=== PATIENT | male | born 1955 | race Caucasian/White ===

== ENCOUNTER → 2016-08-09 | Outpatient (CLI) | payer BC ==
--- NOTE | 2016-08-09 11:51 | CTL ---
EXAMINATION TYPE: CT Low Dose Lung DATE OF EXAM ORDERED: 08/09/2016 9:35 AM HISTORY: Long-term tobacco use. Lung cancer screening CT DLP: 86.[address] CTDI: 2.4 mGy Automated exposure control for dose reduction was used. SCREENING VISIT: Initial COMPARISON: None TECHNIQUE: Low dose computed tomography scan was performed through the chest at 1 mm thick sections a nd reconstructed images in the coronal plane at [address] DIAGNOSTIC QUALITY: Satisfactory FINDINGS: LUNG NODULES: None. LUNGS: COPD: Severity: Mild to borderline moderate Fibrosis: Severity: Minimal bilateral apical scarring. Moderate left basilar linear scarring. Lymph nodes: Some scattered subcentimeter lymph nodes. Other findings: No additional significant findings seen. BILATERAL PLEURAL SPACE: Effusion: None Calcification: None Thickening: None Pneumothorax: None Slightly elevated left hemidiaphragm noted. HEART: Heart Size: Normal Coronary calcification: Moderate to severe calcification and/or coronary stent mid to distal segment RCA and proximal LAD, clinical correlation advised. Pericardial effusion: None Moderate calcifications at level of mitral valve are noted. OTHER FINDINGS: Upper abdomen: Liver is isodense to slightly hypodense relative to spleen consistent with diffuse fat ty infiltration. Bony thorax: Mild multilevel anterior spurring. Vacuum disc phenomenon in mid to lower thoracic level s is present. Supraclavicular region: No significant abnormality is seen. Other: There is left-sided aortic arch with aberrant right subclavian running posterior to the esopha ashley. Ascending aorta measures 3.4 cm in diameter on axial image 117. Descending aorta measures 3.2 cm in diameter on same image. Main pulmonary artery is not dilated. IMPRESSION: No suspicious nodules are identified. FOLLOW UP CT CHEST RECOMMENDATION: Annual low-dose lung screening CT CT LUNG RAD: 1-negative study Incidental findings as noted above.
== END | disposition home or self-care (01) ==
LOC: RADCTMAIN 09:09
PROVIDERS: ATTEND Family Medicine
DX: Z12.2 Encounter for screening for malignant neoplasm of respiratory organs (principal); Z87.891 Personal history of nicotine dependence

== ENCOUNTER → 2016-10-26 | Outpatient (CLI) | payer BC | END | disposition home or self-care (01) | LOC: CPPFTMAIN 13:13 | PROVIDERS: ATTEND Family Medicine | DX: J44.9 Chronic obstructive pulmonary disease, unspecified (principal) | CPT/HCPCS: 94060; 94726; 94729 ==

== ENCOUNTER → 2022-03-08 | Outpatient (CLI) | payer MEDICARE, BC ==
--- NOTE | 2022-03-09 01:34 | MR ---
EXAMINATION TYPE: MR lumbar spine wo con DATE OF EXAM: 03/08/2022 COMPARISON: None HISTORY: Lower back pain, radiates into buttocks x 2 years. Hx prostate cancer. Multiplanar multiecho imaging of the lumbar spine without contrast. The vertebra have normal alignment. There is degenerative disc space narrowing at L2-3 and L3-4. Ther e is increased signal on both sides of the L2-3 disc on the STIR images consistent with edema. No annette dence of any significant increased fluid signal in the L2-3 disc. Sacroiliac joints are normal. No lumbar paraspinal mass. The posterior elements are intact. There is multilevel posterior small disc herniations from T12 through the L4 vertebra. There is developmentall y adequate spinal canal and no spinal stenosis. No compression deformity. The lumbar neural foramina are fairly well-maintained. There is a small lateral disc herniation at L2-3 on the right side. There is edema extending into the pedicle of L5 on the right side. IMPRESSION: There is edema in the L2 and L3 vertebral bodies adjacent to the disc. There is disc space narrowing. No increased fluid in the distal suggest discitis. This could be sequela of chronic discitis. There is edema extending into the right-sided pedicle of L3. Metastatic disease is not excluded. There is r ight-sided L2-3 neural foraminal narrowing with small lateral disc herniation.
== END | disposition home or self-care (01) ==
LOC: RADMRIMAIN 21:40
PROVIDERS: ATTEND Family Medicine
DX: M54.50 Low back pain, unspecified (principal)
CPT/HCPCS: 72148

== ENCOUNTER → 2023-05-26 | Outpatient (CLI) | payer MEDICARE, BC ==
--- NOTE | 2023-05-30 17:07 | PE ---
EXAMINATION TYPE: PET CT fusion skull to thigh DATE OF EXAM: 05/26/2023 COMPARISON: No recent CT. Prior PET/CT: None HISTORY: Prostate cancer TECHNIQUE: Following the intravenous administration of 5.97 mCi gallium PSMA whole body images are p erformed from the skull base to the midthigh. Images are reviewed on the computer in the coronal, ax ial, and sagittal planes. Reconstructed rotating images are created on independent workstation and r eviewed on the computer. A localization and attenuation correction CT is performed in conjunction w ith the PET scan. DLP: 1034.98 mGycm SCAN: Subsequent Blood glucose: Not applicable mg/dL FINDINGS: NECK: Normal uptake within the salivary glands. THORAX: No abnormal uptake. There is some minimal signal in the left supra hilar region. This is nonspecific. ABDOMEN: Normal excretion through the kidneys. Left ureter appears to be visualized PELVIS: No abnormal uptake OSSEOUS STRUCTURES: No abnormal uptake LOCALIZATION CT: Endplate changes and sclerosis are present at L2-L3. COMPARISON: None IMPRESSION: 1. No suspicious uptake to suggest recurrent or metastatic prostate cancer.
== END | disposition home or self-care (01) ==
LOC: RADPETMAIN 08:33
PROVIDERS: ATTEND Internal Medicine
DX: C61 Malignant neoplasm of prostate (principal)
CPT/HCPCS: 78815; A9596

== ENCOUNTER → 2023-10-11 | Outpatient (CLI) | payer MEDICARE, BC ==
[2023-10-11 14:50] LABS: African American GFR (CKD) >90 (>60 ml/min/1.73 sqM); Blood Urea Nitrogen 18 mg/dL (9-20); Non-African American GFR(CKD) 82 (>60 ml/min/1.73 sqM)
--- NOTE | 2023-10-11 15:48 | CT ---
EXAMINATION TYPE: CT angio chest CT DLP: 1037.2 mGycm, Automated exposure control for dose reduction was used. DATE OF EXAM: 10/11/2023 3:37 PM COMPARISON: Pet/CT 05/26/2023 CLINICAL INDICATION:Male, 68 years old with history of I35.0 NONRHEUMATIC AORTIC (VALVE) STENOSIS; NO NRHEUMATIC AORTIC (VALVE) STENOSIS TECHNIQUE/CONTRAST: CTA scan of the thorax is performed with IV Contrast, patient injected with 100ml mL of Isovue 370, M IP images are created and reviewed these are created on a separate workstation.. FINDINGS: Lungs/Pleura: No evidence of focal consolidation, pleural effusion or pneumothorax. Streaky atelectas is in the lung bases. Airway: Large airways are patent. Streaky atelectasis in the lung bases. Heart: Heart is within normal limits for size. Moderate to severe aortic valve calcifications. Cervic al secretions of the aorta. Vasculature: No evidence for intramural hematoma on noncontrast imaging. No evidence of intimal flap to suggest dissection. No aneurysm identified. Scattered atherosclerotic disease. There is a retroaor tic esophageal course of the right subclavian artery. There is a 5 vessel aortic arch which is an billy tomic variant. Mediastinum: No gross evidence of adenopathy. Musculoskeletal: No acute osseous abnormalities Soft Tissues: Unremarkable. Lower neck: No significant findings. Upper Abdomen: No significant findings. IMPRESSION: 1. Severe aortic valve consultations. 2. Severe coronary artery cusp patient's. 3. Anatomic variant 5 vessel aortic arch with retroesophageal course of the right subclavian artery.
== END | disposition home or self-care (01) ==
LOC: RADCTMAIN 14:06
PROVIDERS: ATTEND Internal Medicine Interventional Cardiology
DX: I35.0 Nonrheumatic aortic (valve) stenosis (principal); Q25.49 Other congenital malformations of aorta
CPT/HCPCS: 82565; 84520; 71275; 36415; Q9967

== ENCOUNTER → 2024-06-05 | Outpatient (CLI) | payer MEDICARE, BC ==
--- NOTE | 2024-06-05 12:25 | NM ---
EXAMINATION TYPE: NM bone scan whole body DATE OF EXAM: 06/05/2024 COMPARISON: Correlation PET/CT 05/26/2023 CLINICAL INDICATION: Male, 69 years old with history of C61 MALIGNANT NEOPLASM OF PROSTATE; TECHNIQUE: Delayed whole-body scanning was performed following the injection of 22.5 mCi Tc 99m MDP. Images acquired 3 hours post injection. FINDINGS: There is some degenerative tracer activity at the sternoclavicular joints, right greater than left, l ikely at the right TMJ, and within the mid lumbar spine. Some degenerative tracer activity also sugge sted at the SI joints and medial compartment of the right knee. No suspicious distribution of tracer is identified. IMPRESSION: Scattered degenerative tracer activity as outlined above. No scintigraphic evidence for o sseous metastatic disease. [facility], , 06/05/2024 12:23 PM
== END | disposition home or self-care (01) ==
LOC: RADNMMAIN 07:06
PROVIDERS: ATTEND Urology
DX: C61 Malignant neoplasm of prostate (principal)
CPT/HCPCS: 78306; A9503

== ENCOUNTER → 2024-06-19 | Outpatient (CLI) | payer MEDICARE, BC ==
--- NOTE | 2024-06-19 07:59 | MR ---
EXAMINATION TYPE: MR Prostate wo/w con DATE OF EXAM: 06/19/2024 7:41 AM COMPARISON: Bone scan 06/05/2024 CLINICAL INDICATION: Male, 69 years old with history of C61 elevated PSA; Prostate cancer reoccurrenc e, Elevated PSA TECHNIQUE: Multi-planar, multi-sequence imaging of the pelvis is performed prior to and following the uncomplicated administration of bolus intravenous gadolinium. IV Contrast: 11 mL Gadobutrol Interpretive Criteria: PI-RADS v2.1 SERUM PSA: 10/2023=9.31 03/2024 15.30 SURGICAL PATHOLOGY: No data available. FINDINGS: Prostatic dimensions: 4.3 x 3.4 x 2.3 cm cm. "Bullet" Volume:22.01 (PSA density=0.70 ng/mL/mL) CENTRAL GLAND (Central and Transition Zones/CZ+TZ): Multiple bilateral, heterogenous appearing hypertrophic stromal nodules, without suspicious lesion. M edian lobe hypertrophy with protrusion into the base of the bladder. (PI-RADS 2) PERIPHERAL ZONE (PZ): Bilateral linear, indistinct wedgelike areas of low ADC, and low T2 signal, No evidence of masslike a bnormality, or localized perfusional hypervascularity, to further suggest a focus of clinically signi ficant prostate cancer. (PI-RADS 2) SEMINAL VESICLES (SV): Symmetric and unremarkable. PERIPROSTATIC TISSUES: Unremarkable. LYMPH NODES: No enlarged pelvic lymph node. REMAINING PELVIS: Bladder wall is within normal limits given distention. No abnormal free or organized intrapelvic fluid collection. No pathologic bowel dilation or mural thickening. Colonic diverticula are present. No hernia visualized OSSEOUS STRUCTURES: No suspicious osseous abnormality. IMPRESSION: 1. No specific features for high-risk prostate cancer. Maximum PI-RADS score: 2. 2. Estimated gland volume 22.01 mL. 3. No suspicious osseous lesion. No lymphadenopathy. No evidence of prostate adenocarcinoma involving the periprostatic tissues. [facility], , 06/19/2024 7:57 AM
== END | disposition home or self-care (01) ==
LOC: RADMRIMAIN 06:37
PROVIDERS: ATTEND Urology
DX: C61 Malignant neoplasm of prostate (principal); K57.30 Diverticulosis of large intestine without perforation or abscess without bleeding
CPT/HCPCS: 72197; A9585

== ENCOUNTER 2024-11-20 22:25 | Inpatient (IN) | payer MEDICARE, BC ==
[2024-11-20 23:03] LABS: Basophils # (A) 0.05 10*3/uL (0.00-0.10); Basophils % (A) 0.7 %; Eosinophils # (A) 0.14 10*3/uL (0.04-0.35); HCT 40.1 % (39.6-50.0); Lymphocytes # (A) 2.33 10*3/uL (0.90-5.00); Lymphocytes % (A) 33.4 %; MCHC 34.9 g/dL (32.0-37.0); MCV 91.8 fL (80.0-97.0); Mean Platelet Volume 9.3 fL (9.5-12.2); Monocytes # (A) 0.99 10*3/uL (0.20-1.00); Monocytes % (A) 14.2 %; Neutrophils # (A) 3.46 10*3/uL (1.80-7.70); Neutrophils % (A) 49.6 %; Platelet Count 212 10*3/uL (140-440); RBC 4.37 10*6/uL (4.40-5.60); RDW 13.6 % (11.5-14.5); WBC 6.98 10*3/uL (4.50-10.00)
[2024-11-20 23:17] LABS: ALT 46 U/L (4-49); AST 43 U/L (17-59); African American GFR (CKD) 77 (>60 ml/min/1.73 sqM); Albumin 4.4 g/dL (3.5-5.0); Alkaline Phosphatase 64 U/L (38-126); Anion Gap 12 mmol/L; Blood Urea Nitrogen 21 mg/dL (9-20); Calcium 9.9 mg/dL (8.4-10.2); Carbon Dioxide 24 mmol/L (22-30); Chloride 100 mmol/L (98-107); Glucose 155 mg/dL (74-99); Magnesium 1.9 mg/dL (1.6-2.3); Non-African American GFR(CKD) 66 (>60 ml/min/1.73 sqM); Potassium 3.3 mmol/L (3.5-5.1); Sodium 136 mmol/L (137-145); Total Bilirubin 0.6 mg/dL (0.2-1.3); Total Protein 7.5 g/dL (6.3-8.2)
[2024-11-20] MEDS: SODIUM CHLORIDE 0.9% 1,000 ML IV STA (23:19)
[2024-11-20] MEDS: ASPIRIN 81 MG PO STA (23:19)
[2024-11-20 23:26] LABS: NT-Pro-B-Type Natriuretic Pept 150 pg/mL
--- NOTE | 2024-11-20 23:28 | ED ---
Chest Pain HPI - General Chief Complaint: Chest Pain Stated Complaint: chest pain Time Seen by Provider: 11/20/24 22:38 Source: patient, RN notes reviewed Mode of arrival: ambulatory Limitations: no limitations - History of Present Illness Initial Comments: 69-year-old male presents emergency department complaint of chest pain. Patient states he has been having some on and off symptoms but became more worrisome today. Patient states that currently the pain has resolved but states feels like behind his heart. Patient does admit that he had stents placed in [address] Paredes. Patient states that he had a stress test last year he has not had a recent catheterization. Patient states he does feel lightheaded, dizzy, shortness of breath with the symptoms. Patient states there are some exertional symptoms and features. The usual. - Related Data Allergies Allergy/AdvReac Type Severity Reaction Status Date / Time No Known Allergies Allergy Verified 11/20/24 22:33 Review of Systems ROS Statement: Those systems with pertinent positive or pertinent negative responses have been documented in the HPI. ROS Other: All systems not noted in ROS Statement are negative. EKG Findings - EKG Comments: EKG Findings:: EKG performed at 22: 44 sinus bradycardia with prescribed back rate of 47 [place] 215 QRS 116 QT/QTc 444/[address] elevation there is i nverted T wave in lead III - EKG Results: EKG: interpreted by NORA Past Medical History Past Medical History: Diabetes Mellitus Additional Past Medical History / Comment(s): Prostate cancer History of Any Multi-Drug Resistant Organisms: None Reported Past Anesthesia/Blood Transfusion Reactions: No Reported Reaction Past Psychological History: No Psychological Hx Reported Smoking Status: Former smoker Past Drug Use History: None Reported General Exam Limitations: no limitations General appearance: alert, in no apparent distress Head exam: Present: atraumatic, normocephalic, normal inspection Eye exam: Present: normal appearance, PERRL, EOMI. Absent: scleral icterus, conjunctival injection, periorbital swelling ENT exam: Present: normal exam, normal oropharynx, mucous membranes moist Neck exam: Present: normal inspection, full ROM. Absent: tenderness, meningismus, lymphadenopathy Respiratory exam: Present: normal lung sounds bilaterally. Absent: respiratory distress, wheezes, rales, rhonchi, stridor Cardiovascular Exam: Present: normal rhythm, bradycardia, normal heart sounds. Absent: systolic murmur, diastolic murmur, rubs, gallop, clicks GI/Abdominal exam: Present: soft, normal bowel sounds. Absent: distended, tenderness, guarding, rebound, rigid Extremities exam: Present: normal capillary refill, other (Pedal pulses equal bilaterally). Absent: pedal edema, calf tenderness Neurological exam: Present: alert, oriented X3 Course Vital Signs 11/20/24 11/21/24 22:28 00:20 Temperature 97.6 F Pulse Rate 44 L 53 L Respiratory 18 16 Rate Blood Pressure 89/53 101/66 O2 Sat by Pulse 98 Oximetry Chest Pain MDM - MDM Was pt. sent in by a medical professional or institution (, PA, MUSIC INTERN, urgent care, hospital, or custodial...) When possible be specific @ -No Did you speak to anyone other than the patient for history (EMS, parent, family, police, friend...)? What history was obtained from this source @ -No Did you review nursing and triage notes (agree or disagree)? Why? @ -I reviewed and agree with nursing and triage notes Were old charts reviewed (outside hosp., previous admission, EMS record, old EKG, old radiological studies, urgent care reports/EKG's, custodial records)? Report findings @ -No old charts were reviewed Differential Diagnosis (chest pain, altered mental status, abdominal pain women, abdominal pain men, vaginal bleeding, weakness, fever, dyspnea, syncope, headache, dizziness, GI bleed, back pain, seizure, CVA, palpatations, mental health, musculoskeletal)? @ -Differential Chest Pain: Stable Angina, Unstable Angina, STEMI, NSTEMI Aortic Dissection, Pneumothorax, Musculoskeletal, Esophageal Spasm GERD, Cholecystitis, Pancreatitis, Zoster, this is not meant to be an all-inclusive list. EKG interpreted by me (3pts min.). @ -As above X-rays interpreted by me (1pt min.). @ -Chest x-ray shows no acute cardiopulmonary process. CT interpreted by me (1pt min.). @ -None done U/S interpreted by me (1pt. min.). @ -None done What testing was considered but not performed or refused? (CT, X-rays, U/S, labs)? Why? @ -None What meds were considered but not given or refused? Why? @ -None Did you discuss the management of the patient with other professionals (professionals i.e. DrMary, PA, MUSIC INTERN, lab, RT, psych nurse, social work manager, orthopedic dentist, teacher, protocol officer, medical case worker)? Give summary @ -Dr. Narayanan for admission Was smoking cessation discussed for >3mins.? @ -No Was critical care preformed (if so, how long)? @ -35 minutes Were there social determinants of health that impacted care today? How? (Homelessness, low income, unemployed, alcoholism, drug addiction, transportation, low edu. Level, literacy, decrease access to med. care, prison, rehab)? @ -No Was there de-escalation of care discussed even if they declined (Discuss DNR or withdrawal of care, Hospice)? DNR status @ -No What co-morbidities impacted this encounter? (DM, HTN, Smoking, COPD, CAD, Cancer, CVA, ARF, Chemo, Hep., AIDS, mental health diagnosis, sleep apnea, morbid obesity)? @ -None Was patient admitted / discharged? Hospital course, mention meds given and route, prescriptions, significant lab abnormalities, going to OR and other pertinent info. @ -Admitted patient presented for chest pain has been intermittent worsening type symptoms. Patient did not initially feel improved since initial troponin 0.4. Patient was started on heparin, provided to aspirin as he took 2 baby aspirin at home. Patient has Nitropaste applied. Patient will be mated for repeat cardiac enzymes, cardiology evaluation and further testing. Undiagnosed new problem with uncertain prognosis? @ -No Drug Therapy requiring intensive monitoring for toxicity (Heparin, Nitro, Insulin, Cardizem)? @ -No Were any procedures done? @ -No Diagnosis/symptom? @ -NSTEMI Acute, or Chronic, or Acute on Chronic? @ -Acute Uncomplicated (without systemic symptoms) or Complicated (systemic symptoms)? @ -Complicated Side effects of treatment? @ -No Exacerbation, Progression, or Severe Exacerbation? @ -No Poses a threat to life or bodily function? How? (Chest pain, [place], [place], pneumonia, PE, COPD, DKA, ARF, appy, cholecystitis, CVA, Diverticulitis, Homicidal, Suicidal, threat to staff... and all critical care pts) @ -Yes risk to cardiac function Critical Care Time Critical Care Time: Yes Total Critical Care Time: 35 Disposition Clinical Impression: Acute non-ST elevation myocardial infarction (NSTEMI) Disposition: ADMITTED IP TO THIS HOSP Condition: Serious Referrals: Artemio Sevilla Jr, [Primary Care Provider] - 1-2 days Time of Disposition: 00:47
[2024-11-20 23:31] LABS: Prothrombin Time 10.7 sec (10.0-12.5)
[2024-11-21] MEDS: HEPARIN SODIUM 1,000 UN/ML (10ML VL) IV ONE ×2 (00:23→11:28)
[2024-11-21] MEDS: HEPARIN SOD,PORK IN 0.45% NACL 25,000 UNIT in 0.45% NACL 1 250ML.BAG IV SCH (00:23)
[2024-11-21] MEDS: POTASSIUM CHLORIDE ER 20 MEQ TAB.ER PO STA (00:24)
[2024-11-21 00:28] LABS: Partial Thromboplastin Time 21.2 sec (22.0-30.0)
[2024-11-21] MEDS: NITROGLYCERIN OINT 1 INCH/GM PACKET TOPICAL STA (00:34)
[2024-11-21] MEDS ORDERED: NITROGLYCERIN SL TABS 0.4 MG TAB SUBLINGUAL PRN ×2 (00:47→20:21)
--- NOTE | 2024-11-21 01:35 | XR ---
EXAM: XR Chest, 2 Views CLINICAL HISTORY: XR Reason: Chest Pain TECHNIQUE: Frontal and lateral views of the chest. COMPARISON: CT scan from 10/11/2023 FINDINGS: Lungs: Small amount of thin linear scarring or atelectasis in the left lung base. The lungs are otherwise clear. No acute appearing infiltrate or consolidation is identified. Pleural space: Unremarkable. No pneumothorax. Heart: Unremarkable. No cardiomegaly. Mediastinum: Unremarkable. Normal mediastinal contour. Bones/joints: Mild degenerative changes in the lower thoracic spine. No acute fracture. Upper abdomen: Unremarkable as visualized. No pneumoperitoneum under the diaphragm. IMPRESSION: Small amount of thin linear scarring or atelectasis in the left lung base. The lungs are otherwise clear. No acute appearing infiltrate or consolidation is identified.
[2024-11-21] MEDS: HEPARIN SODIUM 1,000 UN/ML (10ML VL) IV PRN (06:59)
[2024-11-21] MEDS: ASPIRIN 325 MG TAB PO STA (08:16)
[2024-11-21] MEDS: ATORVASTATIN 80 MG TAB PO STA (08:16)
[2024-11-21] MEDS: SODIUM CHLORIDE 0.9% 1,000 ML IV SCH ×2 (08:20→12:00)
[2024-11-21] MEDS: IV FLUID CONTINUATION 1,000 ML IV ONE (11:08)
[2024-11-21] MEDS: HEPARIN SODIUM (1,000 UNIT/ML) 1,000 UNIT in SODIUM CHLORIDE 0.9% 1,000 ML IRRIGATION ONE (11:08)
[2024-11-21] MEDS: HEPARIN SODIUM,PORCINE (1 ML) 2,500 UNIT in SODIUM CHLORIDE 0.9% 250 ML IRRIGATION ONE (11:08)
[2024-11-21] MEDS: MIDAZOLAM 2 MG/2 ML VIAL IVP ONE (11:20)
[2024-11-21] MEDS: LIDOCAINE 1% INJ 10MG/ML (20 ML MDV) SQ ONE (11:24)
[2024-11-21] MEDS: VERAPAMIL SYRINGE (5 MG/10 ML) INTRAARTER ONE (11:25)
[2024-11-21] MEDS: IOPAMIDOL-370 100ML BTL INJ ONE (11:41)
--- NOTE | 2024-11-21 12:33 | P.CRDCN ---
History of Present Illness Consult date: 11/21/24 Reason for Consult (text): NSTEMI History of present illness: This is a 69-year-old male patient of Dr. DOROTEO Paredes with past medical history of coronary artery disease prior PCI of the right coronary artery, moderate to severe aortic stenosis, hypertension, hyperlipidemia, family history of premature coronary artery disease. We have been asked to evaluate the patient for NSTEMI. Patient presented to the hospital due to chest pain that had been on and off all day yesterday. He has no chest pain at the time of this evaluation. He denies shortness of breath, no palpitations. Blood pressure 109/68, heart rate 57, pulse ox 99% on room air. Dr. Les randhawa discussed with patient the recommendations for cardiac catheterization and he is agreeable to move forward with this today. -EKG: Sinus bradycardia with first-degree block -Chest x-ray: Small amount of thin linear scarring or atelectasis in the left lung base. -Laboratory studies: Troponin 0.409, 1.8, 3.37. proBNP 150. D-dimer 0.41. Sodium 136, potassium 3.3, BUN 21 creatinine 1.13. WBC 6.9 and hemoglobin 14. -Home cardiac medications according to office note dated 09/12/2024: Aspirin 81 mg daily, Jardiance 10 mg daily, Lipitor 40 mg daily, losartan 25 mg daily, metoprolol tartrate 50 mg twice daily. -Echocardiogram performed in the office revealed EF of 55%, moderate aortic stenosis. Mild mitral regurgitation. Mild tricuspid regurgitation. Normal PASP. Mild pulmonic regurgitation. -Cardiolite stress test performed in the office in 08/23/2022 revealed fair exercise capacity with negative stress test by EKG criteria. Small and area of septal partially reversible mild intensity defect which may be an artifact or small area of ischemia in the inferior wall. EF is normal. -Cardiac catheterization performed in 2007 revealed superdominant right coronary artery with critical mid lesion. Stenting with 2 drug-eluting stents was performed. Left system did not have any significant disease. -CT chest performed 10/11/2023 revealed severe aortic valve calcification. No aneurysm. Review Of Systems: At the time of my exam: CONSTITUTIONAL: Denies fever or chills. HEENT: Denies blurred vision, vision changes, or eye pain. Denies hemoptysis CARDIOVASCULAR: Denies chest pain. Denies orthopnea. Denies PND. Denies palpitations RESPIRATORY: Denies shortness of breath. GASTROINTESTINAL: Denies abdominal pain. Denies nausea or vomiting. HEMATOLOGIC: Denies bleeding disorders. GENITOURINARY: Denies any blood in urine. SKIN: Denies puritis. Denies rash. Physical examination: Gen: This is 69-year-old male in no acute distress VS: reviewed HEENT: Head is atraumatic, normocephalic. Pupils equal, round. Sclerae is anicteric. NECK: Supple. No JVD. LUNGS: Clear to auscultation. No wheezes or rhonchi. No intercostal retractions. HEART: Regular rate and rhythm. 2/6 AGNIESZKA. ABDOMEN: Soft No tenderness. EXTREMITIES: No pedal edema. No calf tenderness. NEUROLOGICAL: Patient is awake, alert and oriented x3. Assessment: NSTEMI History of coronary artery disease with prior PCI of the RCA Moderate to severe aortic stenosis Hypertension Hyperlipidemia Plan: Resume patient's home cardiac medications Continue Heparin gtt Obtain Limited 2-D echocardiogram and Doppler study to assess cardiac function Schedule patient for [facility] today with Dr. Reggie DYE Start IVF NS at 75cc/h Further recommendations to follow based upon clinical course Thank you kindly for this consultation. Nurse practitioner note has been reviewed, I agree with documented findings and plan of care. Patient was seen and examined. Past Medical History Past Medical History: Diabetes Mellitus Additional Past Medical History / Comment(s): Prostate cancer History of Any Multi-Drug Resistant Organisms: None Reported Past Anesthesia/Blood Transfusion Reactions: No Reported Reaction Past Psychological History: No Psychological Hx Reported Smoking Status: Former smoker Past Drug Use History: None Reported Medications and Allergies Allergies Allergy/AdvReac Type Severity Reaction Status Date / Time No Known Allergies Allergy Verified 11/20/24 22:33 Physical Exam Vitals: Vital Signs Temp Pulse Resp BP Pulse Ox 11/21/24 06:06 97.8 F 60 16 92/53 98 11/21/24 05:28 60 18 94/58 100 11/21/24 03:58 57 L 18 106/66 97 11/21/24 02:28 55 L 18 93/62 97 11/21/24 01:12 52 L 16 107/68 97 11/21/24 00:20 53 L 16 101/66 11/20/24 22:28 97.6 F 44 L 18 89/53 98 Intake and Output 11/20/24 11/21/24 11/21/24 22:59 06:59 14:59 Intake Total 64.199 Balance 64.199 Intake: Intake, IV Titration 64.199 Amount Heparin Sod,Pork in 0.45% 64.199 NaCl 25,000 unit In 0.45 % NaCl 1 250ml.bag @ 8.93 UNITS/KG/HR 10.005 mls/ hr IV .Q24H [facility] Rx#: [id number] Other: Weight 112.037 kg Results 11/20/24 22:50 11/20/24 22:50 Cardiac Enzymes 11/20/24 11/20/24 11/21/24 Range/Units 22:50 22:50 02:21 AST 43 (17-59) U/L Troponin I 0.409 H* 1.800 H* (0.000-0.034) ng/mL 11/21/24 Range/Units 05:34 AST (17-59) U/L Troponin I 3.370 H* (0.000-0.034) ng/mL Coagulation 11/20/24 11/21/24 Range/Units 22:50 05:34 PT 10.7 (10.0-12.5) sec APTT 21.2 L 28.5 (22.0-30.0) sec CBC 11/20/24 Range/Units 22:50 WBC 6.98 (4.50-10.00) 10*3/uL RBC 4.37 L (4.40-5.60) 10*6/uL Hgb 14.0 (13.0-17.0) g/dL Hct 40.1 (39.6-50.0) % Plt Count 212 (140-440) 10*3/uL Comprehensive Metabolic Panel 11/20/24 Range/Units 22:50 Sodium 136 L (137-145) mmol/L Potassium 3.3 L (3.5-5.1) mmol/L Chloride 100 (98-107) mmol/L Carbon Dioxide 24 (22-30) mmol/L BUN 21 H (9-20) mg/dL Creatinine 1.13 (0.66-1.25) mg/dL Glucose 155 H (74-99) mg/dL Calcium 9.9 (8.4-10.2) mg/dL AST 43 (17-59) U/L ALT 46 (4-49) U/L Alkaline Phosphatase 64 (38-126) U/L Total Protein 7.5 (6.3-8.2) g/dL Albumin 4.4 (3.5-5.0) g/dL Current Medications Generic Name Dose Route Start Last Admin Trade Name Jose Eduardoq PRN Reason Stop Dose Admin Aspirin 325 mg 11/22/24 09:00 Aspirin 325 Mg Tab PO DAILY [facility] Heparin Sodium (Porcine) 0 unit 11/21/24 00:03 11/21/24 06:59 Heparin Sodium 1,000 Un/Ml (10ml Vl) IV 4,000 unit PER PROTOCOL PRN Administration Low PTT Protocol Heparin Sodium/Sodium Chloride 250 mls @ 10.005 mls/hr 11/21/24 00:15 11/21/24 06:48 25,000 unit/ Sodium Chloride IV 11.93 units/kg/hr .Q24H [facility] 13.366 mls/hr Titration Protocol 8.93 UNITS/KG/HR Nitroglycerin 0.4 mg 11/21/24 00:47 Nitroglycerin Sl Tabs 0.4 Mg Tab SUBLINGUAL Q5M PRN Chest Pain Intake and Output 11/20/24 11/21/24 11/21/24 22:59 06:59 14:59 Intake Total 64.199 Balance 64.199 Intake: Intake, IV Titration 64.199 Amount Heparin Sod,Pork in 0.45% 64.199 NaCl 25,000 unit In 0.45 % NaCl 1 250ml.bag @ 8.93 UNITS/KG/HR 10.005 mls/ hr IV .Q24H [facility] Rx#: [id number] Other: Weight 112.037 kg 11/20/24 22:50 11/20/24 22:50
--- NOTE | 2024-11-21 15:56 | US ---
EXAMINATION TYPE: Pre-Operative Non-Invasive Evaluation of the hand for Potential Radial Artery Davis hartley, Measurements only DATE OF EXAM: 11/21/2024 3:44 PM CLINICAL INDICATION: Male, 69 years old with history of Pre-Op Cardiac Surgery; , Preop- Cardiac Surg matty TECHNIQUE:Grayscale and color Doppler imaging of the radial artery(s) SIDE PERFORMED: Left FINDINGS: Dominant hand: Right Duplex Findings: Radial Artery: Color flow seen Measurements in mm, transverse view: Left Radial: Proximal: 6.5 x 6.7 mm Mid: 3.2 x 3.4 mm Distal: 3.2 x 3.3 mm IMPRESSION: 1. No evidence for vascular occlusion. 2. Measurements as described above. [facility], , 11/21/2024 3:54 PM
[2024-11-21] MEDS: NITROGLYCERIN SL TABS 0.4 MG TAB SUBLINGUAL PRN (16:00)
--- NOTE | 2024-11-21 16:00 | US ---
EXAMINATION TYPE: US carotid duplex BILAT DATE OF EXAM: 11/21/2024 COMPARISON: NONE CLINICAL INDICATION: Male, 69 years old with history of Pre-Op Cardiac Surgery; pending open heart Additional History: .... TECHNIQUE: Grayscale, color Doppler and spectral Doppler evaluation of the bilateral carotid systems and vertebral arteries. Indirect Doppler criteria was utilized. FINDINGS: EXAM MEASUREMENTS: RIGHT: Peak Systolic Velocity (PSV) cm/sec ----- Right CCA: 66.3 ----- Right ICA: 73.0 ----- Right ECA: 95.6 ICA/CCA ratio: 1.1 RIGHT: End Diastole cm/sec ----- Right CCA: 14.4 ----- Right ICA: 21.1 ----- Right ECA: 0.0 LEFT: Peak Systolic Velocity (PSV) cm/sec ----- Left CCA: 68.9 ----- Left ICA: 85.8 ----- Left ECA: 103.0 ICA/CCA ratio: 1.2 LEFT: End Diastole cm/sec ----- Left CCA: 14.4 ----- Left ICA: 29.8 ----- Left ECA: 5.1 VERTEBRALS (direction of flow): Right Vertebral: Antegrade Left Vertebral: Antegrade Rhythm: Normal DIET AIDE NOTES: Mild homogeneous plaque with no stenosis seen Color Doppler imaging shows patency with blood flow throughout the carotid artery. Spectral waveforms are within normal limits. IMPRESSION: Right: No hemodynamically significant stenosis. Left: No hemodynamically significant stenosis. Criteria for Assigning % of Stenosis / Diameter reduction (Estimation based on the indirect measurements of the internal carotid artery velocities (ICA PSV). 1. Normal (no stenosis)=ICA PSV < 180 cm/s: ratio < 2.0: ICA EDV<40 cm/s. 2. Less than 50% stenosis=ICA PSV < 180 cm/s: ratio < 2.0: ICA EDV<40 cm/s. 3. 50 to 69% stenosis=ICA PSV of 180 to 230 cm/s: ration 2.0 ? 4.0: ICA EDV 40-100 cm/s. PSV 125-180 cm/sec and ICA/CCA PSV Ratio ? 2.0 is also consistent with 50-69% stenosis 4. Greater than 70% stenosis to near occlusion= ICA PSV > 230 cm/s: ratio > 4.0: ICA EDV > 100 cm/s. 5. Near occlusion= ICA PSV velocities may be low or undetectable: variable ratio and ICA EDV. 6. Total occlusion=unable to detect flow. [facility], , 11/21/2024 3:58 PM
--- NOTE | 2024-11-21 16:05 | US ---
EXAMINATION TYPE: US vein mapping BILAT DATE OF EXAM: 11/21/2024 3:44 PM COMPARISON: NONE CLINICAL INDICATION: Male, 69 years old with history of PreOp Cardiac Surgery; , Preop- Cardiac Surge ry TECHNIQUE: Grayscale and color Doppler imaging of the lower extremity venous system. SIDE PERFORMED: Bilateral FINDINGS: PATIENT HISTORY: Smoker: n Heart Disease: n Previous DVT: n Vascular Surgery: heart stents Discoloration: n Hypertension: y Diabetes: y Paralysis: n Varicosities: n Edema: n DUPLEX FINDINGS: Greater Saphenous: Color flow seen Lesser Saphenous: Color flow seen Measurements in mm: Right Greater Saphenous: Groin: 8.8 x 7.8 mm High Thigh: 4.6 x 4.6 mm Mid Thigh: 4.3 x 5.2 mm Above Knee: 4.2 x 4.4 mm Knee: 3.6 x 4.6 mm Below Knee: 2.1 x 2.5 mm Mid Calf: 2.1 x 2.5 mm At Ankle: 2.4 x 3.2 mm Left Greater Saphenous: Groin: 8.6 x 9.0 mm High Thigh: 5.3 x 5.5 mm Mid Thigh: 4.0 x 5.0 mm Above Knee: 3.5 x 4.6 mm Knee: 2.7 x 3.4 mm Below Knee: 3.5 x 3.3 mm Mid Calf: 2.9 x 3.2 mm At Ankle: 2.3 x 3.1 mm IMPRESSION: 1. No evidence for occlusion. 2. GSV measurements listed above. 3. Performing surgeon to determine viability as conduit. [facility], , 11/21/2024 4:02 PM
--- NOTE | 2024-11-21 16:19 | P.GSCN ---
History of Present Illness Consult date: 11/21/24 Reason for Consult: Coronary artery disease and severe aortic valve stenosis Requesting physician: Colton Paredes History of present illness: This is a 69-year-old gentleman who follows on an outpatient basis with Dr. Artemio Sevilla for his primary care and with Dr. DOROTEO Paredes for his cardiology care. He has a past medical history significant for known aortic valve stenosis which is followed by Dr. Paredes with serial echocardiograms, coronary artery disease with previous PCI to his right coronary artery in 2007, hypertension, hyperlipidemia, obesity with a BMI of 30.9 kg/m, diabetes mellitus type 2, prostate cancer status post 3 months of radiation therapy, family history of premature coronary artery disease with his father, umbilical hernia, remote history of smoking quit 20 years ago, EtOH use, drinks 5 beers per week, and occasional marijuana use on the weekends. The patient presented to the emergency department here at [facility] yesterday November 20 2024 with complaints of chest pain which was progressive. He reports he has been having episodes of chest pain since October 23 which has progressively gotten worse. He states that his chest pain usually goes away with periods of rest, although became worrisome and he decided to present to the emergency department. He denies any recent fever, chills, nausea, vomiting, diarrhea, constipation, cough, headache, shortness of breath, presyncope or syncope. He does state that he does have some brown out periods which he describes as things feel to close in on him. Initial laboratory results show a WBC count of 6.98, hemoglobin 14. 0, hematocrit 40.1, platelets 212, PT 10.7, INR 1.0, PTT 21.2, D-dimer 0.41, sodium 136, potassium 3.3, chloride 100, CO2 24, BUN 21, creatinine 1.13, glucose 155, calcium 9.9, magnesium 1.9, proBNP 150, and elevated troponins as high as 3.370. Due to the patient's presenting symptoms and elevated troponins he was ruled in for non-ST elevated myocardial infarction. Cardiology was consulted, an EKG was completed which showed sinus bradycardia with a first- degree block. A chest x-ray was also completed which showed a small amount of thin linear scarring or atelectasis in the left lung base. The patient also underwent a transthoracic 2D echocardiogram on October 12, [address] Paredes's office which showed an ejection fraction of 55%, moderate aortic valve stenosis, mild mitral valve regurgitation, mild tricuspid valve regurgitation, and mild pulmonic valve regurgitation. Due to the patient's history of coronary artery disease, his presenting symptoms and elevated troponins he was recommended to undergo a cardiac catheterization which was completed today. The cardiac catheterization revealed a 35% stenosis to his circumflex coronary artery, a 70% stenosis to his mid left anterior descending coronary artery, and a totally occluded right coronary artery. The cardiac catheterization also revealed severe aortic valve stenosis. Due to the findings on the cardiac catheterization a consult was placed to cardiothoracic surgery for further evaluation and treatment recommendations. Review of Systems A review of systems was completed was negative except as mentioned in the HPI. Past Medical History Past Medical History: Coronary Artery Disease (CAD), Cancer (Prostate), Chest Pain / Angina (Chest pain since October 23, 2024), Diabetes Mellitus, Hyperlipidemia, Hypertension Additional Past Medical History / Comment(s): Prostate cancer History of Any Multi-Drug Resistant Organisms: None Reported Past Surgical History: Tonsillectomy Additional Past Surgical History / Comment(s): Vasectomy, amputation of his fourth toe right foot Past Anesthesia/Blood Transfusion Reactions: No Reported Reaction Past Psychological History: No Psychological Hx Reported Smoking Status: Former smoker (Quit smoking 20 years ago) Past Alcohol Use History: Occasional (Drinks 5 beers per week) Past Drug Use History: Marijuana (Does marijuana Gummies on weekends) - Past Family History Father Family Medical History: Coronary Artery Disease (CAD), Hyperlipidemia, Hypertension Additional Family Medical History / Comment(s): History of malaria Mother Family Medical History: Cancer (Breast) Additional Family Medical History / Comment(s): His mother committed suicide Brother(s) Additional Family Medical History / Comment(s): Brother committed suicide Sister(s) Additional Family Medical History / Comment(s): Sister committed suicide Medications and Allergies Allergies Allergy/AdvReac Type Severity Reaction Status Date / Time No Known Allergies Allergy Verified 11/20/24 22:33 Surgical - Exam Vital Signs Temp Pulse Resp BP Pulse Ox 97.6 F 44 L 18 89/53 98 11/20/24 22:28 11/20/24 22:28 11/20/24 22:28 11/20/24 22:28 11/20/24 22:28 - General well developed, well nourished, no distress, no pain, obese - Eyes PERRL, normal ocular movement, no pale, no icteric - ENT normal pinna, normal nares, normal mucosa, no hearing loss, no congestion - Neck Neck is supple, no lymphadenopathy. no masses, no bruits, trachea midline, no venous distension - Respiratory Lung sounds essentially clear throughout. No wheezes, rhonchi or crackles. Respirations are symmetrical and nonlabored. - Cardiovascular Regular rhythm and rate. S1 and S2 present, diminished S2. Negative for S3, or gallop. Positive systolic murmur 2/6. - Abdomen Abdomen is soft, nontender and nondistended. Active bowel sounds present all 4 abdominal quadrants. No organomegaly appreciated. No guarding or rigidity. - Genitourinary Deferred - Rectum Deferred - Integumentary Skin is warm and dry. No clubbing or cyanosis is present. no rash, no growths, no abnormal pigmentation - Neurologic No focal deficits. normal coordination, normal sensation - Musculoskeletal Moves all 4 extremities with equal strength bilateral. normal gait, normal posture - Psychiatric oriented to time, oriented to person, oriented to place, speech is normal, memory intact Results - Labs 11/20/24 22:50 11/20/24 22:50 Abnormal Lab Results - Last 24 Hours (Table) 11/20/24 11/20/24 11/20/24 Range/Units 22:50 22:50 22:50 RBC 4.37 L (4.40-5.60) 10*6/uL MPV 9.3 L (9.5-12.2) fL APTT 21.2 L (22.0-30.0) sec Sodium 136 L (137-145) mmol/L Potassium 3.3 L (3.5-5.1) mmol/L BUN 21 H (9-20) mg/dL Glucose 155 H (74-99) mg/dL Troponin I (0.000-0.034) ng/mL 11/20/24 11/21/24 11/21/24 Range/Units 22:50 02:21 05:34 RBC (4.40-5.60) 10*6/uL MPV (9.5-12.2) fL APTT (22.0-30.0) sec Sodium (137-145) mmol/L Potassium (3.5-5.1) mmol/L BUN (9-20) mg/dL Glucose (74-99) mg/dL Troponin I 0.409 H* 1.800 H* 3.370 H* (0.000-0.034) ng/mL Diabetes panel 11/20/24 Range/Units 22:50 Sodium 136 L (137-145) mmol/L Potassium 3.3 L (3.5-5.1) mmol/L Chloride 100 (98-107) mmol/L Carbon Dioxide 24 (22-30) mmol/L BUN 21 H (9-20) mg/dL Creatinine 1.13 (0.66-1.25) mg/dL Glucose 155 H (74-99) mg/dL Calcium 9.9 (8.4-10.2) mg/dL AST 43 (17-59) U/L ALT 46 (4-49) U/L Alkaline Phosphatase 64 (38-126) U/L Total Protein 7.5 (6.3-8.2) g/dL Albumin 4.4 (3.5-5.0) g/dL Calcium panel 11/20/24 Range/Units 22:50 Calcium 9.9 (8.4-10.2) mg/dL Albumin 4.4 (3.5-5.0) g/dL Pituitary panel 11/20/24 Range/Units 22:50 Sodium 136 L (137-145) mmol/L Potassium 3.3 L (3.5-5.1) mmol/L Chloride 100 (98-107) mmol/L Carbon Dioxide 24 (22-30) mmol/L BUN 21 H (9-20) mg/dL Creatinine 1.13 (0.66-1.25) mg/dL Glucose 155 H (74-99) mg/dL Calcium 9.9 (8.4-10.2) mg/dL Adrenal panel 11/20/24 Range/Units 22:50 Sodium 136 L (137-145) mmol/L Potassium 3.3 L (3.5-5.1) mmol/L Chloride 100 (98-107) mmol/L Carbon Dioxide 24 (22-30) mmol/L BUN 21 H (9-20) mg/dL Creatinine 1.13 (0.66-1.25) mg/dL Glucose 155 H (74-99) mg/dL Calcium 9.9 (8.4-10.2) mg/dL Total Bilirubin 0.6 (0.2-1.3) mg/dL AST 43 (17-59) U/L ALT 46 (4-49) U/L Alkaline Phosphatase 64 (38-126) U/L Total Protein 7.5 (6.3-8.2) g/dL Albumin 4.4 (3.5-5.0) g/dL - Imaging Chest x-ray: report reviewed, image reviewed EKG: image reviewed Assessment and Plan Assessment: Coronary artery disease with previous PCI of the right coronary artery in 2007 Non-ST elevated myocardial infarction this admission Severe aortic valve stenosis on cardiac catheterization Hypertension Hyperlipidemia Diabetes mellitus type 2 Obesity with a BMI of 30.9 kg/m Family history of early onset coronary artery disease History of prostate cancer status post 3 months of radiation therapy Remote history of nicotine dependence, quit smoking 20 years ago EtOH use with 5 beers per week Weekend use of marijuana Umbilical hernia Plan: The patient was seen and examined in conjunction with Dr. Cruz at his bedside in the extended stay unit. His chart and diagnostics were reviewed. Dr. Cruz discussed the findings of the cardiac catheterization with the patient and the patient's son-in-law who was present at his bedside. Treatment options di scussed with the patient by Dr. Cruz including myocardial revascularization surgery and aortic valve replacement. Once the patient's preoperative testing has been completed and results reviewed, an STS risk core will be calculated and discussed with the patient. Once the patient is able to ambulate a 5 m walk test will be completed with the patient. The patient recently has seen his dentist and we will call his dentist office for dental clearance. A clinical frailty score was calculated and equals 2. Continue to maximize medical management with aspirin, statin and beta-aaron. Medical management other comorbidities per primary care and cardiology services. More recommendations to follow based on patient's clinical course and as the patient's preoperative testing has been obtained. Timing of surgery to follow. Thank you Dr. Paredes for this consult and will look forward to working with you in the care of this patient. I have personally seen and examined the patient, performed the documentation and the assessment and plan as written. Number of minutes spent on the visit: 30. RAMON Trevino Time with Patient: Greater than 30
[2024-11-21] MEDS: HYDROmorphone 0.5 MG/0.5 ML SYRINGE IVP STA (16:54)
[2024-11-21] MEDS: DAPAGLIFLOZIN PROPANEDIOL 10 MG TABLET PO SCH (17:01)
[2024-11-21] MEDS: METOPROLOL TARTRATE 12.5 MG TAB PO SCH (17:01)
[2024-11-21 17:21] LABS: Glucose,Whole Blood 118 mg/dL (70-110)
[2024-11-21 18:48] LABS: Basophils # (A) 0.04 10*3/uL (0.00-0.10); Basophils % (A) 0.5 %; Eosinophils # (A) 0.04 10*3/uL (0.04-0.35); Eosinophils % (A) 0.5 %; HCT 39.6 % (39.6-50.0); HGB 13.3 g/dL (13.0-17.0); Lymphocytes % (A) 16.2 %; MCH 32.1 pg (27.0-32.0); MCHC 33.6 g/dL (32.0-37.0); MCV 95.7 fL (80.0-97.0); Mean Platelet Volume 9.8 fL (9.5-12.2); Monocytes # (A) 0.68 10*3/uL (0.20-1.00); Monocytes % (A) 9.2 %; Neutrophils # (A) 5.42 10*3/uL (1.80-7.70); Neutrophils % (A) 73.3 %; Platelet Count 190 10*3/uL (140-440); RBC 4.14 10*6/uL (4.40-5.60)
[2024-11-21 19:08] LABS: ALT 52 U/L (4-49); AST 156 U/L (17-59); African American GFR (CKD) >90 (>60 ml/min/1.73 sqM); Albumin 4.4 g/dL (3.5-5.0); Alkaline Phosphatase 71 U/L (38-126); Anion Gap 13 mmol/L; Blood Urea Nitrogen 18 mg/dL (9-20); Calcium 9.5 mg/dL (8.4-10.2); Carbon Dioxide 21 mmol/L (22-30); Chloride 102 mmol/L (98-107); Glucose 121 mg/dL (74-99); Magnesium 1.9 mg/dL (1.6-2.3); Non-African American GFR(CKD) 89 (>60 ml/min/1.73 sqM); Potassium 3.6 mmol/L (3.5-5.1); Sodium 136 mmol/L (137-145); Total Bilirubin 1.1 mg/dL (0.2-1.3); Total Protein 7.7 g/dL (6.3-8.2)
--- NOTE | 2024-11-21 19:36 | CA ---
Transthoracic Echo Report Name: Williams Larson Age: 69 Gender: M : 1955 Exam Date: 11/21/2024 13:53 Exam Location: [facility] Ht (in): 75 Wt (lb): 245 Ordering Physician: Colton Paredes MD ([id number]) Attending/Referring Phys: Mobile Engineer Ena Hernandez RDCS Procedure CPT: Indications: LV function Cardiac Hx: Technical Quality: Fair Contrast 1: Total Dose (mL): Contrast 2: Total Dose (mL): MEASUREMENTS (Male / Female) Normal Values 2D ECHO LV Diastolic Diameter PLAX 5.1 cm 4.2 - 5.9 / 3.9 - 5.3 cm LV Systolic Diameter PLAX 3.0 cm IVS Diastolic Thickness 1.4 cm 0.6 - 1.0 / 0.6 - 0.9 cm LVPW Diastolic Thickness 1.4 cm 0.6 - 1.0 / 0.6 - 0.9 cm LV Relative Wall Thickness 0.6 RV Internal Dim ED PLAX 2.1 cm LVOT Diameter 1.8 cm LA Systolic Diameter LX 4.2 cm 3.0 - 4.0 / 2.7 - 3.8 cm LV Diastolic Volume MOD BP 90.9 cm??? 67 - 155 / 56 - 104 cm??? LV Systolic Volume MOD BP 31.8 cm??? - 58 / 19 - 49 cm??? LV Ejection Fraction MOD BP 65.0 % >= 55 % LV Cardiac Index MOD BP 1518.7 cm???/min???m??? LV Diastolic Volume MOD 4C 92.9 cm??? LV Systolic Volume MOD 4C 33.1 cm??? LV Ejection Fraction MOD 4C 64.4 % LV Cardiac Index MOD 4C 1539.9 cm???/min???m??? LV Diastolic Length 4C 8.1 cm LV Systolic Length 4C 6.3 cm LV Diastolic Volume MOD 2C 86.9 cm??? LV Systolic Volume MOD 2C 30.6 cm??? LV Ejection Fraction MOD 2C 64.8 % LV Cardiac Index MOD 2C 1448.5 cm???/min???m??? LV Diastolic Length 2C 7.8 cm LV Systolic Length 2C 6.4 cm LA Volume 31.3 cm??? - 58 / 22 - 52 cm??? LA Volume Index 12.8 cm???/m??? 16 - 28 cm???/m??? M-MODE Aortic Root Diameter MM 3.2 cm LA Systolic Diameter MM 4.1 cm LA Ao Ratio MM 1.3 AV Cusp Separation MM 1.5 cm DOPPLER AV Peak Velocity 404.4 cm/s AV Peak Gradient 65.4 mmHg AV Mean Velocity 300.3 cm/s AV Mean Gradient 40.5 mmHg AV Velocity Time Integral 98.4 cm LVOT Peak Velocity 102.3 cm/s LVOT Peak Gradient 4.2 mmHg LVOT Velocity Time Integral 25.2 cm LVOT Stroke Volume 63.8 cm??? LVOT Stroke Volume Index 26.7 ml/m??? LVOT Cardiac Index 1640.3 cm???/min???m??? AV Area Cont Eq vti 0.6 cm??? AV Area Cont Eq pk 0.6 cm??? MV Peak Velocity 124.8 cm/s MV Peak Gradient 6.2 mmHg MV Mean Velocity 66.0 cm/s MV Mean Gradient 2.2 mmHg MV Velocity Time Integral 44.5 cm MV Area PHT 2.2 cm??? Mitral E Point Velocity 99.3 cm/s Mitral A Point Velocity 108.3 cm/s Mitral E to A Ratio 0.9 MV Deceleration Time 349.9 ms FINDINGS Left Ventricle Left ventricular ejection fraction is estimated at 55-60%. Normal left ventricular systolic function with no obvious regional wall motion abnormalities. Left ventricular cavity size normal. Mildly increased left ventricular wall thickness. Right Ventricle Normal right ventricular size and function. Right ventricular systolic pressure within normal limits. Right Atrium Mild right atrial dilatation. Left Atrium Mildly increased left atrial diameter. Mitral Valve Mitral valve thickened. Mitral annular calcification. No mitral stenosis. Mild mitral regurgitation. Aortic Valve Trileaflet aortic valve. Severe aortic stenosis with a peak velocity of 4.04 m/s, peak gradient 65mmHg, mean gradient 40mmHg, and estimated aortic valve area of .6 cm???. No aortic regurgitation. Tricuspid Valve Structurally normal tricuspid valve. Trace to mild tricuspid regurgitation. No tricuspid stenosis. Pulmonic Valve Structurally normal pulmonic valve. Trace pulmonic regurgitation. No pulmonic stenosis. Pericardium No pericardial or pleural effusion. Aorta Normal size aortic root and proximal ascending aorta. CONCLUSIONS 1. Normal left ventricular size and systolic function 2. Mild mitral regurgitation 3. Severe aortic stenosis with mean gradient heavily calcified valve Previewed by: Dr. Kristina Hunt MD (Electronically Signed) Final Date: 21 November 2024 19:35
[2024-11-21 20:15] LABS: Appearance,Urine Clear (Clear); Bacteria,Urine Rare /hpf; Bilirubin,Urine Negative (Negative); Blood,Urine Trace (Negative); Color,Urine Light Yellow; Glucose,Urine (UA) 4+ (Negative); Ketones,Urine 1+ (Negative); Leukocyte Esterase,Urine Negative (Negative); Mucus,Urine Rare /hpf; Nitrite,Urine Negative (Negative); PH, Urine 5.5 (5.0-8.0); Protein,Urine Negative (Negative); RBC,Urine <1 /hpf (0-5); Urobilinogen,Urine <2.0 mg/dL (<2.0); WBC,Urine <1 /hpf (0-5)
[2024-11-21] MEDS: LOSARTAN 25 MG TAB PO SCH (20:23)
[2024-11-21] MEDS: ATORVASTATIN 40 MG TAB PO SCH (20:23)
[2024-11-21 20:24] LABS: Specific Gravity,Urine 1.046 (1.001-1.035)
[2024-11-21] MEDS: METOPROLOL SUCCINATE (ER) 25 MG TAB.ER.24H PO SCH (21:05)
--- NOTE | 2024-11-21 21:24 | CC ---
CARDIAC CATHETERIZATION REPORT Date of priocedure: 11/21/24 PROCEDURE: Coronary angiography. ANESTHESIA: Moderate conscious sedation time was 20 minutes. The patient was administered Versed. Oxygen saturation, hemodynamics and EKG were monitored closely. CLINICAL INFORMATION: This is a 69-year-old gentleman with a known diagnosis of CAD, prior PCI of the dominant RCA performed in 2007. He has moderate to severe aortic stenosis, mean gradient of 32 mmHg with a decent functional capacity and no symptoms related to aortic stenosis upon my office visit in September of this year. He has type 2 diabetes, obesity, hypertension and hypercholesterolemia. He also has prostate cancer for which he received radiation therapy in the past with good prognosis. He came into the hospital with symptoms of chest tightness, pressure, shortness of breath, had elevated troponin suggestive of [id number]. He was seen by Dr. Acosta advised coronary angiogram after discussion. I saw the patient this morning, explained to him the rationale, risks, benefits, options, and he agreed and agreed to proceed with coronary angiogram. PROCEDURE NOTE: Under local anesthesia and strict aseptic precautions, a 6-Kenyan introducer was placed in the right radial artery. Using a JL3.5 and JR4 catheters, I performed coronary angiography. I tried to cross the aortic valve with a right Stefania catheter, but was unsuccessful. Brief attempt was made. Following the coronary angiogram, the patient's blood pressure was slightly lower. He received about 125 to 150 mL of fluids, pressure came back to 95 systolic. Sheath was taken out and he was sent to the [facility] in a stable condition. Results were discussed with the patient, but no family was available. CARDIAC CATHETERIZATION FINDINGS: I did not cross the aortic valve, therefore, LV pressures were not obtained. CORONARY ANGIOGRAPHY FINDINGS: Right coronary artery: A very dominant vessel that is totally occluded in the proximal portion, seen as a stump. There is a fairly decent network of collaterals filling the distal RCA up to the main trunk and also the 2 branches and this appears to be a fairly good collaterals coming both from the LAD and also from the circumflex. Left main coronary artery: Short patent vessel. No significant disease in the proximal portion. Distally it tapers to about 10% to 15% and then bifurcates into LAD and circumflex. Left anterior descending coronary artery: This is a heavily calcified vessel of a fairly good caliber gives off a high diagonal branch and then a septal branch and another second diagonal branch. Between the 2 diagonal branches, there is a very eccentric heavily calcified area of stenosis of up to 70% best seen in the AZERI projection. This appears to be angiographically a significant stenosis in a moderate to heavily calcified vessel and the caliber of LAD improves after the second diagonal and then there is mild diffuse disease and it runs all the way to the apex. The second diagonal is of fair caliber. First diagonal is of a moderate caliber, but moderate distribution as well. LAD therefore has a 70% mid lesion and moderate to heavily calcified area. Left posterior circumflex coronary artery: Technically, a nondominant vessel gives off a single obtuse marginal, then runs in the AV groove and also has a left atrial circumflex branch. The distal branches of the circumflex feed collaterals to the branches of RCA as well as to the main trunk. Circumflex has no significant disease and is nondominant. FINAL IMPRESSION: This patient has a right-dominant system. Total occlusion of RCA with good collaterals from the left system. The LAD has a mid lesion of at least a 70% best seen in the AZERI projection in a very calcified area. First diagonal and second diagonal that seem to come off from the LAD with the lesion in the LAD in between are of fair caliber and distribution. The circumflex is nondominant, has no significant disease. LV was not crossed and LV pressures were not checked. RECOMMENDATIONS: I am recommending an echocardiogram to assess the severity of aortic stenosis, which I suspect will be severe. I am recommending aortocoronary bypass surgery with a NUNEZ to LAD, vein graft or a free radial artery graft to the distal branches of RCA or PDA branch of RCA and aortic valve replacement. I discussed my thoughts in detail with the patient. There was no family available and I am requesting Dr. Starks to see the patient in this regard. He should have the surgery on this hospitalization and should not be discharged. MMODL / IJN: [id number] / MTDVicente
[2024-11-21] MEDS: MUPIROCIN 2% OINT 22 GM TUBE NASAL SCH (21:27)
--- NOTE | 2024-11-21 22:19 | CT ---
EXAMINATION TYPE: CT chest wo con DATE OF EXAM: 11/21/2024 9:59 PM COMPARISON: Chest radiograph from same day. Multiple CTs of the chest with most recent on . CLINICAL INDICATION: Male, 69 years old with history of Preop cardiac surgery evaluation aorta; PH[facility], Preop cardiac surgery evaluation aorta TECHNIQUE: Multiple axial images were obtained through the chest. Sagittal and coronal reformats were created for review. MIP was performed on a separate workstation. CT DLP: 537.6 mGycm, Automated exposure control for dose reduction was used. FINDINGS: LUNGS/ PLEURA: The lung parenchyma appears unremarkable. AIRWAY: Patent and unremarkable. HEART: Size within normal limits.Coronary artery calcifications. MEDIASTINUM: No gross evidence of adenopathy. VASCULATURE: Mild calcified atherosclerotic disease of the thoracic aorta without aneurysmal dilatati on. There is marked tortuosity of the descending thoracic aorta. Common origin of the right brachioce phalic and left common carotid arteries. Mild stenosis of the right brachiocephalic and left common c arotid artery origins to the calculi plaque. There is aberrant right subclavian artery origin. Mild c alcified plaque at the origins of the left and right subclavian artery origin. MUSCULOSKELETAL: No acute osseous abnormalities SOFT TISSUES/LYMPH NODES: Unremarkable. LOWER NECK: No significant findings. UPPER ABDOMEN: No significant findings. IMPRESSION: 1. No acute abnormality in the chest. 2. No evidence of thoracic aortic aneurysm. 3. Aberrant right subclavian artery origin anatomy and common origin of the right brachycephalic lef t common carotid artery origins. [facility], , 11/21/2024 10:17 PM
[2024-11-22 01:31] LABS: Basophils # (A) 0.03 10*3/uL (0.00-0.10); Basophils % (A) 0.4 %; Eosinophils # (A) 0.06 10*3/uL (0.04-0.35); Eosinophils % (A) 0.9 %; HCT 36.5 % (39.6-50.0); HGB 12.1 g/dL (13.0-17.0); Lymphocytes # (A) 1.19 10*3/uL (0.90-5.00); Lymphocytes % (A) 17.7 %; MCH 31.6 pg (27.0-32.0); MCHC 33.2 g/dL (32.0-37.0); MCV 95.3 fL (80.0-97.0); Mean Platelet Volume 10.1 fL (9.5-12.2); Monocytes # (A) 0.62 10*3/uL (0.20-1.00); Monocytes % (A) 9.2 %; Neutrophils # (A) 4.82 10*3/uL (1.80-7.70); Neutrophils % (A) 71.7 %; Platelet Count 180 10*3/uL (140-440); RBC 3.83 10*6/uL (4.40-5.60); WBC 6.73 10*3/uL (4.50-10.00)
[2024-11-22 02:01] LABS: Prothrombin Time 10.8 sec (10.0-12.5)
[2024-11-22 02:02] LABS: Partial Thromboplastin Time 30.3 sec (22.0-30.0)
[2024-11-22 02:50] LABS: Hepatitis A Antibody IgM Nonreactive (Nonreactive); Hepatitis B Core IgM Nonreactive (Nonreactive); Hepatitis B Surface Antigen Nonreactive (Nonreactive); Hepatitis C IgG Antibody Nonreactive (Nonreactive)
[2024-11-22] MEDS ORDERED: HEPARIN SODIUM,PORCINE (1 ML) 2,500 UNIT in SODIUM CHLORIDE 0.9% 250 ML IRRIGATION PRN (07:00)
[2024-11-22] MEDS ORDERED: HEPARIN SODIUM,PORCINE 10,000 UNIT in SODIUM CHLORIDE 0.9% 1,000 ML IRRIGATION PRN (07:00)
[2024-11-22] MEDS: ASPIRIN 81 MG PO SCH (08:07)
[2024-11-22] MEDS ORDERED: ASPIRIN 325 MG TAB PO SCH (09:00)
--- NOTE | 2024-11-22 09:27 | P.PN ---
Subjective Progress Note Date: 11/22/24 Principal diagnosis: Coronary artery disease and severe aortic valve stenosis. Past medical history significant for known aortic valve stenosis which is followed by Dr. Paredes with serial echocardiograms, coronary artery disease with previous PCI to his right coronary artery in 2007, hypertension, hyperlipidemia, obesity with a BMI of 30.9 kg/m, diabetes mellitus type 2, prostate cancer status post 3 months of radiation therapy, family history of premature coronary artery disease with his father, umbilical hernia, remote history of smoking quit 20 years ago, EtOH use, drinks 5 beers per week, and occasional marijuana use on the weekends. The patient was seen and examined in follow-up today November 22, 2024 at his bedside on the third floor cardiac stepdown unit. He is currently lying in bed, is awake, alert, oriented x 3 and is in no acute apparent distress. He denies any complaints of shortness of breath at this time, although he is complaining of some chest pain stating that it feels like somebody is sticking their thumb on the backside of his heart. He reports he the pain has been present off and on for the past several days. Heparin drip is infusing per protocol. The patient's troponin is up to 10.900 today. Preoperative teaching has been reinforced with the patient. A 5 m walk test has been completed with the patient, and the patient tolerated well. Time 1: 3.36 seconds, time 2: 3.50 seconds, time 3, 3.51 seconds. An STS risk score will be calculated and discussed with the patient. A transthoracic 2D echocardiogram was completed yesterday which showed his left ventricular ejection fraction estimated at 55 to 60%, mild mitral valve regurgitation, severe aortic valve stenosis with a peak velocity of 4.04 m/s, peak gradient of 65 mmHg, a mean gradient of 40 mmHg, and estimated aortic valve area of 0.6 cm, and trace to mild tricuspid valve regurgitation. The patient also underwent a CT of the chest without contrast yesterday which showed no acute abnormality in the chest, no evidence of thoracic aortic aneurysm, and an aberrant right subclavian artery origin anatomy and common origin of the right brachiocephalic and left common carotid artery origins. Laboratory and chest x-ray results have been reviewed. Objective - Vital Signs Vital signs: Vital Signs Temp 98.1 F 11/22/24 07:50 Pulse 73 11/22/24 07:50 Resp 18 06/19/25 07:50 BP 135/81 11/22/24 07:50 Pulse Ox 96 11/22/24 07:50 FiO2 Intake & Output 11/21/24 11/22/24 11/22/24 18:59 06:59 18:59 Intake Total 675 765 Balance 675 765 Weight 112.037 kg 113.4 kg Intake: IV 675 Intake, IV Titration 225 Amount Heparin Sod,Pork in 0.45% 0 NaCl 25,000 unit In 0.45 % NaCl 1 250ml.bag @ 8.93 UNITS/KG/HR 10.005 mls/ hr IV .Q24H [facility] Rx#: [id number] Sodium Chloride 0.9% 1, 225 000 ml @ 75 mls/hr IV . [id number] [facility] Rx#:[id number] Oral 540 Other: Voiding Method Toilet Toilet Urinal Urinal # Voids 2 - Exam CONSTITUTIONAL: Appears comfortable, cooperative, no apparent acute distress. HEENT: Neck is supple, no JVD, no lymphadenopathy. RESPIRATORY: Lungs sounds essentially clear throughout. Respirations are symmetrical and nonlabored. Currently on room air with oxygen saturations 95%. Able to achieve 2000 mL on their incentive spirometry. Strong cough. CARDIOVASCULAR: Regular rhythm and rate. S1 and diminished S2 present, negative for S3, or gallop, positive systolic murmur 2/6. Sternum is stable. Palpable peripheral pulses bilaterally. GASTROINTESTINAL: Abdomen soft, nontender, nondistended. Active bowel sounds present 4 quadrants. Tolerating diet. Passing flatus. No guarding or rigidity. GENITOURINARY: Continues to void. INTEGUMENTARY: Skin is warm and dry with no evidence of clubbing or cyanosis. NEUROLOGIC: Cranial nerves II through XII intact. No focal deficits. MUSKULOSKELETAL: Able to move all extremities, strength equal bilaterally. PSYCHIATRIC: Alert and oriented to person place and time, appropriate affect, intact judgment and insight. - Allied health notes Allied health notes reviewed: nursing - Labs CBC & Chem 7: 11/22/24 01:09 11/21/24 18:36 Labs: Abnormal Lab Results - Last 24 Hours (Table) 11/21/24 11/21/24 11/21/24 Range/Units 17:20 18:36 18:36 RBC 4.14 L (4.40-5.60) 10*6/uL Hgb (13.0-17.0) g/dL Hct (39.6-50.0) % MCH 32.1 H (27.0-32.0) pg APTT (22.0-30.0) sec Sodium 136 L (137-145) mmol/L Carbon Dioxide 21 L (22-30) mmol/L Glucose 121 H (74-99) mg/dL POC Glucose (mg/dL) 118 H (70-110) mg/dL Hemoglobin A1c (<=6.0) % AST 156 H (17-59) U/L ALT 52 H (4-49) U/L Troponin I (0.000-0.034) ng/mL Ur Specific [place] (1.001-1.035) Urine Glucose (UA) (Negative) Urine Ketones (Negative) Urine Blood (Negative) Urine Bacteria (None) /hpf Urine Mucus (None) /hpf 11/21/24 11/21/24 11/22/24 Range/Units 18:36 19:50 01:09 RBC 3.83 L (4.40-5.60) 10*6/uL Hgb 12.1 L (13.0-17.0) g/dL Hct 36.5 L (39.6-50.0) % MCH (27.0-32.0) pg APTT (22.0-30.0) sec Sodium (137-145) mmol/L Carbon Dioxide (22-30) mmol/L Glucose (74-99) mg/dL POC Glucose (mg/dL) (70-110) mg/dL Hemoglobin A1c 6.3 H (<=6.0) % AST (17-59) U/L ALT (4-49) U/L Troponin I (0.000-0.034) ng/mL Ur Specific [place] 1.046 H (1.001-1.035) Urine Glucose (UA) 4+ H (Negative) Urine Ketones 1+ H (Negative) Urine Blood Trace H (Negative) Urine Bacteria Rare H (None) /hpf Urine Mucus Rare H (None) /hpf 11/22/24 11/22/24 Range/Units 01:09 06:16 RBC (4.40-5.60) 10*6/uL Hgb (13.0-17.0) g/dL Hct (39.6-50.0) % MCH (27.0-32.0) pg APTT 30.3 H (22.0-30.0) sec Sodium (137-145) mmol/L Carbon Dioxide (22-30) mmol/L Glucose (74-99) mg/dL POC Glucose (mg/dL) (70-110) mg/dL Hemoglobin A1c (<=6.0) % AST (17-59) U/L ALT (4-49) U/L Troponin I 10.900 H* (0.000-0.034) ng/mL Ur Specific [place] (1.001-1.035) Urine Glucose (UA) (Negative) Urine Ketones (Negative) Urine Blood (Negative) Urine Bacteria (None) /hpf Urine Mucus (None) /hpf - Imaging and Cardiology Chest x-ray: report reviewed, image reviewed CT scan - chest: report reviewed, image reviewed Assessment and Plan Assessment: Coronary artery disease with previous PCI of the right coronary artery in 2007 Non-ST elevated myocardial infarction this admission Severe aortic valve stenosis on cardiac catheterization Hypertension Hyperlipidemia Diabetes mellitus type 2 Obesity with a BMI of 30.9 kg/m Family history of early onset coronary artery disease History of prostate cancer status post 3 months of radiation therapy Remote history of nicotine dependence, quit smoking 20 years ago EtOH use with 5 beers per week Weekend use of marijuana Umbilical hernia Plan: An STS risk core has been calculated and discussed with the patient. A 5 m walk test has been completed with the patient, and the patient tolerated well. Time 1: 3.36 seconds, time 2: 3.50 seconds, time 3, 3.51 seconds. Dental clearance has been obtained from his dentist Dr. Kay. Timing of surgery to follow. Heparin drip management per cardiology recommendations. Continue to maximize medical management with aspirin, statin and beta-aaron. Dr. Miller from pulmonary/critical care has been consulted, preoperative pulmo nary clearance. More recommendations to follow based on patient's clinical course. Time with Patient: Greater than 30
[2024-11-22] MEDS ORDERED: DEXTROSE 50% SYRINGE 50 ML IVP PRN ×2 (09:49)
[2024-11-22 10:26] LABS: Chol/HDL Ratio 3.51 Ratio
[2024-11-22] MEDS: NITROGLYCERIN OINT 1 INCH/GM PACKET TOPICAL SCH (11:36)
[2024-11-22 11:56] LABS: Glucose,Whole Blood 109 mg/dL (70-110)
[2024-11-22] MEDS: INSULIN LISPRO (HumaLOG) 100 UNIT/ML 10 mL VL SQ SCH (12:13)
--- NOTE | 2024-11-22 13:03 | P.PN ---
Subjective Progress Note Date: 11/22/24 Reason for Consult (text): NSTEMI History of present illness: This is a 69-year-old male patient of Dr. DOROTEO Paredes with past medical history of coronary artery disease prior PCI of the right coronary artery, moderate to severe aortic stenosis, hypertension, hyperlipidemia, family history of premature coronary artery disease. We have been asked to evaluate the patient for NSTEMI. Patient presented to the hospital due to chest pain that had been on and off all day yesterday. He has no chest pain at the time of this evaluation. He denies shortness of breath, no palpitations. Blood pressure 109/68, heart rate 57, pulse ox 99% on room air. Dr. Les randhawa discussed with patient the recommendations for cardiac catheterization and he is agreeable to move forward with this today. -EKG: Sinus bradycardia with first-degree block -Chest x-ray: Small amount of thin linear scarring or atelectasis in the left lung base. -Laboratory studies: Troponin 0.409, 1.8, 3.37. proBNP 150. D-dimer 0.41. Sodium 136, potassium 3.3, BUN 21 creatinine 1.13. WBC 6.9 and hemoglobin 14. -Home cardiac medications according to office note dated 09/12/2024: Aspirin 81 mg daily, Jardiance 10 mg daily, Lipitor 40 mg daily, losartan 25 mg daily, metoprolol tartrate 50 mg twice daily. -Echocardiogram performed in the office revealed EF of 55%, moderate aortic stenosis. Mild mitral regurgitation. Mild tricuspid regurgitation. Normal PASP. Mild pulmonic regurgitation. -Cardiolite stress test performed in the office in 08/23/2022 revealed fair exercise capacity with negative stress test by EKG criteria. Small and area of septal partially reversible mild intensity defect which may be an artifact or small area of ischemia in the inferior wall. EF is normal. -Cardiac catheterization performed in 2007 revealed superdominant right coronary artery with critical mid lesion. Stenting with 2 drug-eluting stents was performed. Left system did not have any significant disease. -CT chest performed 10/11/2023 revealed severe aortic valve calcification. No aneurysm. 11/22/2024 Patient seen and examined on the cardiac stepdown unit. Yesterday, patient underwent cardiac catheterization with Dr. Paredes which revealed right dominant system. Total occlusion of the RCA with good collaterals from the left. LAD has mid lesion 70%. First diagonal and second diagonal seem to come off the LAD with lesion in the LAD in between are of fair caliber and distribution. Circumflex nondominant with no significant disease. LV was not crossed. Dr. Paredes recommended CABG and aortic valve replacement. Patient has been seen by cardiothoracic surgery team and date of surgery has not been determined. Patient states he still has a dull ache in his chest that is a 2/10. He had a repeat troponin that came back at 10.9. He remains on heparin drip. Echocard iogram reveals normal left ventricular size and systolic function. Mild mitral regurgitation. Severe aortic stenosis with mean gradient heavily calcified valve. Physical examination: Gen: This is 69-year-old male in no acute distress VS: reviewed HEENT: Head is atraumatic, normocephalic. Pupils equal, round. Sclerae is anicteric. NECK: Supple. No JVD. LUNGS: Clear to auscultation. No wheezes or rhonchi. No intercostal retractions. HEART: Regular rate and rhythm. 4/6 [place]. ABDOMEN: Soft No tenderness. EXTREMITIES: No pedal edema. No calf tenderness. NEUROLOGICAL: Patient is awake, alert and oriented x3. Assessment: NSTEMI with multivessel CAD awaiting CABG History of coronary artery disease with prior PCI of the RCA Severe aortic stenosis Hypertension Hyperlipidemia Plan: Continue current home cardiac medications: Aspirin 81 mg daily, atorvastatin 40 mg at bedtime, Farxiga 10 mg daily, losartan 12.5 mg at bedtime, metoprolol succinate 12.5 mg daily Continue Heparin gtt Start patient on Nitropaste 1 inch every 6 hours Consult with cardiothoracic team appreciated Further recommendations to follow based upon clinical course Nurse practitioner note has been reviewed, I agree with documented findings and plan of care. Patient was seen and examined. Objective - Vital Signs Vital signs: Vital Signs Temp 98.1 F 11/22/24 07:50 Pulse 73 11/22/24 07:50 Resp 18 11/22/24 07:50 BP 135/81 11/22/24 07:50 Pulse Ox 96 11/22/24 07:50 FiO2 Intake & Output 11/21/24 11/22/24 11/22/24 18:59 06:59 18:59 Intake Total 675 765 240 Balance 675 765 240 Weight 112.037 kg 113.4 kg Intake: IV 675 Intake, IV Titration 225 Amount Heparin Sod,Pork in 0.45% 0 NaCl 25,000 unit In 0.45 % NaCl 1 250ml.bag @ 8.93 UNITS/KG/HR 10.005 mls/ hr IV .Q24H [facility] Rx#: [id number] Sodium Chloride 0.9% 1, 225 000 ml @ 75 mls/hr IV . [id number] [facility] Rx#:[id number] Oral 540 240 Other: Voiding Method Toilet Toilet Toilet Urinal Urinal Urinal # Voids 2 - Labs CBC & Chem 7: 11/22/24 01:09 11/21/24 18:36 Labs: Abnormal Lab Results - Last 24 Hours (Table) 11/21/24 11/21/24 11/21/24 Range/Units 17:20 18:36 18:36 RBC 4.14 L (4.40-5.60) 10*6/uL Hgb (13.0-17.0) g/dL Hct (39.6-50.0) % MCH 32.1 H (27.0-32.0) pg APTT (22.0-30.0) sec Sodium 136 L (137-145) mmol/L Carbon Dioxide 21 L (22-30) mmol/L Glucose 121 H (74-99) mg/dL POC Glucose (mg/dL) 118 H (70-110) mg/dL Hemoglobin A1c (<=6.0) % AST 156 H (17-59) U/L ALT 52 H (4-49) U/L Troponin I (0.000-0.034) ng/mL Ur Specific [place] (1.001-1.035) Urine Glucose (UA) (Negative) Urine Ketones (Negative) Urine Blood (Negative) Urine Bacteria (None) /hpf Urine Mucus (None) /hpf 11/21/24 11/21/24 11/22/24 Range/Units 18:36 19:50 01:09 RBC 3.83 L (4.40-5.60) 10*6/uL Hgb 12.1 L (13.0-17.0) g/dL Hct 36.5 L (39.6-50.0) % MCH (27.0-32.0) pg APTT (22.0-30.0) sec Sodium (137-145) mmol/L Carbon Dioxide (22-30) mmol/L Glucose (74-99) mg/dL POC Glucose (mg/dL) (70-110) mg/dL Hemoglobin A1c 6.3 H (<=6.0) % AST (17-59) U/L ALT (4-49) U/L Troponin I (0.000-0.034) ng/mL Ur Specific [place] 1.046 H (1.001-1.035) Urine Glucose (UA) 4+ H (Negative) Urine Ketones 1+ H (Negative) Urine Blood Trace H (Negative) Urine Bacteria Rare H (None) /hpf Urine Mucus Rare H (None) /hpf 11/22/24 11/22/24 Range/Units 01:09 06:16 RBC (4.40-5.60) 10*6/uL Hgb (13.0-17.0) g/dL Hct (39.6-50.0) % MCH (27.0-32.0) pg APTT 30.3 H (22.0-30.0) sec Sodium (137-145) mmol/L Carbon Dioxide (22-30) mmol/L Glucose (74-99) mg/dL POC Glucose (mg/dL) (70-110) mg/dL Hemoglobin A1c (<=6.0) % AST (17-59) U/L ALT (4-49) U/L Troponin I 10.900 H* (0.000-0.034) ng/mL Ur Specific [place] (1.001-1.035) Urine Glucose (UA) (Negative) Urine Ketones (Negative) Urine Blood (Negative) Urine Bacteria (None) /hpf Urine Mucus (None) /hpf
--- NOTE | 2024-11-22 13:53 | P.CNPUL ---
History of Present Illness Consult date: 11/22/24 Requesting physician: Anish Starks Reason for consult: dyspnea, chest pain, other Chief complaint: CAD. History of present illness: Pulmonary consult dated November 22, 2024. 69-year-old male seen today in room 361. We were asked to see the patient, because the patient is going to have bypass surgery, maybe as soon as tomorrow. Anyway, the patient was seen in the emergency department, on November 20, 2024. He came in with chest pain. The patient has been having symptoms for some time, and the symptoms became more severe, and worrisome to the patient, which is why he came in to be evaluated. He does have a history of coronary disease, had stents placed a number of years back. That was done by Dr. Paredes. The patient has not had a recent cardiac catheterization. In addition to chest pain, he described lightheadedness, dizziness, shortness of breath, when he had chest pain. His symptoms were exertional. In addition to coronary artery disease, the patient has a history of diabetes. Home medications included metoprolol, losartan/HCTZ, Lipitor, metformin, Aldara, and Jardiance. Laboratory data includes a white count of 6.7, hemoglobin 12.1, hematocrit 36.5, and a platelet count is normal. The patient's PTT is 52.6. He is on IV heparin. Sodium 136, potassium 3.6, chlorides 102, CO2 21, BUN 18, creatinine 0.86. Troponins were 0.409, 3.370, and 10.2 respectively. TSH was normal. The rest of the testing was unremarkable. The patient had a cardiac catheterization on November 21, done by Dr. DOROTEO Paredes. The results are noted in the chart, under final impression. Review of Systems REVIEW OF SYSTEMS: CONSTITUTIONAL: [Negative.] NEUROLOGIC: Lightheadedness and dizziness. HEENT: [ Negative.] CARDIAC: Chest pain. PULMONARY: Shortness of breath. GI: [Negative.] : [Negative.] RHEUMATOLOGIC: [ Negative.] IMMUNOLOGIC: [ Negative.] ENDOCRINE: [Negative. ] DERMATOLOGIC: [Negative.] Past Medical History Past Medical History: Coronary Artery Disease (CAD), Cancer, Chest Pain / Angina, Diabetes Mellitus, Hyperlipidemia, Hypertension Additional Past Medical History / Comment(s): Prostate cancer History of Any Multi-Drug Resistant Organisms: None Reported Past Surgical History: Tonsillectomy Additional Past Surgical History / Comment(s): Vasectomy, amputation of his fourth toe right foot Past Anesthesia/Blood Transfusion Reactions: No Reported Reaction Past Psychological History: No Psychological Hx Reported Smoking Status: Former smoker Past Alcohol Use History: Occasional Past Drug Use History: Marijuana - Past Family History Father Family Medical History: Coronary Artery Disease (CAD), Hyperlipidemia, Hype rtension Additional Family Medical History / Comment(s): History of malaria Mother Family Medical History: Cancer Additional Family Medical History / Comment(s): His mother committed suicide Brother(s) Additional Family Medical History / Comment(s): Brother committed suicide Sister(s) Additional Family Medical History / Comment(s): Sister committed suicide Medications and Allergies Home Medications Medication Instructions Recorded Confirmed Type Atorvastatin [Lipitor] 40 mg PO DAILY 11/21/24 11/21/24 History Empagliflozin [Jardiance] 10 mg PO DAILY 11/21/24 11/21/24 History Imiquimod [Aldara] 1 packet TOPICAL MOTUWETHFR PRN 11/21/24 11/21/24 History Losartan/Hydrochlorothiazide 1 tab PO DAILY 11/21/24 11/21/24 History [Losartan-Hctz 100-12.5 mg Tab] Metoprolol Tartrate [Lopressor] 50 mg PO BID 11/21/24 11/21/24 History metFORMIN HCL 1,000 mg PO DAILY 11/21/24 11/21/24 History Allergies Allergy/AdvReac Type Severity Reaction Status Date / Time No Known Allergies Allergy Verified 11/21/24 20:36 Physical Exam Osteopathic Statement: *. No significant issues noted on an osteopathic structural exam other than those noted in the History and Physical/Consult. Vitals: Vital Signs Temp Pulse Resp BP Pulse Ox 11/22/24 11:33 98.4 F 66 16 132/76 98 11/22/24 07:50 98.1 F 73 18 135/81 96 11/22/24 03:34 98.0 F 61 16 107/67 95 11/22/24 01:44 61 11/21/24 23:00 62 16 107/67 94 L 11/21/24 20:03 97.9 F 66 16 128/74 98 11/21/24 20:00 66 11/21/24 17:30 97.8 F 62 16 104/64 98 11/21/24 16:42 56 L 14 100/59 11/21/24 16:30 56 L 14 92/52 11/21/24 15:00 58 L 14 118/64 11/21/24 14:30 61 16 101/64 11/21/24 14:00 58 L 14 107/62 Intake and Output 11/21/24 11/22/24 11/22/24 22:59 06:59 14:59 Intake Total 1140 0 377.44 Balance 1140 0 377.44 Intake: IV 375 Intake, IV Titration 225 0 137.44 Amount Heparin Sod,Pork in 0.45% 0 137.44 NaCl 25,000 unit In 0.45 % NaCl 1 250ml.bag @ 8.93 UNITS/KG/HR 10.005 mls/ hr IV .Q24H [facility] Rx#: [id number] Sodium Chloride 0.9% 1, 225 000 ml @ 75 mls/hr IV . [id number] [facility] Rx#:[id number] Oral 540 240 Other: Voiding Method Toilet Toilet Toilet Urinal Urinal Urinal # Voids 1 2 Weight 112.037 kg 113.4 kg No acute distress, oriented 3. Currently on room air. HEENT examination is grossly unremarkable. Mucous membranes are moist. No oral lesions. Neck supple. Full range of motion. No adenopathy thyromegaly or neck vein distention. Cardiovascular examination reveals regular rhythm rate. S1-S2 normal. No S3 or S4. No discernible murmur noted. Lungs reveal clear breath sounds. Breath sounds are equal bilaterally. No adventitious lung sounds including wheezes rhonchi or crackles. Abdomen soft bowel sounds are heard. No masses or tenderness. Extremities are intact. No cyanosis clubbing or edema. Skin is without rash or lesion. Neurologic examination is brief but nonfocal. Results - Laboratory Findings CBC and BMP: 11/22/24 01:09 11/21/24 18:36 PT/INR, D-dimer PT 10.8 sec (10.0-12.5) 11/22/24 01:09 INR 1.0 (<1.2) 11/22/24 01:09 D-Dimer 0.41 mg/L FEU (<0.60) 11/20/24 22:50 Abnormal lab findings: Abnormal Labs 11/20/24 11/20/24 11/20/24 22:50 22:50 22:50 RBC 4.37 L Hgb Hct MCH MPV 9.3 L APTT 21.2 L Sodium 136 L Potassium 3.3 L Carbon Dioxide BUN 21 H Glucose 155 H POC Glucose (mg/dL) Hemoglobin A1c AST ALT Troponin I Ur Specific [place] Urine Glucose (UA) Urine Ketones Urine Blood Urine Bacteria Urine Mucus 11/20/24 11/21/24 11/21/24 22:50 02:21 05:34 RBC Hgb Hct MCH MPV APTT Sodium Potassium Carbon Dioxide BUN Glucose POC Glucose (mg/dL) Hemoglobin A1c AST ALT Troponin I 0.409 H* 1.800 H* 3.370 H* Ur Specific [place] Urine Glucose (UA) Urine Ketones Urine Blood Urine Bacteria Urine Mucus 11/21/24 11/21/24 11/21/24 17:20 18:36 18:36 RBC 4.14 L Hgb Hct MCH 32.1 H MPV APTT Sodium 136 L Potassium Carbon Dioxide 21 L BUN Glucose 121 H POC Glucose (mg/dL) 118 H Hemoglobin A1c AST 156 H ALT 52 H Troponin I Ur Specific [place] Urine Glucose (UA) Urine Ketones Urine Blood Urine Bacteria Urine Mucus 11/21/24 11/21/24 11/22/24 18:36 19:50 01:09 RBC 3.83 L Hgb 12.1 L Hct 36.5 L MCH MPV APTT Sodium Potassium Carbon Dioxide BUN Glucose POC Glucose (mg/dL) Hemoglobin A1c 6.3 H AST ALT Troponin I Ur Specific [place] 1.046 H Urine Glucose (UA) 4+ H Urine Ketones 1+ H Urine Blood Trace H Urine Bacteria Rare H Urine Mucus Rare H 11/22/24 11/22/24 11/22/24 01:09 06:16 10:11 RBC Hgb Hct MCH MPV APTT 30.3 H 52.6 H Sodium Potassium Carbon Dioxide BUN Glucose POC Glucose (mg/dL) Hemoglobin A1c AST ALT Troponin I 10.900 H* Ur Specific [place] Urine Glucose (UA) Urine Ketones Urine Blood Urine Bacteria Urine Mucus 11/22/24 11/22/24 10:17 12:59 RBC Hgb Hct MCH MPV APTT Sodium Potassium Carbon Dioxide BUN Glucose POC Glucose (mg/dL) Hemoglobin A1c AST ALT Troponin I 9.030 H* 10.200 H* Ur Specific [place] Urine Glucose (UA) Urine Ketones Urine Blood Urine Bacteria Urine Mucus - Diagnostic Findings Chest x-ray: image reviewed CT scan - chest: image reviewed Assessment and Plan Assessment: Acute non-ST segment elevation myocardial infarction. Multivessel coronary artery disease. History of CAD with previous PCI of the right coronary artery. Severe aortic stenosis. History of hypertension. History of hyperlipidemia. History of diabetes mellitus. Plan: Plan dated November 22, 2024. 69-year-old male who was apparently having chest pain, shortness of breath, lightheadedness, and dizziness. He was found to have multivessel coronary artery disease. The patient is to have anticipated bypass grafting, possibly as early as tomorrow. The patient really does not have much in the way of any lung issues. Lung function were more than adequate. Labs, x-rays, and medications are reviewed. We will continue to follow make recommendations along the way. We did explain to the patient what our role in the whole process would be, including working to get the patient off mechanical ventilation, and the following the patient on the daily basis, to ensure healthy lung function. Prognosis is guarded. Dictation was produced using [employer] software. Please excuse any grammatical, word or spelling errors. Time with Patient: Greater than 30
--- NOTE | 2024-11-22 14:32 | P.HPIM ---
History of Present Illness H&P Date: 11/21/24 Chief Complaint: Chest pain This is a 69-year-old gentleman with past medical history significant for moderate to severe aortic valve stenosis-follows with Dr. DOROTEO Paredes,CAD with PCI of RCA, hypertension, hyperlipidemia , obesity ,diabetes mellitus, prostate cancer-status post radiation treatment, former nicotine dependence, marijuana use, alcohol use-5 beers per week, and multiple other medical issues presented to the ER with progressive chest pain, chest pressure and shortness of breath. Reports he has been having intermittent episodes of chest pain for more a few we eks. Previous episodes spontaneously relieved with rest. Yesterday he presented to the ER as chest pain continued to recur throughout the day. EKG reported sinus bradycardia with first-degree AV block, troponins 0.409 1.8 3.37. proBNP 150. D-dimer 0.41. Afebrile, normal WBC, hemoglobin 13.3, platelets 190, sodium 136, potassium 3.6, bicarb 21, BUN 18, creatinine 0.86 glucose 121, hemoglobin A1c 6.3., Magnesium 1.9, AST 156, ALT 52. Hepatitis serology nonreactive. UA reported 4+ glucose, 1+ ketones trace blood negative nitrates negative leukocytes rare bacteria. chest x-ray reported small amount linear scarring atelectasis in the left lung base .evaluated by cardiology, underwent cardiac catheterization. Cardiac catheterization reported total occlusion of RCA with good collaterals from the left, LAD mid lesion of 70%, circumflex nondominant with no significant disease. echo pending. CTS consulted for further evaluation/ recommendation. Review of Systems ROS Statement: Those systems with pertinent positive or pertinent negative responses have been documented in the HPI. ROS Other: All systems not noted in ROS Statement are negative. Past Medical History Past Medical History: Coronary Artery Disease (CAD), Cancer, Chest Pain / Angina, Diabetes Mellitus, Hyperlipidemia, Hypertension Additional Past Medical History / Comment(s): Prostate cancer History of Any Multi-Drug Resistant Organisms: None Reported Past Surgical History: Tonsillectomy Additional Past Surgical History / Comment(s): Vasectomy, amputation of his fourth toe right foot Past Anesthesia/Blood Transfusion Reactions: No Reported Reaction Past Psychological History: No Psychological Hx Reported Smoking Status: Former smoker Past Alcohol Use History: Occasional Past Drug Use History: Marijuana - Past Family History Father Family Medical History: Coronary Artery Disease (CAD), Hyperlipidemia, Hypertension Additional Family Medical History / Comment(s): History of malaria Mother Family Medical History: Cancer Additional Family Medical History / Comment(s): His mother committed suicide Brother(s) Additional Family Medical History / Comment(s): Brother committed suicide Sister(s) Additional Family Medical History / Comment(s): Sister committed suicide Medications and Allergies Home Medications Medication Instructions Recorded Confirmed Type Atorvastatin [Lipitor] 40 mg PO DAILY 11/21/24 11/21/24 History Empagliflozin [Jardiance] 10 mg PO DAILY 11/21/24 11/21/24 History Imiquimod [Aldara] 1 packet TOPICAL MOTUWETHFR PRN 11/21/24 11/21/24 History Losartan/Hydrochlorothiazide 1 tab PO DAILY 11/21/24 11/21/24 History [Losartan-Hctz 100-12.5 mg Tab] Metoprolol Tartrate [Lopressor] 50 mg PO BID 11/21/24 11/21/24 History metFORMIN HCL 1,000 mg PO DAILY 11/21/24 11/21/24 History Allergies Allergy/AdvReac Type Severity Reaction Status Date / Time No Known Allergies Allergy Verified 11/21/24 20:36 Physical Exam Vitals: Vital Signs Temp Pulse Pulse Resp BP BP Pulse Ox 11/21/24 20:03 97.9 F 66 16 128/74 98 11/21/24 20:00 66 11/21/24 17:30 97.8 F 62 16 104/64 98 11/21/24 16:42 56 L 14 100/59 11/21/24 16:30 56 L 14 92/52 11/21/24 15:00 58 L 14 118/64 11/21/24 14:30 61 16 101/64 11/21/24 14:00 58 L 14 107/62 11/21/24 13:15 66 16 91/61 95 11/21/24 12:45 61 14 103/71 99 11/21/24 12:30 60 14 85/52 97 11/21/24 12:15 60 14 99/56 98 11/21/24 12:00 62 14 109/57 98 11/21/24 09:53 57 L 16 95/54 11/21/24 08:15 57 L 18 109/68 11/21/24 07:19 58 L 16 11/21/24 06:06 97.8 F 60 16 92/53 98 11/21/24 05:28 60 18 94/58 100 11/21/24 03:58 57 L 18 106/66 97 11/21/24 02:28 55 L 18 93/62 97 11/21/24 01:12 52 L 16 107/68 97 11/21/24 00:20 53 L 16 101/66 11/20/24 22:28 97.6 F 44 L 18 89/53 98 Intake and Output 11/21/24 11/21/24 11/21/24 06:59 14:59 22:59 Intake Total 64.199 300 915 Balance 64.199 300 915 Intake: IV 300 375 Intake, IV Titration 64.199 Amount Heparin Sod,Pork in 0.45% 64.199 NaCl 25,000 unit In 0.45 % NaCl 1 250ml.bag @ 8.93 UNITS/KG/HR 10.005 mls/ hr IV .Q24H [facility] Rx#: [id number] Oral 540 Other: Voiding Method Toilet Urinal Weight 112.037 kg PHYSICAL EXAM: VITAL SIGNS: Reviewed GENERAL: 69-year-old male ,alert and oriented x 3,NAD HEENT: Atraumatic, normocephalic conjunctivae normal. eyes normal. NECK: Supple, no JVD. No thyroid enlargement. No LNs CARDIOVASCULAR: S1, S2 regular. Systolic murmur RESPIRATION: Unlabored, equal air entry, essentially clear to auscultation with bilateral bases diminished. ABDOMEN: Soft, nondistended, nontender . No guarding. no masses palpable. Positive bowel sounds heard. LEGS: No edema. no swelling, no calf tenderness, peripheral pulses intact. NERVOUS SYSTEM: Cranial N 2-12 grossly normal. No focal deficits. Strength and sensation grossly intact. Skin: Warm and dry, no rash Results CBC & Chem 7: 11/22/24 01:09 11/21/24 18:36 Labs: Abnormal Lab Results - Last 24 Hours (Table) 11/20/24 11/20/24 11/20/24 Range/Units 22:50 22:50 22:50 RBC 4.37 L (4.40-5.60) 10*6/uL MCH (27.0-32.0) pg MPV 9.3 L (9.5-12.2) fL APTT 21.2 L (22.0-30.0) sec Sodium 136 L (137-145) mmol/L Potassium 3.3 L (3.5-5.1) mmol/L Carbon Dioxide (22-30) mmol/L BUN 21 H (9-20) mg/dL Glucose 155 H (74-99) mg/dL POC Glucose (mg/dL) (70-110) mg/dL AST (17-59) U/L ALT (4-49) U/L Troponin I (0.000-0.034) ng/mL Ur Specific [place] (1.001-1.035) Urine Glucose (UA) (Negative) Urine Ketones (Negative) Urine Blood (Negative) Urine Bacteria (None) /hpf Urine Mucus (None) /hpf 11/20/24 11/21/24 11/21/24 Range/Units 22:50 02:21 05:34 RBC (4.40-5.60) 10*6/uL MCH (27.0-32.0) pg MPV (9.5-12.2) fL APTT (22.0-30.0) sec Sodium (137-145) mmol/L Potassium (3.5-5.1) mmol/L Carbon Dioxide (22-30) mmol/L BUN (9-20) mg/dL Glucose (74-99) mg/dL POC Glucose (mg/dL) (70-110) mg/dL AST (17-59) U/L ALT (4-49) U/L Troponin I 0.409 H* 1.800 H* 3.370 H* (0.000-0.034) ng/mL Ur Specific [place] (1.001-1.035) Urine Glucose (UA) (Negative) Urine Ketones (Negative) Urine Blood (Negative) Urine Bacteria (None) /hpf Urine Mucus (None) /hpf 11/21/24 11/21/24 11/21/24 Range/Units 17:20 18:36 18:36 RBC 4.14 L (4.40-5.60) 10*6/uL MCH 32.1 H (27.0-32.0) pg MPV (9.5-12.2) fL APTT (22.0-30.0) sec Sodium 136 L (137-145) mmol/L Potassium (3.5-5.1) mmol/L Carbon Dioxide 21 L (22-30) mmol/L BUN (9-20) mg/dL Glucose 121 H (74-99) mg/dL POC Glucose (mg/dL) 118 H (70-110) mg/dL AST 156 H (17-59) U/L ALT 52 H (4-49) U/L Troponin I (0.000-0.034) ng/mL Ur Specific [place] (1.001-1.035) Urine Glucose (UA) (Negative) Urine Ketones (Negative) Urine Blood (Negative) Urine Bacteria (None) /hpf Urine Mucus (None) /hpf 11/21/24 Range/Units 19:50 RBC (4.40-5.60) 10*6/uL MCH (27.0-32.0) pg MPV (9.5-12.2) fL APTT (22.0-30.0) sec Sodium (137-145) mmol/L Potassium (3.5-5.1) mmol/L Carbon Dioxide (22-30) mmol/L BUN (9-20) mg/dL Glucose (74-99) mg/dL POC Glucose (mg/dL) (70-110) mg/dL AST (17-59) U/L ALT (4-49) U/L Troponin I (0.000-0.034) ng/mL Ur Specific [place] 1.046 H (1.001-1.035) Urine Glucose (UA) 4+ H (Negative) Urine Ketones 1+ H (Negative) Urine Blood Trace H (Negative) Urine Bacteria Rare H (None) /hpf Urine Mucus Rare H (None) /hpf Thrombosis Risk Factor Assmnt - Choose All That Apply Any of the Below Risk Factors Present?: Yes Each Factor Represents 1 point: Obesity (BMI >25) Other Risk Factors: Yes Each Risk Factor Represents 2 Points: Age 61-74 years Other congenital or acquired thrombophilia - If yes, enter type in comment: No Thrombosis Risk Factor Assessment Total Risk Factor Score: 3 Thrombosis Risk Factor Assessment Level: Moderate Risk Assessment and Plan Assessment: Acute NSTEMI with multivessel disease, CTS consulted CAD with prior PCI of RCA Severe aortic stenosis Hypertension Hyperlipidemia Diabetes mellitus, hemoglobin A1c 6.3 Morbid obesity, BMI 31 Plan: Continue on current medication regimen ,monitoring and symptomatic treatment. CTS consulted. Echo pending. Aggressive pulmonary toileting, incentive spirometer ordered. Anticoagulation with heparin drip. IV fluid hydration. Tight glycemic control, insulin drip initiated. The impression and plan of care has been dictated as directed. : I performed a history and examination of this patient, discussed the same with the dictator. I agree with the dictator's note ,documented as a scribe. Any additional findings or plans will be noted.
--- NOTE | 2024-11-22 14:50 | P.PN ---
Subjective Progress Note Date: 11/22/24 H&P Date: 11/21/24 Chief Complaint: Chest pain This is a 69-year-old gentleman with past medical history significant for moderate to severe aortic valve stenosis-follows with Dr. DOROTEO Paredes,CAD with PCI of RCA, hypertension, hyperlipidemia , obesity ,diabetes mellitus, prostate cancer-status post radiation treatment, former nicotine dependence, marijuana u se, alcohol use-5 beers per week, and multiple other medical issues presented to the ER with progressive chest pain, chest pressure and shortness of breath. Reports he has been having intermittent episodes of chest pain for more a few weeks. Previous episodes spontaneously relieved with rest. Yesterday he presented to the ER as chest pain continued to recur throughout the day. EKG reported sinus bradycardia with first-degree AV block, troponins 0.409 1.8 3.37. proBNP 150. D-dimer 0.41. Afebrile, normal WBC, hemoglobin 13.3, platelets 190, sodium 136, potassium 3.6, bicarb 21, BUN 18, creatinine 0.86 glucose 121, hemoglobin A1c 6.3., Magnesium 1.9, AST 156, ALT 52. Hepatitis serology nonreactive. UA reported 4+ glucose, 1+ ketones trace blood negative nitrates negative leukocytes rare bacteria. chest x-ray reported small amount linear scarring atelectasis in the left lung base .evaluated by cardiology, underwent cardiac catheterization. Cardiac catheterization reported total occlusion of RCA with good collaterals from the left, LAD mid lesion of 70%, circumflex nondominant with no significant disease. echo pending. CTS consulted for further evaluation/ recommendation. 11/22/2024 Echo reported normal LV function, mild mitral regurgitation, severe aortic stenosis .evaluated by CTS regarding CABG and AVR, surgery date pending. Patient continues to have ongoing midsternal chest pressure/chest burning. Maintained on heparin drip. Continues on IV fluid hydration, statin, beta- aaron, aspirin, Farxiga, losartan with Nitropaste added to med regimen. Blood sugars controlled. Objective - Vital Signs Vital signs: Vital Signs Temp 98.4 F 11/22/24 11:33 Pulse 66 11/22/24 11:33 Resp 16 11/22/24 11:33 BP 132/76 11/22/24 11:33 Pulse Ox 98 11/22/24 11:33 FiO2 Intake & Output 11/21/24 11/22/24 11/22/24 18:59 06:59 18:59 Intake Total 675 765 617.44 Balance 675 765 617.44 Weight 112.037 kg 113.4 kg Intake: IV 675 Intake, IV Titration 225 137.44 Amount Heparin Sod,Pork in 0.45% 0 137.44 NaCl 25,000 unit In 0.45 % NaCl 1 250ml.bag @ 8.93 UNITS/KG/HR 10.005 mls/ hr IV .Q24H [facility] Rx#: [id number] Sodium Chloride 0.9% 1, 225 000 ml @ 75 mls/hr IV . [id number] [facility] Rx#:[id number] Oral 540 480 Other: Voiding Method Toilet Toilet Toilet Urinal Urinal Urinal # Voids 2 3 # Bowel Movements 1 - Exam PHYSICAL EXAM: VITAL SIGNS: Reviewed GENERAL: Sitting up in bed, alert and oriented x 3,NAD HEENT: Atraumatic, normocephalic conjunctivae normal. eyes normal.mmm. NECK: Supple, no JVD. CARDIOVASCULAR: S1, S2 regular. Systolic murmur RESPIRATION: Unlabored, equal air entry,essentially clear to auscultation with bilateral bases diminished. ABDOMEN: Soft, nondistended, nontender. Positive bowel sounds heard. LEGS: No edema. no swelling, no calf tenderness, peripheral pulses intact. NERVOUS SYSTEM: Cranial N 2-12 grossly normal. No focal deficits. Strength and sensation grossly intact. Skin: Warm and dry, no rash - Labs CBC & Chem 7: 11/22/24 01:09 11/21/24 18:36 Labs: Abnormal Lab Results - Last 24 Hours (Table) 11/21/24 11/21/24 11/21/24 Range/Units 17:20 18:36 18:36 RBC 4.14 L (4.40-5.60) 10*6/uL Hgb (13.0-17.0) g/dL Hct (39.6-50.0) % MCH 32.1 H (27.0-32.0) pg APTT (22.0-30.0) sec Sodium 136 L (137-145) mmol/L Carbon Dioxide 21 L (22-30) mmol/L Glucose 121 H (74-99) mg/dL POC Glucose (mg/dL) 118 H (70-110) mg/dL Hemoglobin A1c (<=6.0) % AST 156 H (17-59) U/L ALT 52 H (4-49) U/L Troponin I (0.000-0.034) ng/mL Ur Specific [place] (1.001-1.035) Urine Glucose (UA) (Negative) Urine Ketones (Negative) Urine Blood (Negative) Urine Bacteria (None) /hpf Urine Mucus (None) /hpf 11/21/24 11/21/24 11/22/24 Range/Units 18:36 19:50 01:09 RBC 3.83 L (4.40-5.60) 10*6/uL Hgb 12.1 L (13.0-17.0) g/dL Hct 36.5 L (39.6-50.0) % MCH (27.0-32.0) pg APTT (22.0-30.0) sec Sodium (137-145) mmol/L Carbon Dioxide (22-30) mmol/L Glucose (74-99) mg/dL POC Glucose (mg/dL) (70-110) mg/dL Hemoglobin A1c 6.3 H (<=6.0) % AST (17-59) U/L ALT (4-49) U/L Troponin I (0.000-0.034) ng/mL Ur Specific [place] 1.046 H (1.001-1.035) Urine Glucose (UA) 4+ H (Negative) Urine Ketones 1+ H (Negative) Urine Blood Trace H (Negative) Urine Bacteria Rare H (None) /hpf Urine Mucus Rare H (None) /hpf 11/22/24 11/22/24 11/22/24 Range/Units 01:09 06:16 10:11 RBC (4.40-5.60) 10*6/uL Hgb (13.0-17.0) g/dL Hct (39.6-50.0) % MCH (27.0-32.0) pg APTT 30.3 H 52.6 H (22.0-30.0) sec Sodium (137-145) mmol/L Carbon Dioxide (22-30) mmol/L Glucose (74-99) mg/dL POC Glucose (mg/dL) (70-110) mg/dL Hemoglobin A1c (<=6.0) % AST (17-59) U/L ALT (4-49) U/L Troponin I 10.900 H* (0.000-0.034) ng/mL Ur Specific [place] (1.001-1.035) Urine Glucose (UA) (Negative) Urine Ketones (Negative) Urine Blood (Negative) Urine Bacteria (None) /hpf Urine Mucus (None) /hpf 11/22/24 11/22/24 Range/Units 10:17 12:59 RBC (4.40-5.60) 10*6/uL Hgb (13.0-17.0) g/dL Hct (39.6-50.0) % MCH (27.0-32.0) pg APTT (22.0-30.0) sec Sodium (137-145) mmol/L Carbon Dioxide (22-30) mmol/L Glucose (74-99) mg/dL POC Glucose (mg/dL) (70-110) mg/dL Hemoglobin A1c (<=6.0) % AST (17-59) U/L ALT (4-49) U/L Troponin I 9.030 H* 10.200 H* (0.000-0.034) ng/mL Ur Specific [place] (1.001-1.035) Urine Glucose (UA) (Negative) Urine Ketones (Negative) Urine Blood (Negative) Urine Bacteria (None) /hpf Urine Mucus (None) /hpf Assessment and Plan Assessment: Acute NSTEMI with multivessel disease, CABG and AVR pending CAD with prior PCI of RCA Severe aortic stenosis Hypertension Hyperlipidemia Diabetes mellitus, hemoglobin A1c 6.3 Morbid obesity, BMI 31 Plan: Continue on current medication regimen ,monitoring and symptomatic treatment. CABG/AVR date to be determined per CTS. maintain aggressive pul monary toileting, incentive spirometer reinforced. Continue anticoagulation with heparin drip. IV fluid hydration. Tight glycemic control, continue NovoLog sliding scale. The impression and plan of care has been dictated as directed. : I performed a history and examination of this patient, discussed the same with the dictator. I agree with the dictator's note ,documented as a scribe. Any additional findings or plans will be noted.
[2024-11-22 16:50] LABS: Glucose,Whole Blood 116 mg/dL (70-110)
[2024-11-22] MEDS: ALPRAZolam 0.25 MG TAB PO PRN (19:51)
[2024-11-22 20:03] LABS: Glucose,Whole Blood 107 mg/dL (70-110)
[2024-11-23 06:04] LABS: Glucose,Whole Blood 150 mg/dL (70-110)
[2024-11-23] MEDS ORDERED: MD COMMUNICATION TO PHARMACY 1 EACH MISC PO ONE ×4 (06:51→06:54)
[2024-11-23 07:44] LABS: HCT 36.3 % (39.6-50.0); HGB 12.2 g/dL (13.0-17.0); MCH 31.6 pg (27.0-32.0); MCHC 33.6 g/dL (32.0-37.0); Mean Platelet Volume 9.5 fL (9.5-12.2); Platelet Count 175 10*3/uL (140-440); RBC 3.86 10*6/uL (4.40-5.60); WBC 8.63 10*3/uL (4.50-10.00)
[2024-11-23 08:46] LABS: African American GFR (CKD) >90 (>60 ml/min/1.73 sqM); Anion Gap 10 mmol/L; Blood Urea Nitrogen 14 mg/dL (9-20); Calcium 9.1 mg/dL (8.4-10.2); Carbon Dioxide 20 mmol/L (22-30); Chloride 107 mmol/L (98-107); Glucose 135 mg/dL (74-99); Magnesium 1.8 mg/dL (1.6-2.3); Non-African American GFR(CKD) 88 (>60 ml/min/1.73 sqM); Potassium 3.7 mmol/L (3.5-5.1); Sodium 137 mmol/L (137-145)
[2024-11-23] MEDS ORDERED: Magnesium Replacement Protocol 1 EACH MISC MISCELLANE PRN (09:16)
--- NOTE | 2024-11-23 09:28 | P.PN ---
Subjective Progress Note Date: 11/23/24 Principal diagnosis: Coronary artery disease and severe aortic valve stenosis. Past medical history significant for known aortic valve stenosis which is followed by Dr. Paredes with serial echocardiograms, coronary artery disease with previous PCI to his right coronary artery in 2007, hypertension, hyperlipidemia, obesity with a BMI of 30.9 kg/m, diabetes mellitus type 2, prostate cancer status post 3 months of radiation therapy, family history of premature coronary artery disease with his father, umbilical hernia, remote history of smoking quit 20 years ago, EtOH use, drinks 5 beers per week, and occasional marijuana use on the weekends. The patient was seen and examined in follow-up today November 23, 2024 at his bedside on the third floor cardiac stepdown unit. He is currently laying in bed, is awake, alert, oriented x 3 and is in no acute apparent distress. He denies any complaints of shortness of breath or chest pain at this time, although he reports that he has had some episodes of chest discomfort throughout the night. He was started on Nitropaste yesterday per cardiology recommendations. He remains on heparin drip per protocol. Remote telemetry is showing normal sinus rhythm heart rate 71 bpm. He is on aspirin, statin and beta-aaron. Oxygen saturations are 95% on room air and he is achieving 2500 mL on his incentive spirometry. An STS risk core was calculated and discussed with the patient yesterday. He is currently scheduled for aortic valve replacement, myocardial revascularization, with left internal mammary artery, endoscopic vein harvest, exclusion of left atrial appendage and intraoperative transesophageal echocardiogram on Tuesday, November 26, [address] Anish Starks. Lab results reviewed, troponin remains pending. Objective - Vital Signs Vital signs: Vital Signs Temp 98.5 F 11/23/24 08:14 Pulse 69 11/23/24 08:14 Resp 14 11/23/24 08:14 BP 116/65 11/23/24 08:14 Pulse Ox 95 11/23/24 08:14 FiO2 Intake & Output 11/22/24 11/23/24 11/23/24 18:59 06:59 18:59 Intake Total 617.44 525 250 Balance 617.44 525 250 Weight 112.4 kg Intake: Intake, IV Titration 137.44 525 250 Amount Heparin Sod,Pork in 0.45% 137.44 250 NaCl 25,000 unit In 0.45 % NaCl 1 250ml.bag @ 8.93 UNITS/KG/HR 10.005 mls/ hr IV .Q24H [facility] Rx#: [id number] Sodium Chloride 0.9% 1, 525 000 ml @ 75 mls/hr IV . [id number] [facility] Rx#:[id number] Oral 480 Other: Voiding Method Toilet Toilet Urinal Urinal # Voids 1 2 # Bowel Movements 1 - Exam CONSTITUTIONAL: Appears comfortable, cooperative, no apparent acute distress. HEENT: Neck is supple, no JVD, no lymphadenopathy. RESPIRATORY: Lungs sounds essentially clear throughout. Respirations are symmetrical and nonlabored. Currently on room air with oxygen saturations 95%. Able to achieve 2500 mL on their incentive spirometry. Strong cough. CARDIOVASCULAR: Regular rhythm and rate. S1 and diminished S2 present, negative for S3, or gallop, positive systolic murmur 2/6. Sternum is stable. Palpable peripheral pulses bilaterally. Remote telemetry showing normal sinus rhythm heart rate 71 bpm. GASTROINTESTINAL: Abdomen soft, nontender, nondistended. Active bowel sounds present 4 quadrants. Tolerating diet. Passing flatus. No guarding or rigidity. GENITOURINARY: Continues to void. INTEGUMENTARY: Skin is warm and dry with no evidence of clubbing or cyanosis. NEUROLOGIC: Cranial nerves II through XII intact. No focal deficits. MUSKULOSKELETAL: Able to move all extremities, strength equal bilaterally. PSYCHIATRIC: Alert and oriented to person place and time, appropriate affect, intact judgment and insight. - Allied health notes Allied health notes reviewed: nursing - Labs CBC & Chem 7: 11/23/24 07:25 11/23/24 07:25 Labs: Abnormal Lab Results - Last 24 Hours (Table) 11/22/24 11/22/24 11/22/24 Range/Units 10:11 10:17 12:59 RBC (4.40-5.60) 10*6/uL Hgb (13.0-17.0) g/dL Hct (39.6-50.0) % APTT 52.6 H (22.0-30.0) sec Carbon Dioxide (22-30) mmol/L Glucose (74-99) mg/dL POC Glucose (mg/dL) (70-110) mg/dL Troponin I 9.030 H* 10.200 H* (0.000-0.034) ng/mL 11/22/24 11/23/24 11/23/24 Range/Units 16:48 06:02 07:25 RBC (4.40-5.60) 10*6/uL Hgb (13.0-17.0) g/dL Hct (39.6-50.0) % APTT 47.4 H (22.0-30.0) sec Carbon Dioxide (22-30) mmol/L Glucose (74-99) mg/dL POC Glucose (mg/dL) 116 H 150 H (70-110) mg/dL Troponin I (0.000-0.034) ng/mL 11/23/24 11/23/24 Range/Units 07:25 07:25 RBC 3.86 L (4.40-5.60) 10*6/uL Hgb 12.2 L (13.0-17.0) g/dL Hct 36.3 L (39.6-50.0) % APTT (22.0-30.0) sec Carbon Dioxide 20 L (22-30) mmol/L Glucose 135 H (74-99) mg/dL POC Glucose (mg/dL) (70-110) mg/dL Troponin I (0.000-0.034) ng/mL Assessment and Plan Assessment: Coronary artery disease with previous PCI of the right coronary artery in 2007 Non-ST elevated myocardial infarction this admission Severe aortic valve stenosis on cardiac catheterization and transthoracic 2D echocardiogram Hypertension Hyperlipidemia Diabetes mellitus type 2 Obesity with a BMI of 30.9 kg/m Family history of early onset coronary artery disease History of prostate cancer status post 3 months of radiation therapy Remote history of nicotine dependence, quit smoking 20 years ago EtOH use with 5 beers per week Weekend use of marijuana Umbilical hernia Plan: An STS risk core has been calculated and discussed with the patient. A 5 m walk test has been completed with the patient on 11/22/2024, and the patient tolerated well. Time 1: 3.36 seconds, time 2: 3.50 seconds, time 3, 3.51 seconds. Dental clearance has been obtained from his dentist Dr. Kay. He will be scheduled for aortic valve replacement, and myocardial vascularization surgery, with left internal mammary artery, endoscopic vein harvest, exclusion of left atrial appendage and intraoperative transesophageal echocardiogram on Tuesday, November 26, [address] Anish Starks. Heparin drip management per cardiology recommendations. Continue to maximize medical management with aspirin, statin and beta-aaron. Pulmonary/critical care consult noted and appreciated. More recommendations to follow based on patient's clinical course. Time with Patient: Greater than 30
[2024-11-23] MEDS: MAGNESIUM SULFATE-D5W PMX 1 GM in DEXTROSE/WATER 1 100ML.BAG IVPB ONE (11:19)
--- NOTE | 2024-11-23 11:21 | P.PN ---
Subjective Progress Note Date: 11/23/24 H&P Date: 11/21/24 Chief Complaint: Chest pain This is a 69-year-old gentleman with past medical history significant for moderate to severe aortic valve stenosis-follows with Dr. DOROTEO Paredes,CAD with PCI of RCA, hypertension, hyperlipidemia , obesity ,diabetes mellitus, prostate cancer-status post radiation treatment, former nicotine dependence, marijuana u se, alcohol use-5 beers per week, and multiple other medical issues presented to the ER with progressive chest pain, chest pressure and shortness of breath. Reports he has been having intermittent episodes of chest pain for more a few weeks. Previous episodes spontaneously relieved with rest. Yesterday he presented to the ER as chest pain continued to recur throughout the day. EKG reported sinus bradycardia with first-degree AV block, troponins 0.409 1.8 3.37. proBNP 150. D-dimer 0.41. Afebrile, normal WBC, hemoglobin 13.3, platelets 190, sodium 136, potassium 3.6, bicarb 21, BUN 18, creatinine 0.86 glucose 121, hemoglobin A1c 6.3., Magnesium 1.9, AST 156, ALT 52. Hepatitis serology nonreactive. UA reported 4+ glucose, 1+ ketones trace blood negative nitrates negative leukocytes rare bacteria. chest x-ray reported small amount linear scarring atelectasis in the left lung base .evaluated by cardiology, underwent cardiac catheterization. Cardiac catheterization reported total occlusion of RCA with good collaterals from the left, LAD mid lesion of 70%, circumflex nondominant with no significant disease. echo pending. CTS consulted for further evaluation/ recommendation. 11/22/2024 Echo reported normal LV function, mild mitral regurgitation, severe aortic stenosis .evaluated by CTS regarding CABG and AVR, surgery date pending. Patient continues to have ongoing midsternal chest pressure/chest burning. Maintained on heparin drip. Continues on IV fluid hydration, statin, beta- aaron, aspirin, Farxiga, losartan with Nitropaste added to med regimen. Blood sugars controlled. 11/23/2024 scheduled for CABG/AVR on 11/27/2019. Maintained on heparin drip. Telemetry sinus rhythm Nitropaste initiated yesterday , reports chest pressure/burning during the night. Soft blood pressures in the stitchdown toe former hours, Nitropaste has been discontinued. currently denies chest pain, palpitations or shortness of breath. Blood sugars controlled. Objective - Vital Signs Vital signs: Vital Signs Temp 98.5 F 11/23/24 08:14 Pulse 69 11/23/24 08:14 Resp 14 11/23/24 08:14 BP 116/65 11/23/24 08:14 Pulse Ox 95 11/23/24 08:14 FiO2 Intake & Output 11/22/24 11/23/24 11/23/24 18:59 06:59 18:59 Intake Total 617.44 525 250 Balance 617.44 525 250 Weight 112.4 kg Intake: Intake, IV Titration 137.44 525 250 Amount Heparin Sod,Pork in 0.45% 137.44 250 NaCl 25,000 unit In 0.45 % NaCl 1 250ml.bag @ 8.93 UNITS/KG/HR 10.005 mls/ hr IV .Q24H [facility] Rx#: [id number] Sodium Chloride 0.9% 1, 525 000 ml @ 75 mls/hr IV . [id number] [facility] Rx#:[id number] Oral 480 Other: Voiding Method Toilet Toilet Urinal Urinal # Voids 1 2 # Bowel Movements 1 - Exam PHYSICAL EXAM: VITAL SIGNS: Reviewed GENERAL: Sitting up in bed, alert and oriented x 3,NAD HEENT: Atraumatic, normocephalic conjunctivae normal. eyes normal.mmm. NECK: Supple, no JVD. CARDIOVASCULAR: S1, S2 regular. Systolic murmur RESPIRATION: Unlabored, equal air entry,CTA. ABDOMEN: Soft, nondistended, nontender. Positive bowel sounds. LEGS: No edema. no swelling, no calf tenderness, peripheral pulses intact. NERVOUS SYSTEM: Cranial N 2-12 grossly normal. No focal deficits. Strength and sensation grossly intact. Skin: Warm and dry, no rash - Labs CBC & Chem 7: 11/23/24 07:25 11/23/24 07:25 Labs: Abnormal Lab Results - Last 24 Hours (Table) 11/22/24 11/22/24 11/23/24 Range/Units 12:59 16:48 06:02 RBC (4.40-5.60) 10*6/uL Hgb (13.0-17.0) g/dL Hct (39.6-50.0) % APTT (22.0-30.0) sec Carbon Dioxide (22-30) mmol/L Glucose (74-99) mg/dL POC Glucose (mg/dL) 116 H 150 H (70-110) mg/dL Troponin I 10.200 H* (0.000-0.034) ng/mL 11/23/24 11/23/24 11/23/24 Range/Units 07:25 07:25 07:25 RBC 3.86 L (4.40-5.60) 10*6/uL Hgb 12.2 L (13.0-17.0) g/dL Hct 36.3 L (39.6-50.0) % APTT 47.4 H (22.0-30.0) sec Carbon Dioxide (22-30) mmol/L Glucose (74-99) mg/dL POC Glucose (mg/dL) (70-110) mg/dL Troponin I 10.100 H* (0.000-0.034) ng/mL 11/23/24 Range/Units 07:25 RBC (4.40-5.60) 10*6/uL Hgb (13.0-17.0) g/dL Hct (39.6-50.0) % APTT (22.0-30.0) sec Carbon Dioxide 20 L (22-30) mmol/L Glucose 135 H (74-99) mg/dL POC Glucose (mg/dL) (70-110) mg/dL Troponin I (0.000-0.034) ng/mL Microbiology - Last 24 Hours (Table) 11/21/24 16:55 Nasal Screen MRSA/MSSA - Final Nasal Swab Assessment and Plan Assessment: Acute NSTEMI with multivessel disease, CABG and AVR pending CAD with prior PCI of RCA Severe aortic stenosis Hypertension Hyperlipidemia Diabetes mellitus, hemoglobin A1c 6.3 History of prostate cancer with radiation tx. Morbid obesity, BMI 31 Marijuana use Alcohol use Plan: Continue on current medication regimen ,monitoring and symptomatic tr eatment. CABG/AVR scheduled for 11/26/2024. Maintain anticoagulation with heparin drip, IV fluid hydration. Continue aggressive pulmonary toileting, incentive spirometer reinforced. Tight glycemic control, continue NovoLog sliding scale. The impression and plan of care has been dictated as directed. : I performed a history and examination of this patient, discussed the same with the dictator. I agree with the dictator's note ,documented as a scribe. Any additional findings or plans will be noted.
[2024-11-23 11:47] LABS: Glucose,Whole Blood 127 mg/dL (70-110)
--- NOTE | 2024-11-23 12:50 | P.PN ---
Subjective Progress Note Date: 11/23/24 Reason for Consult (text): NSTEMI History of present illness: This is a 69-year-old male patient of Dr. DOROTEO Paredes with past medical history of coronary artery disease prior PCI of the right coronary artery, moderate to severe aortic stenosis, hypertension, hyperlipidemia, family history of premature coronary artery disease. We have been asked to evaluate the patient for NSTEMI. Patient presented to the hospital due to chest pain that had been on and off all day yesterday. He has no chest pain at the time of this evaluation. He denies shortness of breath, no palpitations. Blood pressure 109/68, heart rate 57, pulse ox 99% on room air. Dr. Les randhawa discussed with patient the recommendations for cardiac catheterization and he is agreeable to move forward with this today. -EKG: Sinus bradycardia with first-degree block -Chest x-ray: Small amount of thin linear scarring or atelectasis in the left lung base. -Laboratory studies: Troponin 0.409, 1.8, 3.37. proBNP 150. D-dimer 0.41. Sodium 136, potassium 3.3, BUN 21 creatinine 1.13. WBC 6.9 and hemoglobin 14. -Home cardiac medications according to office note dated 09/12/2024: Aspirin 81 mg daily, Jardiance 10 mg daily, Lipitor 40 mg daily, losartan 25 mg daily, metoprolol tartrate 50 mg twice daily. -Echocardiogram performed in the office revealed EF of 55%, moderate aortic stenosis. Mild mitral regurgitation. Mild tricuspid regurgitation. Normal PASP. Mild pulmonic regurgitation. -Cardiolite stress test performed in the office in 08/23/2022 revealed fair exercise capacity with negative stress test by EKG criteria. Small and area of septal partially reversible mild intensity defect which may be an artifact or small area of ischemia in the inferior wall. EF is normal. -Cardiac catheterization performed in 2007 revealed superdominant right coronary artery with critical mid lesion. Stenting with 2 drug-eluting stents was performed. Left system did not have any significant disease. -CT chest performed 10/11/2023 revealed severe aortic valve calcification. No aneurysm. 11/22/2024 Patient seen and examined on the cardiac stepdown unit. Yesterday, patient underwent cardiac catheterization with Dr. Paredes which revealed right dominant system. Total occlusion of the RCA with good collaterals from the left. LAD has mid lesion 70%. First diagonal and second diagonal seem to come off the LAD with lesion in the LAD in between are of fair caliber and distribution. Circumflex nondominant with no significant disease. LV was not crossed. Dr. Paredes recommended CABG and aortic valve replacement. Patient has been seen by cardiothoracic surgery team and date of surgery has not been determined. Patient states he still has a dull ache in his chest that is a 2/10. He had a repeat troponin that came back at 10.9. He remains on heparin drip. Echocard iogram reveals normal left ventricular size and systolic function. Mild mitral regurgitation. Severe aortic stenosis with mean gradient heavily calcified valve. 11/23/2024 Patient seen and examined. Patient is waiting to see the cardiothoracic surgery but surgery is tentatively scheduled for Tuesday. Patient has complained of chest pain 06/15. Yesterday, he was started on Nitropaste which may have made a slight improvement. Patient is continued on heparin drip. Blood pressure 101/60, heart rate 57, pulse ox 98% on room air. Overall blood pressures are low this morning. Repeat blood work reveals hemoglobin 12.2, BUN 14, creatinine 0.88, troponin 10.1. Potassium 3.7. Physical examination: Gen: This is 69-year-old male in no acute distress VS: reviewed HEENT: Head is atraumatic, normocephalic. Pupils equal, round. Sclerae is anicteric. NECK: Supple. No JVD. LUNGS: Clear to auscultation. No wheezes or rhonchi. No intercostal retractions. HEART: Regular rate and rhythm. 4/6 AGNIESZKA. ABDOMEN: Soft No tenderness. EXTREMITIES: No pedal edema. No calf tenderness. NEUROLOGICAL: Patient is awake, alert and oriented x3. Assessment: NSTEMI with multivessel CAD awaiting CABG, surgery tentatively scheduled for Sunday 11/26 History of coronary artery disease with prior PCI of the RCA Severe aortic stenosis, surgery tentatively scheduled for Sunday 11/26 Hypertension Hyperlipidemia Plan: Continue current home cardiac medications: Aspirin 81 mg daily, atorvastatin 40 mg at bedtime, Farxiga 10 mg daily, metoprolol succinate 12.5 mg daily Losartan has been discontinued by cardiothoracic team Continue Heparin gtt Discontinue Nitropaste and start patient on Imdur 30 mg daily with parameters to hold for systolic blood pressure less than 100 and start Ranexa 500 mg twice daily Increase IV fluids to 100 cc/h Consult with cardiothoracic team appreciated Further recommendations to follow based upon clinical course Nurse practitioner note has been reviewed, I agree with documented findings and plan of care. Patient was seen and examined. Objective - Vital Signs Vital signs: Vital Signs Temp 98.5 F 11/23/24 08:14 Pulse 69 11/23/24 08:14 Resp 14 11/23/24 08:14 BP 116/65 11/23/24 08:14 Pulse Ox 95 11/23/24 08:14 FiO2 Intake & Output 11/22/24 11/23/24 11/23/24 18:59 06:59 18:59 Intake Total 617.44 525 Balance 617.44 525 Weight 112.4 kg Intake: Intake, IV Titration 137.44 525 Amount Heparin Sod,Pork in 0.45% 137.44 NaCl 25,000 unit In 0.45 % NaCl 1 250ml.bag @ 8.93 UNITS/KG/HR 10.005 mls/ hr IV .Q24H [facility] Rx#: [id number] Sodium Chloride 0.9% 1, 525 000 ml @ 75 mls/hr IV . [id number] [facility] Rx#:[id number] Oral 480 Other: Voiding Method Toilet Toilet Urinal Urinal # Voids 1 2 # Bowel Movements 1 - Labs CBC & Chem 7: 11/23/24 07:25 11/23/24 07:25 Labs: Abnormal Lab Results - Last 24 Hours (Table) 11/22/24 11/22/24 11/22/24 Range/Units 10:11 10:17 12:59 RBC (4.40-5.60) 10*6/uL Hgb (13.0-17.0) g/dL Hct (39.6-50.0) % APTT 52.6 H (22.0-30.0) sec POC Glucose (mg/dL) (70-110) mg/dL Troponin I 9.030 H* 10.200 H* (0.000-0.034) ng/mL 11/22/24 11/23/24 11/23/24 Range/Units 16:48 06:02 07:25 RBC (4.40-5.60) 10*6/uL Hgb (13.0-17.0) g/dL Hct (39.6-50.0) % APTT 47.4 H (22.0-30.0) sec POC Glucose (mg/dL) 116 H 150 H (70-110) mg/dL Troponin I (0.000-0.034) ng/mL 11/23/24 Range/Units 07:25 RBC 3.86 L (4.40-5.60) 10*6/uL Hgb 12.2 L (13.0-17.0) g/dL Hct 36.3 L (39.6-50.0) % APTT (22.0-30.0) sec POC Glucose (mg/dL) (70-110) mg/dL Troponin I (0.000-0.034) ng/mL
[2024-11-23] MEDS: ISOSORBIDE MONONITRATE ER 30 MG TAB.ER.24H PO SCH (13:24)
[2024-11-23] MEDS: RANOLAZINE 500 MG TAB.ER.12H PO SCH (13:24)
--- NOTE | 2024-11-23 13:26 | P.PN ---
Subjective Progress Note Date: 11/23/24 Principal diagnosis: Multivessel coronary disease. Pulmonary consult dated November 22, 2024. 69-year-old male seen today in room 361. We were asked to see the patient, because the patient is going to have bypass surgery, maybe as soon as tomorrow. Anyway, the patient was seen in the emergency department, on November 20, 2024. He came in with chest pain. The patient has been having symptoms for some time, and the symptoms became more severe, and worrisome to the patient, which is why he came in to be evaluated. He does have a history of coronary disease, had stents placed a number of years back. That was done by Dr. Paredes. The patient has not had a recent cardiac catheterization. In addition to chest pain, he described lightheadedness, dizziness, shortness of breath, when he had chest pain. His symptoms were exertional. In addition to coronary artery disease, the patient has a history of diabetes. Home medications included metoprolol, losartan/HCTZ, Lipitor, metformin, Aldara, and Jardiance. Laboratory data includes a white count of 6.7, hemoglobin 12.1, hematocrit 36.5, and a platelet count is normal. The patient's PTT is 52.6. He is on IV heparin. Sodium 136, potassium 3.6, chlorides 102, CO2 21, BUN 18, creatinine 0.86. Troponins were 0.409, 3.370, and 10.2 respectively. TSH was normal. The rest of the testing was unremarkable. The patient had a cardiac catheterization on November 21, done by Dr. DOROTEO Paredes. The results are noted in the chart, under final impression. Progress note dated November 23, 2024. 69-year-old male seen in consultation yesterday. The patient is seen again in room 361. He is on room air. He is getting saline at 75 cc an hour. He is also receiving IV heparin. When we saw him yesterday, there was some thoughts that the patient would go for open heart today. In reality, the patient will have his surgery on Tuesday. Clinically, he is doing very well. Laboratory data includes a white count 8.6, hemoglobin 12.2, hematocrit 36.3, platelet count 175,000. Sodium 137, potassium 3.7 chlorides 107, CO2 20, BUN 14, creatinine 0.88. Glucose was 127. Troponin was 10.1. All labs, x-rays, and medications are reviewed. Objective - Vital Signs Vital signs: Vital Signs Temp 98.2 F 11/23/24 11:16 Pulse 57 L 11/23/24 11:16 Resp 14 11/23/24 11:16 BP 101/60 11/23/24 11:16 Pulse Ox 98 11/23/24 11:16 FiO2 Intake & Output 11/22/24 11/23/24 11/23/24 18:59 06:59 18:59 Intake Total 617.44 525 250 Balance 617.44 525 250 Weight 112.4 kg Intake: Intake, IV Titration 137.44 525 250 Amount Heparin Sod,Pork in 0.45% 137.44 250 NaCl 25,000 unit In 0.45 % NaCl 1 250ml.bag @ 8.93 UNITS/KG/HR 10.005 mls/ hr IV .Q24H [facility] Rx#: [id number] Sodium Chloride 0.9% 1, 525 000 ml @ 100 mls/hr IV . Q10H [facility] Rx#:[id number] Oral 480 Other: Voiding Method Toilet Toilet Urinal Urinal # Voids 1 2 1 # Bowel Movements 1 - Exam No acute distress, oriented 3. Currently on room air. HEENT examination is grossly unremarkable. Mucous membranes are moist. No oral lesions. Neck supple. Full range of motion. No adenopathy thyromegaly or neck vein distention. Cardiovascular examination reveals regular rhythm rate. S1-S2 normal. No S3 or S4. No discernible murmur noted. Lungs reveal clear breath sounds. Breath sounds are equal bilaterally. No adventitious lung sounds including wheezes rhonchi or crackles. Abdomen soft bowel sounds are heard. No masses or tenderness. Extremities are intact. No cyanosis clubbing or edema. Skin is without rash or lesion. Neurologic examination is brief but nonfocal. - Labs CBC & Chem 7: 11/23/24 07:25 11/23/24 07:25 Labs: Abnormal Lab Results - Last 24 Hours (Table) 11/22/24 11/22/24 11/23/24 Range/Units 12:59 16:48 06:02 RBC (4.40-5.60) 10*6/uL Hgb (13.0-17.0) g/dL Hct (39.6-50.0) % APTT (22.0-30.0) sec Carbon Dioxide (22-30) mmol/L Glucose (74-99) mg/dL POC Glucose (mg/dL) 116 H 150 H (70-110) mg/dL Troponin I 10.200 H* (0.000-0.034) ng/mL 11/23/24 11/23/24 11/23/24 Range/Units 07:25 07:25 07:25 RBC 3.86 L (4.40-5.60) 10*6/uL Hgb 12.2 L (13.0-17.0) g/dL Hct 36.3 L (39.6-50.0) % APTT 47.4 H (22.0-30.0) sec Carbon Dioxide (22-30) mmol/L Glucose (74-99) mg/dL POC Glucose (mg/dL) (70-110) mg/dL Troponin I 10.100 H* (0.000-0.034) ng/mL 11/23/24 11/23/24 Range/Units 07: 11:45 RBC (4.40-5.60) 10*6/uL Hgb (13.0-17.0) g/dL Hct (39.6-50.0) % APTT (22.0-30.0) sec Carbon Dioxide 20 L (22-30) mmol/L Glucose 135 H (74-99) mg/dL POC Glucose (mg/dL) 127 H (70-110) mg/dL Troponin I (0.000-0.034) ng/mL Microbiology - Last 24 Hours (Table) 11/21/24 16:55 Nasal Screen MRSA/MSSA - Final Nasal Swab Assessment and Plan Assessment: Acute non-ST segment elevation myocardial infarction. Multivessel coronary artery disease. History of CAD with previous PCI of the right coronary artery. Severe aortic stenosis. History of hypertension. History of hyperlipidemia. History of diabetes mellitus. Plan: Plan dated November 22, 2024. 69-year-old male who was apparently having chest pain, shortness of breath, lightheadedness, and dizziness. He was found to have multivessel coronary artery disease. The patient is to have anticipated bypass grafting, possibly as early as tomorrow. The patient really does not have much in the way of any lung issues. Lung function were more than adequate. Labs, x-rays, and medications are reviewed. We will continue to follow make recommendations along the way. We did explain to the patient what our role in the whole process would be, including working to get the patient off mechanical ventilation, and the following the patient on the daily basis, to ensure healthy lung function. Prognosis is guarded. Dictation was produced using Figma software. Please excuse any grammatical, word or spelling errors. Plan dated November 23, 2024. This patient will be going for open heart surgery on Tuesday. The patient has multivessel coronary artery disease, and recent was complaining of chest pain, shortness of breath, lightheadedness and dizziness. Please see our consultation above. Labs, x-rays, and medications are reviewed. Will continue to follow the patient, make recommendations along the way. Prognosis is thought to be generally good. Dictation was produced using F[employer] software. Please excuse any grammatical, word or spelling errors. Time with Patient: Less than 30
[2024-11-23 16:42] LABS: Glucose,Whole Blood 139 mg/dL (70-110)
[2024-11-23 20:11] LABS: Glucose,Whole Blood 119 mg/dL (70-110)
[2024-11-24 06:37] LABS: Glucose,Whole Blood 110 mg/dL (70-110)
[2024-11-24 07:48] LABS: MCH 31.3 pg (27.0-32.0); MCHC 33.3 g/dL (32.0-37.0); Mean Platelet Volume 10.1 fL (9.5-12.2); Platelet Count 195 10*3/uL (140-440); RBC 3.83 10*6/uL (4.40-5.60); WBC 6.99 10*3/uL (4.50-10.00)
--- NOTE | 2024-11-24 08:19 | P.PN ---
Subjective Progress Note Date: 11/24/24 Principal diagnosis: Coronary artery disease and severe aortic valve stenosis. Past medical history significant for known aortic valve stenosis which is followed by Dr. Paredes with serial echocardiograms, coronary artery disease with previous PCI to his right coronary artery in 2007, hypertension, hyperlipidemia, obesity with a BMI of 30.9 kg/m, diabetes mellitus type 2, prostate cancer status post 3 months of radiation therapy, family history of premature coronary artery disease with his father, umbilical hernia, remote history of smoking quit 20 years ago, EtOH use, drinks 5 beers per week, and occasional marijuana use on the weekends. The patient was seen and examined in follow-up today November 24, 2024 at his bedside on the third floor cardiac stepdown unit. He is currently laying in bed, is awake, alert, oriented x 3 and is in no acute apparent distress. He denies any complaints of shortness of breath at this time, and states that his chest pain has resolved since being started on Imdur and Ranexa. Oxygen saturations are 94 percent on room air and he is achieving 2500 mL on his incentive spirometry. Preoperative teaching has been reinforced with the magalis ent, and preoperative cardiac surgery booklet has been reviewed with the patient. Remote telemetry is showing normal sinus rhythm heart rate 74 bpm. He continues on aspirin statin and beta-aaron. He is scheduled for aortic valve replacement, myocardial revascularization surgery with left internal mammary artery, endoscopic greater saphenous vein harvest, exclusion left atrial appendage and intraoperative transesophageal echocardiogram on Tuesday, November 26, 2024 to be completed by Dr. Anish Starks. Laboratory results remain pending. Objective - Vital Signs Vital signs: Vital Signs Temp 98.5 F 11/24/24 08:12 Pulse 74 11/24/24 08:12 Resp 14 11/24/24 08:12 BP 116/70 11/24/24 08:12 Pulse Ox 95 11/24/24 08:12 FiO2 Intake & Output 11/23/24 11/24/24 11/24/24 18:59 06:59 18:59 Intake Total 250 660 Balance 250 660 Weight 114.7 kg Intake: Intake, IV Titration 250 Amount Heparin Sod,Pork in 0.45% 250 NaCl 25,000 unit In 0.45 % NaCl 1 250ml.bag @ 8.93 UNITS/KG/HR 10.005 mls/ hr IV .Q24H [facility] Rx#: [id number] Oral 660 Other: Voiding Method Toilet Toilet Urinal Urinal # Voids 1 1 1 # Bowel Movements 1 - Exam CONSTITUTIONAL: Appears comfortable, cooperative, no apparent acute distress. HEENT: Neck is supple, no JVD, no lymphadenopathy. RESPIRATORY: Lungs sounds essentially clear throughout. Respirations are symmetrical and nonlabored. Currently on room air with oxygen saturations 94%. Able to achieve 2500 mL on their incentive spirometry. Strong cough. CARDIOVASCULAR: Regular rhythm and rate. S1 and diminished S2 present, negative for S3, or gallop, positive systolic murmur 2/6. Sternum is stable. Palpable peripheral pulses bilaterally. Remote telemetry showing normal sinus rhythm heart rate 71 bpm. GASTROINTESTINAL: Abdomen soft, nontender, nondistended. Active bowel sounds present 4 quadrants. Tolerating diet. Passing flatus. No guarding or rigidity. GENITOURINARY: Continues to void. INTEGUMENTARY: Skin is warm and dry with no evidence of clubbing or cyanosis. NEUROLOGIC: Cranial nerves II through XII intact. No focal deficits. MUSKULOSKELETAL: Able to move all extremities, strength equal bilaterally. PSYCHIATRIC: Alert and oriented to person place and time, appropriate affect, intact judgment and insight. - Allied health notes Allied health notes reviewed: nursing - Labs CBC & Chem 7: 11/24/24 06:52 11/23/24 07:25 Labs: Abnormal Lab Results - Last 24 Hours (Table) 11/23/24 11/23/24 11/23/24 Range/Units 07:25 07:25 07:25 RBC (4.40-5.60) 10*6/uL Hgb (13.0-17.0) g/dL Hct (39.6-50.0) % APTT 47.4 H (22.0-30.0) sec Carbon Dioxide 20 L (22-30) mmol/L Glucose 135 H (74-99) mg/dL POC Glucose (mg/dL) (70-110) mg/dL Troponin I 10.100 H* (0.000-0.034) ng/mL 11/23/24 11/23/24 11/23/24 Range/Units 11:45 16:40 20:10 RBC (4.40-5.60) 10*6/uL Hgb (13.0-17.0) g/dL Hct (39.6-50.0) % APTT (22.0-30.0) sec Carbon Dioxide (22-30) mmol/L Glucose (74-99) mg/dL POC Glucose (mg/dL) 127 H 139 H 119 H (70-110) mg/dL Troponin I (0.000-0.034) ng/mL 11/24/24 11/24/24 Range/Units 06:52 06:52 RBC 3.83 L (4.40-5.60) 10*6/uL Hgb 12.0 L (13.0-17.0) g/dL Hct 36.0 L (39.6-50.0) % APTT 40.9 H (22.0-30.0) sec Carbon Dioxide (22-30) mmol/L Glucose (74-99) mg/dL POC Glucose (mg/dL) (70-110) mg/dL Troponin I (0.000-0.034) ng/mL Microbiology - Last 24 Hours (Table) 11/21/24 16:55 Nasal Screen MRSA/MSSA - Final Nasal Swab Assessment and Plan Assessment: Coronary artery disease with previous PCI of the right coronary artery in 2007 Non-ST elevated myocardial infarction this admission Severe aortic valve stenosis on cardiac catheterization and transthoracic 2D echocardiogram Hypertension Hyperlipidemia Diabetes mellitus type 2 Obesity with a BMI of 30.9 kg/m Family history of early onset coronary artery disease History of prostate cancer status post 3 months of radiation therapy Remote history of nicotine dependence, quit smoking 20 years ago EtOH use with 5 beers per week Weekend use of marijuana Umbilical hernia Plan: An STS risk core has been calculated and discussed with the patient. A 5 m walk test has been completed with the patient on 11/22/2024, and the patient tolerated well. Time 1: 3.36 seconds, time 2: 3.50 seconds, time 3, 3.51 seconds. Dental clearance has been obtained from his dentist Dr. Kay. He is scheduled for aortic valve replacement, myocardial vascularization surgery, with left internal mammary artery, endoscopic vein harvest, exclusion of left atrial appendage and intraoperative transesophageal echocardiogram on Tuesday, November 26, [address] Anish Starks. Heparin drip management per cardiology recommendations. Continue to maximize medical management with aspirin, statin and beta-aaron. The patient has been started on Imdur and Ranexa per cardiology recommendations. Preoperative teaching has been reinforced with the patient. More recommendations to follow based on patient's clinical course. Time with Patient: Greater than 30
[2024-11-24 08:48] LABS: AST 81 U/L (17-59); African American GFR (CKD) >90 (>60 ml/min/1.73 sqM); Albumin 3.6 g/dL (3.5-5.0); Alkaline Phosphatase 68 U/L (38-126); Anion Gap 9 mmol/L; Blood Urea Nitrogen 14 mg/dL (9-20); Calcium 8.6 mg/dL (8.4-10.2); Carbon Dioxide 19 mmol/L (22-30); Chloride 108 mmol/L (98-107); Glucose 114 mg/dL (74-99); Non-African American GFR(CKD) 82 (>60 ml/min/1.73 sqM); Potassium 3.6 mmol/L (3.5-5.1); Sodium 136 mmol/L (137-145); Total Bilirubin 1.5 mg/dL (0.2-1.3); Total Protein 6.5 g/dL (6.3-8.2)
[2024-11-24 08:50] LABS: ALT 39 U/L (4-49)
--- NOTE | 2024-11-24 10:37 | P.PN ---
Subjective Progress Note Date: 11/24/24 November 24, 2024: Patient reevaluated for his ongoing cardiac ischemia and severe aortic stenosis he was admitted for this several days ago is being followed by cardiology a consult for pulmonology was following him for a planned intervention with cardiothoracic surgery also noted. He is a type II diabetic w ith known coronary artery disease and severe aortic stenosis he is found to have two-vessel disease that was significant enough to recommend bypass. This is scheduled for Tuesday. Vital signs today remained stable he is afebrile heart rate controlled. Laboratory studies troponin today was 13.1 electrolytes essentially normal as is his CBC. Himself reports minimal angina since the addition of Imdur and Ranexa. He originally had Nitropaste. Cardiology did not feel a nitro drip was necessary, this was recommended by cardiothoracic surgery. Objective - Vital Signs Vital signs: Vital Signs Temp 98.5 F 11/24/24 08:12 Pulse 74 11/24/24 08:12 Resp 14 11/24/24 08:12 BP 116/70 11/24/24 08:12 Pulse Ox 95 11/24/24 08:12 FiO2 Intake & Output 11/23/24 11/24/24 11/24/24 18:59 06:59 18:59 Intake Total 250 660 240 Balance 250 660 240 Weight 114.7 kg Intake: Intake, IV Titration 250 Amount Heparin Sod,Pork in 0.45% 250 NaCl 25,000 unit In 0.45 % NaCl 1 250ml.bag @ 8.93 UNITS/KG/HR 10.005 mls/ hr IV .Q24H [facility] Rx#: [id number] Oral 660 240 Other: Voiding Method Toilet Toilet Urinal Urinal # Voids 1 1 1 # Bowel Movements 1 - Exam GENERAL: Well-appearing, well-nourished and in no acute distress. male slightly obese NECK: Normal range of motion, supple without lymphadenopathy or JVD, no thyromegaly LUNGS: Breath sounds clear to auscultation bilaterally and equal. No wheezes rales or rhonchi. HEART: Regular rate and rhythm without murmurs, rubs or gallops.S1S2 Normal ABDOMEN: Soft, nontender, normoactive bowel sounds. No guarding, no rebound. No masses appreciated. EXTREMITIES: Normal range of motion, no pitting or edema. No clubbing or cyanosis. NEUROLOGICAL: Cranial nerves II through XII grossly intact. Normal speech, normal gait. PSYCH: Normal mood, normal affect. SKIN: Warm, Dry, normal turgor, no rashes or lesions noted. - Labs CBC & Chem 7: 11/24/24 06:52 11/24/24 06:52 Labs: Abnormal Lab Results - Last 24 Hours (Table) 11/23/24 11/23/24 11/23/24 Range/Units 11:45 16:40 20:10 RBC (4.40-5.60) 10*6/uL Hgb (13.0-17.0) g/dL Hct (39.6-50.0) % APTT (22.0-30.0) sec Sodium (137-145) mmol/L Chloride (98-107) mmol/L Carbon Dioxide (22-30) mmol/L Glucose (74-99) mg/dL POC Glucose (mg/dL) 127 H 139 H 119 H (70-110) mg/dL Total Bilirubin (0.2-1.3) mg/dL AST (17-59) U/L Troponin I (0.000-0.034) ng/mL 11/24/24 11/24/24 11/24/24 Range/Units 06:52 06:52 06:52 RBC 3.83 L (4.40-5.60) 10*6/uL Hgb 12.0 L (13.0-17.0) g/dL Hct 36.0 L (39.6-50.0) % APTT 40.9 H (22.0-30.0) sec Sodium 136 L (137-145) mmol/L Chloride 108 H (98-107) mmol/L Carbon Dioxide 19 L (22-30) mmol/L Glucose 114 H (74-99) mg/dL POC Glucose (mg/dL) (70-110) mg/dL Total Bilirubin 1.5 H (0.2-1.3) mg/dL AST 81 H (17-59) U/L Troponin I (0.000-0.034) ng/mL 11/24/24 Range/Units 07:17 RBC (4.40-5.60) 10*6/uL Hgb (13.0-17.0) g/dL Hct (39.6-50.0) % APTT (22.0-30.0) sec Sodium (137-145) mmol/L Chloride (98-107) mmol/L Carbon Dioxide (22-30) mmol/L Glucose (74-99) mg/dL POC Glucose (mg/dL) (70-110) mg/dL Total Bilirubin (0.2-1.3) mg/dL AST (17-59) U/L Troponin I 13.100 H* (0.000-0.034) ng/mL Microbiology - Last 24 Hours (Table) 11/21/24 16:55 Nasal Screen MRSA/MSSA - Final Nasal Swab Assessment and Plan (1) CAD (coronary artery disease) Current Visit: Yes Status: Acute Code(s): I25.10 - ATHSCL HEART DISEASE OF [place] CORONARY ARTERY W/O ANG PCTRS SNOMED Code(s): 08707729 (2) H/O heart artery stent Current Visit: Yes Status: Acute Code(s): Z95.5 - PRESENCE OF CORONARY ANGIOPLASTY IMPLANT AND GRAFT SNOMED Code(s): 201791768 (3) Severe aortic stenosis Current Visit: Yes Status: Acute Code(s): I35.0 - NONRHEUMATIC AORTIC (VALVE) STENOSIS SNOMED Code(s): 750699043 (4) Obesity Current Visit: Yes Status: Acute Code(s): E66.9 - OBESITY, UNSPECIFIED SNOMED Code(s): 533650491 (5) BMI 31.0-31.9,adult Current Visit: Yes Status: Acute Code(s): Z68.31 - BODY MASS INDEX [BMI] 31.0-31.9, ADULT SNOMED Code(s): 985128495 (6) Controlled diabetes mellitus with circulatory complication Current Visit: Yes Status: Acute Code(s): E11.59 - TYPE 2 DIABETES MELLITUS WITH OTH CIRCULATORY COMPLICATIONS SNOMED Code(s): 97282791 (7) Type 2 diabetes mellitus with other specified complication Current Visit: Yes Status: Acute Code(s): E11.69 - TYPE 2 DIABETES MELLITUS WITH OTHER SPECIFIED COMPLICATION SNOMED Code(s): 06714968 (8) Mixed hyperlipidemia Current Visit: Yes Status: Acute Code(s): E78.2 - MIXED HYPERLIPIDEMIA SNOMED Code(s): 147917703 (9) Acute non-ST elevation myocardial infarction (NSTEMI) Current Visit: Yes Status: Acute Code(s): I21.4 - NON-ST ELEVATION (NSTEMI) MYOCARDIAL INFARCTION SNOMED Code(s): 690743450 (10) Angina at rest Current Visit: Yes Status: Acute Code(s): I20.89 - OTHER FORMS OF ANGINA PECTORIS SNOMED Code(s): 818846071 Plan: With the addition of medication changes by cardiology, his angina is improved. He is scheduled for CABG and aortic valve replacement on Tuesday, November 26, 2024. He remains on heparin drip. He continues to use incentive spirometer and he remains on insulin sliding scale for aggressive control of his diabetes. He is overall improved. Waiting on further recommendations from consultants he will be reevaluated by family medicine in 24 hours
--- NOTE | 2024-11-24 11:11 | P.PN ---
Subjective Progress Note Date: 11/24/24 Principal diagnosis: Multivessel coronary disease. Pulmonary consult dated November 22, 2024. 69-year-old male seen today in room 361. We were asked to see the patient, because the patient is going to have bypass surgery, maybe as soon as tomorrow. Anyway, the patient was seen in the emergency department, on November 20, 2024. He came in with chest pain. The patient has been having symptoms for some time, and the symptoms became more severe, and worrisome to the patient, which is why he came in to be evaluated. He does have a history of coronary disease, had stents placed a number of years back. That was done by Dr. Paredes. The patient has not had a recent cardiac catheterization. In addition to chest pain, he described lightheadedness, dizziness, shortness of breath, when he had chest pain. His symptoms were exertional. In addition to coronary artery disease, the patient has a history of diabetes. Home medications included metoprolol, losartan/HCTZ, Lipitor, metformin, Aldara, and Jardiance. Laboratory data includes a white count of 6.7, hemoglobin 12.1, hematocrit 36.5, and a platelet count is normal. The patient's PTT is 52.6. He is on IV heparin. Sodium 136, potassium 3.6, chlorides 102, CO2 21, BUN 18, creatinine 0.86. Troponins were 0.409, 3.370, and 10.2 respectively. TSH was normal. The rest of the testing was unremarkable. The patient had a cardiac catheterization on November 21, done by Dr. DOROTEO Paredes. The results are noted in the chart, under final impression. Progress note dated November 23, 2024. 69-year-old male seen in consultation yesterday. The patient is seen again in room 361. He is on room air. He is getting saline at 75 cc an hour. He is also receiving IV heparin. When we saw him yesterday, there was some thoughts that the patient would go for open heart today. In reality, the patient will have his surgery on Tuesday. Clinically, he is doing very well. Laboratory data includes a white count 8.6, hemoglobin 12.2, hematocrit 36.3, platelet count 175,000. Sodium 137, potassium 3.7 chlorides 107, CO2 20, BUN 14, creatinine 0.88. Glucose was 127. Troponin was 10.1. All labs, x-rays, and medications are reviewed. Progress note dated November 24, 2024. 69-year-old male awaiting bypass surgery, on Tuesday. He is stable. He is on room air. He is receiving IV heparin. He is not having any chest pain or chest discomfort. White count of 6.99, hemoglobin 12, hematocrit 36, platelet count of 195,000. PTT is 41. Sodium 136, potassium 3.6, chlorides 108, CO2 19, BUN 14, creatinine 0.95. Anion gap is 9. Most recent troponin was 13.1. Objective - Vital Signs Vital signs: Vital Signs Temp 98.2 F 11/24/24 11:05 Pulse 67 11/24/24 11:05 Resp 14 11/24/24 11:05 BP 102/61 11/24/24 11:05 Pulse Ox 95 11/24/24 11:05 FiO2 Intake & Output 11/23/24 11/24/24 11/24/24 18:59 06:59 18:59 Intake Total 250 660 240 Balance 250 660 240 Weight 114.7 kg Intake: Intake, IV Titration 250 Amount Heparin Sod,Pork in 0.45% 250 NaCl 25,000 unit In 0.45 % NaCl 1 250ml.bag @ 8.93 UNITS/KG/HR 10.005 mls/ hr IV .Q24H [facility] Rx#: [id number] Oral 660 240 Other: Voiding Method Toilet Toilet Urinal Urinal # Voids 1 1 1 # Bowel Movements 1 - Exam No acute distress, oriented 3. Currently on room air. HEENT examination is grossly unremarkable. Mucous membranes are moist. No oral lesions. Neck supple. Full range of motion. No adenopathy thyromegaly or neck vein distention. Cardiovascular examination reveals regular rhythm rate. S1-S2 normal. No S3 or S4. No discernible murmur noted. Lungs reveal clear breath sounds. Breath sounds are equal bilaterally. No adventitious lung sounds including wheezes rhonchi or crackles. Abdomen soft bowel sounds are heard. No masses or tenderness. Extremities are intact. No cyanosis clubbing or edema. Skin is without rash or lesion. Neurologic examination is brief but nonfocal. - Labs CBC & Chem 7: 11/24/24 06:52 11/24/24 06:52 Labs: Abnormal Lab Results - Last 24 Hours (Table) 11/23/24 11/23/24 11/23/24 Range/Units 11:45 16:40 20:10 RBC (4.40-5.60) 10*6/uL Hgb (13.0-17.0) g/dL Hct (39.6-50.0) % APTT (22.0-30.0) sec Sodium (137-145) mmol/L Chloride (98-107) mmol/L Carbon Dioxide (22-30) mmol/L Glucose (74-99) mg/dL POC Glucose (mg/dL) 127 H 139 H 119 H (70-110) mg/dL Total Bilirubin (0.2-1.3) mg/dL AST (17-59) U/L Troponin I (0.000-0.034) ng/mL 11/24/24 11/24/24 11/24/24 Range/Units 06:52 06:52 06:52 RBC 3.83 L (4.40-5.60) 10*6/uL Hgb 12.0 L (13.0-17.0) g/dL Hct 36.0 L (39.6-50.0) % APTT 40.9 H (22.0-30.0) sec Sodium 136 L (137-145) mmol/L Chloride 108 H (98-107) mmol/L Carbon Dioxide 19 L (22-30) mmol/L Glucose 114 H (74-99) mg/dL POC Glucose (mg/dL) (70-110) mg/dL Total Bilirubin 1.5 H (0.2-1.3) mg/dL AST 81 H (17-59) U/L Troponin I (0.000-0.034) ng/mL 11/24/24 Range/Units 07:17 RBC (4.40-5.60) 10*6/uL Hgb (13.0-17.0) g/dL Hct (39.6-50.0) % APTT (22.0-30.0) sec Sodium (137-145) mmol/L Chloride (98-107) mmol/L Carbon Dioxide (22-30) mmol/L Glucose (74-99) mg/dL POC Glucose (mg/dL) (70-110) mg/dL Total Bilirubin (0.2-1.3) mg/dL AST (17-59) U/L Troponin I 13.100 H* (0.000-0.034) ng/mL Microbiology - Last 24 Hours (Table) 11/21/24 16:55 Nasal Screen MRSA/MSSA - Final Nasal Swab Assessment and Plan Assessment: Acute non-ST segment elevation myocardial infarction. Multivessel coronary artery disease. History of CAD with previous PCI of the right coronary artery. Severe aortic stenosis. History of hypertension. History of hyperlipidemia. History of diabetes mellitus. Plan: Plan dated November 22, 2024. 69-year-old male who was apparently having chest pain, shortness of breath, lightheadedness, and dizziness. He was found to have multivessel coronary artery disease. The patient is to have anticipated bypass grafting, possibly as early as tomorrow. The patient really does not have much in the way of any lung issues. Lung function were more than adequate. Labs, x-rays, and medications are reviewed. We will continue to follow make recommendations along the way. We did explain to the patient what our role in the whole process would be, including working to get the patient off mechanical ventilation, and the following the patient on the daily basis, to ensure healthy lung function. Prognosis is guarded. Dictation was produced using [employer] software. Please excuse any grammatical, word or spelling errors. Plan dated November 23, 2024. This patient will be going for open heart surgery on Tuesday. The patient has multivessel coronary artery disease, and recent was complaining of chest pain, shortness of breath, lightheadedness and dizziness. Please see our consultation above. Labs, x-rays, and medications are reviewed. Will continue to follow the patient, make recommendations along the way. Prognosis is thought to be generally good. Dictation was produced using [employer] software. Please excuse any grammatical, word or spelling errors. Plan dated November 24, 2024. The patient is seen today in room 361. He is on room air. He is receiving IV heparin. The patient is scheduled to have CABG, on Tuesday. Labs, x-rays, and all medications are reviewed. His bedside spirometry were excellent. He should do well. We will continue to follow. Prognosis is thought to be generally good. Dictation was produced using [employer] software. Please excuse any grammatical, word or spelling errors. Time with Patient: Less than 30
[2024-11-24 11:24] LABS: Glucose,Whole Blood 109 mg/dL (70-110)
[2024-11-24 16:13] LABS: Glucose,Whole Blood 109 mg/dL (70-110)
--- NOTE | 2024-11-24 18:50 | P.PN ---
Subjective Progress Note Date: 11/24/24 This is a 69-year-old male patient of Dr. DOROTEO Paredes with past medical history of coronary artery disease prior PCI of the right coronary artery, moderate to severe aortic stenosis, hypertension, hyperlipidemia, family history of premature coronary artery disease. We have been asked to evaluate the patient for NSTEMI. Patient presented to the hospital due to chest pain that had been on and off all day yesterday. He has no chest pain at the time of this evaluation. He denies shortness of breath, no palpitations. Blood pressure 109/68, heart rate 57, pulse ox 99% on room air. Dr. Les randhawa discussed with patient the recommendations for cardiac catheterization and he is agreeable to move forward with this today. -EKG: Sinus bradycardia with first-degree block -Chest x-ray: Small amount of thin linear scarring or atelectasis in the left lung base. -Laboratory studies: Troponin 0.409, 1.8, 3.37. proBNP 150. D-dimer 0.41. Sodium 136, potassium 3.3, BUN 21 creatinine 1.13. WBC 6.9 and hemoglobin 14. -Home cardiac medications according to office note dated 09/12/2024: Aspirin 81 mg daily, Jardiance 10 mg daily, Lipitor 40 mg daily, losartan 25 mg daily, metoprolol tartrate 50 mg twice daily. -Echocardiogram performed in the office revealed EF of 55%, moderate aortic stenosis. Mild mitral regurgitation. Mild tricuspid regurgitation. Normal PASP. Mild pulmonic regurgitation. -Cardiolite stress test performed in the office in 08/23/2022 revealed fair exercise capacity with negative stress test by EKG criteria. Small and area of septal partially reversible mild intensity defect which may be an artifact or small area of ischemia in the inferior wall. EF is normal. -Cardiac catheterization performed in 2007 revealed superdominant right coronary artery with critical mid lesion. Stenting with 2 drug-eluting stents was performed. Left system did not have any significant disease. -CT chest performed 10/11/2023 revealed severe aortic valve calcification. No aneurysm. 11/22/2024 Patient seen and examined on the cardiac stepdown unit. Yesterday, patient underwent cardiac catheterization with Dr. Paredes which revealed right dominant system. Total occlusion of the RCA with good collaterals from the left. LAD has mid lesion 70%. First diagonal and second diagonal seem to come off the LAD with lesion in the LAD in between are of fair caliber and distribution. Ci rcumflex nondominant with no significant disease. LV was not crossed. Dr. Paredes recommended CABG and aortic valve replacement. Patient has been seen by cardiothoracic surgery team and date of surgery has not been determined. Patient states he still has a dull ache in his chest that is a 2/10. He had a repeat troponin that came back at 10.9. He remains on heparin drip. Echocardiogram reveals normal left ventricular size and systolic function. Mild mitral regurgitation. Severe aortic stenosis with mean gradient heavily calcified valve. 11/23/2024 Patient seen and examined. Patient is waiting to see the cardiothoracic surgery but surgery is tentatively scheduled for Tuesday. Patient has complained of chest pain 06/15. Yesterday, he was started on Nitropaste which may have made a slight improvement. Patient is continued on heparin drip. Blood pressure 101/60, heart rate 57, pulse ox 98% on room air. Overall blood pressures are low this morning. Repeat blood work reveals hemoglobin 12.2, BUN 14, creatinine 0.88, troponin 10.1. Potassium 3.7. 11/24/2024 Seen by cardiothoracic surgical team. Plan for undergoing CABG with valve placement on Tuesday Doing well denies any active chest pain chest pressure BP 103/64, heart rate 70 Hb 12, BUN 14, creatinine 0.9, Physical examination: Gen: This is 69-year-old male in no acute distress VS: reviewed HEENT: Head is atraumatic, normocephalic. Pupils equal, round. Sclerae is anicteric. NECK: Supple. No JVD. LUNGS: Clear to auscultation. No wheezes or rhonchi. No intercostal retractions. HEART: Regular rate and rhythm. 4/6 AGNIESZKA. ABDOMEN: Soft No tenderness. EXTREMITIES: No pedal edema. No calf tenderness. NEUROLOGICAL: Patient is awake, alert and oriented x3. Assessment: NSTEMI with multivessel CAD awaiting CABG, surgery tentatively scheduled for Sunday 11/26 History of coronary artery disease with prior PCI of the RCA Severe aortic stenosis, surgery tentatively scheduled for Sunday 11/26 Hypertension Hyperlipidemia Plan: Continue current home cardiac medications: Aspirin 81 mg daily, atorvastatin 40 mg at bedtime, metoprolol succinate 12.5 mg daily Discontinue Farxiga 10 mg daily, resume it after surgery when oral intake starts Losartan has been discontinued by cardiothoracic team Continue Heparin gtt Imdur 30 mg daily with parameters to hold for systolic blood pressure less than 100 and start Ranexa 500 mg twice daily Plan for open heart surgery on Tuesday Objective - Vital Signs Vital signs: Vital Signs Temp 98.2 F 11/24/24 15:25 Pulse 70 11/24/24 15:25 Resp 16 11/24/24 15:25 BP 103/64 11/24/24 15:25 Pulse Ox 97 11/24/24 15:25 FiO2 Intake & Output 11/23/24 11/24/24 11/24/24 18:59 06:59 18:59 Intake Total 250 660 720 Output Total 0 Balance 250 660 720 Weight 114.7 kg Intake: Intake, IV Titration 250 Amount Heparin Sod,Pork in 0.45% 250 NaCl 25,000 unit In 0.45 % NaCl 1 250ml.bag @ 8.93 UNITS/KG/HR 10.005 mls/ hr IV .Q24H [facility] Rx#: [id number] Oral 660 720 Output: Gastric Drainage 0 Urine 0 Stool 0 Urine/Stool Mix 0 Emesis 0 Oral Regurgitation 0 Other 0 Other: Voiding Method Toilet Toilet Toilet Urinal Urinal Urinal # Voids 1 1 0 # Bowel Movements 0 - Labs CBC & Chem 7: 11/24/24 06:52 11/24/24 06:52 Labs: Abnormal Lab Results - Last 24 Hours (Table) 11/23/24 11/24/24 11/24/24 Range/Units 20:10 06:52 06:52 RBC 3.83 L (4.40-5.60) 10*6/uL Hgb 12.0 L (13.0-17.0) g/dL Hct 36.0 L (39.6-50.0) % APTT (22.0-30.0) sec Sodium 136 L (137-145) mmol/L Chloride 108 H (98-107) mmol/L Carbon Dioxide 19 L (22-30) mmol/L Glucose 114 H (74-99) mg/dL POC Glucose (mg/dL) 119 H (70-110) mg/dL Total Bilirubin 1.5 H (0.2-1.3) mg/dL AST 81 H (17-59) U/L Troponin I (0.000-0.034) ng/mL 11/24/24 11/24/24 Range/Units 06:52 07:17 RBC (4.40-5.60) 10*6/uL Hgb (13.0-17.0) g/dL Hct (39.6-50.0) % APTT 40.9 H (22.0-30.0) sec Sodium (137-145) mmol/L Chloride (98-107) mmol/L Carbon Dioxide (22-30) mmol/L Glucose (74-99) mg/dL POC Glucose (mg/dL) (70-110) mg/dL Total Bilirubin (0.2-1.3) mg/dL AST (17-59) U/L Troponin I 13.100 H* (0.000-0.034) ng/mL
[2024-11-24 19:47] LABS: Glucose,Whole Blood 120 mg/dL (70-110)
[2024-11-24] MEDS: ALPRAZolam 0.5 MG TAB PO PRN (21:34)
[2024-11-25 05:37] LABS: Glucose,Whole Blood 111 mg/dL (70-110)
--- NOTE | 2024-11-25 07:52 | P.PN ---
Subjective Progress Note Date: 11/25/24 Principal diagnosis: Coronary artery disease and severe aortic valve stenosis. Past medical history significant for known aortic valve stenosis which is followed by Dr. Paredes with serial echocardiograms, coronary artery disease with previous PCI to his right coronary artery in 2007, hypertension, hyperlipidemia, obesity with a BMI of 30.9 kg/m, diabetes mellitus type 2, prostate cancer status post 3 months of radiation therapy, family history of premature coronary artery disease with his father, umbilical hernia, remote history of smoking quit 20 years ago, EtOH use, drinks 5 beers per week, and occasional marijuana use on the weekends. The patient was seen and examined in follow-up today November 25, 2024 at his bedside on the third floor cardiac stepdown unit. He is currently sitting up in bed, eating his breakfast, is awake, alert, oriented x 3 and is in no acute a pparent distress. Denies any further complaints of chest pain, states his chest pain has disappeared since being started on the Imdur and Ranexa. He denies any complaints of shortness of breath, or nausea, although he is complaining of some episodes of diarrhea. He has been afebrile in the last 24 hours. He is scheduled for aortic valve replacement, myocardial revascularization with left internal mammary artery, endoscopic greater saphenous vein harvest, intraoperative transesophageal echocardiogram and exclusion of left atrial appendage to be completed by Dr. Anish Starks tomorrow Tuesday, November 26, 2024. He remains on heparin drip per protocol. He continues on aspirin, statin and beta-aaron. Remote telemetry is showing normal sinus rhythm heart rate 81 bpm. Laboratory results remain pending. Preoperative teaching has been reinforced with the patient, and reviewed the preop cardiac surgery booklet with the patient. Objective - Vital Signs Vital signs: Vital Signs Temp 98.1 F 11/25/24 03:02 Pulse 77 11/25/24 03:02 Resp 16 11/25/24 03:02 BP 104/66 11/25/24 03:02 Pulse Ox 95 11/25/24 03:02 FiO2 Intake & Output 11/24/24 11/25/24 11/25/24 18:59 06:59 18:59 Intake Total 970 660 Output Total 0 Balance 970 660 Weight 115 kg Intake: Intake, IV Titration 250 Amount Heparin Sod,Pork in 0.45% 250 NaCl 25,000 unit In 0.45 % NaCl 1 250ml.bag @ 8.93 UNITS/KG/HR 10.005 mls/ hr IV .Q24H [facility] Rx#: [id number] Oral 720 660 Output: Gastric Drainage 0 Urine 0 Stool 0 Urine/Stool Mix 0 Emesis 0 Oral Regurgitation 0 Other 0 Other: Voiding Method Toilet Toilet Urinal Urinal # Voids 0 2 # Bowel Movements 0 1 - Exam CONSTITUTIONAL: Appears comfortable, cooperative, no apparent acute distress. HEENT: Neck is supple, no JVD, no lymphadenopathy. RESPIRATORY: Lungs sounds essentially clear throughout. Respirations are symmetrical and nonlabored. Currently on room air with oxygen saturations 95%. Able to achieve 2500 mL on their incentive spirometry. Strong cough. CARDIOVASCULAR: Regular rhythm and rate. S1 and diminished S2 present, negative for S3, or gallop, positive systolic murmur 2/6. Sternum is stable. Palpable peripheral pulses bilaterally. Remote telemetry showing normal sinus rhythm heart rate 81 bpm. GASTROINTESTINAL: Abdomen soft, nontender, nondistended. Active bowel sounds present 4 quadrants. Tolerating diet. Passing flatus. No guarding or rigidity. Episodes of diarrhea GENITOURINARY: Continues to void. INTEGUMENTARY: Skin is warm and dry with no evidence of clubbing or cyanosis. NEUROLOGIC: Cranial nerves II through XII intact. No focal deficits. MUSKULOSKELETAL: Able to move all extremities, strength equal bilaterally. PSYCHIATRIC: Alert and oriented to person place and time, appropriate affect, intact judgment and insight. - Allied health notes Allied health notes reviewed: nursing - Labs CBC & Chem 7: 11/24/24 06:52 11/24/24 06:52 Labs: Abnormal Lab Results - Last 24 Hours (Table) 11/24/24 11/24/24 11/24/24 Range/Units 06:52 06:52 06:52 RBC 3.83 L (4.40-5.60) 10*6/uL Hgb 12.0 L (13.0-17.0) g/dL Hct 36.0 L (39.6-50.0) % APTT 40.9 H (22.0-30.0) sec Sodium 136 L (137-145) mmol/L Chloride 108 H (98-107) mmol/L Carbon Dioxide 19 L (22-30) mmol/L Glucose 114 H (74-99) mg/dL POC Glucose (mg/dL) (70-110) mg/dL Total Bilirubin 1.5 H (0.2-1.3) mg/dL AST 81 H (17-59) U/L Troponin I (0.000-0.034) ng/mL 11/24/24 11/24/24 11/25/24 Range/Units 07:17 19:46 05:37 RBC (4.40-5.60) 10*6/uL Hgb (13.0-17.0) g/dL Hct (39.6-50.0) % APTT (22.0-30.0) sec Sodium (137-145) mmol/L Chloride (98-107) mmol/L Carbon Dioxide (22-30) mmol/L Glucose (74-99) mg/dL POC Glucose (mg/dL) 120 H 111 H (70-110) mg/dL Total Bilirubin (0.2-1.3) mg/dL AST (17-59) U/L Troponin I 13.100 H* (0.000-0.034) ng/mL Assessment and Plan Assessment: Coronary artery disease with previous PCI of the right coronary artery in 2007 Non-ST elevated myocardial infarction this admission Severe aortic valve stenosis on cardiac catheterization and transthoracic 2D echocardiogram Hypertension Hyperlipidemia Diabetes mellitus type 2 Obesity with a BMI of 30.9 kg/m Family history of early onset coronary artery disease History of prostate cancer status post 3 months of radiation therapy Remote history of nicotine dependence, quit smoking 20 years ago EtOH use with 5 beers per week Weekend use of marijuana Umbilical hernia Plan: An STS risk core has been calculated and discussed with the patient. A 5 m walk test has been completed with the patient on 11/22/2024, and the patient tolerated well. Time 1: 3.36 seconds, time 2: 3.50 seconds, time 3, 3.51 seconds. Dental clearance has been obtained from his dentist Dr. Kay. He is scheduled for aortic valve replacement, myocardial vascularization surgery, with left internal mammary artery, endoscopic vein harvest, exclusion of left atrial appendage and intraoperative transesophageal echocardiogram on Tuesday, November 26, [address] Anish Starks. Heparin drip management per cardiology recommendations. Continue to maximize medical management with aspirin, statin and beta-aaron. The patient has been started on Imdur and Ranexa per cardiology recommendations. Preoperative teaching has been reinforced with the patient. N.p.o. after midnight More recommendations to follow based on patient's clinical course. Time with Patient: Less than 30
[2024-11-25 08:12] LABS: HCT 34.4 % (39.6-50.0); HGB 11.6 g/dL (13.0-17.0); MCH 31.4 pg (27.0-32.0); MCHC 33.7 g/dL (32.0-37.0); MCV 93.2 fL (80.0-97.0); Mean Platelet Volume 10.2 fL (9.5-12.2); Platelet Count 204 10*3/uL (140-440); RBC 3.69 10*6/uL (4.40-5.60); RDW 13.6 % (11.5-14.5); WBC 6.85 10*3/uL (4.50-10.00)
[2024-11-25 08:31] LABS: ALT 36 U/L (4-49); AST 50 U/L (17-59); African American GFR (CKD) >90 (>60 ml/min/1.73 sqM); Albumin 3.2 g/dL (3.5-5.0); Alkaline Phosphatase 68 U/L (38-126); Anion Gap 9 mmol/L; Blood Urea Nitrogen 12 mg/dL (9-20); Calcium 8.5 mg/dL (8.4-10.2); Carbon Dioxide 20 mmol/L (22-30); Chloride 108 mmol/L (98-107); Glucose 101 mg/dL (74-99); Non-African American GFR(CKD) 87 (>60 ml/min/1.73 sqM); Potassium 3.6 mmol/L (3.5-5.1); Sodium 137 mmol/L (137-145); Total Protein 5.9 g/dL (6.3-8.2)
[2024-11-25 11:26] LABS: Glucose,Whole Blood 122 mg/dL (70-110)
--- NOTE | 2024-11-25 11:31 | P.PN ---
Subjective Progress Note Date: 11/25/24 Principal diagnosis: Multivessel coronary disease. Pulmonary consult dated November 22, 2024. 69-year-old male seen today in room 361. We were asked to see the patient, because the patient is going to have bypass surgery, maybe as soon as tomorrow. Anyway, the patient was seen in the emergency department, on November 20, 2024. He came in with chest pain. The patient has been having symptoms for some time, and the symptoms became more severe, and worrisome to the patient, which is why he came in to be evaluated. He does have a history of coronary disease, had stents placed a number of years back. That was done by Dr. Paredes. The patient has not had a recent cardiac catheterization. In addition to chest pain, he described lightheadedness, dizziness, shortness of breath, when he had chest pain. His symptoms were exertional. In addition to coronary artery disease, the patient has a history of diabetes. Home medications included metoprolol, losartan/HCTZ, Lipitor, metformin, Aldara, and Jardiance. Laboratory data includes a white count of 6.7, hemoglobin 12.1, hematocrit 36.5, and a platelet count is normal. The patient's PTT is 52.6. He is on IV heparin. Sodium 136, potassium 3.6, chlorides 102, CO2 21, BUN 18, creatinine 0.86. Troponins were 0.409, 3.370, and 10.2 respectively. TSH was normal. The rest of the testing was unremarkable. The patient had a cardiac catheterization on November 21, done by Dr. DOROTEO Paredes. The results are noted in the chart, under final impression. Progress note dated November 23, 2024. 69-year-old male seen in consultation yesterday. The patient is seen again in room 361. He is on room air. He is getting saline at 75 cc an hour. He is also receiving IV heparin. When we saw him yesterday, there was some thoughts that the patient would go for open heart today. In reality, the patient will have his surgery on Tuesday. Clinically, he is doing very well. Laboratory data includes a white count 8.6, hemoglobin 12.2, hematocrit 36.3, platelet count 175,000. Sodium 137, potassium 3.7 chlorides 107, CO2 20, BUN 14, creatinine 0.88. Glucose was 127. Troponin was 10.1. All labs, x-rays, and medications are reviewed. Progress note dated November 24, 2024. 69-year-old male awaiting bypass surgery, on Tuesday. He is stable. He is on room air. He is receiving IV heparin. He is not having any chest pain or chest discomfort. White count of 6.99, hemoglobin 12, hematocrit 36, platelet count of 195,000. PTT is 41. Sodium 136, potassium 3.6, chlorides 108, CO2 19, BUN 14, creatinine 0.95. Anion gap is 9. Most recent troponin was 13.1. Progress note dated November 25, 2024. 69-year-old male seen today in room 361. He is resting comfortably. He is on saline at 100 cc an hour. He is on room air. He is getting IV heparin. The plan is for him to have bypass surgery, tomorrow, November 26. Since we saw him yes terday, no major changes in his health. Labs today include a white count of 6.9, hemoglobin 9.6, hematocrit 34.4, and a normal platelet count. Sodium 137, potassium 3.6, chlorides 108, CO2 20, BUN 12, creatinine 0.9. Glucose 122. Albumin 3.2. Objective - Vital Signs Vital signs: Vital Signs Temp 98.5 F 11/25/24 07:58 Pulse 75 11/25/24 07:58 Resp 14 11/25/24 07:58 BP 123/74 11/25/24 07:58 Pulse Ox 95 11/25/24 07:58 FiO2 Intake & Output 11/24/24 11/25/24 11/25/24 18:59 06:59 18:59 Intake Total 970 660 240 Output Total 0 Balance 970 660 240 Weight 115 kg Intake: Intake, IV Titration 250 Amount Heparin Sod,Pork in 0.45% 250 NaCl 25,000 unit In 0.45 % NaCl 1 250ml.bag @ 8.93 UNITS/KG/HR 10.005 mls/ hr IV .Q24H [facility] Rx#: [id number] Oral 720 660 240 Output: Gastric Drainage 0 Urine 0 Stool 0 Urine/Stool Mix 0 Emesis 0 Oral Regurgitation 0 Other 0 Other: Voiding Method Toilet Toilet Toilet Urinal Urinal Urinal # Voids 0 2 # Bowel Movements 0 1 - Exam No acute distress, oriented 3. Currently on room air. HEENT examination is grossly unremarkable. Mucous membranes are moist. No oral lesions. Neck supple. Full range of motion. No adenopathy thyromegaly or neck vein distention. Cardiovascular examination reveals regular rhythm rate. S1-S2 normal. No S3 or S4. No discernible murmur noted. Lungs reveal clear breath sounds. Breath sounds are equal bilaterally. No adventitious lung sounds including wheezes rhonchi or crackles. Abdomen soft bowel sounds are heard. No masses or tenderness. Extremities are intact. No cyanosis clubbing or edema. Skin is without rash or lesion. Neurologic examination is brief but nonfocal. - Labs CBC & Chem 7: 11/25/24 06:56 11/25/24 06:56 Labs: Abnormal Lab Results - Last 24 Hours (Table) 11/24/24 11/25/24 11/25/24 Range/Units 19:46 05:37 06:56 RBC 3.69 L (4.40-5.60) 10*6/uL Hgb 11.6 L (13.0-17.0) g/dL Hct 34.4 L (39.6-50.0) % APTT (22.0-30.0) sec Chloride (98-107) mmol/L Carbon Dioxide (22-30) mmol/L Glucose (74-99) mg/dL POC Glucose (mg/dL) 120 H 111 H (70-110) mg/dL Total Protein (6.3-8.2) g/dL Albumin (3.5-5.0) g/dL Crossmatch 11/25/24 11/25/24 11/25/24 Range/Units 06:56 06:56 06:58 RBC (4.40-5.60) 10*6/uL Hgb (13.0-17.0) g/dL Hct (39.6-50.0) % APTT 38.1 H (22.0-30.0) sec Chloride 108 H (98-107) mmol/L Carbon Dioxide 20 L (22-30) mmol/L Glucose 101 H (74-99) mg/dL POC Glucose (mg/dL) (70-110) mg/dL Total Protein 5.9 L (6.3-8.2) g/dL Albumin 3.2 L (3.5-5.0) g/dL Crossmatch See Detail 11/25/24 Range/Units 11:25 RBC (4.40-5.60) 10*6/uL Hgb (13.0-17.0) g/dL Hct (39.6-50.0) % APTT (22.0-30.0) sec Chloride (98-107) mmol/L Carbon Dioxide (22-30) mmol/L Glucose (74-99) mg/dL POC Glucose (mg/dL) 122 H (70-110) mg/dL Total Protein (6.3-8.2) g/dL Albumin (3.5-5.0) g/dL Crossmatch Assessment and Plan Assessment: Acute non-ST segment elevation myocardial infarction. Multivessel coronary artery disease. History of CAD with previous PCI of the right coronary artery. Severe aortic stenosis. History of hypertension. History of hyperlipidemia. History of diabetes mellitus. Plan: Plan dated November 22, 2024. 69-year-old male who was apparently having chest pain, shortness of breath, lightheadedness, and dizziness. He was found to have multivessel coronary artery disease. The patient is to have anticipated bypass grafting, possibly as early as tomorrow. The patient really does not have much in the way of any lung issues. Lung function were more than adequate. Labs, x-rays, and medications are reviewed. We will continue to follow make recommendations along the way. We did explain to the patient what our role in the whole process would be, including working to get the patient off mechanical ventilation, and the following the patient on the daily basis, to ensure healthy lung function. Prognosis is guarded. Dictation was produced using [employer] software. Please excuse any grammatical, word or spelling errors. Plan dated November 23, 2024. This patient will be going for open heart surgery on Tuesday. The patient has multivessel coronary artery disease, and recent was complaining of chest pain, shortness of breath, lightheadedness and dizziness. Please see our consultation above. Labs, x-rays, and medications are reviewed. Will continue to follow the patient, make recommendations along the way. Prognosis is thought to be generally good. Dictation was produced using [employer] software. Please excuse any grammatical, word or spelling errors. Plan dated November 24, 2024. The patient is seen today in room 361. He is on room air. He is receiving IV heparin. The patient is scheduled to have CABG, on Tuesday. Labs, x-rays, and all medications are reviewed. His bedside spirometry were excellent. He should do well. We will continue to follow. Prognosis is thought to be generally good. Dictation was produced using [employer] software. Please excuse any grammatical, word or spelling errors. Plan dated November 25, 2024. The patient is seen today in room 361. He is on room air. He is getting saline at 100 cc an hour, and IV heparin. The plan is for him to have open heart surgery tomorrow. He has been doing well. No chest pain. Spirometry was excellent. We will continue to follow. I did explain to him what our role is in patients who are having open heart surgery. Dictation was produced using [employer] software. Please excuse any grammatical, word or spelling errors. Time with Patient: Less than 30
[2024-11-25 16:28] LABS: Glucose,Whole Blood 112 mg/dL (70-110)
--- NOTE | 2024-11-25 17:01 | P.PN ---
Subjective Progress Note Date: 11/25/24 This is a 69-year-old male patient of Dr. DOROTEO Paredes with past medical history of coronary artery disease prior PCI of the right coronary artery, moderate to severe aortic stenosis, hypertension, hyperlipidemia, family history of premature coronary artery disease. We have been asked to evaluate the patient for NSTEMI. Patient presented to the hospital due to chest pain that had been on and off all day yesterday. He has no chest pain at the time of this evaluation. He denies shortness of breath, no palpitations. Blood pressure 109/68, heart rate 57, pulse ox 99% on room air. Dr. Les randhawa discussed with patient the recommendations for cardiac catheterization and he is agreeable to move forward with this today. -EKG: Sinus bradycardia with first-degree block -Chest x-ray: Small amount of thin linear scarring or atelectasis in the left lung base. -Laboratory studies: Troponin 0.409, 1.8, 3.37. proBNP 150. D-dimer 0.41. Sodium 136, potassium 3.3, BUN 21 creatinine 1.13. WBC 6.9 and hemoglobin 14. -Home cardiac medications according to office note dated 09/12/2024: Aspirin 81 mg daily, Jardiance 10 mg daily, Lipitor 40 mg daily, losartan 25 mg daily, metoprolol tartrate 50 mg twice daily. -Echocardiogram performed in the office revealed EF of 55%, moderate aortic stenosis. Mild mitral regurgitation. Mild tricuspid regurgitation. Normal PASP. Mild pulmonic regurgitation. -Cardiolite stress test performed in the office in 08/23/2022 revealed fair exercise capacity with negative stress test by EKG criteria. Small and area of septal partially reversible mild intensity defect which may be an artifact or small area of ischemia in the inferior wall. EF is normal. -Cardiac catheterization performed in 2007 revealed superdominant right coronary artery with critical mid lesion. Stenting with 2 drug-eluting stents was performed. Left system did not have any significant disease. -CT chest performed 10/11/2023 revealed severe aortic valve calcification. No aneurysm. 11/22/2024 Patient seen and examined on the cardiac stepdown unit. Yesterday, patient underwent cardiac catheterization with Dr. Paredes which revealed right dominant system. Total occlusion of the RCA with good collaterals from the left. LAD has mid lesion 70%. First diagonal and second diagonal seem to come off the LAD with lesion in the LAD in between are of fair caliber and distribution. Cir cumflex nondominant with no significant disease. LV was not crossed. Dr. Paredes recommended CABG and aortic valve replacement. Patient has been seen by cardiothoracic surgery team and date of surgery has not been determined. Patient states he still has a dull ache in his chest that is a 2/10. He had a repeat troponin that came back at 10.9. He remains on heparin drip. Echocardiogram reveals normal left ventricular size and systolic function. Mild mitral regurgitation. Severe aortic stenosis with mean gradient heavily calcified valve. 11/23/2024 Patient seen and examined. Patient is waiting to see the cardiothoracic surgery but surgery is tentatively scheduled for Tuesday. Patient has complained of chest pain 06/15. Yesterday, he was started on Nitropaste which may have made a slight improvement. Patient is continued on heparin drip. Blood pressure 101/60, heart rate 57, pulse ox 98% on room air. Overall blood pressures are low this morning. Repeat blood work reveals hemoglobin 12.2, BUN 14, creatinine 0.88, troponin 10.1. Potassium 3.7. 11/24/2024 Seen by cardiothoracic surgical team. Plan for undergoing CABG with valve placement on Tuesday Doing well denies any active chest pain chest pressure BP 103/64, heart rate 70 Hb 12, BUN 14, creatinine 0.9, 11/25/2024 Seen and examined at bedside this a.m. Noticed to have borderline low blood pressure. He got Imdur and Ranexa this morning. He is not complaining of any chest pain chest pressure. To avoid any fluid overload state, I will discontinue IV fluids and also hold his Imdur Ranexa before surgery tomorrow. Physical examination: Gen: This is 69-year-old male in no acute distress VS: reviewed HEENT: Head is atraumatic, normocephalic. Pupils equal, round. Sclerae is anicteric. NECK: Supple. No JVD. LUNGS: Clear to auscultation. No wheezes or rhonchi. No intercostal retractions. HEART: Regular rate and rhythm. 6 AGNIESZKA. ABDOMEN: Soft No tenderness. EXTREMITIES: No pedal edema. No calf tenderness. NEUROLOGICAL: Patient is awake, alert and oriented x3. Assessment: NSTEMI with multivessel CAD awaiting CABG, surgery tentatively scheduled for Sunday 11/26 History of coronary artery disease with prior PCI of the RCA Severe aortic stenosis, surgery tentatively scheduled for Sunday 11/26 Hypertension Hyperlipidemia Plan: Continue current home cardiac medications: Aspirin 81 mg daily, atorvastatin 40 mg at bedtime, metoprolol succinate 12.5 mg daily Discontinue Farxiga 10 mg daily, resume it after surgery when oral intake starts Losartan has been discontinued by cardiothoracic team Hold Min and [place]. As blood pressure is low normal Discontinue IV fluid Continue Heparin gtt Continue to follow after open heart surgery on Tuesday Objective - Vital Signs Vital signs: Vital Signs Temp 98.5 F 11/25/24 16:00 Pulse 68 11/25/24 16:00 Resp 16 11/25/24 16:00 BP 100/62 11/25/24 16:00 Pulse Ox 96 11/25/24 16:00 FiO2 Intake & Output 11/24/24 11/25/24 11/25/24 18:59 06:59 18:59 Intake Total 970 660 608.000 Output Total 0 Balance 970 660 608.000 Weight 115 kg Intake: Intake, IV Titration 250 250.000 Amount Heparin Sod,Pork in 0.45% 250 250.000 NaCl 25,000 unit In 0.45 % NaCl 1 250ml.bag @ 8.93 UNITS/KG/HR 10.005 mls/ hr IV .Q24H [facility] Rx#: [id number] Oral 720 660 358 Output: Gastric Drainage 0 Urine 0 Stool 0 Urine/Stool Mix 0 Emesis 0 Oral Regurgitation 0 Other 0 Other: Voiding Method Toilet Toilet Toilet Urinal Urinal Urinal # Voids 0 2 # Bowel Movements 0 1 - Labs CBC & Chem 7: 11/25/24 06:56 11/25/24 06:56 Labs: Abnormal Lab Results - Last 24 Hours (Table) 11/24/24 11/25/24 11/25/24 Range/Units 19:46 05:37 06:56 RBC 3.69 L (4.40-5.60) 10*6/uL Hgb 11.6 L (13.0-17.0) g/dL Hct 34.4 L (39.6-50.0) % APTT (22.0-30.0) sec Chloride (98-107) mmol/L Carbon Dioxide (22-30) mmol/L Glucose (74-99) mg/dL POC Glucose (mg/dL) 120 H 111 H (70-110) mg/dL Total Protein (6.3-8.2) g/dL Albumin (3.5-5.0) g/dL Crossmatch 11/25/24 11/25/24 11/25/24 Range/Units 06:56 06:56 06:58 RBC (4.40-5.60) 10*6/uL Hgb (13.0-17.0) g/dL Hct (39.6-50.0) % APTT 38.1 H (22.0-30.0) sec Chloride 108 H (98-107) mmol/L Carbon Dioxide 20 L (22-30) mmol/L Glucose 101 H (74-99) mg/dL POC Glucose (mg/dL) (70-110) mg/dL Total Protein 5.9 L (6.3-8.2) g/dL Albumin 3.2 L (3.5-5.0) g/dL Crossmatch See Detail 11/25/24 11/25/24 Range/Units 11:25 16:26 RBC (4.40-5.60) 10*6/uL Hgb (13.0-17.0) g/dL Hct (39.6-50.0) % APTT (22.0-30.0) sec Chloride (98-107) mmol/L Carbon Dioxide (22-30) mmol/L Glucose (74-99) mg/dL POC Glucose (mg/dL) 122 H 112 H (70-110) mg/dL Total Protein (6.3-8.2) g/dL Albumin (3.5-5.0) g/dL Crossmatch
[2024-11-25 19:53] LABS: Glucose,Whole Blood 151 mg/dL (70-110)
--- NOTE | 2024-11-25 20:54 | P.PN ---
Subjective November 24, 2024: Patient reevaluated for his ongoing cardiac ischemia and severe aortic stenosis he was admitted for this several days ago is being followed by cardiology a consult for pulmonology was following him for a planned intervention with cardiothoracic surgery also noted. He is a type II diabetic with known coronary artery disease and severe aortic stenosis he is found to have two-vessel disease that was significant enough to recommend bypass. This is scheduled for Tuesday. Vital signs today remained stable he is afebrile heart rate controlled. Laboratory studies troponin today was 13.1 electrolytes essentially normal as is his CBC. Himself reports minimal angina since the addition of Imdur and Ranexa. He originally had Nitropaste. Cardiology did not feel a nitro drip was necessary, this was recommended by cardiothoracic surgery. November 25, 2024: Patient is awake alert this morning denies any chest pains currently he is feeling quite well. He is scheduled for aortic valve replacement and two-vessel bypass tomorrow. Objective - Vital Signs Vital signs: Vital Signs Temp 98.7 F 11/25/24 19:51 Pulse 78 11/25/24 19:51 Resp 18 11/25/24 19:51 BP 102/59 11/25/24 19:51 Pulse Ox 95 11/25/24 19:51 FiO2 Intake & Output 11/25/24 11/25/24 11/26/24 06:59 18:59 06:59 Intake Total 660 830.000 Balance 660 830.000 Weight 115 kg Intake: Intake, IV Titration 250.000 Amount Heparin Sod,Pork in 0.45% 250.000 NaCl 25,000 unit In 0.45 % NaCl 1 250ml.bag @ 8.93 UNITS/KG/HR 10.005 mls/ hr IV .Q24H [facility] Rx#: [id number] Oral 660 580 Other: Voiding Method Toilet Toilet Urinal Urinal # Voids 2 # Bowel Movements 1 - Exam GENERAL: Well-appearing, well-nourished and in no acute distress. male slightly obese NECK: Normal range of motion, supple without lymphadenopathy or JVD, no thyrome abdirahman LUNGS: Breath sounds clear to auscultation bilaterally and equal. No wheezes rales or rhonchi. HEART: Regular rate and rhythm without murmurs, rubs or gallops.S1S2 Normal ABDOMEN: Soft, nontender, normoactive bowel sounds. No guarding, no rebound. No masses appreciated. EXTREMITIES: Normal range of motion, no pitting or edema. No clubbing or cyanosis. NEUROLOGICAL: Cranial nerves II through XII grossly intact. Normal speech, normal gait. PSYCH: Normal mood, normal affect. SKIN: Warm, Dry, normal turgor, no rashes or lesions noted. - Labs CBC & Chem 7: 11/25/24 06:56 11/25/24 06:56 Labs: Abnormal Lab Results - Last 24 Hours (Table) 11/25/24 11/25/24 11/25/24 Range/Units 05:37 06:56 06:56 RBC 3.69 L (4.40-5.60) 10*6/uL Hgb 11.6 L (13.0-17.0) g/dL Hct 34.4 L (39.6-50.0) % APTT (22.0-30.0) sec Chloride 108 H (98-107) mmol/L Carbon Dioxide 20 L (22-30) mmol/L Glucose 101 H (74-99) mg/dL POC Glucose (mg/dL) 111 H (70-110) mg/dL Total Protein 5.9 L (6.3-8.2) g/dL Albumin 3.2 L (3.5-5.0) g/dL Crossmatch 11/25/24 11/25/24 11/25/24 Range/Units 06:56 06:58 11:25 RBC (4.40-5.60) 10*6/uL Hgb (13.0-17.0) g/dL Hct (39.6-50.0) % APTT 38.1 H (22.0-30.0) sec Chloride (98-107) mmol/L Carbon Dioxide (22-30) mmol/L Glucose (74-99) mg/dL POC Glucose (mg/dL) 122 H (70-110) mg/dL Total Protein (6.3-8.2) g/dL Albumin (3.5-5.0) g/dL Crossmatch See Detail 11/25/24 11/25/24 Range/Units 16:26 19:52 RBC (4.40-5.60) 10*6/uL Hgb (13.0-17.0) g/dL Hct (39.6-50.0) % APTT (22.0-30.0) sec Chloride (98-107) mmol/L Carbon Dioxide (22-30) mmol/L Glucose (74-99) mg/dL POC Glucose (mg/dL) 112 H 151 H (70-110) mg/dL Total Protein (6.3-8.2) g/dL Albumin (3.5-5.0) g/dL Crossmatch Assessment and Plan (1) CAD (coronary artery disease) Current Visit: Yes Status: Acute Code(s): I25.10 - ATHSCL HEART DISEASE OF [place] CORONARY ARTERY W/O ANG PCTRS SNOMED Code(s): 35483435 (2) H/O heart artery stent Current Visit: Yes Status: Acute Code(s): Z95.5 - PRESENCE OF CORONARY ANGIOPLASTY IMPLANT AND GRAFT SNOMED Code(s): 699140382 (3) Severe aortic stenosis Current Visit: Yes Status: Acute Code(s): I35.0 - NONRHEUMATIC AORTIC (VALVE ) STENOSIS SNOMED Code(s): 422975402 (4) Obesity Current Visit: Yes Status: Acute Code(s): E66.9 - OBESITY, UNSPECIFIED SNOMED Code(s): 649480427 (5) BMI 31.0-31.9,adult Current Visit: Yes Status: Acute Code(s): Z68.31 - BODY MASS INDEX [BMI] 31.0-31.9, ADULT SNOMED Code(s): 222051944 (6) Controlled diabetes mellitus with circulatory complication Current Visit: Yes Status: Acute Code(s): E11.59 - TYPE 2 DIABETES MELLITUS WITH OTH CIRCULATORY COMPLICATIONS SNOMED Code(s): 18331362 (7) Type 2 diabetes mellitus with other specified complication Current Visit: Yes Status: Acute Code(s): E11.69 - TYPE 2 DIABETES MELLITUS WITH OTHER SPECIFIED COMPLICATION SNOMED Code(s): 36206696 (8) Mixed hyperlipidemia Current Visit: Yes Status: Acute Code(s): E78.2 - MIXED HYPERLIPIDEMIA SNOMED Code(s): 466804772 (9) Acute non-ST elevation myocardial infarction (NSTEMI) Current Visit: Yes Status: Acute Code(s): I21.4 - NON-ST ELEVATION (NSTEMI) MYOCARDIAL INFARCTION SNOMED Code(s): 619218976 (10) Angina at rest Current Visit: Yes Status: Acute Code(s): I20.89 - OTHER FORMS OF ANGINA PECTORIS SNOMED Code(s): 893992966 Plan: Continue medications per cardiology. Wait on cardiovascular surgery procedure tomorrow. Will reevaluate him in the intensive care unit tomorrow after his procedure by family medicine
[2024-11-26] MEDS: ATORVASTATIN 10 MG TAB PO ONE (04:35)
[2024-11-26] MEDS: ASPIRIN 325 MG TAB PO ONE (04:35)
[2024-11-26] MEDS: METOPROLOL TARTRATE 12.5 MG TAB PO ONE (04:35)
[2024-11-26] MEDS ORDERED: MANNITOL 25% 12.5 GM/50 ML VIAL IV ONE ×2 (05:00)
[2024-11-26] MEDS ORDERED: CHLORHEXIDINE GLUCONATE 15 ML CUP MUCOUS MEM ONE (05:00)
[2024-11-26] MEDS ORDERED: CALCIUM CHLORIDE 100 MG/ML 10 ML SYRINGE IVP ONE (05:00)
[2024-11-26] MEDS ORDERED: PAPAVERINE 360 MG in SODIUM CHLORIDE 0.9% 90 ML IV ONE (05:00)
[2024-11-26] MEDS ORDERED: CLEVIDIPINE BUTYRATE 25 MG in EMPTY BAG 1 BAG IV SCH (05:00)
[2024-11-26] MEDS ORDERED: TRANEXAMIC ACID 2,000 MG in SODIUM CHLORIDE 0.9% 80 ML IV ONE (05:00)
[2024-11-26] MEDS ORDERED: HEPARIN SODIUM,PORCINE (1 ML) 5,000 UNIT in SODIUM CHLORIDE 0.9% 500 ML 500 ML IV ONE (05:00)
[2024-11-26] MEDS ORDERED: ALBUMIN HUMAN 25% 50 ML in EMPTY BAG 1 BAG IVPB ONE (05:00)
[2024-11-26] MEDS ORDERED: MAGNESIUM SULFATE 16.24 MEQ in EMPTY SYRINGE 1 SYR IV ONE (05:00)
[2024-11-26] MEDS ORDERED: PROTAMINE SULFATE 250 MG in EMPTY BAG 1 BAG IV ONE (05:00)
[2024-11-26] MEDS ORDERED: ALBUMIN HUMAN 5% 500 ML in EMPTY BAG 1 BAG IVPB ONE ×6 (05:00)
[2024-11-26] MEDS ORDERED: HEPARIN SODIUM 1,000 UN/ML (10ML VL) IV ONE (05:00)
[2024-11-26] MEDS ORDERED: NOREPINEPHRINE 8 MG in SODIUM CHLORIDE 0.9% 250 ML IV SCH (05:00)
[2024-11-26] MEDS ORDERED: PHENYLEPHRINE 10 MG/ML VIAL IV ONE (05:00)
[2024-11-26] MEDS ORDERED: NITROGLYCERIN-D5W PMX 25 MG/250 ML BTL IV ONE (05:00)
[2024-11-26] MEDS ORDERED: INSULIN REGULAR 100 UNIT in SODIUM CHLORIDE 0.9% 100 ML IV SCH (05:00)
[2024-11-26] MEDS ORDERED: SODIUM BICARB 8.4% 50 ML SYR (1 MEQ/ML) IV ONE (05:00)
[2024-11-26] MEDS ORDERED: ceFAZolin 1,000 MG in SODIUM CHLORIDE 0.9% IRRIGATIO 1,000 ML IRRIGATION ONE (05:00)
[2024-11-26] MEDS ORDERED: PROTAMINE SULFATE 10 MG/ML 25 ML VIAL IV ONE ×2 (05:00→07:55)
[2024-11-26] MEDS ORDERED: PHENYLEPHRINE 40 MG in SODIUM CHLORIDE 0.9% 250 ML IV ONE (05:00)
[2024-11-26] MEDS ORDERED: NITROGLYCERIN-D5W PMX 50 MG in DEXTROSE/WATER 1 250ML.BAG IV SCH (05:00)
[2024-11-26] MEDS ORDERED: ELECTROLYTE-A SOLUTION 1,000 ML with POTASSIUM CHLORIDE 40 MEQ, MAGNESIUM SULFATE 16 ME... IV ONE (06:00)
[2024-11-26] MEDS ORDERED: ELECTROLYTE-A SOLUTION 1,000 ML with POTASSIUM CHLORIDE 100 MEQ, MAGNESIUM SULFATE 16 M... IV ONE (06:00)
[2024-11-26 06:01] LABS: Glucose,Whole Blood 114 mg/dL (70-110)
[2024-11-26] MEDS: IV FLUID CONTINUATION 1,000 ML IV ONE (06:16)
[2024-11-26] MEDS: LACTATED RINGERS 1,000 ML BAG IV STA (06:21)
[2024-11-26] MEDS ORDERED: MIDAZOLAM HCL 10 MG/10 ML VIAL ONE (07:55)
[2024-11-26] MEDS ORDERED: ALBUMIN HUMAN 5% (25gm) 500 ML VIAL IVPB ONE (07:55)
[2024-11-26] MEDS ORDERED: VECURONIUM 10 MG VIAL IV ONE (07:55)
[2024-11-26] MEDS ORDERED: WATER FOR INJECTION, STERILE 10 ML VIAL IV ONE (07:55)
[2024-11-26] MEDS ORDERED: TRANEXAMIC 1,000 MG/100ML-NACL PREMIX BAG ONE (07:55)
[2024-11-26] MEDS ORDERED: PROPOFOL 10 MG/ML 20 ML VIAL IV ONE (07:55)
[2024-11-26] MEDS ORDERED: fentaNYL (PF) 50 MCG/ML 50 ML VIAL ONE (07:55)
[2024-11-26] MEDS ORDERED: CALCIUM CHLORIDE 1 GM/10 ML VIAL ONE (07:55)
--- NOTE | 2024-11-26 08:37 | P.PN ---
Progress Note - Text Progress Note Date: 11/26/24 Patient off the floor, in OR-CABG/AVR.
[2024-11-26 08:56] LABS: ABG Base Excess -2.9 mmol/L; ABG Glucose Whole Blood 119 mg/dL (75-99); ABG HCO3 22 mmol/L (21-25); ABG Hematocrit 31 % (34.0-46.0); ABG Ionized Calcium 4.7 mg/dL (4.5-5.3); ABG Lactic Acid Whole Blood 1.1 mmol/L (0.5-1.6); ABG Oxygen Saturation 99.3 % (94-97); ABG PCO2 36 mmHg (35-45); ABG PH 7.39 (7.35-7.45); ABG PO2 228 mmHg (83-108); ABG Potassium Whole Blood 3.5 mmol/L (3.4-4.5); ABG Sodium Whole Blood 139 mmol/L (135-146); ABG TCO2 20 mmol/L (19-24); Allen Test Performed? Yes
[2024-11-26] MEDS: PAPAVERINE 360 MG in SODIUM CHLORIDE 0.9% 90 ML IV ONE (10:08)
[2024-11-26] MEDS: SODIUM CHLORIDE 0.9% 500 ML 500 ML with HEPARIN SODIUM,PORCINE (1 ML) 5,000 UNIT IV ONE (10:08)
[2024-11-26] MEDS: ceFAZolin 1,000 MG in SODIUM CHLORIDE 0.9% 1,000 ML IRRIGATION ONE (10:09)
[2024-11-26 10:45] LABS: ABG HCO3 21 mmol/L (21-25); ABG PCO2 33 mmHg (35-45); Allen Test Performed? Yes
[2024-11-26 10:46] LABS: ABG Base Excess -3.5 mmol/L; ABG Glucose Whole Blood 122 mg/dL (75-99); ABG Hematocrit 27 % (34.0-46.0); ABG Ionized Calcium 4.2 mg/dL (4.5-5.3); ABG Oxygen Saturation >99.4 % (94-97); ABG Potassium Whole Blood 3.5 mmol/L (3.4-4.5); ABG Sodium Whole Blood 136 mmol/L (135-146)
[2024-11-26 11:21] LABS: ABG Base Excess -0.2 mmol/L; ABG Glucose Whole Blood 131 mg/dL (75-99); ABG HCO3 24 mmol/L (21-25); ABG Hematocrit 25 % (34.0-46.0); ABG Ionized Calcium 4.3 mg/dL (4.5-5.3); ABG Lactic Acid Whole Blood 1.2 mmol/L (0.5-1.6); ABG Oxygen Saturation >99.4 % (94-97); ABG PCO2 38 mmHg (35-45); ABG PH 7.42 (7.35-7.45); ABG PO2 379 mmHg (83-108); ABG Potassium Whole Blood 3.9 mmol/L (3.4-4.5); ABG Sodium Whole Blood 138 mmol/L (135-146); Allen Test Performed? Yes
[2024-11-26 11:45] LABS: ABG Base Excess -0.4 mmol/L; ABG Glucose Whole Blood 138 mg/dL (75-99); ABG HCO3 24 mmol/L (21-25); ABG Hematocrit 25 % (34.0-46.0); ABG Ionized Calcium 4.4 mg/dL (4.5-5.3); ABG Lactic Acid Whole Blood 1.2 mmol/L (0.5-1.6); ABG Oxygen Saturation >99.4 % (94-97); ABG PCO2 38 mmHg (35-45); ABG PH 7.41 (7.35-7.45); ABG PO2 262 mmHg (83-108); ABG Potassium Whole Blood 3.7 mmol/L (3.4-4.5); ABG Sodium Whole Blood 138 mmol/L (135-146); Allen Test Performed? Yes
[2024-11-26 12:18] LABS: ABG Base Excess -1.5 mmol/L; ABG Glucose Whole Blood 146 mg/dL (75-99); ABG HCO3 25 mmol/L (21-25); ABG Hematocrit 25 % (34.0-46.0); ABG Ionized Calcium 4.5 mg/dL (4.5-5.3); ABG Lactic Acid Whole Blood 1.1 mmol/L (0.5-1.6); ABG Oxygen Saturation >99.4 % (94-97); ABG PCO2 52 mmHg (35-45); ABG PO2 314 mmHg (83-108); ABG Potassium Whole Blood 4.3 mmol/L (3.4-4.5); ABG Sodium Whole Blood 139 mmol/L (135-146); Allen Test Performed? Yes
[2024-11-26 12:47] LABS: ABG PO2 >420 mmHg (83-108)
--- NOTE | 2024-11-26 13:25 | P.ANPRN ---
Procedure Note - Anesthesia - Invasive Line Right Central Line Time Out Performed: Yes (0725) Date of Procedure: 11/26/24 Time of Procedure: 07:26 Location of Patient: Phase I Preparation: Sterile Prep, Sterile Dressing Central Line Location: Internal Jugular (RIGHT IJ CORDIS) Ultrasound Used: Yes Purpose - Visualization and Identification of Vasculature: Yes Needle Guage: 18G ANGIO Image Stored and Saved: Yes Narrative: Invasive line placement per sterile protocol utilized. Anesthesia note Procedure: Right internal jugular central venous catheter insertion: 8.5-M[place] Cordis Sterile protocol followed. Right neck prepped. Ultrasound used. Lidocaine 1% used. Using ultrasound local anesthetic was instilled site over right Internal Jugular vein. Angiocath was used to gain access via ultrasound. Once free flow non-pulsatile blood flow was confirmed, 12 inch extension tubing was then placed on Angiocath. Once central venous pressure was confirmed, J-wire was then placed through Angiocath. Angiocath was then withdrawn. Local was instilled at J-wire site. Small skin anatoliy was then made with provided sterile scalpel. 8.5- [place] Cordis was then inserted over the wire while maintaining control of wire at all times. Uneventful insertion with dilation. Free flow nonpulsatile blood flow through Cordis. Hooked up to IV tubing. Secured with suture. Dressings applied. Drapes Removed. Attempts x1.
--- NOTE | 2024-11-26 13:26 | P.ANPRN ---
Procedure Note - Anesthesia - Invasive Line Right [place] Ankit Time Out Performed: Yes (0725) Date of Procedure: 11/26/24 Time of Procedure: 07:39 Location of Patient: PreOp Preparation: Sterile Prep, Sterile Dressing [place] Ankit Line Location: Internal Jugular (right) Ultrasound Used: No Purpose - Visualization and Identification of Vasculature: No Image Stored and Saved: No Narrative: Invasive line placement per sterile protocol utilized. Anesthesia note Procedure right [place]-Ankit catheter placed through right internal jugular central venous catheter Sterile protocol maintained from previous procedure. [place]-Ankit catheter sterilely placed in sheath and flushed prior to insertion. After advancing 15 cm [place]-Ankit catheter was then slowly inserted with balloon up. Advanced through CVP, RV to PA waveform. [place]-Ankit catheter wedged around 59 cm. Balloon down. Catheter withdrawn 5 cm. . No wedge. Proximal and distal sites locked on sheath. Attempts x1. Sterile drapes removed and dressings applied.
[2024-11-26] MEDS ORDERED: DEXTROSE 50% SYRINGE 50 ML IVP PRN ×2 (13:29)
[2024-11-26] MEDS ORDERED: Magnesium Replacement Protocol 1 EACH MISC MISCELLANE PRN (13:29)
[2024-11-26] MEDS ORDERED: ONDANSETRON 4 MG/2 ML VIAL IVP PRN (13:29)
[2024-11-26] MEDS ORDERED: METOCLOPRAMIDE 5 MG/ML 2 ML VIAL IVP PRN (13:29)
[2024-11-26] MEDS ORDERED: CALCIUM GLUCONATE IN NACL 2 GM in SALINE 1 100ML.BAG IVPB PRN (13:29)
[2024-11-26] MEDS ORDERED: Potassium Replacement Protocol 1 EACH MISC MISCELLANE PRN (13:29)
[2024-11-26] MEDS ORDERED: Phosphorus Replacement Protoco 1 EACH MISC MISCELLANE PRN (13:29)
[2024-11-26] MEDS ORDERED: hydrALAZINE HCL 20 MG/ML 1 ML VIAL IVP PRN (13:29)
[2024-11-26] MEDS ORDERED: IPRATROPIUM-ALBUTEROL 3 ML NEB INHALATION PRN (13:29)
--- NOTE | 2024-11-26 13:29 | P.ANPRN ---
Procedure Note - Anesthesia - ADOLFO Intraop Pre Bypass ADOLFO Intraop - Anesthesia Indication: cad, aortic stenosis Date of Procedure: 11/26/24 Pre-operative Diagnosis: CAD, Post-operative Diagnosis: Same Surgeon: Anish Starks Ejection Fraction: Normal Regional Wall Motion Abnormalities: None Left Ventricle Hypertrophy: No R. Ventricle Function: Normal Anatomy: Trileaflet Aortic Stenosis: Severe Other Findings: peak gradient low 70's, mean in low 30's Mitral Stenosis: None Mitral Regurgitation: Trace Tricuspid Stenosis: None Tricuspid Regurgitation: Trace Pulmonic Stenosis: None Pulmonic Regurgitation: None R. Atrial Dilation: No R. Atrial PFO: No L. Atrial Dilation: No Aortic Dissection: No Aortic Calcification: None Plural Effusion: None
--- NOTE | 2024-11-26 13:31 | P.ANPRN ---
Procedure Note - Anesthesia - ADOLFO Intraop Post Bypass ADOLFO Intraop Post Bypass Procedure Performed: AVR, CABGx2 Left Ventricle: unchanged Ejection Fraction: Normal Regional Wall Motion Abnormalities: None R. Ventricle Function: Normal Aortic Valve: prosthetic valve in the aortic position. Unidirectional. No perivalvular leak. residual mean 5 Mitral Valve: Unchanged Tricuspid: Unchanged Pulmonic: Unchanged Aortic Dissection: No
--- NOTE | 2024-11-26 14:19 | P.OP ---
Date of Procedure: 11/26/24 Preoperative Diagnosis: Severe aortic valve stenosis, non-ST elevation myocardial infarction, coronary artery disease, preserved left ventricular function, hypertension, hyperlipidemia, diabetes, family history for premature coronary artery disease Postoperative Diagnosis: Same with evidence of trileaflet severe calcified aortic valve stenosis Procedure(s) Performed: 1Aortic valve replacement using a 25 mm Inspiris pericardial bioprosthesis 2Double vessel coronary bypass grafting using the in situ left intramammary artery to the left anterior descending artery, reverse saphenous vein graft from the aorta to the posterior descending artery 3Exclusion of the left atrial appendage using a 35mm AtriClip 4intraoperative Grafalon measurements using the [employer] system 5endoscopic harvesting of the left greater saphenous vein 6intraoperative transesophageal echocardiogram and epiaortic scanning Implants: 25 mm Inspiris pericardial bioprosthesis in aortic position 35 mm AtriClip Anesthesia: FRANK Surgeon: Anish Starks Gang Plank Workman #1: Sean Alvarez Gang Plank Workman #2: Garret Mehta Pathology: other (Aortic valve) Condition: stable Disposition: ICU Indications for Procedure: Patient is a 69 years old gentleman with above comorbidities who presented with chest pain and was ruled in for non-ST elevation myocardial infarction. Workup included cardiac catheterization that showed proximal left anterior descending artery disease and a totally occluded collateralized right coronary artery system. His echo showed severe aortic valve stenosis with preserved left ventricular function,. CT scan of the chest ruled out any ascending aortic aneurysm. Patient is being taken today for aortic valve replacement and bypass to his LAD and right coronary artery system. The STS risk score was discussed with him and his family they understood it and agreed to proceed Operative Findings: Trileaflet severely calcified aortic valve stenosis, calcified proximal coronary artery disease, excellent graft flow post bypass, no paravalvular leak from the aortic valve replacement and residual gradient of 5 mmHg Description of Procedure: Patient in supine position right internal jugular [place]-Ankit catheter and right radial arterial line were placed. His cardiac index was 1.9 and PA pressure was 44/21. Subsequently was brought to the operating room where general endotracheal anesthesia was induced uneventfully. A Garcia catheter was inserted. Subsequently the chest abdomen both lower extremities were prepped and draped using ChloraPrep. Ioban was used to cover the skin. Patient received 2 g of cefazolin intravenously. Transesophageal echocardiogram confirmed the preoperative finding of severe aortic valve stenosis with preserved left ventricular function. Midline sternotomy was performed and we had to use bone wax on the profusely bleeding sternal edges. Subsequently the left hemisternum was elevated and left internal mammary artery was harvested in a semiskeletonized fashion. The left pleura was intentionally open in this process and was drained with a 19 Haitian Alex drain. Patient was given 5000 heparin and the mammary artery was double clipped distally and transected had an excellent pulsatile flow in it and was around 2 mm in diameter. In the same setting the left greater saphenous vein was harvested endoscopically from groin to knee level. Leg incisions were closed over a drain. The vein segment appeared to be somewhat thickened but uniform with a lot of branches but definitely usable. It was around 4 mm in diameter. Ankeney sternal retractor was used. Mediastinal fat was transected between 2 ties and epiaortic ultrasound revealed no protruding atheroma in the ascending aorta. Pericardium was opened in an inverted T fashion and pericardial cradle was created. Find included an elongated soft aorta and a normal-sized heart with palpable calcific proximal coronary artery disease. After systemic heparinization and after placement of respective pledgeted pursestring, aortic cannulation with a 21 Haitian slow flow cannula and venous cannulation via the right atrial appendage with a 29/37 Haitian cannula was performed. Antegrade as well as retrograde cardioplegia catheters were placed. Cardioquin bypass was initiated and the patient temperature was allowed to drift down to 34 C. We looked at the target and appeared that the mid LAD and the proximal posterior descending artery will be the site for bypass. Aorta was clamped and during aortic clamping Myocard protection was achieved with initial dose of 1 L of antegrade cold blood cardioplegia followed by 250 cc of retrograde cold blood cardioplegia. All subsequent doses were given retrograde as well as through the initially constructed vein graft to the right coronary system for optimal right ventricular protection. We started by excluding left atrial appendage by deploying a 35mm AtriClip at its base. Subsequently the first distal anastomosis was between the segment of vein and the 2 mm proximal posterior descending artery which was thin-walled at the level using Prolene 7 0 in continuous fashion. As mentioned above that vein was connected to a wire system on the retrograde delivery. The second distal anastomosis was between the in situ left intramammary artery that passed in a groove in the left pleuropericardial fat anastomosis of the mid left anterior descending artery which was around 2 mm in diameter using Prolene 7 0 continuous fashion. Attention was moved at this point at the aortic valve replacement part. CO2 was flowing over the field as long as the aorta was open. A transverse aortotomy was made around 1 cm above the sinotubular junction. Exploration revealed a trileaflet aortic valve which was heavily calcified. That valve was excised and the annulus debrided to pliable tissue. Thorough irrigation with around 500 cc of cold saline followed. Subsequently a total of 20 sutures of Tycron 2 oh pledgeted was placed in a horizontal mattress fashion with the pledgets on the ventricular size. The annulus was measured to a 25 mm Inspiris pericardial bioprosthesis which was brought into the field and all the suture passed s ymmetrically into it. It seated nicely in a supra annular position. All the needle cut and the sutures tied using the core knot device. Both coronary ostia were clear. Irrigation 1 more time followed. Subsequently rewarming was started as we closed the aortotomy in 2 layers using 4-0 Prolene pledgeted on each corner of the first layer in a horizontal mattress fashion and the second layer in over and over technique. Finally we punched out a 4 mm button of the ascending aorta above the aortotomy and performed the proximal anastomosis of the vein graft to the aorta using running Prolene 6 0. Patient was given lidocaine magnesium was given around 1 L of warm blood retrograde. He was placed in Trendelenburg position and the area maneuver pursued. Subsequently with the aortic vent on maximum we unclamped the aorta. Patient regained spontaneous sinus rhythm and the EKG quickly normalized. Initial ADOLFO showed no paravalvular leak. De-airing maneuver was guided by the ADOLFO and I had to stick the apex with a 19-gauge needle twice to help the airing. That hole was not bleeding and was not closed. After around 15 minutes of reperfusion after adequate de-airing we were able to wean off cardiac bypass without the need of any nontropical vasopressor support. ADOLFO showed good functioning aortic valve with residual gradient of 5 mmHg and no paravalvular leak. The left ventricle function was preserved. I proceeded the Grafalon measurements using the [employer] system. A 4 mm probe was selected and the flow into the vein to the posterior descending artery was 212 mL/min, pulsatile index of 0.7 diastolic filling of 64%. The flow into the left intramammary artery to the left and descending artery was 44 mL/min, pulsatile index of 2.9 [place] filling of 75% with some competitive flow. With that all pump suckers were stopped as we gave test dose followed by full dose protamine. Decannulation followed. The venous cannulation site required reinforcement with a silk 0 tie at its base. 2 monopolar atrial pacing wires were affixed to the respective pursestring on the right atrium and 1 bipolar ventricular pacing wire was driven via the inferior aspect of the right ventric le. 219 Haitian Alex drain were left substernally. Distal fat and pericardial fat were estimated over the aorta graft and partially over the right ventricle. After ensuring adequate hemostasis hemodynamic and after correct sponge instrument and needle count the sternum was closed using 5 figure of 8 [place] cable after interposing fibrillar between the sternal edges. Thorough irrigation with cefazolin followed. Rest of closure proceeded in layers. Skin glue was applied. Patient did not receive any blood product but received around 600 cc of Cell Saver blood. Is transferred to the ICU stable in sinus rhythm with excellent hemodynamics cardiac index of 2 PA pressure 40/20.
[2024-11-26] MEDS ORDERED: DEXTROSE 5% IN WATER 100 ML with AMIODARONE 150 MG IV PRN (14:20)
[2024-11-26] MEDS: NITROGLYCERIN-D5W PMX 50 MG in DEXTROSE/WATER 1 250ML.BAG IV SCH (14:25)
[2024-11-26] MEDS: SODIUM CHLORIDE 0.9% 1,000 ML IV SCH (14:25)
[2024-11-26 14:37] LABS: Glucose,Whole Blood 108 mg/dL (70-110)
[2024-11-26] MEDS: IPRATROPIUM-ALBUTEROL 3 ML NEB INHALATION SCH ×2 (14:40→21:12)
[2024-11-26 14:48] LABS: Basophils # (A) 0.02 10*3/uL (0.00-0.10); Basophils % (A) 0.4 %; Eosinophils # (A) 0.07 10*3/uL (0.04-0.35); Eosinophils % (A) 1.5 %; HCT 25.4 % (39.6-50.0); Lymphocytes % (A) 8.7 %; MCH 32.1 pg (27.0-32.0); MCHC 34.6 g/dL (32.0-37.0); MCV 92.7 fL (80.0-97.0); Mean Platelet Volume 9.4 fL (9.5-12.2); Monocytes # (A) 0.35 10*3/uL (0.20-1.00); Monocytes % (A) 7.6 %; Neutrophils # (A) 3.71 10*3/uL (1.80-7.70); Neutrophils % (A) 81.1 %; Platelet Count 103 10*3/uL (140-440); RBC 2.74 10*6/uL (4.40-5.60); RDW 13.4 % (11.5-14.5); WBC 4.58 10*3/uL (4.50-10.00)
[2024-11-26 14:52] LABS: INR 1.3 (<1.2); Partial Thromboplastin Time 26.2 sec (22.0-30.0)
[2024-11-26 14:53] LABS: HGB 8.8 g/dL (13.0-17.0)
[2024-11-26] MEDS: CLEVIDIPINE BUTYRATE 25 MG in EMPTY BAG 1 BAG IV SCH (14:53)
--- NOTE | 2024-11-26 14:59 | XR ---
EXAMINATION TYPE: XR chest 1V portable DATE OF EXAM: 11/26/2024 2:51 PM COMPARISON: 11/20/2024 CLINICAL INDICATION: Male, 69 years old with history of Post Operative Cardiac Surgery, , FINDINGS: ET and NG tubes are satisfactory. Right IJ [place]-Ankit catheter tip at the main pulmonary outflow tract . Heart mild to moderately enlarged. Median sternotomy wires and prosthetic aortic valve. Diffuse int erstitial opacities. Small left pleural effusion with left basilar retrocardiac opacity. Left chest t ube in place. No appreciable pneumothorax. IMPRESSION: Postsurgical changes with pulmonary vascular congestion. Small left pleural effusion and adjacent ate lectasis and/or consolidation. [facility], , 11/26/2024 2:57 PM
[2024-11-26 15:02] LABS: Ionized Calcium 4.8 mg/dL (4.5-5.3)
[2024-11-26 15:05] LABS: Glucose,Whole Blood 105 mg/dL (70-110)
[2024-11-26 15:07] LABS: ABG Base Excess -0.7 mmol/L; ABG HCO3 24 mmol/L (21-25); ABG Oxygen Saturation >100.0 % (94-97); ABG PCO2 38 mmHg (35-45); ABG PH 7.41 (7.35-7.45); ABG PO2 217 mmHg (83-108); ABG TCO2 25 mmol/L (19-24); Allen Test Performed? Yes
[2024-11-26] MEDS: AMIODARONE 360 MG in DEXTROSE 5% IN WATER 200 ML IV ONE (15:09)
[2024-11-26 15:18] LABS: ALT 21 U/L (4-49); AST 40 U/L (17-59); African American GFR (CKD) >90 (>60 ml/min/1.73 sqM); Albumin 2.8 g/dL (3.5-5.0); Alkaline Phosphatase 31 U/L (38-126); Anion Gap 6 mmol/L; Blood Urea Nitrogen 8 mg/dL (9-20); Calcium 8.5 mg/dL (8.4-10.2); Carbon Dioxide 23 mmol/L (22-30); Chloride 111 mmol/L (98-107); Glucose 102 mg/dL (74-99); Magnesium 2.2 mg/dL (1.6-2.3); Non-African American GFR(CKD) >90 (>60 ml/min/1.73 sqM); Sodium 140 mmol/L (137-145); Total Bilirubin 0.8 mg/dL (0.2-1.3); Total Protein 4.7 g/dL (6.3-8.2)
[2024-11-26] MEDS: ACETAMINOPHEN IV (For NPO) 1,000 MG in EMPTY BAG 1 BAG IVPB SCH (16:11)
[2024-11-26 16:20] LABS: Glucose,Whole Blood 151 mg/dL (70-110)
[2024-11-26] MEDS: INSULIN REGULAR 100 UNIT in SODIUM CHLORIDE 0.9% 100 ML IV SCH (16:22)
[2024-11-26] MEDS: HEPARIN SODIUM,PORCINE 5,000 UNIT/ML 1 ML VIAL SQ SCH (16:37)
[2024-11-26] MEDS: DEXMEDETOMIDINE/0.9% NACL(PMX) 400 MCG in EMPTY BAG 1 BAG IV SCH (16:37)
[2024-11-26 17:13] LABS: Glucose,Whole Blood 167 mg/dL (70-110)
--- NOTE | 2024-11-26 17:30 | P.PN ---
Subjective Progress Note Date: 11/26/24 On 11/26/2024, the patient is being seen immediately after arriving to the intensive care unit. The patient underwent aortic valve replacement/tissue valve and double vessel bypass surgery with NUNEZ to LAD and reverse saphenous vein graft from aorta to PDA. The patient is currently postop day #0. [place] on mechanical ventilator. The patient is currently sedated on propofol and the patient is currently on assist-control mode of mechanical ventilation at rate of 14, tidal volume of 600, FiO2 of 60% with a PEEP of 8. Blood gas showed a pH of 7.4 with a PCO2 of 37 and PO2 of 217. Chest x-ray done postop shows adequate expansion of both lungs. Small left pleural effusion. Atelectasis changes left lung base. Lines and tubes are all in good location. No other acute abnormalities have been noted. The patient has a mediastinal and left pleural chest tube output is minimal and there is no evidence of any air leak. Hemodynamically, the patient's cardiac output is at 7.9 with an index of 3.1. SVR is at 723. PA pressures are 27/18. The patient is currently in normal sinus rhythm. Amiodarone is running at 1 mg/min and the patient is also on nitroglycerin drip at 5 mg/min. The WBC count is at 4.5, hemoglobin is at 8.8 and a platelet count of 103. The sodium is at 140, potassium is at 4, BUN is at 8 with a creatinine of 0.6. LFTs are within normal limits. Urine output is adequate. No other significant events postop. Objective - Vital Signs Vital signs: Vital Signs Temp 98.7 F 11/26/24 05:52 Pulse 88 11/26/24 14:50 Resp 18 11/26/24 05:52 BP 132/81 11/26/24 05:52 Pulse Ox 96 11/26/24 05:52 FiO2 50 11/26/24 16:27 Intake & Output 11/25/24 11/26/24 11/26/24 18:59 06:59 18:59 Intake Total 830.000 120 4.288 Output Total 0 800 Balance 830.000 120 -795.712 Intake: IV 120 3 Invasive Line 2 20 Intake, IV Titration 250.000 1.288 Amount Heparin Sod,Pork in 0.45% 250.000 NaCl 25,000 unit In 0.45 % NaCl 1 250ml.bag @ 8.93 UNITS/KG/HR 10.005 mls/ hr IV .Q24H [facility] Rx#: [id number] Insulin Regular 100 unit 1.288 In Sodium Chloride 0.9% 100 ml @ Per Protocol IV .Q0M [facility] Rx#:[id number] Oral 580 Output: Stool 0 Estimated Blood Loss 800 Other: Voiding Method Toilet Toilet Urinal Urinal # Voids 1 - Exam The patient appeared well nourished and normally developed. Vital signs as documented. Orotracheal and orogastric tube are both in place. The patient has a right IJ Newington-Ankit catheter in place. Sedated with propofol and, comfortable and synchronous with mechanical ventilator. Head exam is unremarkable. No scleral icterus or corneal arcus noted. Neck is without jugular venous distension, thyromegaly, or carotid bruits. Carotid upstrokes are brisk bilaterally. Lungs are clear to auscultation and percussion. The patient has a mediastinal and left lower chest tube. Thoracotomy scar is dry clean and intact. Cardiac exam reveals the PMI to be normally sized and situated. Rhythm is regular. First and second heart sounds normal. No murmurs, rubs or gallops. Abdominal exam reveals normal bowel sounds, no masses, no organomegaly and no aortic enlargement. Extremities are nonedematous and both femoral and pedal pulses are normal. Examination of the skin revealed no evidence of significant rashes, suspicious appearing nevi or other concerning lesions. Neurologically, the patient is sedated and, comfortable. Pupils are equal reactive to light. No cranial nerve deficits. No focal neurological deficit. - Labs CBC & Chem 7: 11/26/24 14:35 11/26/24 14:35 Labs: Abnormal Lab Results - Last 24 Hours (Table) 11/25/24 11/25/24 11/26/24 Range/Units 06:58 19:52 06:00 RBC (4.40-5.60) 10*6/uL Hgb (13.0-17.0) g/dL Hct (39.6-50.0) % MCH (27.0-32.0) pg Plt Count (140-440) 10*3/uL MPV (9.5-12.2) fL Lymphocytes # (0.90-5.00) 10*3/uL PT (10.0-12.5) sec INR (<1.2) ABG pH (7.35-7.45) ABG pCO2 (35-45) mmHg ABG pO2 (83-108) mmHg ABG Total CO2 (19-24) mmol/L ABG O2 Saturation (94-97) % ABG Hematocrit (34.0-46.0) % ABG Ionized Calcium (4.5-5.3) mg/dL ABG Glucose (75-99) mg/dL Hemoglobin (13.0-17.5) gm/dL Chloride (98-107) mmol/L BUN (9-20) mg/dL Glucose (74-99) mg/dL POC Glucose (mg/dL) 151 H 114 H (70-110) mg/dL Alkaline Phosphatase (38-126) U/L Total Protein (6.3-8.2) g/dL Albumin (3.5-5.0) g/dL Arterial Blood Glucose (75-99) mg/dL Crossmatch See Detail 11/26/24 11/26/24 11/26/24 Range/Units 08:58 10:47 11:23 RBC (4.40-5.60) 10*6/uL Hgb (13.0-17.0) g/dL Hct (39.6-50.0) % MCH (27.0-32.0) pg Plt Count (140-440) 10*3/uL MPV (9.5-12.2) fL Lymphocytes # (0.90-5.00) 10*3/uL PT (10.0-12.5) sec INR (<1.2) ABG pH (7.35-7.45) ABG pCO2 33 L (35-45) mmHg ABG pO2 228 H >420 H 379 H (83-108) mmHg ABG Total CO2 (19-24) mmol/L ABG O2 Saturation 99.3 H >99.4 H >99.4 H (94-97) % ABG Hematocrit 31 L 27 L 25 L (34.0-46.0) % ABG Ionized Calcium 4.2 L 4.3 L (4.5-5.3) mg/dL ABG Glucose 119 H 122 H 131 H (75-99) mg/dL Hemoglobin 10.2 L 8.6 L 8.3 L (13.0-17.5) gm/dL Chloride (98-107) mmol/L BUN (9-20) mg/dL Glucose (74-99) mg/dL POC Glucose (mg/dL) (70-110) mg/dL Alkaline Phosphatase (38-126) U/L Total Protein (6.3-8.2) g/dL Albumin (3.5-5.0) g/dL Arterial Blood Glucose 119 H 122 H 131 H (75-99) mg/dL Crossmatch 11/26/24 11/26/24 11/26/24 Range/Units 11:46 12:20 14:35 RBC 2.74 L (4.40-5.60) 10*6/uL Hgb 8.8 L D (13.0-17.0) g/dL Hct 25.4 L (39.6-50.0) % MCH 32.1 H (27.0-32.0) pg Plt Count 103 L (140-440) 10*3/uL MPV 9.4 L (9.5-12.2) fL Lymphocytes # 0.40 L (0.90-5.00) 10*3/uL PT (10.0-12.5) sec INR (<1.2) ABG pH 7.30 L (7.35-7.45) ABG pCO2 52 H (35-45) mmHg ABG pO2 262 H 314 H (83-108) mmHg ABG Total CO2 (19-24) mmol/L ABG O2 Saturation >99.4 H >99.4 H (94-97) % ABG Hematocrit 25 L 25 L (34.0-46.0) % ABG Ionized Calcium 4.4 L (4.5-5.3) mg/dL ABG Glucose 138 H 146 H (75-99) mg/dL Hemoglobin 8.0 L 8.1 L (13.0-17.5) gm/dL Chloride (98-107) mmol/L BUN (9-20) mg/dL Glucose (74-99) mg/dL POC Glucose (mg/dL) (70-110) mg/dL Alkaline Phosphatase (38-126) U/L Total Protein (6.3-8.2) g/dL Albumin (3.5-5.0) g/dL Arterial Blood Glucose 138 H 146 H (75-99) mg/dL Crossmatch 11/26/24 11/26/24 11/26/24 Range/Units 14:35 14:35 15:05 RBC (4.40-5.60) 10*6/uL Hgb (13.0-17.0) g/dL Hct (39.6-50.0) % MCH (27.0-32.0) pg Plt Count (140-440) 10*3/uL MPV (9.5-12.2) fL Lymphocytes # (0.90-5.00) 10*3/uL PT 14.0 H (10.0-12.5) sec INR 1.3 H (<1.2) ABG pH (7.35-7.45) ABG pCO2 (35-45) mmHg ABG pO2 217 H (83-108) mmHg ABG Total CO2 25 H (19-24) mmol/L ABG O2 Saturation >100.0 H (94-97) % ABG Hematocrit (34.0-46.0) % ABG Ionized Calcium (4.5-5.3) mg/dL ABG Glucose (75-99) mg/dL Hemoglobin 10.3 L (13.0-17.5) gm/dL Chloride 111 H (98-107) mmol/L BUN 8 L (9-20) mg/dL Glucose 102 H (74-99) mg/dL POC Glucose (mg/dL) (70-110) mg/dL Alkaline Phosphatase 31 L (38-126) U/L Total Protein 4.7 L (6.3-8.2) g/dL Albumin 2.8 L (3.5-5.0) g/dL Arterial Blood Glucose (75-99) mg/dL Crossmatch 11/26/24 11/26/24 Range/Units 16:19 17:10 RBC (4.40-5.60) 10*6/uL Hgb (13.0-17.0) g/dL Hct (39.6-50.0) % MCH (27.0-32.0) pg Plt Count (140-440) 10*3/uL MPV (9.5-12.2) fL Lymphocytes # (0.90-5.00) 10*3/uL PT (10.0-12.5) sec INR (<1.2) ABG pH (7.35-7.45) ABG pCO2 (35-45) mmHg ABG pO2 (83-108) mmHg ABG Total CO2 (19-24) mmol/L ABG O2 Saturation (94-97) % ABG Hematocrit (34.0-46.0) % ABG Ionized Calcium (4.5-5.3) mg/dL ABG Glucose (75-99) mg/dL Hemoglobin (13.0-17.5) gm/dL Chloride (98-107) mmol/L BUN (9-20) mg/dL Glucose (74-99) mg/dL POC Glucose (mg/dL) 151 H 167 H (70-110) mg/dL Alkaline Phosphatase (38-126) U/L Total Protein (6.3-8.2) g/dL Albumin (3.5-5.0) g/dL Arterial Blood Glucose (75-99) mg/dL Crossmatch Assessment and Plan Plan: Aortic valve replacement/Inspiris pericardial bioprosthesis in addition to d ouble vessel coronary bypass surgery with NUNEZ to LAD and reverse saphenous vein graft to PDA. Postop day #0. Severe aortic stenosis Coronary artery disease post non-ST segment elevation myocardial infarction. Hypertension Hyperlipidemia Diabetes mellitus Obesity with a BMI of 30.9 History of prostate cancer status post radiation therapy Previous smoker quit smoking 20 years ago Alcohol use, 5 beers a week and weekend marijuana user Umbilical hernia Plan Keep the patient on propofol Wean down the FiO2 as tolerated to maintain saturation above 90% Hemodynamically stable. Monitor the cardiac output and index. Continue amiodarone drip Continue nitroglycerin drip Cardiac rhythm is sinus and the patient is producing adequate amount of urine output Monitor chest tube output, output is minimal at this point. Chest x-ray daily basis Anticipate extubation within the next few hours. . Care evaluation was done 33 minutes. Time with Patient: Greater than 30
[2024-11-26 17:38] LABS: Basophils # (A) 0.03 10*3/uL (0.00-0.10); Basophils % (A) 0.4 %; Eosinophils # (A) 0.03 10*3/uL (0.04-0.35); Eosinophils % (A) 0.4 %; HCT 30.1 % (39.6-50.0); HGB 10.4 g/dL (13.0-17.0); Lymphocytes # (A) 0.43 10*3/uL (0.90-5.00); Lymphocytes % (A) 5.4 %; MCHC 34.6 g/dL (32.0-37.0); MCV 92.6 fL (80.0-97.0); Mean Platelet Volume 9.6 fL (9.5-12.2); Monocytes # (A) 0.67 10*3/uL (0.20-1.00); Monocytes % (A) 8.5 %; Neutrophils # (A) 6.72 10*3/uL (1.80-7.70); Neutrophils % (A) 84.9 %; Platelet Count 151 10*3/uL (140-440); RBC 3.25 10*6/uL (4.40-5.60); RDW 13.7 % (11.5-14.5); WBC 7.91 10*3/uL (4.50-10.00)
[2024-11-26 17:51] LABS: ABG Base Excess -4.9 mmol/L; ABG HCO3 20 mmol/L (21-25); ABG Oxygen Saturation 94.7 % (94-97); ABG PCO2 33 mmHg (35-45); ABG PH 7.38 (7.35-7.45); ABG PO2 70 mmHg (83-108); ABG TCO2 21 mmol/L (19-24); Allen Test Performed? Yes
[2024-11-26 19:02] LABS: Glucose,Whole Blood 177 mg/dL (70-110)
[2024-11-26 19:14] LABS: Basophils # (A) 0.02 10*3/uL (0.00-0.10); Basophils % (A) 0.3 %; Eosinophils # (A) 0.01 10*3/uL (0.04-0.35); Eosinophils % (A) 0.1 %; HCT 28.6 % (39.6-50.0); HGB 9.9 g/dL (13.0-17.0); Lymphocytes # (A) 0.28 10*3/uL (0.90-5.00); Lymphocytes % (A) 4.1 %; MCH 32.2 pg (27.0-32.0); MCHC 34.6 g/dL (32.0-37.0); MCV 93.2 fL (80.0-97.0); Monocytes # (A) 0.44 10*3/uL (0.20-1.00); Monocytes % (A) 6.4 %; Neutrophils # (A) 6.06 10*3/uL (1.80-7.70); Neutrophils % (A) 88.8 %; Platelet Count 135 10*3/uL (140-440); RBC 3.07 10*6/uL (4.40-5.60); RDW 13.5 % (11.5-14.5); WBC 6.83 10*3/uL (4.50-10.00)
[2024-11-26 20:05] LABS: Glucose,Whole Blood 169 mg/dL (70-110)
[2024-11-26 21:04] LABS: Glucose,Whole Blood 160 mg/dL (70-110)
[2024-11-26] MEDS: AMIODARONE 450 MG in DEXTROSE 5% IN WATER 250 ML IV SCH (21:10)
[2024-11-26] MEDS: methocarbamoL 750 MG TAB PO PRN (21:38)
[2024-11-26 22:10] LABS: Glucose,Whole Blood 161 mg/dL (70-110)
[2024-11-26 23:00] LABS: Glucose,Whole Blood 156 mg/dL (70-110)
[2024-11-27 00:06] LABS: Glucose,Whole Blood 143 mg/dL (70-110)
[2024-11-27] MEDS: KETOROLAC 15 MG/ML 1 ML VIAL IVP SCH ×2 (00:07→11:48)
[2024-11-27 01:19] LABS: Glucose,Whole Blood 130 mg/dL (70-110)
[2024-11-27 02:10] LABS: Glucose,Whole Blood 128 mg/dL (70-110)
[2024-11-27 03:06] LABS: Glucose,Whole Blood 126 mg/dL (70-110)
[2024-11-27] MEDS: ALBUMIN HUMAN 5% 250 ML in EMPTY BAG 1 BAG IVPB PRN (03:16)
[2024-11-27 03:19] LABS: Basophils # (A) 0.02 10*3/uL (0.00-0.10); Basophils % (A) 0.3 %; HCT 27.7 % (39.6-50.0); HGB 9.5 g/dL (13.0-17.0); Lymphocytes # (A) 0.34 10*3/uL (0.90-5.00); Lymphocytes % (A) 4.5 %; MCH 31.8 pg (27.0-32.0); MCHC 34.3 g/dL (32.0-37.0); MCV 92.6 fL (80.0-97.0); Mean Platelet Volume 9.9 fL (9.5-12.2); Monocytes # (A) 0.68 10*3/uL (0.20-1.00); Monocytes % (A) 8.9 %; Neutrophils # (A) 6.56 10*3/uL (1.80-7.70); Platelet Count 147 10*3/uL (140-440); RBC 2.99 10*6/uL (4.40-5.60); RDW 13.5 % (11.5-14.5); WBC 7.62 10*3/uL (4.50-10.00)
[2024-11-27 03:26] LABS: Ionized Calcium 4.7 mg/dL (4.5-5.3)
[2024-11-27 03:35] LABS: ALT 23 U/L (4-49); AST 43 U/L (17-59); African American GFR (CKD) >90 (>60 ml/min/1.73 sqM); Albumin 3.2 g/dL (3.5-5.0); Alkaline Phosphatase 43 U/L (38-126); Anion Gap 9 mmol/L; Blood Urea Nitrogen 10 mg/dL (9-20); Calcium 8.7 mg/dL (8.4-10.2); Carbon Dioxide 23 mmol/L (22-30); Chloride 105 mmol/L (98-107); Glucose 117 mg/dL (74-99); Non-African American GFR(CKD) >90 (>60 ml/min/1.73 sqM); Potassium 4.1 mmol/L (3.5-5.1); Sodium 137 mmol/L (137-145); Total Bilirubin 0.7 mg/dL (0.2-1.3); Total Protein 5.4 g/dL (6.3-8.2)
[2024-11-27 04:19] LABS: Glucose,Whole Blood 125 mg/dL (70-110)
[2024-11-27 05:09] LABS: Glucose,Whole Blood 131 mg/dL (70-110)
[2024-11-27 06:26] LABS: Glucose,Whole Blood 134 mg/dL (70-110)
[2024-11-27 07:14] LABS: Glucose,Whole Blood 124 mg/dL (70-110)
--- NOTE | 2024-11-27 07:46 | P.PN ---
Subjective Progress Note Date: 11/27/24 Principal diagnosis: Coronary artery disease and severe aortic valve stenosis. Past medical history significant for known aortic valve stenosis which is followed by Dr. Paredes with serial echocardiograms, coronary artery disease with previous PCI to his right coronary artery in 2007, hypertension, hyperlipidemia, obesity with a BMI of 30.9 kg/m, diabetes mellitus type 2, prostate cancer status post 3 months of radiation therapy, family history of premature coronary artery disease with his father, umbilical hernia, remote history of smoking quit 20 years ago, EtOH use, drinks 5 beers per week, and occasional marijuana use on the weekends. POD #1 Aortic valve replacement using a 25 mm Inspiris pericardial bioprosthesis, double vessel coronary bypass grafting using the in situ left intramammary artery to the left anterior descending artery, reverse saphenous vein graft from the aorta to the posterior descending artery, exclusion of the left atrial appendage using a 35mm AtriClip, intraoperative graft flow measurements using the BoomBangstim system, endoscopic harvesting of the left greater saphenous vein, intraoperative transesophageal echocardiogram and epiaortic scanning. Postoperative acute blood loss anemia, expected given hemodilution and cardiopulmonary bypass. The patient was seen and examined in follow-up today November 27, 2024 at his bedside in the intensive care unit. He was successfully extubated at 5:59 PM last evening, he is awake, alert, oriented x 3 and is in no acute apparent distress. He is currently sitting up to the bedside chair, tolerating his breakfast. Oxygen saturations are 99% on 3 L nasal cannula and he is achieving 1000 mL on his incentive spirometry with encouragement. He denies any complaints of shortness of breath, although is complaining of some surgical type pain to his left chest, currently rating his pain 6 out of 10 on the pain scale. Bedside telemetry is showing normal sinus rhythm heart rate 71 bpm. Right IJ c ordis and [employer]-Ankit catheter remain in place with current hemodynamics showing a cardiac output of 6.5, cardiac index 2.7, SVR 934, PA pressures 37/16 and CVP 9 mmHg. Mediastinal and left pleural chest tubes remain in place to low continuous wall suction -20 cm H2O. No airleak is present. Draining thin serosanguineous drainage. Mediastinal chest tube drained 30 mL output in the last 8 hours and 320 mL output since surgery. Left pleural chest tube drained 190 mL output in the last 8 hours and 550 mL output since surgery. Chest x-ray and laboratory results were reviewed. Objective - Vital Signs Vital signs: Vital Signs Temp 99.0 F 11/27/24 06:00 Pulse 72 11/27/24 07:00 Resp 17 11/27/24 07:00 BP 118/74 11/27/24 07:00 Pulse Ox 73 L 11/27/24 07:00 FiO2 50 11/26/24 17:19 Intake & Output 11/26/24 11/27/24 11/27/24 18:59 06:59 18:59 Intake Total 408.382 9268.737 77.167 Output Total 3520 1100 55 Balance -2823.142 41.737 22.167 Weight 117.4 kg Intake: IV 528.2 1107.803 77.167 ACETAMINOPHEN IV (For NPO 100 100 ) 1,000 mg In Empty Bag 1 bag @ 400 mls/hr IVPB Q6HR [facility] Rx#:[id number] Amiodarone 360 mg In 133.2 66.633 Dextrose 5% in Water 200 ml @ 1 MG/MIN 33.333 mls/ hr IV .Q6H ONE Rx#: [id number] Amiodarone 450 mg In 166.670 16.667 Dextrose 5% in Water 250 ml @ 0.5 MG/MIN 16.667 mls/hr IV .Q15H [facility] Rx#: [id number] Nitroglycerin-D5w Pmx 50 6.0 16.5 1.5 mg In Dextrose/Water 1 250ml.bag @ 5 MCG/MIN 1.5 mls/hr IV .Q24H [facility] Rx#: [id number] Pressure Bags 36 108 9 Sodium Chloride 0.9% 1, 200 600 50 000 ml @ 20 mls/hr IV . Q24H [facility] Rx#:[id number] ceFAZolin 2 gm In Sodium 50 50 Chloride 0.9% 50 ml @ 100 mls/hr IVPB ONCE ONE Rx# :[id number] Intake, IV Titration 108.658 33.934 Amount Clevidipine Butyrate 25 18.534 mg In Empty Bag 1 bag @ 1 MG/HR 2 mls/hr IV .Q24H [facility] Rx#:[id number] Dexmedetomidine/0.9% NaCl 30.764 1.437 (Pmx) 400 mcg In Empty Bag 1 bag @ Titrate IV . Q0M [facility] Rx#:[id number] Insulin Regular 100 unit 1.288 32.497 In Sodium Chloride 0.9% 100 ml @ Per Protocol IV .Q0M [facility] Rx#:[id number] propofoL 1,000 mg In 58.072 Empty Bag 1 bag @ Titrate IV .Q0M [facility] Rx#: [id number] Other 60 Output: Chest Tube Drainage 530 310 20 Left Pleural Chest Tube 280 240 10 Mediastinal Chest Tube x2 250 70 10 Drainage 30 10 Left Leg TRI 30 10 Urine 2160 780 35 Estimated Blood Loss 800 Other: Voiding Method Indwelling Catheter Indwelling Catheter ABP, PAP, CO, CI - Last Documented Arterial Blood Pressure 151/57 Pulmonary Artery Pressure 28/17 Cardiac Output 6.5 Cardiac Index 2.7 - Exam CONSTITUTIONAL: Sitting up to the bedside chair in the intensive care unit, appears comfortable, cooperative, no apparent acute distress. HEENT: Neck is supple, no JVD, no lymphadenopathy. Right IJ Cordis and [employer]- Ankit catheter in place and functioning. RESPIRATORY: Lungs sounds essentially clear throughout, few scattered crackles to his bilateral bases. Respirations are symmetrical and nonlabored. Currently on 3 L nasal cannula with oxygen saturations 99%. Able to achieve 1000 mL on his incentive spirometry. Strong cough. CARDIOVASCULAR: Regular rhythm and rate. S1 and S2 present, negative for S3, gallop or murmur. Sternum is stable. Bedside telemetry showing normal sinus rhythm heart rate 71 bpm. Palpable peripheral pulses bilaterally, +1 edema to his bilateral lower extremities. No calf pain or tenderness noted. Heart hugger in place with patient demonstrating appropriate use. Knee-high CORNELL hose and sequential compression devices in place to his bilateral lower extremities. GASTROINTESTINAL: Abdomen soft, nontender, nondistended. Hypoactive bowel sounds present 4 quadrants. Tolerating clear diet. Denies passing flatus. No guarding or rigidity. GENITOURINARY: Garcia present draining clear, yellow urine. Urine output 415 mL in the last 8 hours. INTEGUMENTARY: Skin is warm and dry with no evidence of clubbing or cyanosis. Midline sternal incision clean dry and well approximated, covered with dry intact dressing. Left lower extremity EVH sites well approximated without redness or drainage. NEUROLOGIC: Cranial nerves II through XII intact. No focal deficits. MUSKULOSKELETAL: Able to move all extremities, strength equal bilaterally, generalized weakness. PSYCHIATRIC: Alert and oriented to person place and time, appropriate affect, intact judgment and insight. INVASIVE LINES AND TUBES: Mediastinal/left pleural chest tubes present and connected to low continuous wall suction, no air leaks present. Mediastinal tube with 30 mL of thin serosanguineous drainage overnight, 320 mL output in the last 24 hours. Left pleural chest tube with 190 mL of thin serosanguineous d rainage overnight, 550 mL output in the last 24 hours. Atrial and ventricular epicardial pacemaker wires present, connected to generator, VVI backup rate 50 bpm. Right internal jugular [employer]/Cordis, right radial arterial line present. Last CO 6.5, CI 2.7, SVR 934, PA 37/16 and CVP 9 mmHg. Left lower extremity TRI drain in place with scant thin serosanguineous drainage with 10 mL output in the last 8 hours. - Allied health notes Allied health notes reviewed: nursing - Labs CBC & Chem 7: 11/27/24 03:00 11/27/24 03:00 Labs: Abnormal Lab Results - Last 24 Hours (Table) 11/25/24 11/26/24 11/26/24 Range/Units 06:58 08:58 10:47 RBC (4.40-5.60) 10*6/uL Hgb (13.0-17.0) g/dL Hct (39.6-50.0) % MCH (27.0-32.0) pg Plt Count (140-440) 10*3/uL MPV (9.5-12.2) fL Lymphocytes # (0.90-5.00) 10*3/uL Eosinophils # (0.04-0.35) 10*3/uL PT (10.0-12.5) sec INR (<1.2) ABG pH (7.35-7.45) ABG pCO2 33 L (35-45) mmHg ABG pO2 228 H >420 H (83-108) mmHg ABG HCO3 (21-25) mmol/L ABG Total CO2 (19-24) mmol/L ABG O2 Saturation 99.3 H >99.4 H (94-97) % ABG Hematocrit 31 L 27 L (34.0-46.0) % ABG Ionized Calcium 4.2 L (4.5-5.3) mg/dL ABG Glucose 119 H 122 H (75-99) mg/dL Hemoglobin 10.2 L 8.6 L (13.0-17.5) gm/dL Chloride (98-107) mmol/L BUN (9-20) mg/dL Glucose (74-99) mg/dL POC Glucose (mg/dL) (70-110) mg/dL Alkaline Phosphatase (38-126) U/L Total Protein (6.3-8.2) g/dL Albumin (3.5-5.0) g/dL Arterial Blood Glucose 119 H 122 H (75-99) mg/dL Crossmatch See Detail 11/26/24 11/26/24 11/26/24 Range/Units 11:23 11:46 12:20 RBC (4.40-5.60) 10*6/uL Hgb (13.0-17.0) g/dL Hct (39.6-50.0) % MCH (27.0-32.0) pg Plt Count (140-440) 10*3/uL MPV (9.5-12.2) fL Lymphocytes # (0.90-5.00) 10*3/uL Eosinophils # (0.04-0.35) 10*3/uL PT (10.0-12.5) sec INR (<1.2) ABG pH 7.30 L (7.35-7.45) ABG pCO2 52 H (35-45) mmHg ABG pO2 379 H 262 H 314 H (83-108) mmHg ABG HCO3 (21-25) mmol/L ABG Total CO2 (19-24) mmol/L ABG O2 Saturation >99.4 H >99.4 H >99.4 H (94-97) % ABG Hematocrit 25 L 25 L 25 L (34.0-46.0) % ABG Ionized Calcium 4.3 L 4.4 L (4.5-5.3) mg/dL ABG Glucose 131 H 138 H 146 H (75-99) mg/dL Hemoglobin 8.3 L 8.0 L 8.1 L (13.0-17.5) gm/dL Chloride (98-107) mmol/L BUN (9-20) mg/dL Glucose (74-99) mg/dL POC Glucose (mg/dL) (70-110) mg/dL Alkaline Phosphatase (38-126) U/L Total Protein (6.3-8.2) g/dL Albumin (3.5-5.0) g/dL Arterial Blood Glucose 131 H 138 H 146 H (75-99) mg/dL Crossmatch 11/26/24 11/26/24 11/26/24 Range/Units 14:35 14:35 14:35 RBC 2.74 L (4.40-5.60) 10*6/uL Hgb 8.8 L D (13.0-17.0) g/dL Hct 25.4 L (39.6-50.0) % MCH 32.1 H (27.0-32.0) pg Plt Count 103 L (140-440) 10*3/uL MPV 9.4 L (9.5-12.2) fL Lymphocytes # 0.40 L (0.90-5.00) 10*3/uL Eosinophils # (0.04-0.35) 10*3/uL PT 14.0 H (10.0-12.5) sec INR 1.3 H (<1.2) ABG pH (7.35-7.45) ABG pCO2 (35-45) mmHg ABG pO2 (83-108) mmHg ABG HCO3 (21-25) mmol/L ABG Total CO2 (19-24) mmol/L ABG O2 Saturation (94-97) % ABG Hematocrit (34.0-46.0) % ABG Ionized Calcium (4.5-5.3) mg/dL ABG Glucose (75-99) mg/dL Hemoglobin (13.0-17.5) gm/dL Chloride 111 H (98-107) mmol/L BUN 8 L (9-20) mg/dL Glucose 102 H (74-99) mg/dL POC Glucose (mg/dL) (70-110) mg/dL Alkaline Phosphatase 31 L (38-126) U/L Total Protein 4.7 L (6.3-8.2) g/dL Albumin 2.8 L (3.5-5.0) g/dL Arterial Blood Glucose (75-99) mg/dL Crossmatch 11/26/24 11/26/24 11/26/24 Range/Units 15:05 16:19 17:10 RBC (4.40-5.60) 10*6/uL Hgb (13.0-17.0) g/dL Hct (39.6-50.0) % MCH (27.0-32.0) pg Plt Count (140-440) 10*3/uL MPV (9.5-12.2) fL Lymphocytes # (0.90-5.00) 10*3/uL Eosinophils # (0.04-0.35) 10*3/uL PT (10.0-12.5) sec INR (<1.2) ABG pH (7.35-7.45) ABG pCO2 (35-45) mmHg ABG pO2 217 H (83-108) mmHg ABG HCO3 (21-25) mmol/L ABG Total CO2 25 H (19-24) mmol/L ABG O2 Saturation >100.0 H (94-97) % ABG Hematocrit (34.0-46.0) % ABG Ionized Calcium (4.5-5.3) mg/dL ABG Glucose (75-99) mg/dL Hemoglobin 10.3 L (13.0-17.5) gm/dL Chloride (98-107) mmol/L BUN (9-20) mg/dL Glucose (74-99) mg/dL POC Glucose (mg/dL) 151 H 167 H (70-110) mg/dL Alkaline Phosphatase (38-126) U/L Total Protein (6.3-8.2) g/dL Albumin (3.5-5.0) g/dL Arterial Blood Glucose (75-99) mg/dL Crossmatch 11/26/24 11/26/24 11/26/24 Range/Units 17:27 17:48 18:47 RBC 3.25 L 3.07 L (4.40-5.60) 10*6/uL Hgb 10.4 L 9.9 L (13.0-17.0) g/dL Hct 30.1 L 28.6 L (39.6-50.0) % MCH 32.2 H (27.0-32.0) pg Plt Count 135 L (140-440) 10*3/uL MPV (9.5-12.2) fL Lymphocytes # 0.43 L 0.28 L (0.90-5.00) 10*3/uL Eosinophils # 0.03 L 0.01 L (0.04-0.35) 10*3/uL PT (10.0-12.5) sec INR (<1.2) ABG pH (7.35-7.45) ABG pCO2 33 L (35-45) mmHg ABG pO2 70 L (83-108) mmHg ABG HCO3 20 L (21-25) mmol/L ABG Total CO2 (19-24) mmol/L ABG O2 Saturation (94-97) % ABG Hematocrit (34.0-46.0) % ABG Ionized Calcium (4.5-5.3) mg/dL ABG Glucose (75-99) mg/dL Hemoglobin 10.5 L (13.0-17.5) gm/dL Chloride (98-107) mmol/L BUN (9-20) mg/dL Glucose (74-99) mg/dL POC Glucose (mg/dL) (70-110) mg/dL Alkaline Phosphatase (38-126) U/L Total Protein (6.3-8.2) g/dL Albumin (3.5-5.0) g/dL Arterial Blood Glucose (75-99) mg/dL Crossmatch 11/26/24 11/26/24 11/26/24 Range/Units 19:00 20:04 21:03 RBC (4.40-5.60) 10*6/uL Hgb (13.0-17.0) g/dL Hct (39.6-50.0) % MCH (27.0-32.0) pg Plt Count (140-440) 10*3/uL MPV (9.5-12.2) fL Lymphocytes # (0.90-5.00) 10*3/uL Eosinophils # (0.04-0.35) 10*3/uL PT (10.0-12.5) sec INR (<1.2) ABG pH (7.35-7.45) ABG pCO2 (35-45) mmHg ABG pO2 (83-108) mmHg ABG HCO3 (21-25) mmol/L ABG Total CO2 (19-24) mmol/L ABG O2 Saturation (94-97) % ABG Hematocrit (34.0-46.0) % ABG Ionized Calcium (4.5-5.3) mg/dL ABG Glucose (75-99) mg/dL Hemoglobin (13.0-17.5) gm/dL Chloride (98-107) mmol/L BUN (9-20) mg/dL Glucose (74-99) mg/dL POC Glucose (mg/dL) 177 H 169 H 160 H (70-110) mg/dL Alkaline Phosphatase (38-126) U/L Total Protein (6.3-8.2) g/dL Albumin (3.5-5.0) g/dL Arterial Blood Glucose (75-99) mg/dL Crossmatch 11/26/24 11/26/24 11/27/24 Range/Units 22:10 22:59 00:04 RBC (4.40-5.60) 10*6/uL Hgb (13.0-17.0) g/dL Hct (39.6-50.0) % MCH (27.0-32.0) pg Plt Count (140-440) 10*3/uL MPV (9.5-12.2) fL Lymphocytes # (0.90-5.00) 10*3/uL Eosinophils # (0.04-0.35) 10*3/uL PT (10.0-12.5) sec INR (<1.2) ABG pH (7.35-7.45) ABG pCO2 (35-45) mmHg ABG pO2 (83-108) mmHg ABG HCO3 (21-25) mmol/L ABG Total CO2 (19-24) mmol/L ABG O2 Saturation (94-97) % ABG Hematocrit (34.0-46.0) % ABG Ionized Calcium (4.5-5.3) mg/dL ABG Glucose (75-99) mg/dL Hemoglobin (13.0-17.5) gm/dL Chloride (98-107) mmol/L BUN (9-20) mg/dL Glucose (74-99) mg/dL POC Glucose (mg/dL) 161 H 156 H 143 H (70-110) mg/dL Alkaline Phosphatase (38-126) U/L Total Protein (6.3-8.2) g/dL Albumin (3.5-5.0) g/dL Arterial Blood Glucose (75-99) mg/dL Crossmatch 11/27/24 11/27/24 11/27/24 Range/Units 01:18 02:09 03:00 RBC 2.99 L (4.40-5.60) 10*6/uL Hgb 9.5 L (13.0-17.0) g/dL Hct 27.7 L (39.6-50.0) % MCH (27.0-32.0) pg Plt Count (140-440) 10*3/uL MPV (9.5-12.2) fL Lymphocytes # 0.34 L (0.90-5.00) 10*3/uL Eosinophils # 0.00 L (0.04-0.35) 10*3/uL PT (10.0-12.5) sec INR (<1.2) ABG pH (7.35-7.45) ABG pCO2 (35-45) mmHg ABG pO2 (83-108) mmHg ABG HCO3 (21-25) mmol/L ABG Total CO2 (19-24) mmol/L ABG O2 Saturation (94-97) % ABG Hematocrit (34.0-46.0) % ABG Ionized Calcium (4.5-5.3) mg/dL ABG Glucose (75-99) mg/dL Hemoglobin (13.0-17.5) gm/dL Chloride (98-107) mmol/L BUN (9-20) mg/dL Glucose (74-99) mg/dL POC Glucose (mg/dL) 130 H 128 H (70-110) mg/dL Alkaline Phosphatase (38-126) U/L Total Protein (6.3-8.2) g/dL Albumin (3.5-5.0) g/dL Arterial Blood Glucose (75-99) mg/dL Crossmatch 11/27/24 11/27/24 11/27/24 Range/Units 03:00 03:05 04:17 RBC (4.40-5.60) 10*6/uL Hgb (13.0-17.0) g/dL Hct (39.6-50.0) % MCH (27.0-32.0) pg Plt Count (140-440) 10*3/uL MPV (9.5-12.2) fL Lymphocytes # (0.90-5.00) 10*3/uL Eosinophils # (0.04-0.35) 10*3/uL PT (10.0-12.5) sec INR (<1.2) ABG pH (7.35-7.45) ABG pCO2 (35-45) mmHg ABG pO2 (83-108) mmHg ABG HCO3 (21-25) mmol/L ABG Total CO2 (19-24) mmol/L ABG O2 Saturation (94-97) % ABG Hematocrit (34.0-46.0) % ABG Ionized Calcium (4.5-5.3) mg/dL ABG Glucose (75-99) mg/dL Hemoglobin (13.0-17.5) gm/dL Chloride (98-107) mmol/L BUN (9-20) mg/dL Glucose 117 H (74-99) mg/dL POC Glucose (mg/dL) 126 H 125 H (70-110) mg/dL Alkaline Phosphatase (38-126) U/L Total Protein 5.4 L (6.3-8.2) g/dL Albumin 3.2 L (3.5-5.0) g/dL Arterial Blood Glucose (75-99) mg/dL Crossmatch 11/27/24 11/27/24 11/27/24 Range/Units 05:07 06:26 07:12 RBC (4.40-5.60) 10*6/uL Hgb (13.0-17.0) g/dL Hct (39.6-50.0) % MCH (27.0-32.0) pg Plt Count (140-440) 10*3/uL MPV (9.5-12.2) fL Lymphocytes # (0.90-5.00) 10*3/uL Eosinophils # (0.04-0.35) 10*3/uL PT (10.0-12.5) sec INR (<1.2) ABG pH (7.35-7.45) ABG pCO2 (35-45) mmHg ABG pO2 (83-108) mmHg ABG HCO3 (21-25) mmol/L ABG Total CO2 (19-24) mmol/L ABG O2 Saturation (94-97) % ABG Hematocrit (34.0-46.0) % ABG Ionized Calcium (4.5-5.3) mg/dL ABG Glucose (75-99) mg/dL Hemoglobin (13.0-17.5) gm/dL Chloride (98-107) mmol/L BUN (9-20) mg/dL Glucose (74-99) mg/dL POC Glucose (mg/dL) 131 H 134 H 124 H (70-110) mg/dL Alkaline Phosphatase (38-126) U/L Total Protein (6.3-8.2) g/dL Albumin (3.5-5.0) g/dL Arterial Blood Glucose (75-99) mg/dL Crossmatch - Imaging and Cardiology Chest x-ray: report reviewed, image reviewed Assessment and Plan Assessment: Coronary artery disease with previous PCI of the right coronary artery in 2007, status post two-vessel coronary artery bypass grafting surgery Non-ST elevated myocardial infarction this admission Severe aortic valve stenosis on cardiac catheterization and transthoracic 2D echocardiogram, status post aortic valve replacement Postoperative acute blood loss anemia, expected given hemodilution and cardiopulmonary bypass Hypertension Hyperlipidemia Diabetes mellitus type 2 Obesity with a BMI of 30.9 kg/m Family history of early onset coronary artery disease History of prostate cancer status post 3 months of radiation therapy Remote history of nicotine dependence, quit smoking 20 years ago EtOH use with 5 beers per week Weekend use of marijuana Umbilical hernia Plan: Continue to maximize medical therapy with aspirin, statin, Plavix, and beta-aaron. Will increase metoprolol tartrate therapy as tolerated. Discontinue IV nitroglycerin drip. We will start Cozaar 12.5 mg p.o. daily for afterload reduction. Will monitor daily labs and chest x-rays, electrolyte replacement per protocol. Encourage incentive spirometry use 10 times every hour while awake. Bronchodilators per pulmonology. Increase activity, ambulate as tolerated. PT/OT/cardiac rehab consulted. GI/DVT prophylaxis. Pain control per current medication regimen. Robaxin and Toradol added additional pain control. Insulin management per internal medicine, patient is not diabetic, preoperative hemoglobin A1c 6.3%. Discontinue [employer], connect Cordis to continuous CVP monitoring. Discontinue left lower extremity TIR drain. Continue chest tubes for another 24 hours, monitor and record output. Continue Garcia catheter for another 24 hours. Continue to monitor and record strict accurate intake and output. Start Flomax 0.4 mg p.o. daily. Daily weights. More recommendations to follow based on patient's clinical course. Time with Patient: Greater than 30
--- NOTE | 2024-11-27 08:06 | XR ---
EXAMINATION TYPE: XR chest 1V portable DATE OF EXAM: 11/27/2024 5:05 AM COMPARISON: 11/26/2024 CLINICAL INDICATION: Male, 69 years old with history of Post Operative Cardiac Surgery, , FINDINGS: Right IJ [place]-Ankit catheter tip at the main pulmonary outflow tract. Median sternotomy wires with pos t-CABG clips and prosthetic aortic valve. Left-sided chest tube remains in place. No appreciable pneu mothorax. Heart mildly enlarged. Diffuse interstitial densities persist but with improvement in the i nterval. Continued small left pleural effusion with patchy left basilar opacity. IMPRESSION: 1. Interstitial densities persistent but are showing slight improvement. 2. Continued small left pleural effusion with adjacent atelectasis and/or consolidation. [facility], , 11/27/2024 8:04 AM
[2024-11-27 08:27] LABS: Glucose,Whole Blood 169 mg/dL (70-110)
[2024-11-27] MEDS: METOPROLOL TARTRATE 12.5 MG TAB PO SCH (08:53)
[2024-11-27] MEDS: ATORVASTATIN 40 MG TAB PO SCH (08:54)
[2024-11-27] MEDS: CLOPIDOGREL 75 MG TAB PO SCH (08:54)
[2024-11-27] MEDS: LOSARTAN 25 MG TAB PO SCH (08:54)
[2024-11-27] MEDS: PANTOPRAZOLE 40 MG/10 ML VIAL IVP SCH (08:54)
[2024-11-27] MEDS: ASPIRIN 325 MG TAB PO SCH (08:54)
[2024-11-27] MEDS: TAMSULOSIN 0.4 MG CAP.ER.24H PO SCH (08:54)
[2024-11-27] MEDS: FUROSEMIDE 10 MG/ML 2 ML VIAL IV STA (08:54)
[2024-11-27] MEDS ORDERED: METOPROLOL TARTRATE 25 MG TAB PO SCH (09:00)
[2024-11-27] MEDS ORDERED: bisacodyL 10 MG SUPP RECTAL PRN (09:00)
[2024-11-27] MEDS ORDERED: METOPROLOL TARTRATE 12.5 MG TAB PO SCH (09:00)
[2024-11-27] MEDS ORDERED: MAGNESIUM HYDROXIDE 2,400 MG/30 ML CUP PO PRN (09:00)
[2024-11-27 09:37] LABS: Glucose,Whole Blood 211 mg/dL (70-110)
[2024-11-27 10:26] LABS: Glucose,Whole Blood 211 mg/dL (70-110)
[2024-11-27 11:38] LABS: Glucose,Whole Blood 167 mg/dL (70-110)
[2024-11-27 12:33] LABS: Glucose,Whole Blood 128 mg/dL (70-110)
[2024-11-27 12:56] VITALS: BMI 32.3
[2024-11-27 13:47] LABS: Glucose,Whole Blood 139 mg/dL (70-110)
--- NOTE | 2024-11-27 14:16 | P.PN ---
Subjective Progress Note Date: 11/27/24 The patient is a 69-year-old male who presented to the hospital with non-ST elevated myocardial infarction. He was found to have multivessel coronary artery disease as well as severe aortic stenosis. Yesterday he underwent bioprosthetic aortic valve replacement and CABG x 2 with NUNEZ to LAD and reverse SVG to PDA with Dr. Starks. Patient was interviewed and examined sitting up in the recliner chair. He states he does have some mild midsternal discomfort currently but otherwise has done well. No dizziness or lightheadedness upon standing. No difficulty breathing at rest GENERAL: Well-appearing, well-nourished and in no acute distress. NECK: Supple without JVD or thyromegaly. LUNGS: Breath sounds clear to auscultation bilaterally. Respiration equal and unlabored. No wheezes, rales or rhonchi. HEART: Regular rate and rhythm without murmurs, rubs or gallops. S1 and S2 heard. Heart hugger in place EXTREMITIES: Normal range of motion, no edema. No clubbing or cyanosis. Peripheral pulses intact and strong. TRI drain on left lower extremity TELEMETRY: Sinus rhythm overnight LABS: WBC 7.6, hemoglobin 9.5, hematocrit 27.7, platelet 147, sodium 137, potassium 4.1, BUN 10, creatinine 0.71, AST 43, ALT 23 IMPRESSION: NSTEMI with multivessel CAD Status post coronary bypass x 2 Severe aortic stenosis Status post bioprosthetic aortic valve replacement History of coronary artery disease with prior PCI of the RCA Hypertension Hyperlipidemia PLAN: Continue supportive treatment Aggressive pulmonary hygiene Further recommendations to be based on clinical course I am dictating on behalf of Dr Yohannes Castillo's history/physical and assessment/plan. Objective - Vital Signs Vital signs: Vital Signs Temp 98.9 F 11/27/24 12:00 Pulse 79 11/27/24 13:00 Resp 17 11/27/24 13:00 BP 135/83 11/27/24 13:00 Pulse Ox 96 11/27/24 13:00 FiO2 50 11/26/24 17:19 Intake & Output 11/26/24 11/27/24 11/27/24 18:59 06:59 18:59 Intake Total 092.583 2360.737 1334.049 Output Total 3520 1100 895 Balance -2823.142 41.737 439.049 Weight 117.4 kg 117.4 kg Intake: IV 528.2 1107.803 293.501 ACETAMINOPHEN IV (For NPO 100 100 ) 1,000 mg In Empty Bag 1 bag @ 400 mls/hr IVPB Q6HR [facility] Rx#:[id number] Amiodarone 360 mg In 133.2 66.633 Dextrose 5% in Water 200 ml @ 1 MG/MIN 33.333 mls/ hr IV .Q6H [facility] Rx#: [id number] Amiodarone 450 mg In 166.670 50.001 Dextrose 5% in Water 250 ml @ 0.5 MG/MIN 16.667 mls/hr IV .Q15H [facility] Rx#: [id number] Nitroglycerin-D5w Pmx 50 6.0 16.5 1.5 mg In Dextrose/Water 1 250ml.bag @ 5 MCG/MIN 1.5 mls/hr IV .Q24H [facility] Rx#: [id number] Pressure Bags 36 108 42 Sodium Chloride 0.9% 1, 200 600 200 000 ml @ 20 mls/hr IV . Q24H [facility] Rx#:[id number] ceFAZolin 2 gm In Sodium 50 50 Chloride 0.9% 50 ml @ 100 mls/hr IVPB ONCE [facility] Rx# :[id number] Intake, IV Titration 108.658 33.934 300.548 Amount Amiodarone 450 mg In 208.06 Dextrose 5% in Water 250 ml @ 0.5 MG/MIN 16.667 mls/hr IV .Q15H [facility] Rx#: [id number] Clevidipine Butyrate 25 18.534 mg In Empty Bag 1 bag @ 1 MG/HR 2 mls/hr IV .Q24H [facility] Rx#:[id number] Dexmedetomidine/0.9% NaCl 30.764 1.437 (Pmx) 400 mcg In Empty Bag 1 bag @ Titrate IV . Q0M [facility] Rx#:[id number] Insulin Regular 100 unit 1.288 32.497 42.488 In Sodium Chloride 0.9% 100 ml @ Per Protocol IV .Q0M [facility] Rx#:[id number] ceFAZolin 2 gm In Sodium 50 Chloride 0.9% 50 ml @ 100 mls/hr IVPB Q8HR [facility] Rx# :[id number] propofoL 1,000 mg In 58.072 Empty Bag 1 bag @ Titrate IV .Q0M [facility] Rx#: [id number] Oral 740 Other 60 Output: Chest Tube Drainage 530 310 40 Left Pleural Chest Tube 280 240 20 Mediastinal Chest Tube x2 250 70 20 Drainage 30 10 10 Left Leg TRI 30 10 10 Urine 2160 780 845 Estimated Blood Loss 800 Other: Voiding Method Indwelling Catheter Indwelling Catheter Indwelling Catheter ABP, PAP, CO, CI - Last Documented Arterial Blood Pressure 99/66 Pulmonary Artery Pressure 28/17 Cardiac Output 6.5 Cardiac Index 2.7 - Labs CBC & Chem 7: 11/27/24 03:00 11/27/24 03:00 Labs: Abnormal Lab Results - Last 24 Hours (Table) 11/25/24 11/26/24 11/26/24 Range/Units 06:58 14:35 14:35 RBC 2.74 L (4.40-5.60) 10*6/uL Hgb 8.8 L D (13.0-17.0) g/dL Hct 25.4 L (39.6-50.0) % MCH 32.1 H (27.0-32.0) pg Plt Count 103 L (140-440) 10*3/uL MPV 9.4 L (9.5-12.2) fL Lymphocytes # 0.40 L (0.90-5.00) 10*3/uL Eosinophils # (0.04-0.35) 10*3/uL PT 14.0 H (10.0-12.5) sec INR 1.3 H (<1.2) ABG pCO2 (35-45) mmHg ABG pO2 (83-108) mmHg ABG HCO3 (21-25) mmol/L ABG Total CO2 (19-24) mmol/L ABG O2 Saturation (94-97) % Hemoglobin (13.0-17.5) gm/dL Chloride (98-107) mmol/L BUN (9-20) mg/dL Glucose (74-99) mg/dL POC Glucose (mg/dL) (70-110) mg/dL Alkaline Phosphatase (38-126) U/L Total Protein (6.3-8.2) g/dL Albumin (3.5-5.0) g/dL Crossmatch See Detail 11/26/24 11/26/2425 Range/Units 14:35 15:05 16:19 RBC (4.40-5.60) 10*6/uL Hgb (13.0-17.0) g/dL Hct (39.6-50.0) % MCH (27.0-32.0) pg Plt Count (140-440) 10*3/uL MPV (9.5-12.2) fL Lymphocytes # (0.90-5.00) 10*3/uL Eosinophils # (0.04-0.35) 10*3/uL PT (10.0-12.5) sec INR (<1.2) ABG pCO2 (35-45) mmHg ABG pO2 217 H (83-108) mmHg ABG HCO3 (21-25) mmol/L ABG Total CO2 25 H (19-24) mmol/L ABG O2 Saturation >100.0 H (94-97) % Hemoglobin 10.3 L (13.0-17.5) gm/dL Chloride 111 H (98-107) mmol/L BUN 8 L (9-20) mg/dL Glucose 102 H (74-99) mg/dL POC Glucose (mg/dL) 151 H (70-110) mg/dL Alkaline Phosphatase 31 L (38-126) U/L Total Protein 4.7 L (6.3-8.2) g/dL Albumin 2.8 L (3.5-5.0) g/dL Crossmatch 11/26/24 11/26/24 11/26/24 Range/Units 17:10 17:27 17:48 RBC 3.25 L (4.40-5.60) 10*6/uL Hgb 10.4 L (13.0-17.0) g/dL Hct 30.1 L (39.6-50.0) % MCH (27.0-32.0) pg Plt Count (140-440) 10*3/uL MPV (9.5-12.2) fL Lymphocytes # 0.43 L (0.90-5.00) 10*3/uL Eosinophils # 0.03 L (0.04-0.35) 10*3/uL PT (10.0-12.5) sec INR (<1.2) ABG pCO2 33 L (35-45) mmHg ABG pO2 70 L (83-108) mmHg ABG HCO3 20 L (21-25) mmol/L ABG Total CO2 (19-24) mmol/L ABG O2 Saturation (94-97) % Hemoglobin 10.5 L (13.0-17.5) gm/dL Chloride (98-107) mmol/L BUN (9-20) mg/dL Glucose (74-99) mg/dL POC Glucose (mg/dL) 167 H (70-110) mg/dL Alkaline Phosphatase (38-126) U/L Total Protein (6.3-8.2) g/dL Albumin (3.5-5.0) g/dL Crossmatch 11/26/24 11/26/24 11/26/24 Range/Units 18:47 19:00 20:04 RBC 3.07 L (4.40-5.60) 10*6/uL Hgb 9.9 L (13.0-17.0) g/dL Hct 28.6 L (39.6-50.0) % MCH 32.2 H (27.0-32.0) pg Plt Count 135 L (140-440) 10*3/uL MPV (9.5-12.2) fL Lymphocytes # 0.28 L (0.90-5.00) 10*3/uL Eosinophils # 0.01 L (0.04-0.35) 10*3/uL PT (10.0-12.5) sec INR (<1.2) ABG pCO2 (35-45) mmHg ABG pO2 (83-108) mmHg ABG HCO3 (21-25) mmol/L ABG Total CO2 (19-24) mmol/L ABG O2 Saturation (94-97) % Hemoglobin (13.0-17.5) gm/dL Chloride (98-107) mmol/L BUN (9-20) mg/dL Glucose (74-99) mg/dL POC Glucose (mg/dL) 177 H 169 H (70-110) mg/dL Alkaline Phosphatase (38-126) U/L Total Protein (6.3-8.2) g/dL Albumin (3.5-5.0) g/dL Crossmatch 11/26/24 11/26/24 11/26/24 Range/Units 21:03 22:10 22:59 RBC (4.40-5.60) 10*6/uL Hgb (13.0-17.0) g/dL Hct (39.6-50.0) % MCH (27.0-32.0) pg Plt Count (140-440) 10*3/uL MPV (9.5-12.2) fL Lymphocytes # (0.90-5.00) 10*3/uL Eosinophils # (0.04-0.35) 10*3/uL PT (10.0-12.5) sec INR (<1.2) ABG pCO2 (35-45) mmHg ABG pO2 (83-108) mmHg ABG HCO3 (21-25) mmol/L ABG Total CO2 (19-24) mmol/L ABG O2 Saturation (94-97) % Hemoglobin (13.0-17.5) gm/dL Chloride (98-107) mmol/L BUN (9-20) mg/dL Glucose (74-99) mg/dL POC Glucose (mg/dL) 160 H 161 H 156 H (70-110) mg/dL Alkaline Phosphatase (38-126) U/L Total Protein (6.3-8.2) g/dL Albumin (3.5-5.0) g/dL Crossmatch 11/27/24 11/27/24 11/27/24 Range/Units 00:04 01:18 02:09 RBC (4.40-5.60) 10*6/uL Hgb (13.0-17.0) g/dL Hct (39.6-50.0) % MCH (27.0-32.0) pg Plt Count (140-440) 10*3/uL MPV (9.5-12.2) fL Lymphocytes # (0.90-5.00) 10*3/uL Eosinophils # (0.04-0.35) 10*3/uL PT (10.0-12.5) sec INR (<1.2) ABG pCO2 (35-45) mmHg ABG pO2 (83-108) mmHg ABG HCO3 (21-25) mmol/L ABG Total CO2 (19-24) mmol/L ABG O2 Saturation (94-97) % Hemoglobin (13.0-17.5) gm/dL Chloride (98-107) mmol/L BUN (9-20) mg/dL Glucose (74-99) mg/dL POC Glucose (mg/dL) 143 H 130 H 128 H (70-110) mg/dL Alkaline Phosphatase (38-126) U/L Total Protein (6.3-8.2) g/dL Albumin (3.5-5.0) g/dL Crossmatch 11/27/24 11/27/24 11/27/24 Range/Units 03:00 03:00 03:05 RBC 2.99 L (4.40-5.60) 10*6/uL Hgb 9.5 L (13.0-17.0) g/dL Hct 27.7 L (39.6-50.0) % MCH (27.0-32.0) pg Plt Count (140-440) 10*3/uL MPV (9.5-12.2) fL Lymphocytes # 0.34 L (0.90-5.00) 10*3/uL Eosinophils # 0.00 L (0.04-0.35) 10*3/uL PT (10.0-12.5) sec INR (<1.2) ABG pCO2 (35-45) mmHg ABG pO2 (83-108) mmHg ABG HCO3 (21-25) mmol/L ABG Total CO2 (19-24) mmol/L ABG O2 Saturation (94-97) % Hemoglobin (13.0-17.5) gm/dL Chloride (98-107) mmol/L BUN (9-20) mg/dL Glucose 117 H (74-99) mg/dL POC Glucose (mg/dL) 126 H (70-110) mg/dL Alkaline Phosphatase (38-126) U/L Total Protein 5.4 L (6.3-8.2) g/dL Albumin 3.2 L (3.5-5.0) g/dL Crossmatch 11/27/24 11/27/24 11/27/24 Range/Units 04:17 05:07 06:26 RBC (4.40-5.60) 10*6/uL Hgb (13.0-17.0) g/dL Hct (39.6-50.0) % MCH (27.0-32.0) pg Plt Count (140-440) 10*3/uL MPV (9.5-12.2) fL Lymphocytes # (0.90-5.00) 10*3/uL Eosinophils # (0.04-0.35) 10*3/uL PT (10.0-12.5) sec INR (<1.2) ABG pCO2 (35-45) mmHg ABG pO2 (83-108) mmHg ABG HCO3 (21-25) mmol/L ABG Total CO2 (19-24) mmol/L ABG O2 Saturation (94-97) % Hemoglobin (13.0-17.5) gm/dL Chloride (98-107) mmol/L BUN (9-20) mg/dL Glucose (74-99) mg/dL POC Glucose (mg/dL) 125 H 131 H 134 H (70-110) mg/dL Alkaline Phosphatase (38-126) U/L Total Protein (6.3-8.2) g/dL Albumin (3.5-5.0) g/dL Crossmatch 11/27/24 11/27/24 11/27/24 Range/Units 07:12 08:26 09:33 RBC (4.40-5.60) 10*6/uL Hgb (13.0-17.0) g/dL Hct (39.6-50.0) % MCH (27.0-32.0) pg Plt Count (140-440) 10*3/uL MPV (9.5-12.2) fL Lymphocytes # (0.90-5.00) 10*3/uL Eosinophils # (0.04-0.35) 10*3/uL PT (10.0-12.5) sec INR (<1.2) ABG pCO2 (35-45) mmHg ABG pO2 (83-108) mmHg ABG HCO3 (21-25) mmol/L ABG Total CO2 (19-24) mmol/L ABG O2 Saturation (94-97) % Hemoglobin (13.0-17.5) gm/dL Chloride (98-107) mmol/L BUN (9-20) mg/dL Glucose (74-99) mg/dL POC Glucose (mg/dL) 124 H 169 H 211 H (70-110) mg/dL Alkaline Phosphatase (38-126) U/L Total Protein (6.3-8.2) g/dL Albumin (3.5-5.0) g/dL Crossmatch 11/27/24 11/27/24 11/27/24 Range/Units 10:25 11:37 12:31 RBC (4.40-5.60) 10*6/uL Hgb (13.0-17.0) g/dL Hct (39.6-50.0) % MCH (27.0-32.0) pg Plt Count (140-440) 10*3/uL MPV (9.5-12.2) fL Lymphocytes # (0.90-5.00) 10*3/uL Eosinophils # (0.04-0.35) 10*3/uL PT (10.0-12.5) sec INR (<1.2) ABG pCO2 (35-45) mmHg ABG pO2 (83-108) mmHg ABG HCO3 (21-25) mmol/L ABG Total CO2 (19-24) mmol/L ABG O2 Saturation (94-97) % Hemoglobin (13.0-17.5) gm/dL Chloride (98-107) mmol/L BUN (9-20) mg/dL Glucose (74-99) mg/dL POC Glucose (mg/dL) 211 H 167 H 128 H (70-110) mg/dL Alkaline Phosphatase (38-126) U/L Total Protein (6.3-8.2) g/dL Albumin (3.5-5.0) g/dL Crossmatch 11/27/24 Range/Units 13:45 RBC (4.40-5.60) 10*6/uL Hgb (13.0-17.0) g/dL Hct (39.6-50.0) % MCH (27.0-32.0) pg Plt Count (140-440) 10*3/uL MPV (9.5-12.2) fL Lymphocytes # (0.90-5.00) 10*3/uL Eosinophils # (0.04-0.35) 10*3/uL PT (10.0-12.5) sec INR (<1.2) ABG pCO2 (35-45) mmHg ABG pO2 (83-108) mmHg ABG HCO3 (21-25) mmol/L ABG Total CO2 (19-24) mmol/L ABG O2 Saturation (94-97) % Hemoglobin (13.0-17.5) gm/dL Chloride (98-107) mmol/L BUN (9-20) mg/dL Glucose (74-99) mg/dL POC Glucose (mg/dL) 139 H (70-110) mg/dL Alkaline Phosphatase (38-126) U/L Total Protein (6.3-8.2) g/dL Albumin (3.5-5.0) g/dL Crossmatch
[2024-11-27 14:40] LABS: Glucose,Whole Blood 167 mg/dL (70-110)
[2024-11-27 16:09] LABS: Glucose,Whole Blood 184 mg/dL (70-110)
--- NOTE | 2024-11-27 16:29 | P.PN ---
Subjective Progress Note Date: 11/27/24 H&P Date: 11/21/24 Chief Complaint: Chest pain This is a 69-year-old gentleman with past medical history significant for moderate to severe aortic valve stenosis-follows with Dr. DOROTEO Paredes,CAD with PCI of RCA, hypertension, hyperlipidemia , obesity ,diabetes mellitus, prostate cancer-status post radiation treatment, former nicotine dependence, marijuana u se, alcohol use-5 beers per week, and multiple other medical issues presented to the ER with progressive chest pain, chest pressure and shortness of breath. Reports he has been having intermittent episodes of chest pain for more a few weeks. Previous episodes spontaneously relieved with rest. Yesterday he presented to the ER as chest pain continued to recur throughout the day. EKG reported sinus bradycardia with first-degree AV block, troponins 0.409 1.8 3.37. proBNP 150. D-dimer 0.41. Afebrile, normal WBC, hemoglobin 13.3, platelets 190, sodium 136, potassium 3.6, bicarb 21, BUN 18, creatinine 0.86 glucose 121, hemoglobin A1c 6.3., Magnesium 1.9, AST 156, ALT 52. Hepatitis serology nonreactive. UA reported 4+ glucose, 1+ ketones trace blood negative nitrates negative leukocytes rare bacteria. chest x-ray reported small amount linear scarring atelectasis in the left lung base .evaluated by cardiology, underwent cardiac catheterization. Cardiac catheterization reported total occlusion of RCA with good collaterals from the left, LAD mid lesion of 70%, circumflex nondominant with no significant disease. echo pending. CTS consulted for further evaluation/ recommendation. 11/22/2024 Echo reported normal LV function, mild mitral regurgitation, severe aortic stenosis .evaluated by CTS regarding CABG and AVR, surgery date pending. Patient continues to have ongoing midsternal chest pressure/chest burning. Maintained on heparin drip. Continues on IV fluid hydration, statin, beta- aaron, aspirin, Farxiga, losartan with Nitropaste added to med regimen. Blood sugars controlled. 11/23/2024 scheduled for CABG/AVR on 11/27/2019. Maintained on heparin drip. Telemetry sinus rhythm Nitropaste initiated yesterday , reports chest pressure/burning during the night. 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 currently denies chest pain, palpitations or shortness of breath. Blood sugars controlled. 11/28/2019 status post CABG x 2 NUNEZ to the LAD and reverse saphenous vein graft to PDA with bioprosthetic AVR, postop day #1. Extubated last night, maintaining O2 sats in the high 90s on 2 L nasal cannula. Telemetry sinus rhythm currently maintained on insulin and amiodarone drips... nitroglycerin drip weaned off. Objective - Vital Signs Vital signs: Vital Signs Temp 98.9 F 11/27/24 12:00 Pulse 87 11/27/24 15:00 Resp 20 11/27/24 15:00 BP 109/63 11/27/24 15:00 Pulse Ox 98 11/27/24 15:00 FiO2 50 11/26/24 17:19 Intake & Output 11/26/24 11/27/24 11/27/24 18:59 06:59 18:59 Intake Total 896.236 6012.737 1336.877 Output Total 3520 1100 895 Balance -2823.142 41.737 441.877 Weight 117.4 kg 117.4 kg Intake: IV 528.2 1107.803 293.501 ACETAMINOPHEN IV (For NPO 100 100 ) 1,000 mg In Empty Bag 1 bag @ 400 mls/hr IVPB Q6HR [facility] Rx#:[id number] Amiodarone 360 mg In 133.2 66.633 Dextrose 5% in Water 200 ml @ 1 MG/MIN 33.333 mls/ hr IV .Q6H [facility] Rx#: [id number] Amiodarone 450 mg In 166.670 50.001 Dextrose 5% in Water 250 ml @ 0.5 MG/MIN 16.667 mls/hr IV .Q15H [facility] Rx#: [id number] Nitroglycerin-D5w Pmx 50 6.0 16.5 1.5 mg In Dextrose/Water 1 250ml.bag @ 5 MCG/MIN 1.5 mls/hr IV .Q24H [facility] Rx#: [id number] Pressure Bags 36 108 42 Sodium Chloride 0.9% 1, 200 600 200 000 ml @ 20 mls/hr IV . Q24H [facility] Rx#:[id number] ceFAZolin 2 gm In Sodium 50 50 Chloride 0.9% 50 ml @ 100 mls/hr IVPB ONCE [facility] Rx# :[id number] Intake, IV Titration 108.658 33.934 303.376 Amount Amiodarone 450 mg In 208.06 Dextrose 5% in Water 250 ml @ 0.5 MG/MIN 16.667 mls/hr IV .Q15H [facility] Rx#: [id number] Clevidipine Butyrate 25 18.534 mg In Empty Bag 1 bag @ 1 MG/HR 2 mls/hr IV .Q24H [facility] Rx#:[id number] Dexmedetomidine/0.9% NaCl 30.764 1.437 (Pmx) 400 mcg In Empty Bag 1 bag @ Titrate IV . Q0M [facility] Rx#:[id number] Insulin Regular 100 unit 1.288 32.497 45.316 In Sodium Chloride 0.9% 100 ml @ Per Protocol IV .Q0M [facility] Rx#:[id number] ceFAZolin 2 gm In Sodium 50 Chloride 0.9% 50 ml @ 100 mls/hr IVPB Q8HR [facility] Rx# :[id number] propofoL 1,000 mg In 58.072 Empty Bag 1 bag @ Titrate IV .Q0M [facility] Rx#: [id number] Oral 740 Other 60 Output: Chest Tube Drainage 530 310 40 Left Pleural Chest Tube 280 240 20 Mediastinal Chest Tube x2 250 70 20 Drainage 30 10 10 Left Leg TRI 30 10 10 Urine 2160 780 845 Estimated Blood Loss 800 Other: Voiding Method Indwelling Catheter Indwelling Catheter Indwelling Catheter ABP, PAP, CO, CI - Last Documented Arterial Blood Pressure 99/66 Pulmonary Artery Pressure 28/17 Cardiac Output 6.5 Cardiac Index 2.7 - Exam PHYSICAL EXAM: VITAL SIGNS: Reviewed GENERAL: Sitting up in chair, alert and oriented x 3,NAD HEENT: Atraumatic, normocephalic conjunctivae normal. eyes normal.mmm. NECK: Supple, no JVD. CARDIOVASCULAR: S1, S2 regular. no murmur RESPIRATION: Unlabored, equal air entry,CTA. Mediastinal and left pleural chest. ABDOMEN: Soft, nondistended, nontender. Positive bowel sounds. LEGS: No edema. no swelling, no calf tenderness, peripheral pulses intact. NERVOUS SYSTEM: Cranial N 2-12 grossly normal. No focal deficits. Strength and sensation grossly intact. Skin: Warm and dry, no rash - Labs CBC & Chem 7: 11/28/24 04:00 11/28/24 04:00 Labs: Abnormal Lab Results - Last 24 Hours (Table) 11/25/24 11/26/24 11/26/24 Range/Units 06:58 17:10 17:27 RBC 3.25 L (4.40-5.60) 10*6/uL Hgb 10.4 L (13.0-17.0) g/dL Hct 30.1 L (39.6-50.0) % MCH (27.0-32.0) pg Plt Count (140-440) 10*3/uL Lymphocytes # 0.43 L (0.90-5.00) 10*3/uL Eosinophils # 0.03 L (0.04-0.35) 10*3/uL ABG pCO2 (35-45) mmHg ABG pO2 (83-108) mmHg ABG HCO3 (21-25) mmol/L Hemoglobin (13.0-17.5) gm/dL Glucose (74-99) mg/dL POC Glucose (mg/dL) 167 H (70-110) mg/dL Total Protein (6.3-8.2) g/dL Albumin (3.5-5.0) g/dL Crossmatch See Detail 11/26/24 11/26/24 11/26/24 Range/Units 17:48 18:47 19:00 RBC 3.07 L (4.40-5.60) 10*6/uL Hgb 9.9 L (13.0-17.0) g/dL Hct 28.6 L (39.6-50.0) % MCH 32.2 H (27.0-32.0) pg Plt Count 135 L (140-440) 10*3/uL Lymphocytes # 0.28 L (0.90-5.00) 10*3/uL Eosinophils # 0.01 L (0.04-0.35) 10*3/uL ABG pCO2 33 L (35-45) mmHg ABG pO2 70 L (83-108) mmHg ABG HCO3 20 L (21-25) mmol/L Hemoglobin 10.5 L (13.0-17.5) gm/dL Glucose (74-99) mg/dL POC Glucose (mg/dL) 177 H (70-110) mg/dL Total Protein (6.3-8.2) g/dL Albumin (3.5-5.0) g/dL Crossmatch 11/26/24 11/26/24 11/26/24 Range/Units 20:04 21:03 22:10 RBC (4.40-5.60) 10*6/uL Hgb (13.0-17.0) g/dL Hct (39.6-50.0) % MCH (27.0-32.0) pg Plt Count (140-440) 10*3/uL Lymphocytes # (0.90-5.00) 10*3/uL Eosinophils # (0.04-0.35) 10*3/uL ABG pCO2 (35-45) mmHg ABG pO2 (83-108) mmHg ABG HCO3 (21-25) mmol/L Hemoglobin (13.0-17.5) gm/dL Glucose (74-99) mg/dL POC Glucose (mg/dL) 169 H 160 H 161 H (70-110) mg/dL Total Protein (6.3-8.2) g/dL Albumin (3.5-5.0) g/dL Crossmatch 11/26/24 11/27/24 11/27/24 Range/Units 22:59 00:04 01:18 RBC (4.40-5.60) 10*6/uL Hgb (13.0-17.0) g/dL Hct (39.6-50.0) % MCH (27.0-32.0) pg Plt Count (140-440) 10*3/uL Lymphocytes # (0.90-5.00) 10*3/uL Eosinophils # (0.04-0.35) 10*3/uL ABG pCO2 (35-45) mmHg ABG pO2 (83-108) mmHg ABG HCO3 (21-25) mmol/L Hemoglobin (13.0-17.5) gm/dL Glucose (74-99) mg/dL POC Glucose (mg/dL) 156 H 143 H 130 H (70-110) mg/dL Total Protein (6.3-8.2) g/dL Albumin (3.5-5.0) g/dL Crossmatch 11/27/24 11/27/24 11/27/24 Range/Units 02:09 03:00 03:00 RBC 2.99 L (4.40-5.60) 10*6/uL Hgb 9.5 L (13.0-17.0) g/dL Hct 27.7 L (39.6-50.0) % MCH (27.0-32.0) pg Plt Count (140-440) 10*3/uL Lymphocytes # 0.34 L (0.90-5.00) 10*3/uL Eosinophils # 0.00 L (0.04-0.35) 10*3/uL ABG pCO2 (35-45) mmHg ABG pO2 (83-108) mmHg ABG HCO3 (21-25) mmol/L Hemoglobin (13.0-17.5) gm/dL Glucose 117 H (74-99) mg/dL POC Glucose (mg/dL) 128 H (70-110) mg/dL Total Protein 5.4 L (6.3-8.2) g/dL Albumin 3.2 L (3.5-5.0) g/dL Crossmatch 11/27/24 11/27/24 11/27/24 Range/Units 03:05 04:17 05:07 RBC (4.40-5.60) 10*6/uL Hgb (13.0-17.0) g/dL Hct (39.6-50.0) % MCH (27.0-32.0) pg Plt Count (140-440) 10*3/uL Lymphocytes # (0.90-5.00) 10*3/uL Eosinophils # (0.04-0.35) 10*3/uL ABG pCO2 (35-45) mmHg ABG pO2 (83-108) mmHg ABG HCO3 (21-25) mmol/L Hemoglobin (13.0-17.5) gm/dL Glucose (74-99) mg/dL POC Glucose (mg/dL) 126 H 125 H 131 H (70-110) mg/dL Total Protein (6.3-8.2) g/dL Albumin (3.5-5.0) g/dL Crossmatch 11/27/24 11/27/24 11/27/24 Range/Units 06:26 07:12 08:26 RBC (4.40-5.60) 10*6/uL Hgb (13.0-17.0) g/dL Hct (39.6-50.0) % MCH (27.0-32.0) pg Plt Count (140-440) 10*3/uL Lymphocytes # (0.90-5.00) 10*3/uL Eosinophils # (0.04-0.35) 10*3/uL ABG pCO2 (35-45) mmHg ABG pO2 (83-108) mmHg ABG HCO3 (21-25) mmol/L Hemoglobin (13.0-17.5) gm/dL Glucose (74-99) mg/dL POC Glucose (mg/dL) 134 H 124 H 169 H (70-110) mg/dL Total Protein (6.3-8.2) g/dL Albumin (3.5-5.0) g/dL Crossmatch 11/27/24 11/27/24 11/27/24 Range/Units 09:33 10:25 11:37 RBC (4.40-5.60) 10*6/uL Hgb (13.0-17.0) g/dL Hct (39.6-50.0) % MCH (27.0-32.0) pg Plt Count (140-440) 10*3/uL Lymphocytes # (0.90-5.00) 10*3/uL Eosinophils # (0.04-0.35) 10*3/uL ABG pCO2 (35-45) mmHg ABG pO2 (83-108) mmHg ABG HCO3 (21-25) mmol/L Hemoglobin (13.0-17.5) gm/dL Glucose (74-99) mg/dL POC Glucose (mg/dL) 211 H 211 H 167 H (70-110) mg/dL Total Protein (6.3-8.2) g/dL Albumin (3.5-5.0) g/dL Crossmatch 11/27/24 11/27/24 11/27/24 Range/Units 12:31 13:45 14:38 RBC (4.40-5.60) 10*6/uL Hgb (13.0-17.0) g/dL Hct (39.6-50.0) % MCH (27.0-32.0) pg Plt Count (140-440) 10*3/uL Lymphocytes # (0.90-5.00) 10*3/uL Eosinophils # (0.04-0.35) 10*3/uL ABG pCO2 (35-45) mmHg ABG pO2 (83-108) mmHg ABG HCO3 (21-25) mmol/L Hemoglobin (13.0-17.5) gm/dL Glucose (74-99) mg/dL POC Glucose (mg/dL) 128 H 139 H 167 H (70-110) mg/dL Total Protein (6.3-8.2) g/dL Albumin (3.5-5.0) g/dL Crossmatch 11/27/24 Range/Units 16:08 RBC (4.40-5.60) 10*6/uL Hgb (13.0-17.0) g/dL Hct (39.6-50.0) % MCH (27.0-32.0) pg Plt Count (140-440) 10*3/uL Lymphocytes # (0.90-5.00) 10*3/uL Eosinophils # (0.04-0.35) 10*3/uL ABG pCO2 (35-45) mmHg ABG pO2 (83-108) mmHg ABG HCO3 (21-25) mmol/L Hemoglobin (13.0-17.5) gm/dL Glucose (74-99) mg/dL POC Glucose (mg/dL) 184 H (70-110) mg/dL Total Protein (6.3-8.2) g/dL Albumin (3.5-5.0) g/dL Crossmatch Assessment and Plan Assessment: Acute NSTEMI with multivessel disease, s/p CABG X2 and bioprosthetic AVR. CAD with prior PCI of RCA Severe aortic stenosis Hypertension Hyperlipidemia Diabetes mellitus, hemoglobin A1c 6.3 History of prostate cancer with radiation tx. Morbid obesity, BMI 31 Marijuana use Alcohol use Plan: Continue on current medication regimen ,monitoring and symptomatic luly atment. aggressive pulmonary toileting, incentive spirometer reinforced. Maintain tight glycemic control, currently on insulin drip. The impression and plan of care has been dictated as directed. : I performed a history and examination of this patient, discussed the same with the dictator. I agree with the dictator's note ,documented as a scribe. Any additional findings or plans will be noted.
[2024-11-27 17:21] LABS: Glucose,Whole Blood 153 mg/dL (70-110)
[2024-11-27 18:37] LABS: Glucose,Whole Blood 187 mg/dL (70-110)
--- NOTE | 2024-11-27 20:12 | P.PN ---
Subjective Progress Note Date: 11/27/24 On 11/26/2024, the patient is being seen immediately after arriving to the intensive care unit. The patient underwent aortic valve replacement/tissue valve and double vessel bypass surgery with NUNEZ to LAD and reverse saphenous vein graft from aorta to PDA. The patient is currently postop day #0. Intuba cornell on mechanical ventilator. The patient is currently sedated on propofol and the patient is currently on assist-control mode of mechanical ventilation at rate of 14, tidal volume of 600, FiO2 of 60% with a PEEP of 8. Blood gas showed a pH of 7.4 with a PCO2 of 37 and PO2 of 217. Chest x-ray done postop shows adequate expansion of both lungs. Small left pleural effusion. Atelectasis changes left lung base. Lines and tubes are all in good location. No other acute abnormalities have been noted. The patient has a mediastinal and left pleural chest tube output is minimal and there is no evidence of any air leak. Hemodynamically, the patient's cardiac output is at 7.9 with an index of 3.1. SVR is at 723. PA pressures are 27/18. The patient is currently in normal sinus rhythm. Amiodarone is running at 1 mg/min and the patient is also on nitroglycerin drip at 5 mg/min. The WBC count is at 4.5, hemoglobin is at 8.8 and a platelet count of 103. The sodium is at 140, potassium is at 4, BUN is at 8 with a creatinine of 0.6. LFTs are within normal limits. Urine output is adequate. No other significant events postop. On 11/27/2024, the patient is being seen for a follow-up. The patient is awake and alert and sitting up in a chair and the patient is calm and comfortable. D enies having any significant respiratory distress. The patient is postop day #1 following aortic valve placement and two-vessel bypass surgery. The patient is currently on 3 Suboxone by nasal cannula. Incentive spirometer the patient pulling approximately 1000 cc on his I-S. Cardiac rhythm is sinus. Latham-Ankit catheter has been removed. Earlier, the cardiac output was at 6.7 with a index of 2.7 and the patient is off nitroglycerin drip. He remains on amiodarone drip at 0.5 mg/min. Chest tubes are in place and the chest x-ray shows no evidence of any pneumothorax. Output is serosanguineous and the mediastinal chest tube has drained around 320 cc since surgery and the left pleural chest tube has drained around 550 cc since surgery. The patient is awake and alert and communicating. Denies having any other specific complaints. The white cell count is at 7.6 with a hemoglobin 9.5 and a platelet count of 147. Electrolytes are all within normal limits. BUN is at 10 with a creatinine of 0.7. Blood sugars at 146 and the patient remains on insulin drip running at 5 units an hour. Objective - Vital Signs Vital signs: Vital Signs Temp 99.2 F 11/27/24 08:00 Pulse 77 11/27/24 09:00 Resp 21 11/27/24 09:00 BP 118/74 11/27/24 07:00 Pulse Ox 97 11/27/24 09:00 FiO2 50 11/26/24 17:19 Intake & Output 11/26/24 11/27/24 11/27/24 18:59 06:59 18:59 Intake Total 657.441 6988.737 812.617 Output Total 3520 1100 115 Balance -2823.142 41.737 697.617 Weight 117.4 kg Intake: IV 528.2 1107.803 195.501 ACETAMINOPHEN IV (For NPO 100 100 ) 1,000 mg In Empty Bag 1 bag @ 400 mls/hr IVPB Q6HR [facility] Rx#:[id number] Amiodarone 360 mg In 133.2 66.633 Dextrose 5% in Water 200 ml @ 1 MG/MIN 33.333 mls/ hr IV .Q6H ONE Rx#: [id number] Amiodarone 450 mg In 166.670 50.001 Dextrose 5% in Water 250 ml @ 0.5 MG/MIN 16.667 mls/hr IV .Q15H [facility] Rx#: [id number] Nitroglycerin-D5w Pmx 50 6.0 16.5 1.5 mg In Dextrose/Water 1 250ml.bag @ 5 MCG/MIN 1.5 mls/hr IV .Q24H [facility] Rx#: [id number] Pressure Bags 36 108 24 Sodium Chloride 0.9% 1, 200 600 120 000 ml @ 20 mls/hr IV . Q24H [facility] Rx#:[id number] ceFAZolin 2 gm In Sodium 50 50 Chloride 0.9% 50 ml @ 100 mls/hr IVPB ONCE ONE Rx# :[id number] Intake, IV Titration 108.658 33.934 277.116 Amount Amiodarone 450 mg In 208.06 Dextrose 5% in Water 250 ml @ 0.5 MG/MIN 16.667 mls/hr IV .Q15H [facility] Rx#: [id number] Clevidipine Butyrate 25 18.534 mg In Empty Bag 1 bag @ 1 MG/HR 2 mls/hr IV .Q24H [facility] Rx#:[id number] Dexmedetomidine/0.9% NaCl 30.764 1.437 (Pmx) 400 mcg In Empty Bag 1 bag @ Titrate IV . Q0M [facility] Rx#:[id number] Insulin Regular 100 unit 1.288 32.497 19.056 In Sodium Chloride 0.9% 100 ml @ Per Protocol IV .Q0M [facility] Rx#:[id number] ceFAZolin 2 gm In Sodium 50 Chloride 0.9% 50 ml @ 100 mls/hr IVPB Q8HR [facility] Rx# :[id number] propofoL 1,000 mg In 58.072 Empty Bag 1 bag @ Titrate IV .Q0M [facility] Rx#: [id number] Oral 340 Other 60 Output: Chest Tube Drainage 530 310 20 Left Pleural Chest Tube 280 240 10 Mediastinal Chest Tube x2 250 70 10 Drainage 30 10 Left Leg TRI 30 10 Urine 2160 780 95 Estimated Blood Loss 800 Other: Voiding Method Indwelling Catheter Indwelling Catheter ABP, PAP, CO, CI - Last Documented Arterial Blood Pressure 102/76 Pulmonary Artery Pressure 28/17 Cardiac Output 6.5 Cardiac Index 2.7 - Exam CONSTITUTIONAL: Sitting up to the bedside chair in the intensive care unit, appears comfortable, cooperative, no apparent acute distress. HEENT: Neck is supple, no JVD, no lymphadenopathy. Right IJ Cordis and Latham- Ankit catheter in place and functioning. RESPIRATORY: Lungs sounds essentially clear throughout, few scattered crackles to his bilateral bases. Respirations are symmetrical and nonlabored. Currently on 3 L nasal cannula with oxygen saturations 99%. Able to achieve 1000 mL on his incentive spirometry. Strong cough. CARDIOVASCULAR: Regular rhythm and rate. S1 and S2 present, negative for S3, gallop or murmur. Sternum is stable. Bedside telemetry showing normal sinus rhythm heart rate 71 bpm. Palpable peripheral pulses bilaterally, +1 edema to his bilateral lower extremities. No calf pain or tenderness noted. Heart hugger in place with patient demonstrating appropriate use. Knee-high CORNELL hose and sequential compression devices in place to his bilateral lower extremities. GASTROINTESTINAL: Abdomen soft, nontender, nondistended. Hypoactive bowel sounds present 4 quadrants. Tolerating clear diet. Denies passing flatus. No guarding or rigidity. GENITOURINARY: Garcia present draining clear, yellow urine. Urine output 415 mL in the last 8 hours. INTEGUMENTARY: Skin is warm and dry with no evidence of clubbing or cyanosis. Midline sternal incision clean dry and well approximated, covered with dry intact dressing. Left lower extremity EVH sites well approximated without redness or drainage. NEUROLOGIC: Cranial nerves II through XII intact. No focal deficits. MUSKULOSKELETAL: Able to move all extremities, strength equal bilaterally, generalized weakness. PSYCHIATRIC: Alert and oriented to person place and time, appropriate affect, intact judgment and insight. INVASIVE LINES AND TUBES: Mediastinal/left pleural chest tubes present and connected to low continuous wall suction, no air leaks present. Mediastinal tube with 30 mL of thin serosanguineous drainage overnight, 320 mL output in the last 24 hours. Left pleural chest tube with 190 mL of thin serosanguineous drainage overnight, 550 mL output in the last 24 hours. Atrial and ventricular epicardial pacemaker wires present, connected to generator, VVI backup rate 50 bpm. Right internal jugular Latham/Cordis, right radial arterial line present. Last CO 6.5, CI 2.7, SVR 934, PA 37/16 and CVP 9 mmHg. Left lower extremity TRI drain in place with scant thin serosanguineous drainage with 10 mL output in the last 8 hours. - Labs CBC & Chem 7: 11/27/24 03:00 11/27/24 03:00 Labs: Abnormal Lab Results - Last 24 Hours (Table) 11/25/24 11/26/24 11/26/24 Range/Units 06:58 08:58 10:47 RBC (4.40-5.60) 10*6/uL Hgb (13.0-17.0) g/dL Hct (39.6-50.0) % MCH (27.0-32.0) pg Plt Count (140-440) 10*3/uL MPV (9.5-12.2) fL Lymphocytes # (0.90-5.00) 10*3/uL Eosinophils # (0.04-0.35) 10*3/uL PT (10.0-12.5) sec INR (<1.2) ABG pH (7.35-7.45) ABG pCO2 33 L (35-45) mmHg ABG pO2 228 H >420 H (83-108) mmHg ABG HCO3 (21-25) mmol/L ABG Total CO2 (19-24) mmol/L ABG O2 Saturation 99.3 H >99.4 H (94-97) % ABG Hematocrit 31 L 27 L (34.0-46.0) % ABG Ionized Calcium 4.2 L (4.5-5.3) mg/dL ABG Glucose 119 H 122 H (75-99) mg/dL Hemoglobin 10.2 L 8.6 L (13.0-17.5) gm/dL Chloride (98-107) mmol/L BUN (9-20) mg/dL Glucose (74-99) mg/dL POC Glucose (mg/dL) (70-110) mg/dL Alkaline Phosphatase (38-126) U/L Total Protein (6.3-8.2) g/dL Albumin (3.5-5.0) g/dL Arterial Blood Glucose 119 H 122 H (75-99) mg/dL Crossmatch See Detail 11/26/24 11/26/24 11/26/24 Range/Units 11:23 11:46 12:20 RBC (4.40-5.60) 10*6/uL Hgb (13.0-17.0) g/dL Hct (39.6-50.0) % MCH (27.0-32.0) pg Plt Count (140-440) 10*3/uL MPV (9.5-12.2) fL Lymphocytes # (0.90-5.00) 10*3/uL Eosinophils # (0.04-0.35) 10*3/uL PT (10.0-12.5) sec INR (<1.2) ABG pH 7.30 L (7.35-7.45) ABG pCO2 52 H (35-45) mmHg ABG pO2 379 H 262 H 314 H (83-108) mmHg ABG HCO3 (21-25) mmol/L ABG Total CO2 (19-24) mmol/L ABG O2 Saturation >99.4 H >99.4 H >99.4 H (94-97) % ABG Hematocrit 25 L 25 L 25 L (34.0-46.0) % ABG Ionized Calcium 4.3 L 4.4 L (4.5-5.3) mg/dL ABG Glucose 131 H 138 H 146 H (75-99) mg/dL Hemoglobin 8.3 L 8.0 L 8.1 L (13.0-17.5) gm/dL Chloride (98-107) mmol/L BUN (9-20) mg/dL Glucose (74-99) mg/dL POC Glucose (mg/dL) (70-110) mg/dL Alkaline Phosphatase (38-126) U/L Total Protein (6.3-8.2) g/dL Albumin (3.5-5.0) g/dL Arterial Blood Glucose 131 H 138 H 146 H (75-99) mg/dL Crossmatch 11/26/24 11/26/24 11/26/24 Range/Units 14:35 14:35 14:35 RBC 2.74 L (4.40-5.60) 10*6/uL Hgb 8.8 L D (13.0-17.0) g/dL Hct 25.4 L (39.6-50.0) % MCH 32.1 H (27.0-32.0) pg Plt Count 103 L (140-440) 10*3/uL MPV 9.4 L (9.5-12.2) fL Lymphocytes # 0.40 L (0.90-5.00) 10*3/uL Eosinophils # (0.04-0.35) 10*3/uL PT 14.0 H (10.0-12.5) sec INR 1.3 H (<1.2) ABG pH (7.35-7.45) ABG pCO2 (35-45) mmHg ABG pO2 (83-108) mmHg ABG HCO3 (21-25) mmol/L ABG Total CO2 (19-24) mmol/L ABG O2 Saturation (94-97) % ABG Hematocrit (34.0-46.0) % ABG Ionized Calcium (4.5-5.3) mg/dL ABG Glucose (75-99) mg/dL Hemoglobin (13.0-17.5) gm/dL Chloride 111 H (98-107) mmol/L BUN 8 L (9-20) mg/dL Glucose 102 H (74-99) mg/dL POC Glucose (mg/dL) (70-110) mg/dL Alkaline Phosphatase 31 L (38-126) U/L Total Protein 4.7 L (6.3-8.2) g/dL Albumin 2.8 L (3.5-5.0) g/dL Arterial Blood Glucose (75-99) mg/dL Crossmatch 11/26/24 11/26/24 11/26/24 Range/Units 15:05 16:19 17:10 RBC (4.40-5.60) 10*6/uL Hgb (13.0-17.0) g/dL Hct (39.6-50.0) % MCH (27.0-32.0) pg Plt Count (140-440) 10*3/uL MPV (9.5-12.2) fL Lymphocytes # (0.90-5.00) 10*3/uL Eosinophils # (0.04-0.35) 10*3/uL PT (10.0-12.5) sec INR (<1.2) ABG pH (7.35-7.45) ABG pCO2 (35-45) mmHg ABG pO2 217 H (83-108) mmHg ABG HCO3 (21-25) mmol/L ABG Total CO2 25 H (19-24) mmol/L ABG O2 Saturation >100.0 H (94-97) % ABG Hematocrit (34.0-46.0) % ABG Ionized Calcium (4.5-5.3) mg/dL ABG Glucose (75-99) mg/dL Hemoglobin 10.3 L (13.0-17.5) gm/dL Chloride (98-107) mmol/L BUN (9-20) mg/dL Glucose (74-99) mg/dL POC Glucose (mg/dL) 151 H 167 H (70-110) mg/dL Alkaline Phosphatase (38-126) U/L Total Protein (6.3-8.2) g/dL Albumin (3.5-5.0) g/dL Arterial Blood Glucose (75-99) mg/dL Crossmatch 11/26/24 11/26/24 11/26/24 Range/Units 17:27 17:48 18:47 RBC 3.25 L 3.07 L (4.40-5.60) 10*6/uL Hgb 10.4 L 9.9 L (13.0-17.0) g/dL Hct 30.1 L 28.6 L (39.6-50.0) % MCH 32.2 H (27.0-32.0) pg Plt Count 135 L (140-440) 10*3/uL MPV (9.5-12.2) fL Lymphocytes # 0.43 L 0.28 L (0.90-5.00) 10*3/uL Eosinophils # 0.03 L 0.01 L (0.04-0.35) 10*3/uL PT (10.0-12.5) sec INR (<1.2) ABG pH (7.35-7.45) ABG pCO2 33 L (35-45) mmHg ABG pO2 70 L (83-108) mmHg ABG HCO3 20 L (21-25) mmol/L ABG Total CO2 (19-24) mmol/L ABG O2 Saturation (94-97) % ABG Hematocrit (34.0-46.0) % ABG Ionized Calcium (4.5-5.3) mg/dL ABG Glucose (75-99) mg/dL Hemoglobin 10.5 L (13.0-17.5) gm/dL Chloride (98-107) mmol/L BUN (9-20) mg/dL Glucose (74-99) mg/dL POC Glucose (mg/dL) (70-110) mg/dL Alkaline Phosphatase (38-126) U/L Total Protein (6.3-8.2) g/dL Albumin (3.5-5.0) g/dL Arterial Blood Glucose (75-99) mg/dL Crossmatch 11/26/24 11/26/24 11/26/24 Range/Units 19:00 20:04 21:03 RBC (4.40-5.60) 10*6/uL Hgb (13.0-17.0) g/dL Hct (39.6-50.0) % MCH (27.0-32.0) pg Plt Count (140-440) 10*3/uL MPV (9.5-12.2) fL Lymphocytes # (0.90-5.00) 10*3/uL Eosinophils # (0.04-0.35) 10*3/uL PT (10.0-12.5) sec INR (<1.2) ABG pH (7.35-7.45) ABG pCO2 (35-45) mmHg ABG pO2 (83-108) mmHg ABG HCO3 (21-25) mmol/L ABG Total CO2 (19-24) mmol/L ABG O2 Saturation (94-97) % ABG Hematocrit (34.0-46.0) % ABG Ionized Calcium (4.5-5.3) mg/dL ABG Glucose (75-99) mg/dL Hemoglobin (13.0-17.5) gm/dL Chloride (98-107) mmol/L BUN (9-20) mg/dL Glucose (74-99) mg/dL POC Glucose (mg/dL) 177 H 169 H 160 H (70-110) mg/dL Alkaline Phosphatase (38-126) U/L Total Protein (6.3-8.2) g/dL Albumin (3.5-5.0) g/dL Arterial Blood Glucose (75-99) mg/dL Crossmatch 11/26/24 11/26/24 11/27/24 Range/Units 22:10 22:59 00:04 RBC (4.40-5.60) 10*6/uL Hgb (13.0-17.0) g/dL Hct (39.6-50.0) % MCH (27.0-32.0) pg Plt Count (140-440) 10*3/uL MPV (9.5-12.2) fL Lymphocytes # (0.90-5.00) 10*3/uL Eosinophils # (0.04-0.35) 10*3/uL PT (10.0-12.5) sec INR (<1.2) ABG pH (7.35-7.45) ABG pCO2 (35-45) mmHg ABG pO2 (83-108) mmHg ABG HCO3 (21-25) mmol/L ABG Total CO2 (19-24) mmol/L ABG O2 Saturation (94-97) % ABG Hematocrit (34.0-46.0) % ABG Ionized Calcium (4.5-5.3) mg/dL ABG Glucose (75-99) mg/dL Hemoglobin (13.0-17.5) gm/dL Chloride (98-107) mmol/L BUN (9-20) mg/dL Glucose (74-99) mg/dL POC Glucose (mg/dL) 161 H 156 H 143 H (70-110) mg/dL Alkaline Phosphatase (38-126) U/L Total Protein (6.3-8.2) g/dL Albumin (3.5-5.0) g/dL Arterial Blood Glucose (75-99) mg/dL Crossmatch 11/27/24 11/27/24 11/27/24 Range/Units 01:18 02:09 03:00 RBC 2.99 L (4.40-5.60) 10*6/uL Hgb 9.5 L (13.0-17.0) g/dL Hct 27.7 L (39.6-50.0) % MCH (27.0-32.0) pg Plt Count (140-440) 10*3/uL MPV (9.5-12.2) fL Lymphocytes # 0.34 L (0.90-5.00) 10*3/uL Eosinophils # 0.00 L (0.04-0.35) 10*3/uL PT (10.0-12.5) sec INR (<1.2) ABG pH (7.35-7.45) ABG pCO2 (35-45) mmHg ABG pO2 (83-108) mmHg ABG HCO3 (21-25) mmol/L ABG Total CO2 (19-24) mmol/L ABG O2 Saturation (94-97) % ABG Hematocrit (34.0-46.0) % ABG Ionized Calcium (4.5-5.3) mg/dL ABG Glucose (75-99) mg/dL Hemoglobin (13.0-17.5) gm/dL Chloride (98-107) mmol/L BUN (9-20) mg/dL Glucose (74-99) mg/dL POC Glucose (mg/dL) 130 H 128 H (70-110) mg/dL Alkaline Phosphatase (38-126) U/L Total Protein (6.3-8.2) g/dL Albumin (3.5-5.0) g/dL Arterial Blood Glucose (75-99) mg/dL Crossmatch 11/27/24 11/27/24 11/27/24 Range/Units 03:00 03:05 04:17 RBC (4.40-5.60) 10*6/uL Hgb (13.0-17.0) g/dL Hct (39.6-50.0) % MCH (27.0-32.0) pg Plt Count (140-440) 10*3/uL MPV (9.5-12.2) fL Lymphocytes # (0.90-5.00) 10*3/uL Eosinophils # (0.04-0.35) 10*3/uL PT (10.0-12.5) sec INR (<1.2) ABG pH (7.35-7.45) ABG pCO2 (35-45) mmHg ABG pO2 (83-108) mmHg ABG HCO3 (21-25) mmol/L ABG Total CO2 (19-24) mmol/L ABG O2 Saturation (94-97) % ABG Hematocrit (34.0-46.0) % ABG Ionized Calcium (4.5-5.3) mg/dL ABG Glucose (75-99) mg/dL Hemoglobin (13.0-17.5) gm/dL Chloride (98-107) mmol/L BUN (9-20) mg/dL Glucose 117 H (74-99) mg/dL POC Glucose (mg/dL) 126 H 125 H (70-110) mg/dL Alkaline Phosphatase (38-126) U/L Total Protein 5.4 L (6.3-8.2) g/dL Albumin 3.2 L (3.5-5.0) g/dL Arterial Blood Glucose (75-99) mg/dL Crossmatch 11/27/24 11/27/24 11/27/24 Range/Units 05:07 06:26 07:12 RBC (4.40-5.60) 10*6/uL Hgb (13.0-17.0) g/dL Hct (39.6-50.0) % MCH (27.0-32.0) pg Plt Count (140-440) 10*3/uL MPV (9.5-12.2) fL Lymphocytes # (0.90-5.00) 10*3/uL Eosinophils # (0.04-0.35) 10*3/uL PT (10.0-12.5) sec INR (<1.2) ABG pH (7.35-7.45) ABG pCO2 (35-45) mmHg ABG pO2 (83-108) mmHg ABG HCO3 (21-25) mmol/L ABG Total CO2 (19-24) mmol/L ABG O2 Saturation (94-97) % ABG Hematocrit (34.0-46.0) % ABG Ionized Calcium (4.5-5.3) mg/dL ABG Glucose (75-99) mg/dL Hemoglobin (13.0-17.5) gm/dL Chloride (98-107) mmol/L BUN (9-20) mg/dL Glucose (74-99) mg/dL POC Glucose (mg/dL) 131 H 134 H 124 H (70-110) mg/dL Alkaline Phosphatase (38-126) U/L Total Protein (6.3-8.2) g/dL Albumin (3.5-5.0) g/dL Arterial Blood Glucose (75-99) mg/dL Crossmatch 11/27/24 11/27/24 11/27/24 Range/Units 08:26 09:33 10:25 RBC (4.40-5.60) 10*6/uL Hgb (13.0-17.0) g/dL Hct (39.6-50.0) % MCH (27.0-32.0) pg Plt Count (140-440) 10*3/uL MPV (9.5-12.2) fL Lymphocytes # (0.90-5.00) 10*3/uL Eosinophils # (0.04-0.35) 10*3/uL PT (10.0-12.5) sec INR (<1.2) ABG pH (7.35-7.45) ABG pCO2 (35-45) mmHg ABG pO2 (83-108) mmHg ABG HCO3 (21-25) mmol/L ABG Total CO2 (19-24) mmol/L ABG O2 Saturation (94-97) % ABG Hematocrit (34.0-46.0) % ABG Ionized Calcium (4.5-5.3) mg/dL ABG Glucose (75-99) mg/dL Hemoglobin (13.0-17.5) gm/dL Chloride (98-107) mmol/L BUN (9-20) mg/dL Glucose (74-99) mg/dL POC Glucose (mg/dL) 169 H 211 H 211 H (70-110) mg/dL Alkaline Phosphatase (38-126) U/L Total Protein (6.3-8.2) g/dL Albumin (3.5-5.0) g/dL Arterial Blood Glucose (75-99) mg/dL Crossmatch Assessment and Plan Plan: Aortic valve replacement/Inspiris pericardial bioprosthesis in addition to double vessel coronary bypass surgery with NUNEZ to LAD and reverse saphenous vein graft to PDA. Postop day #1 Postthoracotomy, the patient was weaned off the mechanical ventilator and the patient was extubated and the patient is currently on 3 days of oxygen by nasal cannula Severe aortic stenosis, post aortic valve replacement Coronary artery disease post non-ST segment elevation myocardial infarction., Post two-vessel bypass surgery. Hypertension Hyperlipidemia Diabetes mellitus Obesity with a BMI of 30.9 History of prostate cancer status post radiation therapy Previous smoker quit smoking 20 years ago Alcohol use, 5 beers a week and weekend marijuana user Umbilical hernia Plan Patient is currently on 3 Suboxone by nasal cannula Hemodynamically stable. Latham-Ankit catheter has been removed Switch this patient to oral amiodarone nitroglycerin drip has been discontinued Cardiac rhythm is sinus and the patient is producing adequate amount of urine output Monitor chest tube output, output is minimal at this point. Chest x-ray daily basis Continue aspirin and Plavix Metoprolol 12.5 mg p.o. twice a day Cozaar 12.5 mg p.o. daily Lipitor 40 mg p.o. daily Amiodarone 400 mg p.o. twice a day IV fluids are currently at KVO Ambulate the patient Will keep the patient in the ICU and will continue to monitor. Time with Patient: Greater than 30
[2024-11-27 20:16] LABS: Glucose,Whole Blood 186 mg/dL (70-110)
[2024-11-27] MEDS: SENNOSIDES-DOCUSATE SODIUM 1 EACH TAB PO SCH (21:06)
[2024-11-27] MEDS: AMIODARONE 200 MG TAB PO SCH (21:06)
[2024-11-27 22:18] LABS: Glucose,Whole Blood 111 mg/dL (70-110)
[2024-11-27 23:06] LABS: Glucose,Whole Blood 108 mg/dL (70-110)
[2024-11-28 01:08] LABS: Glucose,Whole Blood 187 mg/dL (70-110)
[2024-11-28 03:30] LABS: Glucose,Whole Blood 151 mg/dL (70-110)
[2024-11-28 04:22] LABS: Ionized Calcium 4.8 mg/dL (4.5-5.3)
[2024-11-28 04:24] LABS: Basophils # (A) 0.01 10*3/uL (0.00-0.10); Basophils % (A) 0.1 %; Eosinophils # (A) 0.06 10*3/uL (0.04-0.35); Eosinophils % (A) 0.7 %; HCT 25.3 % (39.6-50.0); HGB 8.4 g/dL (13.0-17.0); Lymphocytes # (A) 0.69 10*3/uL (0.90-5.00); Lymphocytes % (A) 7.7 %; MCH 31.1 pg (27.0-32.0); MCHC 33.2 g/dL (32.0-37.0); MCV 93.7 fL (80.0-97.0); Mean Platelet Volume 9.9 fL (9.5-12.2); Monocytes # (A) 0.77 10*3/uL (0.20-1.00); Monocytes % (A) 8.6 %; Neutrophils # (A) 7.41 10*3/uL (1.80-7.70); Neutrophils % (A) 82.3 %; Platelet Count 151 10*3/uL (140-440); WBC 8.99 10*3/uL (4.50-10.00)
[2024-11-28 04:31] LABS: ALT 18 U/L (4-49); AST 32 U/L (17-59); African American GFR (CKD) >90 (>60 ml/min/1.73 sqM); Albumin 3.1 g/dL (3.5-5.0); Alkaline Phosphatase 45 U/L (38-126); Anion Gap 6 mmol/L; Blood Urea Nitrogen 15 mg/dL (9-20); Calcium 8.8 mg/dL (8.4-10.2); Carbon Dioxide 25 mmol/L (22-30); Chloride 102 mmol/L (98-107); Glucose 128 mg/dL (74-99); Non-African American GFR(CKD) >90 (>60 ml/min/1.73 sqM); Sodium 133 mmol/L (137-145); Total Bilirubin 0.8 mg/dL (0.2-1.3); Total Protein 5.3 g/dL (6.3-8.2)
[2024-11-28 06:45] LABS: Glucose,Whole Blood 109 mg/dL (70-110)
[2024-11-28] MEDS: PANTOPRAZOLE 40 MG TABLET PO SCH (07:15)
[2024-11-28] MEDS: FUROSEMIDE 10 MG/ML 4 ML VIAL IV STA (07:46)
--- NOTE | 2024-11-28 07:46 | P.PN ---
Subjective Progress Note Date: 11/28/24 Principal diagnosis: Coronary artery disease and severe aortic valve stenosis. Previous medical history of known aortic valve stenosis followed by Dr. Paredes with serial echocardiograms, coronary artery disease with previous PCI to his right coronary artery in 2007, hypertension, hyperlipidemia, obesity, diabetes mellitus type 2, prostate cancer status post 3 months of radiation therapy, previous tobacco dependence with cessation 20 years ago, etoh use, occasional marijuana, and family history of premature coronary artery disease with his father POD #2 Aortic valve replacement using a 25 mm Inspiris pericardial bioprosthesis, double vessel coronary bypass grafting using the in situ left intramammary artery to the left anterior descending artery, reverse saphenous vein graft from the aorta to the posterior descending artery, exclusion of the left atrial appendage using a 35mm AtriClip, intraoperative graft flow measurements using the AdInnovation system, endoscopic harvesting of the left greater saphenous vein, intraoperative transesophageal echocardiogram and epiaortic scanning. Postoperative acute blood loss anemia, expected given hemodilution and cardiopulmonary bypass. The patient was seen and examined sitting up in a recliner in the ICU in no acute distress. States pain is controlled on current medication regimen, denies shortness of breath. States he feels better than yesterday, has already walked around the [place] this morning without difficulty. Remains in sinus rhythm, hemodynamically stable. CXR, labs reviewed. Right internal jugular cordis, m ediastinal/left chest tubes remain. Discussed with Dr. Starks. No other new concerns. Objective - Vital Signs Vital signs: Vital Signs Temp 98.2 F 11/28/24 00:00 Pulse 93 11/28/24 07:00 Resp 16 11/28/24 07:00 BP 126/73 11/28/24 07:00 Pulse Ox 93 L 11/28/24 07:00 FiO2 50 11/26/24 17:19 Intake & Output 11/27/24 11/28/24 11/28/24 18:59 06:59 18:59 Intake Total 1873.272 338.620 23 Output Total 1365 645 90 Balance 508.272 -306.380 -67 Weight 117.4 kg 117 kg Intake: IV 408.501 276 23 Amiodarone 450 mg In 50.001 Dextrose 5% in Water 250 ml @ 0.5 MG/MIN 16.667 mls/hr IV .Q15H [facility] Rx#: [id number] Nitroglycerin-D5w Pmx 50 1.5 mg In Dextrose/Water 1 250ml.bag @ 5 MCG/MIN 1.5 mls/hr IV .Q24H [facility] Rx#: [id number] Pressure Bags 57 36 3 Sodium Chloride 0.9% 1, 300 240 20 000 ml @ 20 mls/hr IV . Q24H [facility] Rx#:[id number] Intake, IV Titration 324.771 62.620 Amount Amiodarone 450 mg In 208.06 Dextrose 5% in Water 250 ml @ 0.5 MG/MIN 16.667 mls/hr IV .Q15H [facility] Rx#: [id number] Insulin Regular 100 unit 66.711 62.620 In Sodium Chloride 0.9% 100 ml @ Per Protocol IV .Q0M [facility] Rx#:[id number] ceFAZolin 2 gm In Sodium 50 Chloride 0.9% 50 ml @ 100 mls/hr IVPB Q8HR [facility] Rx# :[id number] Oral 1140 Output: Chest Tube Drainage 200 250 60 Left Pleural Chest Tube 70 100 30 Mediastinal Chest Tube x2 130 150 30 Drainage 10 Left Leg TRI 10 Urine 1155 395 30 Other: Voiding Method Indwelling Catheter Indwelling Catheter ABP, PAP, CO, CI - Last Documented Arterial Blood Pressure 99/66 Pulmonary Artery Pressure 28/17 Cardiac Output 6.5 Cardiac Index 2.7 - Exam CONSTITUTIONAL: Appears comfortable, cooperative, no acute distress RESPIRATORY: Lungs sounds diminished bilaterally. Respirations even, nonlabored. Currently on room air with oxygen saturation 94%. Able to achieve 1500 mL on incentive spirometry. Strong cough. CARDIOVASCULAR: S1, S2 present. Regular rate and rhythm, sinus rhythm on telemetry. Sternum stable. Palpable peripheral pulses bilaterally. Trace generalized edema present. No calf pain or tenderness noted. Heart hugger in place with patient demonstrating appropriate use. Antiembolism stockings, SCDs present. GASTROINTESTINAL: Abdomen soft, nontender, nondistended. Active bowel sounds present 4 quadrants. Tolerating diet. Positive flatus GENITOURINARY: Garcia present draining clear, yellow urine. Output overnight 30 -35 mL per hour, 1500 mL in the last 24 hours INTEGUMENTARY: Skin is warm and dry with evidence of good perfusion. Anterior chest incision well approximated and covered with dry intact dressing. Left lower extremity EVH site well approximated without redness or drainage. NEUROLOGIC: Cranial nerves II through XII intact MUSKULOSKELETAL: Able to move all extremities, strength equal bilaterally, gait normal PSYCHIATRIC: Alert and oriented to person place and time, appropriate affect, intact judgment and insight INVASIVE LINES AND TUBES: Mediastinal/left pleural chest tubes present and conn ected to wall suction, no air leaks present. Mediastinal tube with 120 mL serosanguineous drainage overnight, 300 mL in the last 24 hours. Left pleural chest tube with 90 mL serosanguineous drainage overnight, 150 mL in the last 24 hours. A/V epicardial pacemaker wires present, connected to generator, generator off. Right internal jugular cordis present. Last CVP 15. - Allied health notes Allied health notes reviewed: nursing - Labs CBC & Chem 7: 11/28/24 04:00 11/28/24 04:00 Labs: Abnormal Lab Results - Last 24 Hours (Table) 11/27/24 11/27/24 11/27/24 Range/Units 08:26 09:33 10:25 RBC (4.40-5.60) 10*6/uL Hgb (13.0-17.0) g/dL Hct (39.6-50.0) % Immature Gran # (0.00-0.04) 10*3/uL Lymphocytes # (0.90-5.00) 10*3/uL Sodium (137-145) mmol/L Glucose (74-99) mg/dL POC Glucose (mg/dL) 169 H 211 H 211 H (70-110) mg/dL Total Protein (6.3-8.2) g/dL Albumin (3.5-5.0) g/dL 11/27/24 11/27/24 11/27/24 Range/Units 11:37 12:31 13:45 RBC (4.40-5.60) 10*6/uL Hgb (13.0-17.0) g/dL Hct (39.6-50.0) % Immature Gran # (0.00-0.04) 10*3/uL Lymphocytes # (0.90-5.00) 10*3/uL Sodium (137-145) mmol/L Glucose (74-99) mg/dL POC Glucose (mg/dL) 167 H 128 H 139 H (70-110) mg/dL Total Protein (6.3-8.2) g/dL Albumin (3.5-5.0) g/dL 11/27/24 11/27/24 11/27/24 Range/Units 14:38 16:08 17:19 RBC (4.40-5.60) 10*6/uL Hgb (13.0-17.0) g/dL Hct (39.6-50.0) % Immature Gran # (0.00-0.04) 10*3/uL Lymphocytes # (0.90-5.00) 10*3/uL Sodium (137-145) mmol/L Glucose (74-99) mg/dL POC Glucose (mg/dL) 167 H 184 H 153 H (70-110) mg/dL Total Protein (6.3-8.2) g/dL Albumin (3.5-5.0) g/dL 11/27/24 11/27/24 11/27/24 Range/Units 18:36 20:14 22:16 RBC (4.40-5.60) 10*6/uL Hgb (13.0-17.0) g/dL Hct (39.6-50.0) % Immature Gran # (0.00-0.04) 10*3/uL Lymphocytes # (0.90-5.00) 10*3/uL Sodium (137-145) mmol/L Glucose (74-99) mg/dL POC Glucose (mg/dL) 187 H 186 H 111 H (70-110) mg/dL Total Protein (6.3-8.2) g/dL Albumin (3.5-5.0) g/dL 11/28/24 11/28/24 11/28/24 Range/Units 01:07 03:29 04:00 RBC 2.70 L (4.40-5.60) 10*6/uL Hgb 8.4 L (13.0-17.0) g/dL Hct 25.3 L (39.6-50.0) % Immature Gran # 0.05 H (0.00-0.04) 10*3/uL Lymphocytes # 0.69 L (0.90-5.00) 10*3/uL Sodium (137-145) mmol/L Glucose (74-99) mg/dL POC Glucose (mg/dL) 187 H 151 H (70-110) mg/dL Total Protein (6.3-8.2) g/dL Albumin (3.5-5.0) g/dL 11/28/24 Range/Units 04:00 RBC (4.40-5.60) 10*6/uL Hgb (13.0-17.0) g/dL Hct (39.6-50.0) % Immature Gran # (0.00-0.04) 10*3/uL Lymphocytes # (0.90-5.00) 10*3/uL Sodium 133 L (137-145) mmol/L Glucose 128 H (74-99) mg/dL POC Glucose (mg/dL) (70-110) mg/dL Total Protein 5.3 L (6.3-8.2) g/dL Albumin 3.1 L (3.5-5.0) g/dL - Imaging and Cardiology Chest x-ray: image reviewed Assessment and Plan Assessment: Coronary artery disease, non-STEMI this admission, status post two-vessel CABG Severe aortic valve stenosis, status post aortic valve replacement Postoperative acute blood loss anemia, expected given hemodilution and cardiopulmonary bypass. History of known aortic valve stenosis followed by Dr. Paredes with serial echocardiograms Coronary artery disease with previous PCI to his right coronary artery in 2007 Hypertension Hyperlipidemia Obesity Diabetes mellitus type 2 preoperative hemoglobin A1c 6.3% Prostate cancer status post 3 months of radiation therapy Previous tobacco dependence with cessation 20 years ago, preoperative FEV1 73% of predicted Etoh use Occasional marijuana Family history of premature coronary artery disease Plan: Continue to maximize medical therapy with aspirin, statin, Plavix, and beta- aaron. Will increase metoprolol tartrate therapy as tolerated, increased to 25 mg twice daily today Continue Cozaar for afterload reduction with hold parameters Continue amiodarone for A-fib prophylaxis, patient has had no atrial fibrillation up to this point Will monitor daily labs and chest x-rays, electrolyte replacement per protocol. Will give 40 mg IV push Lasix today Encourage incentive spirometry use 10 times every hour while awake. Bronchodilators per pulmonology. Increase activity, ambulate as tolerated. PT/OT/cardiac rehab consulted. GI/DVT prophylaxis. Pain control per current medication regimen Insulin management per internal medicine Discontinue Cordis, Garcia catheter after diuresis from Lasix May bladder scan and straight cath for greater than 300 mL residual, continue Flomax Will discontinue mediastinal chest tube, continue left pleural chest tube for another 24 hours, monitor and record output. Continue to monitor and record strict accurate intake and output Daily weights Likely will place a transfer orders for 3 S. cardiac stepdown unit this afternoon, may transfer when bed available More recommendations to follow based on patient's clinical course
[2024-11-28 08:17] LABS: Glucose,Whole Blood 140 mg/dL (70-110)
[2024-11-28] MEDS: METOPROLOL TARTRATE 25 MG TAB PO SCH (08:26)
--- NOTE | 2024-11-28 08:53 | XR ---
EXAMINATION TYPE: XR chest 1V portable DATE OF EXAM: 11/28/2024 6:06 AM COMPARISON: 11/27/2024 CLINICAL INDICATION: Male, 69 years old with history of Post Operative Cardiac Surgery, , FINDINGS: Median sternotomy wires with prosthetic aortic valve. Heart mildly enlarged. Interstitial densities p ersist. Patchy retrocardiac opacity remains. Left-sided chest tube in place. No appreciable pneumotho rax. Interval removal of right IJ [place] catheter. IJ sheath remains. IMPRESSION: Mild pulmonary vascular congestion and patchy retrocardiac atelectasis remains. [facility], Workstation: [id number], 11/28/2024 8:50 AM
[2024-11-28 09:33] LABS: Glucose,Whole Blood 191 mg/dL (70-110)
[2024-11-28] MEDS ORDERED: DEXTROSE 50% SYRINGE 50 ML IVP PRN ×2 (11:18)
[2024-11-28 11:21] LABS: Glucose,Whole Blood 159 mg/dL (70-110)
[2024-11-28] MEDS: INSULIN LISPRO (HumaLOG) 100 UNIT/ML 10 mL VL SQ SCH ×2 (11:31)
[2024-11-28] MEDS: LOSARTAN 25 MG TAB PO SCH (11:39)
[2024-11-28] MEDS: INSULIN GLARGINE (LANTUS) 100 UNIT/ML SYR SQ SCH (12:03)
--- NOTE | 2024-11-28 12:11 | P.PN ---
Subjective Progress Note Date: 11/28/24 H&P Date: 11/21/24 Chief Complaint: Chest pain This is a 69-year-old gentleman with past medical history significant for moderate to severe aortic valve stenosis-follows with Dr. DOROTEO Paredes,CAD with PCI of RCA, hypertension, hyperlipidemia , obesity ,diabetes mellitus, prostate cancer-status post radiation treatment, former nicotine dependence, marijuana u se, alcohol use-5 beers per week, and multiple other medical issues presented to the ER with progressive chest pain, chest pressure and shortness of breath. Reports he has been having intermittent episodes of chest pain for more a few weeks. Previous episodes spontaneously relieved with rest. Yesterday he presented to the ER as chest pain continued to recur throughout the day. EKG reported sinus bradycardia with first-degree AV block, troponins 0.409 1.8 3.37. proBNP 150. D-dimer 0.41. Afebrile, normal WBC, hemoglobin 13.3, platelets 190, sodium 136, potassium 3.6, bicarb 21, BUN 18, creatinine 0.86 glucose 121, hemoglobin A1c 6.3., Magnesium 1.9, AST 156, ALT 52. Hepatitis serology nonreactive. UA reported 4+ glucose, 1+ ketones trace blood negative nitrates negative leukocytes rare bacteria. chest x-ray reported small amount linear scarring atelectasis in the left lung base .evaluated by cardiology, underwent cardiac catheterization. Cardiac catheterization reported total occlusion of RCA with good collaterals from the left, LAD mid lesion of 70%, circumflex nondominant with no significant disease. echo pending. CTS consulted for further evaluation/ recommendation. 11/22/2024 Echo reported normal LV function, mild mitral regurgitation, severe aortic stenosis .evaluated by CTS regarding CABG and AVR, surgery date pending. Patient continues to have ongoing midsternal chest pressure/chest burning. Maintained on heparin drip. Continues on IV fluid hydration, statin, beta- aaron, aspirin, Farxiga, losartan with Nitropaste added to med regimen. Blood sugars controlled. 11/23/2024 scheduled for CABG/AVR on 11/27/2019. Maintained on heparin drip. Telemetry sinus rhythm Nitropaste initiated yesterday , reports chest pressure/burning during the night. Soft blood pressures in the early breastfeeding care specialist hours, Nitropaste has been discontinued. currently denies chest pain, palpitations or shortness of breath. Blood sugars controlled. 11/27/2024 status post CABG x 2 NUNEZ to the LAD and reverse saphenous vein graft to PDA with bioprosthetic AVR, postop day #1. Extubated last night, maintaining O2 sats in the high 90s on 2 L nasal cannula. Telemetry sinus rhythm currently maintained on insulin and amiodarone drips... nitroglycerin drip weaned off. 11/28/2024 sitting up in recliner, incentive spirometer 1500, maintaining O2 sats in the 90s on room air. Chest x-ray reporting mild pulmonary vascular congestion and patchy retrocardiac atelectasis remains.telemetry- sinus rhythm .pain controlled. Ambulated in hallway this morning, tolerated exertion well. Hemoglobin 8.4. Currently on insulin drip, blood sugars controlled. Objective - Vital Signs Vital signs: Vital Signs Temp 97.9 F 11/28/24 12:00 Pulse 80 11/28/24 12:00 Resp 14 11/28/24 12:00 BP 101/63 11/28/24 12:00 Pulse Ox 95 11/28/24 12:00 FiO2 50 11/26/24 17:19 Intake & Output 11/27/24 11/28/24 11/28/24 18:59 06:59 18:59 Intake Total 1873.272 338.620 158.764 Output Total 6253 131 9205 Balance 508.272 -306.380 -1006.236 Weight 117.4 kg 117 kg Intake: IV 408.501 276 138 Amiodarone 450 mg In 50.001 Dextrose 5% in Water 250 ml @ 0.5 MG/MIN 16.667 mls/hr IV .Q15H [facility] Rx#: [id number] Nitroglycerin-D5w Pmx 50 1.5 mg In Dextrose/Water 1 250ml.bag @ 5 MCG/MIN 1.5 mls/hr IV .Q24H [facility] Rx#: [id number] Pressure Bags 57 36 18 Sodium Chloride 0.9% 1, 300 240 120 000 ml @ 20 mls/hr IV . Q24H [facility] Rx#:[id number] Intake, IV Titration 324.771 62.620 20.764 Amount Amiodarone 450 mg In 208.06 Dextrose 5% in Water 250 ml @ 0.5 MG/MIN 16.667 mls/hr IV .Q15H [facility] Rx#: [id number] Insulin Regular 100 unit 66.711 62.620 20.764 In Sodium Chloride 0.9% 100 ml @ Per Protocol IV .Q0M [facility] Rx#:[id number] ceFAZolin 2 gm In Sodium 50 Chloride 0.9% 50 ml @ 100 mls/hr IVPB Q8HR [facility] Rx# :[id number] Oral 1140 Output: Chest Tube Drainage 200 250 60 Left Pleural Chest Tube 70 100 30 Mediastinal Chest Tube x2 130 150 30 Drainage 10 Left Leg TRI 10 Urine 9764 790 6487 Other: Voiding Method Indwelling Catheter Indwelling Catheter Indwelling Catheter ABP, PAP, CO, CI - Last Documented Arterial Blood Pressure 99/66 Pulmonary Artery Pressure 28/17 Cardiac Output 6.5 Cardiac Index 2.7 - Exam PHYSICAL EXAM: VITAL SIGNS: Reviewed GENERAL: Sitting up in chair, alert and oriented x 3,NAD HEENT: Atraumatic, normocephalic conjunctivae normal. eyes normal.mmm. NECK: Supple, no JVD. CARDIOVASCULAR: S1, S2 regular.no murmur. RESPIRATION: Unlabored, equal air entry,CTA. Mediastinal and left pleural chest. ABDOMEN: Soft, nondistended, nontender. Positive bowel sounds. LEGS: No edema. no swelling, no calf tenderness, peripheral pulses intact. NERVOUS SYSTEM: Cranial N 2-12 grossly normal. No focal deficits. Strength and sensation grossly intact. Skin: Warm and dry, no rash - Labs CBC & Chem 7: 11/28/24 04:00 11/28/24 04:00 Labs: Abnormal Lab Results - Last 24 Hours (Table) 11/27/24 11/27/24 11/27/24 Range/Units 12:31 13:45 14:38 RBC (4.40-5.60) 10*6/uL Hgb (13.0-17.0) g/dL Hct (39.6-50.0) % Immature Gran # (0.00-0.04) 10*3/uL Lymphocytes # (0.90-5.00) 10*3/uL Sodium (137-145) mmol/L Glucose (74-99) mg/dL POC Glucose (mg/dL) 128 H 139 H 167 H (70-110) mg/dL Total Protein (6.3-8.2) g/dL Albumin (3.5-5.0) g/dL 11/27/24 11/27/24 11/27/24 Range/Units 16:08 17:19 18:36 RBC (4.40-5.60) 10*6/uL Hgb (13.0-17.0) g/dL Hct (39.6-50.0) % Immature Gran # (0.00-0.04) 10*3/uL Lymphocytes # (0.90-5.00) 10*3/uL Sodium (137-145) mmol/L Glucose (74-99) mg/dL POC Glucose (mg/dL) 184 H 153 H 187 H (70-110) mg/dL Total Protein (6.3-8.2) g/dL Albumin (3.5-5.0) g/dL 11/27/24 11/27/24 11/28/24 Range/Units 20:14 22:16 01:07 RBC (4.40-5.60) 10*6/uL Hgb (13.0-17.0) g/dL Hct (39.6-50.0) % Immature Gran # (0.00-0.04) 10*3/uL Lymphocytes # (0.90-5.00) 10*3/uL Sodium (137-145) mmol/L Glucose (74-99) mg/dL POC Glucose (mg/dL) 186 H 111 H 187 H (70-110) mg/dL Total Protein (6.3-8.2) g/dL Albumin (3.5-5.0) g/dL 11/28/24 11/28/24 11/28/24 Range/Units 03:29 04:00 04:00 RBC 2.70 L (4.40-5.60) 10*6/uL Hgb 8.4 L (13.0-17.0) g/dL Hct 25.3 L (39.6-50.0) % Immature Gran # 0.05 H (0.00-0.04) 10*3/uL Lymphocytes # 0.69 L (0.90-5.00) 10*3/uL Sodium 133 L (137-145) mmol/L Glucose 128 H (74-99) mg/dL POC Glucose (mg/dL) 151 H (70-110) mg/dL Total Protein 5.3 L (6.3-8.2) g/dL Albumin 3.1 L (3.5-5.0) g/dL 11/28/24 11/28/24 11/28/24 Range/Units 08:16 09:31 11:19 RBC (4.40-5.60) 10*6/uL Hgb (13.0-17.0) g/dL Hct (39.6-50.0) % Immature Gran # (0.00-0.04) 10*3/uL Lymphocytes # (0.90-5.00) 10*3/uL Sodium (137-145) mmol/L Glucose (74-99) mg/dL POC Glucose (mg/dL) 140 H 191 H 159 H (70-110) mg/dL Total Protein (6.3-8.2) g/dL Albumin (3.5-5.0) g/dL Assessment and Plan Assessment: Acute NSTEMI with multivessel disease, s/p CABG X2 and bioprosthetic AVR. CAD with prior PCI of RCA Severe aortic stenosis Hypertension Hyperlipidemia Diabetes mellitus, hemoglobin A1c 6.3 History of prostate cancer with radiation tx. Morbid obesity, BMI 31 Marijuana use Alcohol use Plan: Continue on current medication regimen ,monitoring and symptomatic treatment. aggressive pulmonary toileting, incentive spirometer reinforced. Maintain tight glycemic control, transition to NovoLog sliding scale, Lantus insulin. Increase ambulation as tolerated. The impression and plan of care has been dictated as directed. : I performed a history and examination of this patient, discussed the same with the dictator. I agree with the dictator's note ,documented as a scribe. Any additional findings or plans will be noted.
--- NOTE | 2024-11-28 13:22 | P.PN ---
Subjective Progress Note Date: 11/28/24 The patient is a 69-year-old male who presented to the hospital with non-ST elevated myocardial infarction. He was found to have multivessel coronary artery disease as well as severe aortic stenosis. He underwent bioprosthetic aortic valve replacement and CABG x 2 with NUNEZ to LAD and reverse SVG to PDA with Dr. Starks. Patient was interviewed and examined sitting up in the recliner chair. Continues to do well with his mobility. He did have 2 chest tubes removed earlier today, with 1 remaining. Patient states his pain is reasonably well-controlled. No difficulty breathing. No dizziness or lightheadedness. GENERAL: Well-appearing, well-nourished and in no acute distress. NECK: Supple without JVD or thyromegaly. LUNGS: Breath sounds clear to auscultation bilaterally. Respiration equal and unlabored. No wheezes, rales or rhonchi. HEART: Regular rate and rhythm without murmurs, rubs or gallops. S1 and S2 heard. Heart hugger in place EXTREMITIES: Normal range of motion, no edema. No clubbing or cyanosis. Peripheral pulses intact and strong. TRI drain on left lower extremity TELEMETRY: Sinus rhythm overnight LABS: WBC 8.3, platelet 1, sodium 133, potassium 4.0, BUN 15, creatinine 0.78, AST 32, ALT 18 IMPRESSION: NSTEMI with multivessel CAD Status post coronary bypass x 2 Severe aortic stenosis Status post bioprosthetic aortic valve replacement History of coronary artery disease with prior PCI of the RCA Hypertension Hyperlipidemia PLAN: Continue supportive treatment Aggressive pulmonary hygiene Encouraged ambulation Further recommendations to be based on clinical course I am dictating on behalf of Dr Yohannes Castillo's history/physical and assessment/plan. Objective - Vital Signs Vital signs: Vital Signs Temp 97.9 F 11/28/24 12:00 Pulse 80 11/28/24 12:00 Resp 14 11/28/24 12:00 BP 101/63 11/28/24 12:00 Pulse Ox 95 11/28/24 12:00 FiO2 50 11/26/24 17:19 Intake & Output 11/27/24 11/28/24 11/28/24 18:59 06:59 18:59 Intake Total 1873.272 338.620 158.764 Output Total 0634 426 4135 Balance 508.272 -306.380 -1006.236 Weight 117.4 kg 117 kg Intake: IV 408.501 276 138 Amiodarone 450 mg In 50.001 Dextrose 5% in Water 250 ml @ 0.5 MG/MIN 16.667 mls/hr IV .Q15H [facility] Rx#: [id number] Nitroglycerin-D5w Pmx 50 1.5 mg In Dextrose/Water 1 250ml.bag @ 5 MCG/MIN 1.5 mls/hr IV .Q24H [facility] Rx#: [id number] Pressure Bags 57 36 18 Sodium Chloride 0.9% 1, 300 240 120 000 ml @ 20 mls/hr IV . Q24H [facility] Rx#:[id number] Intake, IV Titration 324.771 62.620 20.764 Amount Amiodarone 450 mg In 208.06 Dextrose 5% in Water 250 ml @ 0.5 MG/MIN 16.667 mls/hr IV .Q15H [facility] Rx#: [id number] Insulin Regular 100 unit 66.711 62.620 20.764 In Sodium Chloride 0.9% 100 ml @ Per Protocol IV .Q0M [facility] Rx#:[id number] ceFAZolin 2 gm In Sodium 50 Chloride 0.9% 50 ml @ 100 mls/hr IVPB Q8HR [facility] Rx# :[id number] Oral 1140 Output: Chest Tube Drainage 200 250 60 Left Pleural Chest Tube 70 100 30 Mediastinal Chest Tube x2 130 150 30 Drainage 10 Left Leg TRI 10 Urine 4023 027 4857 Other: Voiding Method Indwelling Catheter Indwelling Catheter Indwelling Catheter ABP, PAP, CO, CI - Last Documented Arterial Blood Pressure 99/66 Pulmonary Artery Pressure 28/17 Cardiac Output 6.5 Cardiac Index 2.7 - Labs CBC & Chem 7: 11/28/24 04:00 11/28/24 04:00 Labs: Abnormal Lab Results - Last 24 Hours (Table) 11/27/24 11/27/24 11/27/24 Range/Units 13:45 14:38 16:08 RBC (4.40-5.60) 10*6/uL Hgb (13.0-17.0) g/dL Hct (39.6-50.0) % Immature Gran # (0.00-0.04) 10*3/uL Lymphocytes # (0.90-5.00) 10*3/uL Sodium (137-145) mmol/L Glucose (74-99) mg/dL POC Glucose (mg/dL) 139 H 167 H 184 H (70-110) mg/dL Total Protein (6.3-8.2) g/dL Albumin (3.5-5.0) g/dL 11/27/24 11/27/24 11/27/24 Range/Units 17:19 18:36 20:14 RBC (4.40-5.60) 10*6/uL Hgb (13.0-17.0) g/dL Hct (39.6-50.0) % Immature Gran # (0.00-0.04) 10*3/uL Lymphocytes # (0.90-5.00) 10*3/uL Sodium (137-145) mmol/L Glucose (74-99) mg/dL POC Glucose (mg/dL) 153 H 187 H 186 H (70-110) mg/dL Total Protein (6.3-8.2) g/dL Albumin (3.5-5.0) g/dL 11/27/24 11/28/24 11/28/24 Range/Units 22:16 01:07 03:29 RBC (4.40-5.60) 10*6/uL Hgb (13.0-17.0) g/dL Hct (39.6-50.0) % Immature Gran # (0.00-0.04) 10*3/uL Lymphocytes # (0.90-5.00) 10*3/uL Sodium (137-145) mmol/L Glucose (74-99) mg/dL POC Glucose (mg/dL) 111 H 187 H 151 H (70-110) mg/dL Total Protein (6.3-8.2) g/dL Albumin (3.5-5.0) g/dL 11/28/24 11/28/24 11/28/24 Range/Units 04:00 04:00 08:16 RBC 2.70 L (4.40-5.60) 10*6/uL Hgb 8.4 L (13.0-17.0) g/dL Hct 25.3 L (39.6-50.0) % Immature Gran # 0.05 H (0.00-0.04) 10*3/uL Lymphocytes # 0.69 L (0.90-5.00) 10*3/uL Sodium 133 L (137-145) mmol/L Glucose 128 H (74-99) mg/dL POC Glucose (mg/dL) 140 H (70-110) mg/dL Total Protein 5.3 L (6.3-8.2) g/dL Albumin 3.1 L (3.5-5.0) g/dL 11/28/24 11/28/24 Range/Units 09:31 11:19 RBC (4.40-5.60) 10*6/uL Hgb (13.0-17.0) g/dL Hct (39.6-50.0) % Immature Gran # (0.00-0.04) 10*3/uL Lymphocytes # (0.90-5.00) 10*3/uL Sodium (137-145) mmol/L Glucose (74-99) mg/dL POC Glucose (mg/dL) 191 H 159 H (70-110) mg/dL Total Protein (6.3-8.2) g/dL Albumin (3.5-5.0) g/dL
[2024-11-28] MEDS: BENZOCAINE/MENTHOL LOZENG 1 EACH LOZENGE MUCOUS MEM PRN (13:52)
[2024-11-28 17:03] LABS: Glucose,Whole Blood 154 mg/dL (70-110)
--- NOTE | 2024-11-28 17:47 | P.PN ---
Subjective Progress Note Date: 11/28/24 On 11/26/2024, the patient is being seen immediately after arriving to the intensive care unit. The patient underwent aortic valve replacement/tissue valve and double vessel bypass surgery with NUNEZ to LAD and reverse saphenous vein graft from aorta to PDA. The patient is currently postop day #0. [place] on mechanical ventilator. The patient is currently sedated on propofol and the patient is currently on assist-control mode of mechanical ventilation at rate of 14, tidal volume of 600, FiO2 of 60% with a PEEP of 8. Blood gas showed a pH of 7.4 with a PCO2 of 37 and PO2 of 217. Chest x-ray done postop shows adequate expansion of both lungs. Small left pleural effusion. Atelectasis changes left lung base. Lines and tubes are all in good location. No other acute abnormalities have been noted. The patient has a mediastinal and left pleural chest tube output is minimal and there is no evidence of any air leak. Hemodynamically, the patient's cardiac output is at 7.9 with an index of 3.1. SVR is at 723. PA pressures are 27/18. The patient is currently in normal sinus rhythm. Amiodarone is running at 1 mg/min and the patient is also on nitroglycerin drip at 5 mg/min. The WBC count is at 4.5, hemoglobin is at 8.8 and a platelet count of 103. The sodium is at 140, potassium is at 4, BUN is at 8 with a creatinine of 0.6. LFTs are within normal limits. Urine output is adequate. No other significant events postop. On 11/27/2024, the patient is being seen for a follow-up. The patient is awake and alert and sitting up in a chair and the patient is calm and comfortable. D enies having any significant respiratory distress. The patient is postop day #1 following aortic valve placement and two-vessel bypass surgery. The patient is currently on 3 Suboxone by nasal cannula. Incentive spirometer the patient pulling approximately 1000 cc on his I-S. Cardiac rhythm is sinus. [place]-Ankit catheter has been removed. Earlier, the cardiac output was at 6.7 with a index of 2.7 and the patient is off nitroglycerin drip. He remains on amiodarone drip at 0.5 mg/min. Chest tubes are in place and the chest x-ray shows no evidence of any pneumothorax. Output is serosanguineous and the mediastinal chest tube has drained around 320 cc since surgery and the left pleural chest tube has drained around 550 cc since surgery. The patient is awake and alert and communicating. Denies having any other specific complaints. The white cell count is at 7.6 with a hemoglobin 9.5 and a platelet count of 147. Electrolytes are all within normal limits. BUN is at 10 with a creatinine of 0.7. Blood sugars at 146 and the patient remains on insulin drip running at 5 units an hour. On today's evaluation of 11/28/2024, the patient is being seen for a follow-up. The patient is doing extremely well. The patient is currently on room air oxygen. The mediastinal chest tube has been removed and the patient continues to have a left pleural chest tube. This will be kept for another 24 hours. Meanwhile, the patient's cardiac rhythm remains sinus. The patient is sitting up in a chair and the patient is calm and comfortable. No significant respiratory distress. [place]-Ankit catheter has been removed. The patient is currently on a combination of aspirin and Plavix. The patient is also on metoprolol 25 mg p.o. twice daily. Remains on insulin drip which is running at 7 units an hour. Repeat chest x-ray from today shows no evidence of pneumothorax. Some postsurgical atelectatic change in lung base bilaterally. No other significant events otherwise. Awake alert and communicating. The patient is also ambulating. Objective - Vital Signs Vital signs: Vital Signs Temp 97.9 F 11/28/24 16:00 Pulse 82 11/28/24 16:00 Resp 18 11/28/24 16:00 BP 101/62 11/28/24 13:00 Pulse Ox 95 11/28/24 16:00 FiO2 50 11/26/24 17:19 Intake & Output 11/27/24 11/28/24 11/28/24 18:59 06:59 18:59 Intake Total 1873.272 338.620 688.764 Output Total 9141 925 8010 Balance 508.272 -306.380 -506.236 Weight 117.4 kg 117 kg Intake: IV 408.501 276 168 Amiodarone 450 mg In 50.001 Dextrose 5% in Water 250 ml @ 0.5 MG/MIN 16.667 mls/hr IV .Q15H [facility] Rx#: [id number] KVO 30 Nitroglycerin-D5w Pmx 50 1.5 mg In Dextrose/Water 1 250ml.bag @ 5 MCG/MIN 1.5 mls/hr IV .Q24H [facility] Rx#: [id number] Pressure Bags 57 36 18 Sodium Chloride 0.9% 1, 300 240 120 000 ml @ 20 mls/hr IV . Q24H [facility] Rx#:[id number] Intake, IV Titration 324.771 62.620 20.764 Amount Amiodarone 450 mg In 208.06 Dextrose 5% in Water 250 ml @ 0.5 MG/MIN 16.667 mls/hr IV .Q15H [facility] Rx#: [id number] Insulin Regular 100 unit 66.711 62.620 20.764 In Sodium Chloride 0.9% 100 ml @ Per Protocol IV .Q0M [facility] Rx#:[id number] ceFAZolin 2 gm In Sodium 50 Chloride 0.9% 50 ml @ 100 mls/hr IVPB Q8HR [facility] Rx# :[id number] Oral 1140 500 Output: Chest Tube Drainage 200 250 90 Left Pleural Chest Tube 70 100 60 Mediastinal Chest Tube x2 130 150 30 Drainage 10 Left Leg TRI 10 Urine 0862 278 6518 Other: Voiding Method Indwelling Catheter Indwelling Catheter Indwelling Catheter ABP, PAP, CO, CI - Last Documented Arterial Blood Pressure 99/66 Pulmonary Artery Pressure 28/17 Cardiac Output 6.5 Cardiac Index 2.7 - Exam CONSTITUTIONAL: Appears comfortable, cooperative, no acute distress RESPIRATORY: Lungs sounds diminished bilaterally. Respirations even, nonlabored. Currently on room air with oxygen saturation 94%. Able to achieve 1500 mL on incentive spirometry. Strong cough. CARDIOVASCULAR: S1, S2 present. Regular rate and rhythm, sinus rhythm on telemetry. Sternum stable. Palpable peripheral pulses bilaterally. Trace generalized edema present. No calf pain or tenderness noted. Heart hugger in place with patient demonstrating appropriate use. Antiembolism stockings, SCDs present. GASTROINTESTINAL: Abdomen soft, nontender, nondistended. Active bowel sounds present 4 quadrants. Tolerating diet. Positive flatus GENITOURINARY: Garcia present draining clear, yellow urine. Output overnight 30-35 mL per hour, 1500 mL in the last 24 hours INTEGUMENTARY: Skin is warm and dry with evidence of good perfusion. Anterior chest incision well approximated and covered with dry intact dressing. Left lower extremity EVH site well approximated without redness or drainage. NEUROLOGIC: Cranial nerves II through XII intact MUSKULOSKELETAL: Able to move all extremities, strength equal bilaterally, gait normal PSYCHIATRIC: Alert and oriented to person place and time, appropriate affect, intact judgment and insight INVASIVE LINES AND TUBES: Mediastinal/left pleural chest tubes present and connected to wall suction, no air leaks present. Mediastinal tube with 120 mL serosanguineous drainage overnight, 300 mL in the last 24 hours. Left pleural chest tube with 90 mL serosanguineous drainage overnight, 150 mL in the last 24 hours. A/V epicardial pacemaker wires present, connected to generator, generator off. Right internal jugular cordis present. Last CVP 15. - Labs CBC & Chem 7: 11/28/24 04:00 11/28/24 04:00 Labs: Abnormal Lab Results - Last 24 Hours (Table) 11/27/24 11/27/24 11/27/24 Range/Units 18:36 20:14 22:16 RBC (4.40-5.60) 10*6/uL Hgb (13.0-17.0) g/dL Hct (39.6-50.0) % Immature Gran # (0.00-0.04) 10*3/uL Lymphocytes # (0.90-5.00) 10*3/uL Sodium (137-145) mmol/L Glucose (74-99) mg/dL POC Glucose (mg/dL) 187 H 186 H 111 H (70-110) mg/dL Total Protein (6.3-8.2) g/dL Albumin (3.5-5.0) g/dL 11/28/24 11/28/24 11/28/24 Range/Units 01:07 03:29 04:00 RBC 2.70 L (4.40-5.60) 10*6/uL Hgb 8.4 L (13.0-17.0) g/dL Hct 25.3 L (39.6-50.0) % Immature Gran # 0.05 H (0.00-0.04) 10*3/uL Lymphocytes # 0.69 L (0.90-5.00) 10*3/uL Sodium (137-145) mmol/L Glucose (74-99) mg/dL POC Glucose (mg/dL) 187 H 151 H (70-110) mg/dL Total Protein (6.3-8.2) g/dL Albumin (3.5-5.0) g/dL 11/28/24 11/28/24 11/28/24 Range/Units 04:00 08:16 09:31 RBC (4.40-5.60) 10*6/uL Hgb (13.0-17.0) g/dL Hct (39.6-50.0) % Immature Gran # (0.00-0.04) 10*3/uL Lymphocytes # (0.90-5.00) 10*3/uL Sodium 133 L (137-145) mmol/L Glucose 128 H (74-99) mg/dL POC Glucose (mg/dL) 140 H 191 H (70-110) mg/dL Total Protein 5.3 L (6.3-8.2) g/dL Albumin 3.1 L (3.5-5.0) g/dL 11/28/24 11/28/24 Range/Units 11:19 16:58 RBC (4.40-5.60) 10*6/uL Hgb (13.0-17.0) g/dL Hct (39.6-50.0) % Immature Gran # (0.00-0.04) 10*3/uL Lymphocytes # (0.90-5.00) 10*3/uL Sodium (137-145) mmol/L Glucose (74-99) mg/dL POC Glucose (mg/dL) 159 H 154 H (70-110) mg/dL Total Protein (6.3-8.2) g/dL Albumin (3.5-5.0) g/dL Assessment and Plan Plan: Aortic valve replacement/Inspiris pericardial bioprosthesis in addition to double vessel coronary bypass surgery with NUNEZ to LAD and reverse saphenous vein graft to PDA. Postop day # 2 Postthoracotomy, the patient was weaned off the mechanical ventilator and the patient was extubated and the patient is currently on room air oxygen, the chest x-ray showed no evidence of pneumothorax and the mediastinal chest tube has been removed. The patient continues to have a left pleural chest tube. Severe aortic stenosis, post aortic valve replacement Coronary artery disease post non-ST segment elevation myocardial infarction., Post two-vessel bypass surgery. Hypertension Hyperlipidemia Diabetes mellitus Obesity with a BMI of 30.9 History of prostate cancer status post radiation therapy Previous smoker quit smoking 20 years ago Alcohol use, 5 beers a week and weekend marijuana user Umbilical hernia Plan Patient is currently on room air oxygen Hemodynamically stable. [place]-Ankit catheter has been removed Continue oral amiodarone Continues incentive spirometer Cardiac rhythm is sinus and the patient is producing adequate amount of urine output Monitor chest tube output, output is minimal at this point. The mediastinal chest tube has been removed Chest x-ray daily basis Continue aspirin and Plavix Metoprolol 12.5 mg p.o. twice a day Cozaar 12.5 mg p.o. daily Lipitor 40 mg p.o. daily Amiodarone 400 mg p.o. twice a day IV fluids are currently at KVO Ambulate the patient Will keep the patient in the ICU and will continue to monitor. Time with Patient: Greater than 30
[2024-11-28 19:50] LABS: Glucose,Whole Blood 249 mg/dL (70-110)
[2024-11-29 06:12] LABS: Glucose,Whole Blood 164 mg/dL (70-110)
[2024-11-29 07:38] LABS: Basophils # (A) 0.02 10*3/uL (0.00-0.10); Basophils % (A) 0.2 %; Eosinophils # (A) 0.24 10*3/uL (0.04-0.35); Eosinophils % (A) 2.7 %; Lymphocytes # (A) 0.69 10*3/uL (0.90-5.00); Lymphocytes % (A) 7.9 %; MCH 31.3 pg (27.0-32.0); MCHC 33.3 g/dL (32.0-37.0); MCV 93.8 fL (80.0-97.0); Mean Platelet Volume 9.3 fL (9.5-12.2); Monocytes # (A) 0.59 10*3/uL (0.20-1.00); Monocytes % (A) 6.7 %; Neutrophils # (A) 7.15 10*3/uL (1.80-7.70); Neutrophils % (A) 81.5 %; Platelet Count 182 10*3/uL (140-440); RBC 2.88 10*6/uL (4.40-5.60); RDW 13.7 % (11.5-14.5); WBC 8.78 10*3/uL (4.50-10.00)
--- NOTE | 2024-11-29 07:38 | XR ---
EXAMINATION TYPE: XR chest 1V portable DATE OF EXAM: 11/29/2024 7:04 AM COMPARISON: 11/28/2024 CLINICAL INDICATION: Male, 69 years old with history of post open heart surgery, , FINDINGS: Median sternotomy wires with prosthetic aortic valve. Heart remains mildly enlarged. Diffuse intersti tial density remains. Patchy retrocardiac opacity remains. An obliquely oriented band of atelectasis noted at the right base. Left-sided chest tube in place. No appreciable pneumothorax. IMPRESSION: Similar residual mild pulmonary vascular congestion. Left chest tube in place. No appreciable pneumot horax. [facility], Workstation: [facility], 11/29/2024 7:35 AM
[2024-11-29 07:52] LABS: ALT 24 U/L (4-49); AST 31 U/L (17-59); African American GFR (CKD) >90 (>60 ml/min/1.73 sqM); Albumin 3.4 g/dL (3.5-5.0); Alkaline Phosphatase 62 U/L (38-126); Anion Gap 8 mmol/L; Blood Urea Nitrogen 23 mg/dL (9-20); Calcium 8.8 mg/dL (8.4-10.2); Carbon Dioxide 25 mmol/L (22-30); Chloride 100 mmol/L (98-107); Glucose 181 mg/dL (74-99); Non-African American GFR(CKD) 89 (>60 ml/min/1.73 sqM); Potassium 3.9 mmol/L (3.5-5.1); Sodium 133 mmol/L (137-145); Total Bilirubin 0.9 mg/dL (0.2-1.3)
--- NOTE | 2024-11-29 08:00 | P.PN ---
Subjective Progress Note Date: 11/29/24 Principal diagnosis: Coronary artery disease and severe aortic valve stenosis. Previous medical history of known aortic valve stenosis followed by Dr. Paredes with serial echocardiograms, coronary artery disease with previous PCI to his right coronary artery in 2007, hypertension, hyperlipidemia, obesity, diabetes mellitus type 2, prostate cancer status post 3 months of radiation therapy, previous tobacco dependence with cessation 20 years ago, etoh use, occasional marijuana, and family history of premature coronary artery disease with his father POD #3 Aortic valve replacement using a 25 mm Inspiris pericardial bioprosthesis, double vessel coronary bypass grafting using the in situ left intramammary artery to the left anterior descending artery, reverse saphenous vein graft from the aorta to the posterior descending artery, exclusion of the left atrial appendage using a 35mm AtriClip, intraoperative graft flow measurements using the [email or web address] system, endoscopic harvesting of the left greater saphenous vein, intraoperative transesophageal echocardiogram and epiaortic scanning. Postoperative acute blood loss anemia, expected given hemodilution and cardiopulmonary bypass. The patient was seen and examined sitting up in bed on the cardiac stepdown unit in no acute distress eating breakfast. States pain is controlled on current medication regimen, denies shortness of breath. Has been ambulatory without difficulty. Remains in sinus rhythm, hemodynamically stable. CXR, labs reviewed. Left chest tube remains. Discharge planning in progress, anticipate discharge to home with home care soon. No other new concerns. Objective - Vital Signs Vital signs: Vital Signs Temp 98.1 F 11/29/24 04:00 Pulse 85 11/29/24 04:00 Resp 16 11/29/24 04:00 BP 129/68 11/29/24 04:00 Pulse Ox 97 11/29/24 04:00 FiO2 50 11/26/24 17:19 Intake & Output 11/28/24 11/29/24 11/29/24 18:59 06:59 18:59 Intake Total 928.764 Output Total 1195 220 Balance -266.236 -220 Weight 117.9 kg Intake: IV 168 KVO 30 Pressure Bags 18 Sodium Chloride 0.9% 1, 120 000 ml @ 20 mls/hr IV . Q24H [facility] Rx#:[id number] Intake, IV Titration 20.764 Amount Insulin Regular 100 unit 20.764 In Sodium Chloride 0.9% 100 ml @ Per Protocol IV .Q0M [facility] Rx#:[id number] Oral 740 Output: Chest Tube Drainage 90 70 Left Pleural Chest Tube 60 70 Mediastinal Chest Tube x2 30 Urine 1105 150 Other: Voiding Method Urinal Urinal # Voids 1 # Bowel Movements 0 ABP, PAP, CO, CI - Last Documented Arterial Blood Pressure 99/66 Pulmonary Artery Pressure 28/17 Cardiac Output 6.5 Cardiac Index 2.7 - Exam CONSTITUTIONAL: Appears comfortable, cooperative, no acute distress RESPIRATORY: Lungs sounds diminished bilaterally. Respirations even, nonlabored. Currently on room air with oxygen saturation 97%. Able to achieve 1500 mL on incentive spirometry. Strong cough. CARDIOVASCULAR: S1, S2 present. Regular rate and rhythm, sinus rhythm on telemetry. Sternum stable. Palpable peripheral pulses bilaterally. Trace generalized edema present. No calf pain or tenderness noted. Heart hugger in place with patient demonstrating appropriate use. Antiembolism stockings, SCDs present. GASTROINTESTINAL: Abdomen soft, nontender, nondistended. Active bowel sounds present 4 quadrants. Tolerating diet. Positive flatus GENITOURINARY: Garcia discontinued yesterday, urine output 1255 mL in the last 24 hours INTEGUMENTARY: Skin is warm and dry with evidence of good perfusion. Anterior chest incision well approximated and covered with dry intact dressing. Left lower extremity EVH site well approximated without redness or drainage. NEUROLOGIC: Cranial nerves II through XII intact MUSKULOSKELETAL: Able to move all extremities, strength equal bilaterally, gait normal PSYCHIATRIC: Alert and oriented to person place and time, appropriate affect, intact judgment and insight INVASIVE LINES AND TUBES: Left pleural chest tube present and connected to wall suction, no air leaks present, 70 mL serosanguineous drainage overnight, 100 mL in the last 24 hours. A/V epicardial pacemaker wires present, grounded - Allied health notes Allied health notes reviewed: nursing - Labs CBC & Chem 7: 11/29/24 07:26 11/29/24 07:26 Labs: Abnormal Lab Results - Last 24 Hours (Table) 11/28/24 11/28/24 11/28/24 Range/Units 08:16 09:31 11:19 RBC (4.40-5.60) 10*6/uL Hgb (13.0-17.0) g/dL Hct (39.6-50.0) % MPV (9.5-12.2) fL Immature Gran # (0.00-0.04) 10*3/uL Lymphocytes # (0.90-5.00) 10*3/uL Sodium (137-145) mmol/L BUN (9-20) mg/dL Glucose (74-99) mg/dL POC Glucose (mg/dL) 140 H 191 H 159 H (70-110) mg/dL Total Protein (6.3-8.2) g/dL Albumin (3.5-5.0) g/dL 11/28/24 11/28/24 11/29/24 Range/Units 16:58 19:48 06:10 RBC (4.40-5.60) 10*6/uL Hgb (13.0-17.0) g/dL Hct (39.6-50.0) % MPV (9.5-12.2) fL Immature Gran # (0.00-0.04) 10*3/uL Lymphocytes # (0.90-5.00) 10*3/uL Sodium (137-145) mmol/L BUN (9-20) mg/dL Glucose (74-99) mg/dL POC Glucose (mg/dL) 154 H 249 H 164 H (70-110) mg/dL Total Protein (6.3-8.2) g/dL Albumin (3.5-5.0) g/dL 11/29/24 11/29/24 Range/Units 07:26 07:26 RBC 2.88 L (4.40-5.60) 10*6/uL Hgb 9.0 L (13.0-17.0) g/dL Hct 27.0 L (39.6-50.0) % MPV 9.3 L (9.5-12.2) fL Immature Gran # 0.09 H (0.00-0.04) 10*3/uL Lymphocytes # 0.69 L (0.90-5.00) 10*3/uL Sodium 133 L (137-145) mmol/L BUN 23 H (9-20) mg/dL Glucose 181 H (74-99) mg/dL POC Glucose (mg/dL) (70-110) mg/dL Total Protein 6.0 L (6.3-8.2) g/dL Albumin 3.4 L (3.5-5.0) g/dL - Imaging and Cardiology Chest x-ray: report reviewed, image reviewed Assessment and Plan Assessment: Coronary artery disease, non-STEMI this admission, status post two-vessel CABG Severe aortic valve stenosis, status post aortic valve replacement Postoperative acute blood loss anemia, expected given hemodilution and cardiopulmonary bypass. History of known aortic valve stenosis followed by Dr. Paredes with serial echocardiograms Coronary artery disease with previous PCI to his right coronary artery in 2007 Hypertension Hyperlipidemia Obesity Diabetes mellitus type 2 preoperative hemoglobin A1c 6.3% Prostate cancer status post 3 months of radiation therapy Previous tobacco dependence with cessation 20 years ago, preoperative FEV1 73% of predicted Etoh use Occasional marijuana Family history of premature coronary artery disease Plan: Continue to maximize medical therapy with aspirin, statin, Plavix, and beta- aaron. Will increase metoprolol tartrate therapy as tolerated, increased to 25 mg twice daily yesterday although patient did not get yesterday evening's dose due to blood pressure Continue Cozaar for afterload reduction with hold parameters, patient did not receive yesterday Continue amiodarone for A-fib prophylaxis, patient has had no atrial fibrillation up to this point Will monitor daily labs and chest x-rays, electrolyte replacement per protocol Encourage incentive spirometry use 10 times every hour while awake. [facility] hodilators per pulmonology. Increase activity, ambulate as tolerated. PT/OT/cardiac rehab consulted. GI/DVT prophylaxis. Pain control per current medication regimen Insulin management per internal medicine May bladder scan and straight cath for greater than 300 mL residual, continue Flomax Will discontinue left pleural chest tube Likely will discontinue epicardial pacemaker wires today, patient to remain at bedrest for 1 hour post wire removal Continue to monitor and record strict accurate intake and output Daily weights Discharge planning in progress, anticipate discharge to home with home care in the next 24 to 48 hours More recommendations to follow based on patient's clinical course
[2024-11-29] MEDS: POTASSIUM CHLORIDE ER 20 MEQ TAB.ER PO STA (08:23)
[2024-11-29] MEDS: FUROSEMIDE 10 MG/ML 2 ML VIAL IV STA (10:13)
[2024-11-29] MEDS: metFORMIN 500 MG TAB PO SCH (10:13)
[2024-11-29] MEDS: DAPAGLIFLOZIN PROPANEDIOL 5 MG TABLET PO SCH (10:13)
[2024-11-29 11:30] LABS: Glucose,Whole Blood 148 mg/dL (70-110)
--- NOTE | 2024-11-29 12:00 | P.PN ---
Subjective HISTORY OF PRESENT ILLNESS: Patient examined this morning. He is sitting up in the chair. Patient currently denies chest pain or shortness of breath. He does report pain at the site of his chest tube. Telemetry reviewed revealing sinus mechanism. Vital signs are stable. PHYSICAL EXAM: VITAL SIGNS: Reviewed. GENERAL: Well-developed in no acute distress. NECK: Supple. No JVD or thyromegaly LUNGS: Respirations even and unlabored. Lungs essentially clear to auscultation bilaterally. HEART: Regular rate and rhythm. S1 and S2 heard. EXTREMITIES: Normal range of motion. No clubbing or cyanosis. Peripheral pulses intact. No lower extremity edema ASSESSMENT: Non-STEMI Coronary artery disease, status post two-vessel CABG Severe aortic stenosis, status post aortic valve replacement History of CAD with previous PCI Hypertension Hyperlipidemia Diabetes Former nicotine dependence Occasional marijuana use PLAN: Continue postoperative management per CT surgery Increase activity as tolerated Encourage use of incentive spirometer Continue current cardiac medications Further recommendations pending patient course Nurse practitioner note has been reviewed by physician. Signing provider agrees with the documented findings, assessment, and plan of care documented by VERTICAL ROLL OPERATOR as a scribe. Objective - Vital Signs Vital signs: Vital Signs Temp 98.0 F 11/29/24 08:22 Pulse 84 11/29/24 09:29 Resp 16 11/29/24 08:22 BP 164/51 11/29/24 08:22 Pulse Ox 97 11/29/24 09:19 FiO2 50 11/26/24 17:19 Intake & Output 11/28/24 11/29/24 11/29/24 18:59 06:59 18:59 Intake Total 928.764 360 Output Total 1195 220 800 Balance -266.236 -220 -440 Weight 117.9 kg Intake: IV 168 KVO 30 Pressure Bags 18 Sodium Chloride 0.9% 1, 120 000 ml @ 20 mls/hr IV . Q24H [facility] Rx#:[id number] Intake, IV Titration 20.764 Amount Insulin Regular 100 unit 20.764 In Sodium Chloride 0.9% 100 ml @ Per Protocol IV .Q0M [facility] Rx#:[id number] Oral 740 360 Output: Chest Tube Drainage 90 70 Left Pleural Chest Tube 60 70 Mediastinal Chest Tube x2 30 Urine 1105 150 800 Other: Voiding Method Urinal Urinal # Voids 1 1 # Bowel Movements 0 1 ABP, PAP, CO, CI - Last Documented Arterial Blood Pressure 99/66 Pulmonary Artery Pressure 28/17 Cardiac Output 6.5 Cardiac Index 2.7 - Labs CBC & Chem 7: 11/29/24 07:26 11/29/24 07:26 Labs: Abnormal Lab Results - Last 24 Hours (Table) 11/28/24 11/28/24 11/29/24 Range/Units 16:58 19:48 06:10 RBC (4.40-5.60) 10*6/uL Hgb (13.0-17.0) g/dL Hct (39.6-50.0) % MPV (9.5-12.2) fL Immature Gran # (0.00-0.04) 10*3/uL Lymphocytes # (0.90-5.00) 10*3/uL Sodium (137-145) mmol/L BUN (9-20) mg/dL Glucose (74-99) mg/dL POC Glucose (mg/dL) 154 H 249 H 164 H (70-110) mg/dL Total Protein (6.3-8.2) g/dL Albumin (3.5-5.0) g/dL 11/29/24 11/29/24 11/29/24 Range/Units 07:26 07:26 11:28 RBC 2.88 L (4.40-5.60) 10*6/uL Hgb 9.0 L (13.0-17.0) g/dL Hct 27.0 L (39.6-50.0) % MPV 9.3 L (9.5-12.2) fL Immature Gran # 0.09 H (0.00-0.04) 10*3/uL Lymphocytes # 0.69 L (0.90-5.00) 10*3/uL Sodium 133 L (137-145) mmol/L BUN 23 H (9-20) mg/dL Glucose 181 H (74-99) mg/dL POC Glucose (mg/dL) 148 H (70-110) mg/dL Total Protein 6.0 L (6.3-8.2) g/dL Albumin 3.4 L (3.5-5.0) g/dL
--- NOTE | 2024-11-29 12:03 | P.PN ---
Subjective Progress Note Date: 11/29/24 H&P Date: 11/21/24 Chief Complaint: Chest pain This is a 69-year-old gentleman with past medical history significant for moderate to severe aortic valve stenosis-follows with Dr. DOROTEO Paredes,CAD with PCI of RCA, hypertension, hyperlipidemia , obesity ,diabetes mellitus, prostate cancer-status post radiation treatment, former nicotine dependence, marijuana u se, alcohol use-5 beers per week, and multiple other medical issues presented to the ER with progressive chest pain, chest pressure and shortness of breath. Reports he has been having intermittent episodes of chest pain for more a few weeks. Previous episodes spontaneously relieved with rest. Yesterday he presented to the ER as chest pain continued to recur throughout the day. EKG reported sinus bradycardia with first-degree AV block, troponins 0.409 1.8 3.37. proBNP 150. D-dimer 0.41. Afebrile, normal WBC, hemoglobin 13.3, platelets 190, sodium 136, potassium 3.6, bicarb 21, BUN 18, creatinine 0.86 glucose 121, hemoglobin A1c 6.3., Magnesium 1.9, AST 156, ALT 52. Hepatitis serology nonreactive. UA reported 4+ glucose, 1+ ketones trace blood negative nitrates negative leukocytes rare bacteria. chest x-ray reported small amount linear scarring atelectasis in the left lung base .evaluated by cardiology, underwent cardiac catheterization. Cardiac catheterization reported total occlusion of RCA with good collaterals from the left, LAD mid lesion of 70%, circumflex nondominant with no significant disease. echo pending. CTS consulted for further evaluation/ recommendation. 11/22/2024 Echo reported normal LV function, mild mitral regurgitation, severe aortic stenosis .evaluated by CTS regarding CABG and AVR, surgery date pending. Patient continues to have ongoing midsternal chest pressure/chest burning. Maintained on heparin drip. Continues on IV fluid hydration, statin, beta- aaron, aspirin, Farxiga, losartan with Nitropaste added to med regimen. Blood sugars controlled. 11/23/2024 scheduled for CABG/AVR on 11/27/2019. Maintained on heparin drip. Telemetry sinus rhythm Nitropaste initiated yesterday , reports chest pressure/burning during the night. Soft blood pressures in the grab setter hours, Nitropaste has been discontinued. currently denies chest pain, palpitations or shortness of breath. Blood sugars controlled. 11/27/2024 status post CABG x 2 NUNEZ to the LAD and reverse saphenous vein graft to PDA with bioprosthetic AVR, postop day #1. Extubated last night, maintaining O2 sats in the high 90s on 2 L nasal cannula. Telemetry sinus rhythm currently maintained on insulin and amiodarone drips... nitroglycerin drip weaned off. 11/28/2024 sitting up in recliner, incentive spirometer 1500, maintaining O2 sats in the 90s on room air. Chest x-ray reporting mild pulmonary vascular congestion and patchy retrocardiac atelectasis remains.telemetry- sinus rhythm .pain controlled. Ambulated in hallway this morning, tolerated exertion well. Hemoglobin 8.4. Currently on insulin drip, blood sugars controlled. 11/29/2024 no overnight events, pain controlled. Denies chest pain, palpitations or shortness of breath. Chest x-ray reporting similar residual mild pulmonary vascular congestion, left chest tube in place. Obliquely oriented band of atelectasis at right base. maintaining O2 sats in the high 90s on room air. Hemoglobin 9, platelets 182, bicarb 25, BUN 23, creatinine 0.86.Hypertensive, med adjustments noted as per CTS. telemetry sinus rhythm. ambulatory, tolerating exertion well. Blood sugars in the 180s earlier this morning, only down to 148. maintained on Flomax, postvoid residual of 150 per recent bladder scan. Objective - Vital Signs Vital signs: Vital Signs Temp 98.0 F 11/29/24 08:22 Pulse 84 11/29/24 09:29 Resp 16 11/29/24 08:22 BP 164/51 11/29/24 08:22 Pulse Ox 97 11/29/24 09:19 FiO2 50 11/26/24 17:19 Intake & Output 11/28/24 11/29/24 11/29/24 18:59 06:59 18:59 Intake Total 928.764 360 Output Total 1195 220 400 Balance -266.236 -220 -40 Weight 117.9 kg Intake: IV 168 KVO 30 Pressure Bags 18 Sodium Chloride 0.9% 1, 120 000 ml @ 20 mls/hr IV . Q24H [facility] Rx#:[id number] Intake, IV Titration 20.764 Amount Insulin Regular 100 unit 20.764 In Sodium Chloride 0.9% 100 ml @ Per Protocol IV .Q0M [facility] Rx#:[id number] Oral 740 360 Output: Chest Tube Drainage 90 70 Left Pleural Chest Tube 60 70 Mediastinal Chest Tube x2 30 Urine 1105 150 400 Other: Voiding Method Urinal Urinal # Voids 1 # Bowel Movements 0 1 ABP, PAP, CO, CI - Last Documented Arterial Blood Pressure 99/66 Pulmonary Artery Pressure 28/17 Cardiac Output 6.5 Cardiac Index 2.7 - Exam PHYSICAL EXAM: VITAL SIGNS: Reviewed GENERAL: Sitting up in chair, alert and oriented x 3,NAD HEENT: Atraumatic, normocephalic conjunctivae normal. eyes normal.mmm. NECK: Supple, no JVD. CARDIOVASCULAR: S1, S2 regular.no murmur. RESPIRATION: Unlabored, equal air entry,CTA with bilateral bases diminished. ABDOMEN: Soft, nondistended, nontender. Positive bowel sounds. LEGS: Trace generalized edema. no calf tenderness, peripheral pulses intact. NERVOUS SYSTEM: Cranial N 2-12 grossly normal. No focal deficits. Strength and sensation grossly intact. Skin: Warm and dry, no rash - Labs CBC & Chem 7: 11/29/24 07:26 11/29/24 07:26 Labs: Abnormal Lab Results - Last 24 Hours (Table) 11/28/24 11/28/24 11/29/24 Range/Units 16:58 19:48 06:10 RBC (4.40-5.60) 10*6/uL Hgb (13.0-17.0) g/dL Hct (39.6-50.0) % MPV (9.5-12.2) fL Immature Gran # (0.00-0.04) 10*3/uL Lymphocytes # (0.90-5.00) 10*3/uL Sodium (137-145) mmol/L BUN (9-20) mg/dL Glucose (74-99) mg/dL POC Glucose (mg/dL) 154 H 249 H 164 H (70-110) mg/dL Total Protein (6.3-8.2) g/dL Albumin (3.5-5.0) g/dL 11/29/24 11/29/24 11/29/24 Range/Units 07:26 07:26 11:28 RBC 2.88 L (4.40-5.60) 10*6/uL Hgb 9.0 L (13.0-17.0) g/dL Hct 27.0 L (39.6-50.0) % MPV 9.3 L (9.5-12.2) fL Immature Gran # 0.09 H (0.00-0.04) 10*3/uL Lymphocytes # 0.69 L (0.90-5.00) 10*3/uL Sodium 133 L (137-145) mmol/L BUN 23 H (9-20) mg/dL Glucose 181 H (74-99) mg/dL POC Glucose (mg/dL) 148 H (70-110) mg/dL Total Protein 6.0 L (6.3-8.2) g/dL Albumin 3.4 L (3.5-5.0) g/dL Assessment and Plan Assessment: Acute NSTEMI with multivessel disease, s/p CABG X2 and bioprosthetic AVR. CAD with prior PCI of RCA Severe aortic stenosis Hypertension Hyperlipidemia Diabetes mellitus, hemoglobin A1c 6.3 History of prostate cancer with radiation tx. Morbid obesity, BMI 31 Marijuana use Alcohol use Plan: Continue on current medication regimen ,monitoring and symptomatic treatment. Maintain aggressive pulmonary toileting with incentive spirometer reinforced. Increase ambulation as tolerated. tight glycemic control, transitioned to NovoLog sliding scale, Premeal and Lantus insulin; Lantus dose increased with parameters placed on Premeal insulin. Antihypertensive medication regimen adjusted, close monitoring of BPs. Discharge planning in progress as per CTS in the next 24 to 48 hours. Follow-up with primary, Dr. Sevilla in 1 week. The impression and plan of care has been dictated as directed. : I performed a history and examination of this patient, discussed the same with the dictator. I agree with the dictator's note ,documented as a scribe. Any additional findings or plans will be noted.
[2024-11-29] MEDS: INSULIN GLARGINE (LANTUS) 100 UNIT/ML SYR SQ ONE (14:26)
[2024-11-29 16:48] LABS: Glucose,Whole Blood 122 mg/dL (70-110)
--- NOTE | 2024-11-29 18:04 | P.PN ---
Subjective Progress Note Date: 11/29/24 On 11/26/2024, the patient is being seen immediately after arriving to the intensive care unit. The patient underwent aortic valve replacement/tissue valve and double vessel bypass surgery with NUNEZ to LAD and reverse saphenous vein graft from aorta to PDA. The patient is currently postop day #0. [place] on mechanical ventilator. The patient is currently sedated on propofol and the patient is currently on assist-control mode of mechanical ventilation at rate of 14, tidal volume of 600, FiO2 of 60% with a PEEP of 8. Blood gas showed a pH of 7.4 with a PCO2 of 37 and PO2 of 217. Chest x-ray done postop shows adequate expansion of both lungs. Small left pleural effusion. Atelectasis changes left lung base. Lines and tubes are all in good location. No other acute abnormalities have been noted. The patient has a mediastinal and left pleural chest tube output is minimal and there is no evidence of any air leak. Hemodynamically, the patient's cardiac output is at 7.9 with an index of 3.1. SVR is at 723. PA pressures are 27/18. The patient is currently in normal sinus rhythm. Amiodarone is running at 1 mg/min and the patient is also on nitroglycerin drip at 5 mg/min. The WBC count is at 4.5, hemoglobin is at 8.8 and a platelet count of 103. The sodium is at 140, potassium is at 4, BUN is at 8 with a creatinine of 0.6. LFTs are within normal limits. Urine output is adequate. No other significant events postop. On 11/27/2024, the patient is being seen for a follow-up. The patient is awake and alert and sitting up in a chair and the patient is calm and comfortable. D enies having any significant respiratory distress. The patient is postop day #1 following aortic valve placement and two-vessel bypass surgery. The patient is currently on 3 Suboxone by nasal cannula. Incentive spirometer the patient pulling approximately 1000 cc on his I-S. Cardiac rhythm is sinus. [place]-Ankit catheter has been removed. Earlier, the cardiac output was at 6.7 with a index of 2.7 and the patient is off nitroglycerin drip. He remains on amiodarone drip at 0.5 mg/min. Chest tubes are in place and the chest x-ray shows no evidence of any pneumothorax. Output is serosanguineous and the mediastinal chest tube has drained around 320 cc since surgery and the left pleural chest tube has drained around 550 cc since surgery. The patient is awake and alert and communicating. Denies having any other specific complaints. The white cell count is at 7.6 with a hemoglobin 9.5 and a platelet count of 147. Electrolytes are all within normal limits. BUN is at 10 with a creatinine of 0.7. Blood sugars at 146 and the patient remains on insulin drip running at 5 units an hour. On today's evaluation of 11/28/2024, the patient is being seen for a follow-up. The patient is doing extremely well. The patient is currently on room air oxygen. The mediastinal chest tube has been removed and the patient continues to have a left pleural chest tube. This will be kept for another 24 hours. Meanwhile, the patient's cardiac rhythm remains sinus. The patient is sitting up in a chair and the patient is calm and comfortable. No significant respiratory distress. [place]-Ankit catheter has been removed. The patient is currently on a combination of aspirin and Plavix. The patient is also on metoprolol 25 mg p.o. twice daily. Remains on insulin drip which is running at 7 units an hour. Repeat chest x-ray from today shows no evidence of pneumothorax. Some postsurgical atelectatic change in lung base bilaterally. No other significant events otherwise. Awake alert and communicating. The patient is also ambulating. On 11/29/2024, the patient is currently on the telemetry unit. The patient is doing extremely well. . The patient is currently on room air oxygen. Hemo dynamically stable. Denies having any specific complaints. Left-sided chest tube is still in place and a total amount of output has been in the order of 100 cc over the past 24 hours. APAP cardiac pacemaker wires are grounded. The patient otherwise is doing well. His cardiac rhythm is sinus. He is on beta- blockers and the patient is currently on metoprolol 25 mg p.o. twice a day. He is also on Cozaar and amiodarone for A-fib prophylaxis. The patient was also started on Flomax for some urinary retention. The left-sided chest tube is to be discontinued today. The white cell count is 8.7, hemoglobin is 9 and the platelet count of 182. Electrolytes are all normal, BUN 23 and creatinine 0.8. Follow-up chest x-ray from today shows some atelectatic changes in the right lung base and possibly some in the left lung base and mild pulm vascular congestion is also noted. The patient denies having any other specific complaints. Tolerating diet. No nausea. No emesis. No focal neurological deficits. Objective - Vital Signs Vital signs: Vital Signs Temp 98.0 F 11/29/24 08:22 Pulse 84 11/29/24 09:29 Resp 16 11/29/24 08:22 BP 164/51 11/29/24 08:22 Pulse Ox 97 11/29/24 09:19 FiO2 50 11/26/24 17:19 Intake & Output 11/28/24 11/29/24 11/29/24 18:59 06:59 18:59 Intake Total 928.764 360 Output Total 1195 220 400 Balance -266.236 -220 -40 Weight 117.9 kg Intake: IV 168 KVO 30 Pressure Bags 18 Sodium Chloride 0.9% 1, 120 000 ml @ 20 mls/hr IV . Q24H [facility] Rx#:[id number] Intake, IV Titration 20.764 Amount Insulin Regular 100 unit 20.764 In Sodium Chloride 0.9% 100 ml @ Per Protocol IV .Q0M [facility] Rx#:[id number] Oral 740 360 Output: Chest Tube Drainage 90 70 Left Pleural Chest Tube 60 70 Mediastinal Chest Tube x2 30 Urine 1105 150 400 Other: Voiding Method Urinal Urinal # Voids 1 # Bowel Movements 0 1 ABP, PAP, CO, CI - Last Documented Arterial Blood Pressure 99/66 Pulmonary Artery Pressure 28/17 Cardiac Output 6.5 Cardiac Index 2.7 - Exam CONSTITUTIONAL: Appears comfortable, cooperative, no acute distress RESPIRATORY: Lungs sounds diminished bilaterally. Respirations even, nonlabored. Currently on room air with oxygen saturation 97%. Able to achieve 1500 mL on incentive spirometry. Strong cough. CARDIOVASCULAR: S1, S2 present. Regular rate and rhythm, sinus rhythm on telemetry. Sternum stable. Palpable peripheral pulses bilaterally. Trace generalized edema present. No calf pain or tenderness noted. Heart hugger in place with patient demonstrating appropriate use. Antiembolism stockings, SCDs present. GASTROINTESTINAL: Abdomen soft, nontender, nondistended. Active bowel sounds present 4 quadrants. Tolerating diet. Positive flatus GENITOURINARY: Garcia discontinued yesterday, urine output 1255 mL in the last 24 hours INTEGUMENTARY: Skin is warm and dry with evidence of good perfusion. Anterior chest incision well approximated and covered with dry intact dressing. Left lower extremity EVH site well approximated without redness or drainage. NEUROLOGIC: Cranial nerves II through XII intact MUSKULOSKELETAL: Able to move all extremities, strength equal bilaterally, gait normal PSYCHIATRIC: Alert and oriented to person place and time, appropriate affect, intact judgment and insight INVASIVE LINES AND TUBES: Left pleural chest tube present and connected to wall suction, no air leaks present, 70 mL serosanguineous drainage overnight, 100 mL in the last 24 hours. A/V epicardial pacemaker wires present, grounded - Labs CBC & Chem 7: 11/29/24 07:11/29/24 07: Labs: Abnormal Lab Results - Last 24 Hours (Table) 11/28/24 11/28/24 11/29/24 Range/Units 16:58 19:48 06:10 RBC (4.40-5.60) 10*6/uL Hgb (13.0-17.0) g/dL Hct (39.6-50.0) % MPV (9.5-12.2) fL Immature Gran # (0.00-0.04) 10*3/uL Lymphocytes # (0.90-5.00) 10*3/uL Sodium (137-145) mmol/L BUN (9-20) mg/dL Glucose (74-99) mg/dL POC Glucose (mg/dL) 154 H 249 H 164 H (70-110) mg/dL Total Protein (6.3-8.2) g/dL Albumin (3.5-5.0) g/dL 11/29/24 11/29/24 11/29/24 Range/Units 07:26 07:26 11:28 RBC 2.88 L (4.40-5.60) 10*6/uL Hgb 9.0 L (13.0-17.0) g/dL Hct 27.0 L (39.6-50.0) % MPV 9.3 L (9.5-12.2) fL Immature Gran # 0.09 H (0.00-0.04) 10*3/uL Lymphocytes # 0.69 L (0.90-5.00) 10*3/uL Sodium 133 L (137-145) mmol/L BUN 23 H (9-20) mg/dL Glucose 181 H (74-99) mg/dL POC Glucose (mg/dL) 148 H (70-110) mg/dL Total Protein 6.0 L (6.3-8.2) g/dL Albumin 3.4 L (3.5-5.0) g/dL Assessment and Plan Plan: Aortic valve replacement/Inspiris pericardial bioprosthesis in addition to double vessel coronary bypass surgery with NUNEZ to LAD and reverse saphenous vein graft to PDA. Postop day # 3 Postthoracotomy, the patient was weaned off the mechanical ventilator and the patient was extubated and the patient is currently on room air oxygen, the chest x-ray showed no evidence of pneumothorax and the left lower chest tube is to be removed today. Continues to have some atelectatic changes lung bases bilaterally Severe aortic stenosis, post aortic valve replacement Coronary artery disease post non-ST segment elevation myocardial infarction., Post two-vessel bypass surgery. Hypertension Hyperlipidemia Diabetes mellitus Obesity with a BMI of 30.9 History of prostate cancer status post radiation therapy Previous smoker quit smoking 20 years ago Alcohol use, 5 beers a week and weekend marijuana user Umbilical hernia Plan Patient is currently on room air oxygen Hemodynamically stable. Continue oral amiodarone Continues incentive spirometer Cardiac rhythm is sinus and the patient is producing adequate amount of urine output Left-sided chest tube likely to be removed today Chest x-ray daily basis Continue aspirin and Plavix Metoprolol 25 mg p.o. twice a day Cozaar 12.5 mg p.o. daily Lipitor 40 mg p.o. daily Lantus insulin 15 units daily along with NovoLog 4 units with meals and sliding scale coverage. Flomax was added for urinary retention Amiodarone 400 mg p.o. twice a day IV fluids are currently at [facility] Ambulate the patient Time with Patient: Greater than 30
[2024-11-29 20:37] LABS: Glucose,Whole Blood 139 mg/dL (70-110)
[2024-11-30 04:54] VITALS: TEMP 97.9
[2024-11-30 06:03] LABS: Glucose,Whole Blood 118 mg/dL (70-110)
[2024-11-30] MEDS: INSULIN GLARGINE (LANTUS) 100 UNIT/ML SYR SQ SCH (06:46)
[2024-11-30 08:17] VITALS: RESP 16
[2024-11-30] MEDS: ACETAMINOPHEN TAB 500 MG TAB PO PRN (08:18)
--- NOTE | 2024-11-30 08:42 | P.PN ---
Subjective Progress Note Date: 11/30/24 Principal diagnosis: Coronary artery disease and severe aortic valve stenosis. Previous medical history of known aortic valve stenosis followed by Dr. Paredes with serial echocardiograms, coronary artery disease with previous PCI to his right coronary artery in 2007, hypertension, hyperlipidemia, obesity, diabetes mellitus type 2, prostate cancer status post 3 months of radiation therapy, previous tobacco dependence with cessation 20 years ago, etoh use, occasional marijuana, and family history of premature coronary artery disease with his father POD #4 Aortic valve replacement using a 25 mm Inspiris pericardial bioprosthesis, double vessel coronary bypass grafting using the in situ left intramammary artery to the left anterior descending artery, reverse saphenous vein graft from the aorta to the posterior descending artery, exclusion of the left atrial appendage using a 35mm AtriClip, intraoperative graft flow measurements using the [employer] system, endoscopic harvesting of the left greater saphenous vein, intraoperative transesophageal echocardiogram and epiaortic scanning. Postoperative acute blood loss anemia, expected given hemodilution and cardiopulmonary bypass. The patient was seen and examined sitting up in recliner on the cardiac stepdown unit in no acute distress. States pain is controlled on current medication regimen, denies shortness of breath. Has been ambulatory without difficulty. Remains in sinus rhythm, hemodynamically stable. CXR reviewed, labs still pending. Discharge planning in progress, anticipate discharge to home with home care this afternoon. No other new concerns. Objective - Vital Signs Vital signs: Vital Signs Temp 97.9 F 11/30/24 04:53 Pulse 89 11/30/24 08:16 Resp 16 11/30/24 08:16 BP 128/70 11/30/24 08:16 Pulse Ox 97 11/30/24 08:16 FiO2 50 11/26/24 17:19 Intake & Output 11/29/24 11/30/24 11/30/24 18:59 06:59 18:59 Intake Total 1030 540 240 Output Total 800 Balance 230 540 240 Weight 116.5 kg Intake: IV 10 Invasive Line 6 10 Oral 1020 540 240 Output: Chest Tube Drainage 0 Left Pleural Chest Tube 0 Urine 800 Other: Voiding Method Urinal Urinal # Voids 1 2 # Bowel Movements 1 1 ABP, PAP, CO, CI - Last Documented Arterial Blood Pressure 99/66 Pulmonary Artery Pressure 28/17 Cardiac Output 6.5 Cardiac Index 2.7 - Exam CONSTITUTIONAL: Appears comfortable, cooperative, no acute distress RESPIRATORY: Lungs sounds diminished bilaterally. Respirations even, non labored. Currently on room air with oxygen saturation 96%. Able to achieve 2000 mL on incentive spirometry. Strong cough. CARDIOVASCULAR: S1, S2 present. Regular rate and rhythm, sinus rhythm on telemetry. Sternum stable. Palpable peripheral pulses bilaterally. No edema present. No calf pain or tenderness noted. Heart hugger in place with patient demonstrating appropriate use. Antiembolism stockings, SCDs present. GASTROINTESTINAL: Abdomen soft, nontender, nondistended. Active bowel sounds present 4 quadrants. Tolerating diet. Positive bowel movement 11/29 GENITOURINARY: Continues to void INTEGUMENTARY: Skin is warm and dry with evidence of good perfusion. Anterior chest incision well approximated. Left lower extremity EVH site well approximated without redness or drainage. NEUROLOGIC: Cranial nerves II through XII intact MUSKULOSKELETAL: Able to move all extremities, strength equal bilaterally, gait normal PSYCHIATRIC: Alert and oriented to person place and time, appropriate affect, intact judgment and insight - Allied health notes Allied health notes reviewed: nursing - Labs CBC & Chem 7: 11/29/24 07:26 11/29/24 07:26 Labs: Abnormal Lab Results - Last 24 Hours (Table) 11/29/24 11/29/24 11/29/24 Range/Units 11:28 16:46 20:36 POC Glucose (mg/dL) 148 H 122 H 139 H (70-110) mg/dL 11/30/24 Range/Units 06:02 POC Glucose (mg/dL) 118 H (70-110) mg/dL - Imaging and Cardiology Chest x-ray: image reviewed Assessment and Plan Assessment: Coronary artery disease, non-STEMI this admission, status post two-vessel CABG Severe aortic valve stenosis, status post aortic valve replacement Postoperative acute blood loss anemia, expected given hemodilution and cardiopulmonary bypass. History of known aortic valve stenosis followed by Dr. Paredes with serial echocardiograms Coronary artery disease with previous PCI to his right coronary artery in 2007 Hypertension Hyperlipidemia Obesity Diabetes mellitus type 2 preoperative hemoglobin A1c 6.3% Prostate cancer status post 3 months of radiation therapy Previous tobacco dependence with cessation 20 years ago, preoperative FEV1 73% of predicted Etoh use Occasional marijuana Family history of premature coronary artery disease Plan: Continue to maximize medical therapy with aspirin, statin, Plavix, and beta- aaron. Continue Cozaar for afterload reduction, patient did not receive yesterday Continue amiodarone for A-fib prophylaxis, will taper, patient has had no atrial fibrillation up to this point Will monitor daily labs and chest x-rays, electrolyte replacement per protocol Encourage incentive spirometry use 10 times every hour while awake. [facility] hodilators per pulmonology. Increase activity, ambulate as tolerated. PT/OT/cardiac rehab consulted. GI/DVT prophylaxis. Pain control per current medication regimen Insulin management per internal medicine May bladder scan and straight cath for greater than 300 mL residual, continue Flomax Continue to monitor and record strict accurate intake and output Daily weights Shower daily starting today Discharge planning in progress, anticipate discharge to home with home care this afternoon More recommendations to follow based on patient's clinical course
--- NOTE | 2024-11-30 09:13 | XR ---
EXAMINATION TYPE: XR chest 2V DATE OF EXAM: 11/30/2024 6:21 AM COMPARISON: 11/29/2024 CLINICAL INDICATION: Male, 69 years old with history of post cardiac surgery, , TECHNIQUE: PA and lateral views FINDINGS: Median sternotomy wires are present with post-CABG clips. Heart mildly enlarged. Mild interstitial pr ominence remains. Obliquely oriented band of atelectasis right lower lung redemonstrated. Improving a eration left lower lung with some residual patchy changes. Interval removal of the left-sided chest t ube. No appreciable pneumothorax. Median sternotomy wires we prosthetic aortic valve. IMPRESSION: 1. Removal of the left-sided chest tube. No appreciable pneumothorax. 2. Improving aeration at the left base with residual patchy atelectasis. Oblique band of atelectasis remains at the right base. 3. Additional residual mild pulmonary vascular congestion, also improving. [facility], , 11/30/2024 9:11 AM
[2024-11-30 10:31] LABS: HCT 27.2 % (39.6-50.0); HGB 9.2 g/dL (13.0-17.0); MCH 31.4 pg (27.0-32.0); MCHC 33.8 g/dL (32.0-37.0); MCV 92.8 fL (80.0-97.0); Mean Platelet Volume 9.5 fL (9.5-12.2); Platelet Count 252 10*3/uL (140-440); RBC 2.93 10*6/uL (4.40-5.60); RDW 13.7 % (11.5-14.5); WBC 7.25 10*3/uL (4.50-10.00)
[2024-11-30 10:43] LABS: African American GFR (CKD) >90 (>60 ml/min/1.73 sqM); Anion Gap 10 mmol/L; Blood Urea Nitrogen 23 mg/dL (9-20); Calcium 9.1 mg/dL (8.4-10.2); Carbon Dioxide 23 mmol/L (22-30); Chloride 99 mmol/L (98-107); Glucose 105 mg/dL (74-99); Magnesium 1.9 mg/dL (1.6-2.3); Non-African American GFR(CKD) 79 (>60 ml/min/1.73 sqM); Potassium 4.1 mmol/L (3.5-5.1); Sodium 132 mmol/L (137-145)
--- NOTE | 2024-11-30 11:25 | P.PN ---
Subjective HISTORY OF PRESENT ILLNESS: Patient examined this morning. He is sitting up in the chair. Patient currently denies chest pain or shortness of breath. He does report pain at the site of his chest tube. Telemetry reviewed revealing sinus mechanism. Vital signs are stable. 11/30/2024 Patient examined this morning. He is sitting up in the chair. Patient denies chest pain or pressure. He denies shortness of breath. His chest tubes have be en discontinued. He is maintaining sinus mechanism. Vital signs are stable. PHYSICAL EXAM: VITAL SIGNS: Reviewed. GENERAL: Well-developed in no acute distress. NECK: Supple. No JVD or thyromegaly LUNGS: Respirations even and unlabored. Lungs essentially clear to auscultation bilaterally. HEART: Regular rate and rhythm. S1 and S2 heard. EXTREMITIES: Normal range of motion. No clubbing or cyanosis. Peripheral pulses intact. No lower extremity edema ASSESSMENT: Non-STEMI Coronary artery disease, status post two-vessel CABG Severe aortic stenosis, status post aortic valve replacement History of CAD with previous PCI Hypertension Hyperlipidemia Diabetes Former nicotine dependence Occasional marijuana use PLAN: Continue postoperative management per CT surgery Increase activity as tolerated Encourage use of incentive spirometer Continue current cardiac medications Stable for discharge from a cardiac standpoint Further recommendations pending patient course Nurse practitioner note has been reviewed by physician. Signing provider agrees with the documented findings, assessment, and plan of care documented by HANDICAPPED TEACHER as a scribe. Objective - Vital Signs Vital signs: Vital Signs Temp 97.9 F 11/30/24 04:53 Pulse 89 11/30/24 08:16 Resp 16 11/30/24 08:16 BP 128/70 11/30/24 08:16 Pulse Ox 97 11/30/24 08:16 FiO2 50 11/26/24 17:19 Intake & Output 11/29/24 11/30/24 11/30/24 18:59 06:59 18:59 Intake Total 1030 540 240 Output Total 800 425 Balance 230 540 -185 Weight 116.5 kg Intake: IV 10 Invasive Line 6 10 Oral 1020 540 240 Output: Chest Tube Drainage 0 Left Pleural Chest Tube 0 Urine 800 425 Other: Voiding Method Urinal Urinal # Voids 1 2 # Bowel Movements 1 1 ABP, PAP, CO, CI - Last Documented Arterial Blood Pressure 99/66 Pulmonary Artery Pressure 28/17 Cardiac Output 6.5 Cardiac Index 2.7 - Labs CBC & Chem 7: 11/30/24 09:37 11/30/24 09:37 Labs: Abnormal Lab Results - Last 24 Hours (Table) 11/29/24 11/29/24 11/29/24 Range/Units 11:28 16:46 20:36 RBC (4.40-5.60) 10*6/uL Hgb (13.0-17.0) g/dL Hct (39.6-50.0) % Sodium (137-145) mmol/L BUN (9-20) mg/dL Glucose (74-99) mg/dL POC Glucose (mg/dL) 148 H 122 H 139 H (70-110) mg/dL 11/30/24 11/30/24 11/30/24 Range/Units 06:02 09:37 09:37 RBC 2.93 L (4.40-5.60) 10*6/uL Hgb 9.2 L (13.0-17.0) g/dL Hct 27.2 L (39.6-50.0) % Sodium 132 L (137-145) mmol/L BUN 23 H (9-20) mg/dL Glucose 105 H (74-99) mg/dL POC Glucose (mg/dL) 118 H (70-110) mg/dL
[2024-11-30 11:27] LABS: Glucose,Whole Blood 82 mg/dL (70-110)
[2024-11-30] MEDS: FUROSEMIDE 40 MG TAB PO SCH (13:25)
--- NOTE | 2024-11-30 13:38 | P.PN ---
Subjective Progress Note Date: 11/30/24 H&P Date: 11/21/24 Chief Complaint: Chest pain This is a 69-year-old gentleman with past medical history significant for moderate to severe aortic valve stenosis-follows with Dr. DOROTEO Paredes,CAD with PCI of RCA, hypertension, hyperlipidemia , obesity ,diabetes mellitus, prostate cancer-status post radiation treatment, former nicotine dependence, marijuana u se, alcohol use-5 beers per week, and multiple other medical issues presented to the ER with progressive chest pain, chest pressure and shortness of breath. Reports he has been having intermittent episodes of chest pain for more a few weeks. Previous episodes spontaneously relieved with rest. Yesterday he presented to the ER as chest pain continued to recur throughout the day. EKG reported sinus bradycardia with first-degree AV block, troponins 0.409 1.8 3.37. proBNP 150. D-dimer 0.41. Afebrile, normal WBC, hemoglobin 13.3, platelets 190, sodium 136, potassium 3.6, bicarb 21, BUN 18, creatinine 0.86 glucose 121, hemoglobin A1c 6.3., Magnesium 1.9, AST 156, ALT 52. Hepatitis serology nonreactive. UA reported 4+ glucose, 1+ ketones trace blood negative nitrates negative leukocytes rare bacteria. chest x-ray reported small amount linear scarring atelectasis in the left lung base .evaluated by cardiology, underwent cardiac catheterization. Cardiac catheterization reported total occlusion of RCA with good collaterals from the left, LAD mid lesion of 70%, circumflex nondominant with no significant disease. echo pending. CTS consulted for further evaluation/ recommendation. 11/22/2024 Echo reported normal LV function, mild mitral regurgitation, severe aortic stenosis .evaluated by CTS regarding CABG and AVR, surgery date pending. Patient continues to have ongoing midsternal chest pressure/chest burning. Maintained on heparin drip. Continues on IV fluid hydration, statin, beta- aaron, aspirin, Farxiga, losartan with Nitropaste added to med regimen. Blood sugars controlled. 11/23/2024 scheduled for CABG/AVR on 11/27/2019. Maintained on heparin drip. Telemetry sinus rhythm Nitropaste initiated yesterday , reports chest pressure/burning during the night. Soft blood pressures in the information and referral director hours, Nitropaste has been discontinued. currently denies chest pain, palpitations or shortness of breath. Blood sugars controlled. 11/27/2024 status post CABG x 2 NUNEZ to the LAD and reverse saphenous vein graft to PDA with bioprosthetic AVR, postop day #1. Extubated last night, maintaining O2 sats in the high 90s on 2 L nasal cannula. Telemetry sinus rhythm currently maintained on insulin and amiodarone drips... nitroglycerin drip weaned off. 11/28/2024 sitting up in recliner, incentive spirometer 1500, maintaining O2 sats in the 90s on room air. Chest x-ray reporting mild pulmonary vascular congestion and patchy retrocardiac atelectasis remains.telemetry- sinus rhythm .pain controlled. Ambulated in hallway this morning, tolerated exertion well. Hemoglobin 8.4. Currently on insulin drip, blood sugars controlled. 11/29/2024 no overnight events, pain controlled. Denies chest pain, palpitations or shortness of breath. Chest x-ray reporting similar residual mild pulmonary vascular congestion, left chest tube in place. Obliquely oriented band of atelectasis at right base. maintaining O2 sats in the high 90s on room air. Hemoglobin 9, platelets 182, bicarb 25, BUN 23, creatinine 0.86.Hypertensive, med adjustments noted as per CTS. telemetry sinus rhythm. ambulatory, tolerating exertion well. Blood sugars in the 180s earlier this morning, only down to 148. maintained on Flomax, postvoid residual of 150 per recent bladder scan. 11/30/2024 reports uneventful night. Telemetry sinus rhythm, vital signs stable. Consuming 50 to 75% of meals , denies nausea vomiting or diarrhea. Denies abdominal pain. Blood sugars controlled. Pain controlled. Denies chest pain, palpitations or shortness of breath. Incentive spirometer up to 1999. maintaining O2 sats in the high 90s on room air. Chest x-ray reporting improving aeration of the left base with residual patchy atelectasis, improving residual mild pulmonary vascular congestion. Ambulating, tolerating exertion well. Denies lightheadedness dizziness or focal deficits. Objective - Vital Signs Vital signs: Vital Signs Temp 97.9 F 11/30/24 04:53 Pulse 89 11/30/24 08:16 Resp 16 11/30/24 08:16 BP 128/70 11/30/24 08:16 Pulse Ox 97 11/30/24 08:16 FiO2 50 11/26/24 17:19 Intake & Output 11/29/24 11/30/24 11/30/24 18:59 06:59 18:59 Intake Total 1030 540 240 Output Total 800 425 Balance 230 540 -185 Weight 116.5 kg Intake: IV 10 Invasive Line 6 10 Oral 1020 540 240 Output: Chest Tube Drainage 0 Left Pleural Chest Tube 0 Urine 800 425 Other: Voiding Method Urinal Urinal # Voids 1 2 # Bowel Movements 1 1 ABP, PAP, CO, CI - Last Documented Arterial Blood Pressure 99/66 Pulmonary Artery Pressure 28/17 Cardiac Output 6.5 Cardiac Index 2.7 - Exam PHYSICAL EXAM: VITAL SIGNS: Reviewed GENERAL: Sitting up in chair, alert and oriented x 3,NAD HEENT: Atraumatic, normocephalic conjunctivae normal. eyes normal.mmm. NECK: Supple, no JVD. CARDIOVASCULAR: S1, S2 regular.no murmur. RESPIRATION: Unlabored, equal air entry, essentially CTA with bilateral bases diminished. ABDOMEN: Soft, nondistended, nontender. Positive bowel sounds. LEGS: No edema. no calf tenderness, peripheral pulses intact. NERVOUS SYSTEM: Cranial N 2-12 grossly normal. No focal deficits. Strength and sensation grossly intact. Skin: Warm and dry, no rash - Labs CBC & Chem 7: 11/30/24 09:37 11/30/24 09:37 Labs: Abnormal Lab Results - Last 24 Hours (Table) 11/29/24 11/29/24 11/30/24 Range/Units 16:46 20:36 06:02 RBC (4.40-5.60) 10*6/uL Hgb (13.0-17.0) g/dL Hct (39.6-50.0) % Sodium (137-145) mmol/L BUN (9-20) mg/dL Glucose (74-99) mg/dL POC Glucose (mg/dL) 122 H 139 H 118 H (70-110) mg/dL 11/30/24 11/30/24 Range/Units 09:37 09:37 RBC 2.93 L (4.40-5.60) 10*6/uL Hgb 9.2 L (13.0-17.0) g/dL Hct 27.2 L (39.6-50.0) % Sodium 132 L (137-145) mmol/L BUN 23 H (9-20) mg/dL Glucose 105 H (74-99) mg/dL POC Glucose (mg/dL) (70-110) mg/dL Assessment and Plan Assessment: Acute NSTEMI with multivessel disease, s/p CABG X2 and bioprosthetic AVR. CAD with prior PCI of RCA Severe aortic stenosis Hypertension Hyperlipidemia Diabetes mellitus, hemoglobin A1c 6.3 History of prostate cancer with radiation tx. Morbid obesity, BMI 31 Marijuana use Alcohol use Plan: Continue on current medication regimen ,monitoring and symptomatic treatment. Maximizing medical therapy. discharge planning in progress for today by CTS. Patient has been advised to continue using incentive spirometer as instructed. Increase ambulation as tolerated. Maintain tight glycemic control, resuming home regimen with close monitoring. Hemoglobin A1c 6.3. follow-up with primary, Dr. Sevilla in 1 week. The impression and plan of care has been dictated as directed. : I performed a history and examination of this patient, discussed the same with the dictator. I agree with the dictator's note ,documented as a scribe. Any additional findings or plans will be noted.
[2024-11-30 13:46] VITALS: BP 137/80; PULSE 84
--- NOTE | 2024-11-30 14:45 | P.DS ---
Providers Date of admission: 11/21/24 00:49 Expected date of discharge: 11/30/24 Attending physician: Anish Starks Consults: 11/21/24 00:47 Consult Physician Urgent Consulting Provider: Max Peng Consult Reason/Comments: NSTEMI Do you want consulting provider notified?: Yes 11/21/24 12:11 Consult Physician Urgent Consulting Provider: Anish Starks Consult Reason/Comments: aortic stenosis & RCA 100% with LAD 70% blockage. Do you want consulting provider notified?: Already Contacted 11/21/24 14:23 Consult to Anesthesia Routine Consulting Provider: Anesthesia,Services Consult Reason/Comments: Cardiac Surgery Pre-Op 11/22/24 09:21 Consult Physician Routine Consulting Provider: Ric Miller Consult Reason/Comments: preop CABG/AVR Do you want consulting provider notified?: Yes 11/26/24 13:29 Consult Physician Routine Consulting Provider: Artemio Sevilla Jr Consult Reason/Comments: Blood sugar management Do you want consulting provider notified?: Yes Primary care physician: Artemio Sevilla [facility] Course: FINAL DIAGNOSIS: Coronary artery disease, non-STEMI this admission Severe aortic valve stenosis Postoperative acute blood loss anemia, expected given hemodilution and cardiopulmonary bypass. History of known aortic valve stenosis followed by Dr. Paredes with serial echocardiograms Coronary artery disease with previous PCI to his right coronary artery in 2007 Hypertension Hyperlipidemia Obesity Diabetes mellitus type 2 preoperative hemoglobin A1c 6.3% Prostate cancer status post 3 months of radiation therapy Previous tobacco dependence with cessation 20 years ago, preoperative FEV1 73% of predicted Etoh use Occasional marijuana Family history of premature coronary artery disease PRINCIPAL PROCEDURE: Aortic valve replacement using a 25 mm Inspiris pericardial bioprosthesis Double vessel coronary bypass grafting using the in situ left intramammary artery to the left anterior descending artery, reverse saphenous vein graft from the aorta to the posterior descending artery Exclusion of the left atrial appendage using a 35mm AtriClip Intraoperative graft flow measurements using the [employer] system Endoscopic harvesting of the left greater saphenous vein Intraoperative transesophageal echocardiogram and epiaortic scanning. HISTORY OF PRESENT ILLNESS: This is a 69-year-old gentleman who follows outpatient with Dr. Sevilla for primary care and with Dr. DOROTEO Paredes for cardiology. He presented to the emergency department here at [facility] November 20 2024 with complaints of progressive chest pain which had been ongoing since the end of October, usually relieved by rest. He denied any other symptomatology. His troponins were elevated and he was ruled in for non-STEMI. EKG was completed which showed sinus bradycardia with a first-degree block. He was admitted for evaluation and treatment with consultation placed to cardiology. Recommendations were made for heart catheterization which revealed 35% stenosis to his circumflex coronary artery, 70% stenosis to his mid left anterior descending coronary artery, and a totally occluded right coronary artery, as well as severe aortic valve stenosis. Transthoracic echocardiogram was also completed demonstrating normal left ventricular systolic function with EF 55 to 60%, severe aortic valve stenosis with peak velocity 4.04 m/s, peak/mean gradient 65/40 mmHg, valve area 0.6 cm, and mild mitral and tricuspid regurgitation. Consultation was placed to cardiothoracic surgery for treatment recommendations. He was seen by Dr. Cruz and recommended to undergo coronary artery bypass surgery along with aortic valve replacement. The usual perioperative course was discussed in detail with the patient and his family, all risks and benefits were explained, all questions were answered, and consent was obtained to proceed with surgery. The patient was kept inpatient due to the nature of his disease process and was scheduled for surgery after obtaining dental clearance. HOSPITAL COURSE: The patient was brought to the preoperative area 11/26/24, prepared in the usual fashion, and subsequently taken to the operating room where Dr. Starks performed aortic valve replacement along with two-vessel coronary artery bypass surgery. Upon completion of surgery the patient was transferred to the cardiovascular intensive care unit where he was recovered and monitored hemodynamically. He was extubated, all lines, tubes, and drips were discontinued when appropriate, and he was transferred to [facility] cardiac stepdown unit for further monitoring and rehabilitation. His oxygen was titrated down, he continued to work with physical and occupational therapy, he was tolerating oral diet, his pain was controlled, and he was ready to be discharged to home with [facility] on postoperative day #4. He received written and verbal instruction regarding his medications, activity restrictions, signs and symptoms requiring physician notification, and follow-up appointments. Patient Condition at Discharge: Stable Plan - Discharge Summary Discharge Rx Participant: Yes New Discharge Prescriptions: New Aspirin 325 mg PO DAILY #30 tab Amiodarone [Cordarone] 400 mg PO BID #35 tab Losartan [Cozaar] 12.5 mg PO DAILY@1200 #30 tab Tamsulosin [Flomax] 0.4 mg PO PC-BRKFST #30 cap Potassium Chloride ER [K-Dur 10] 10 meq PO DAILY #14 tab Metoprolol Tartrate [Lopressor] 25 mg PO BID #60 tab Clopidogrel [Plavix] 75 mg PO DAILY #30 tab Sennosides-Docusate Sodium [Senokot-S] 2 each PO HS PRN tab PRN Reason: Constipation Furosemide [Lasix] 40 mg PO DAILY #14 tab Pantoprazole [Protonix] 40 mg PO AC-BRKFST #30 tab Acetaminophen Tab [Tylenol] 1,000 mg PO Q6HR PRN tab PRN Reason: Fever And/ Or Mild Pain (1-3) Continue Atorvastatin [Lipitor] 40 mg PO DAILY metFORMIN HCL 1,000 mg PO DAILY Imiquimod [Aldara] 1 packet TOPICAL MOTUWETHFR PRN PRN Reason: SCALP ISSUES Empagliflozin [Jardiance] 10 mg PO DAILY Discontinued Losartan/Hydrochlorothiazide [Losartan-Hctz 100-12.5 mg Tab] 1 tab PO DAILY Metoprolol Tartrate [Lopressor] 50 mg PO BID Discharge Medication List Atorvastatin [Lipitor] 40 mg PO DAILY 11/21/24 [History] Empagliflozin [Jardiance] 10 mg PO DAILY 11/21/24 [History] Imiquimod [Aldara] 1 packet TOPICAL MOTUWETHFR PRN 11/21/24 [History] metFORMIN HCL 1,000 mg PO DAILY 11/21/24 [History] Acetaminophen Tab [Tylenol] 1,000 mg PO Q6HR PRN tab 11/30/24 [Rx] Amiodarone [Cordarone] 400 mg PO BID #35 tab 11/30/24 [Rx] Aspirin 325 mg PO DAILY #30 tab 11/30/24 [Rx] Clopidogrel [Plavix] 75 mg PO DAILY #30 tab 11/30/24 [Rx] Furosemide [Lasix] 40 mg PO DAILY #14 tab 11/30/24 [Rx] Losartan [Cozaar] 12.5 mg PO DAILY@1200 #30 tab 11/30/24 [Rx] Metoprolol Tartrate [Lopressor] 25 mg PO BID #60 tab 11/30/24 [Rx] Pantoprazole [Protonix] 40 mg PO AC-BRKFST #30 tab 11/30/24 [Rx] Potassium Chloride ER [K-Dur 10] 10 meq PO DAILY #14 tab 11/30/24 [Rx] Sennosides-Docusate Sodium [Senokot-S] 2 each PO HS PRN tab 11/30/24 [Rx] Tamsulosin [Flomax] 0.4 mg PO PC-BRKFST #30 cap 11/30/24 [Rx] Follow up Appointment(s)/Referral(s): Thao Montanez, NPC [Nurse Practitioner] - 12/06/24 (Please come to the surgery office after your appointment with Dr. Sevilla. You will be seen in the surgeon's office behind the hospital in [facility], [address] Office phone number is ) Rehab Pinky GARCIA,Cardiac [NON-STAFF] - 4 Weeks (You will receive a phone call in approximately 4-6 weeks for evaluation for cardiac rehab) Nava Luna,Home Care [NON-STAFF] - 1-2 Days (You should be seen by home care registered nurse the day after discharge, then 2-3 times per week until you start cardiac rehab. Physical and occupational therapy should visit at least once, may continue to visit if needed) Anish Starks MD [STAFF PHYSICIAN] - 12/21/24 10:00 am Artemio Sevilla Jr, DO [Primary Care Provider] - 12/06/24 10:45 am (Appointment is with DEMETRIS Pinto) Eddy Garcia DO [STAFF PHYSICIAN] - 12/06/24 9:00 am Ric Miller DO [Doctor of Osteopathic Medicine] - 12/20/24 1:15 pm Ambulatory/Diagnostic Orders: Complete Blood Count w/diff [LAB.AMB] Time Frame: 3 Days, Location: None Selected Comprehensive Metabolic Panel [LAB.AMB] Time Frame: 3 Days, Location: None Selected Activity/Diet/Wound Care/Special Instructions: DISCHARGE INSTRUCTIONS: 1. No driving for 4 weeks, or until physician gives their ok. 2. The patient should sleep in their own bed, no medical bed needed. 3. Stairs are not an issue. If the bedroom is upstairs, it is advised that the patient go up at night and down in the morning for the first week. Go slowly, using handrail and take 1 step at a time. 4. CORNELL hose are to be worn for 30 days post surgery or until physician discontinues. 5. Heart hugger is to be worn 100% of the time until physician discontinues.(except when showering) 6. No lifting, pushing, or pulling more than 10 pounds for 12 weeks. The physician will advise of any restriction changes. 7. The patient is expected to continue the prescribed walking program. 8. Continue pain control per as needed orders. 9. Continue with incentive spirometry and splinting/heart hugger until otherwise directed by the physician. 10. Must shower daily using liquid antibacterial soap 11. Routine sternal incision care. No powders, lotions, ointments on incisions. No dressings are necessary on incisions unless they are draining. Dermabond tape is to remain on sternal incision until surgeon follow-up. 12. Please call surgeon/[facility] for temp greater than 101 F or purulent drainage from incisions. 13. You should weigh yourself daily, record and bring log with you to follow up appointments. 14. All prescriptions given by surgeon for 30 days. Refills need to be filled through shear operator helper/primary care physician. 15. A Red armband has been placed on the patient. It should be worn for 30 days post discharge from surgery and will be removed by the cardiac surgeons. If an ER visit is necessary, please make sure the number on the Red armband is called before going to ER. 16. You have been referred to and are expected to begin Cardiac Rehab in approximately 4-6 weeks. 17. Quitting smoking is the most important step you can take to improve your health. For additional information and assistance to quit smoking, please call the [place] tobacco quit line (3-843-CMAZ-NOW/ ) or online: [email or web address] it-[email or web address] HOME HEALTH SERVICES TO PROVIDE: RN SKILLED HOME CARE SERVICES FOR POST-OP SURGICAL PATIENTS WITH THE FOLLOWING: Coronary Artery Bypass Surgery (CABG), Mitral Valve Replacement/Repair ( MVR), Aortic Valve Replacement/Repair (AVR) RN TO CONTINUE EDUCATION FROM ``ROAD TO A HEALTH HEART PATIENT EDUCATION MANUAL (GIVEN TO PATIENT IN THE HOSPITAL) MEDICATION RECONCILIATION WITH EDUCATION NEEDED ON FIRST HOME VISIT EMPHASIZE IMPORTANCE OF WEARING BREAST SUPPORT/HEART HUGGER ENCOURAGE USE OF INCENTIVE SPIROMETER 10 X EVERY HOUR WHILE AWAKE ENCOURAGE UTILIZATION OF LOWER EXTREMITY COMPRESSION STOCKINGS/CORNELL HOSE and ELEVATE LEGS ABOVE LEVEL OF HEART WHILE AT REST. ENCOURAGE AMBULATION 3-5x/day INCREASING TOLERATES, WHILE AVOIDING EXTREMES IN TEMPERATURE FREQUENCY: RN TO OPEN THE PATIENT WITHIN 24 HOURS OF DISCHARGE FROM THE HOSPITAL WITH TELEHEALTH INSTALLED AT [facility], RN TO VISIT 2-3 X A WEEK FOR 4 WEEKS ESTABLISHED BY PATIENT NEEDS. LABORATORY: CBC, CMP TO BE DRAWN ON THE THIRD DAY HOME, (RAN STAT) FAX RESULTS TO [phone]. TELEHEALTH PARAMETERS: WEIGHT: NOTIFY MD OF WEIGHT GAIN OF 2 LBS IN 24 HOURS OR 5 LBS IN ONE WEEK HR: NOTIFY MD OF HR <55 BPM OR HR>100 BPM BP: NOTIFY MD IF BP <90/55 OR BP>140/100 O2 SAT: NOTIFY MD IF PO2<93% ON ROOM AIR SEND TELEHEALTH REPORT TO TIRE REPAIRER AND CARDIOVASCULAR SURGEON THE FIRST WEEK OF CARE AND THEN BI-WEEKLY. PLEASE ADDITIONALLY COMMUNICATE ANY ABNORMALS AND NEW FINDINGS TO THE SURGEONS OFFICE. Discharge Disposition: HOME WITH HOME HEALTH SERVICES
--- NOTE | 2024-11-30 18:53 | P.PN ---
Subjective Progress Note Date: 11/30/24 On 11/26/2024, the patient is being seen immediately after arriving to the intensive care unit. The patient underwent aortic valve replacement/tissue valve and double vessel bypass surgery with NUNEZ to LAD and reverse saphenous vein graft from aorta to PDA. The patient is currently postop day #0. [place] on mechanical ventilator. The patient is currently sedated on propofol and the patient is currently on assist-control mode of mechanical ventilation at rate of 14, tidal volume of 600, FiO2 of 60% with a PEEP of 8. Blood gas showed a pH of 7.4 with a PCO2 of 37 and PO2 of 217. Chest x-ray done postop shows adequate expansion of both lungs. Small left pleural effusion. Atelectasis changes left lung base. Lines and tubes are all in good location. No other acute abnormalities have been noted. The patient has a mediastinal and left pleural chest tube output is minimal and there is no evidence of any air leak. Hemodynamically, the patient's cardiac output is at 7.9 with an index of 3.1. SVR is at 723. PA pressures are 27/18. The patient is currently in normal sinus rhythm. Amiodarone is running at 1 mg/min and the patient is also on nitroglycerin drip at 5 mg/min. The WBC count is at 4.5, hemoglobin is at 8.8 and a platelet count of 103. The sodium is at 140, potassium is at 4, BUN is at 8 with a creatinine of 0.6. LFTs are within normal limits. Urine output is adequate. No other significant events postop. On 11/27/2024, the patient is being seen for a follow-up. The patient is awake and alert and sitting up in a chair and the patient is calm and comfortable. D enies having any significant respiratory distress. The patient is postop day #1 following aortic valve placement and two-vessel bypass surgery. The patient is currently on 3 Suboxone by nasal cannula. Incentive spirometer the patient pulling approximately 1000 cc on his I-S. Cardiac rhythm is sinus. Humble-Ankit catheter has been removed. Earlier, the cardiac output was at 6.7 with a index of 2.7 and the patient is off nitroglycerin drip. He remains on amiodarone drip at 0.5 mg/min. Chest tubes are in place and the chest x-ray shows no evidence of any pneumothorax. Output is serosanguineous and the mediastinal chest tube has drained around 320 cc since surgery and the left pleural chest tube has drained around 550 cc since surgery. The patient is awake and alert and communicating. Denies having any other specific complaints. The white cell count is at 7.6 with a hemoglobin 9.5 and a platelet count of 147. Electrolytes are all within normal limits. BUN is at 10 with a creatinine of 0.7. Blood sugars at 146 and the patient remains on insulin drip running at 5 units an hour. On today's evaluation of 11/28/2024, the patient is being seen for a follow-up. The patient is doing extremely well. The patient is currently on room air oxygen. The mediastinal chest tube has been removed and the patient continues to have a left pleural chest tube. This will be kept for another 24 hours. Meanwhile, the patient's cardiac rhythm remains sinus. The patient is sitting up in a chair and the patient is calm and comfortable. No significant respiratory distress. Humble-Ankit catheter has been removed. The patient is currently on a combination of aspirin and Plavix. The patient is also on metoprolol 25 mg p.o. twice daily. Remains on insulin drip which is running at 7 units an hour. Repeat chest x-ray from today shows no evidence of pneumothorax. Some postsurgical atelectatic change in lung base bilaterally. No other significant events otherwise. Awake alert and communicating. The patient is also ambulating. On 11/29/2024, the patient is currently on the telemetry unit. The patient is doing extremely well. . The patient is currently on room air oxygen. Hemo dynamically stable. Denies having any specific complaints. Left-sided chest tube is still in place and a total amount of output has been in the order of 100 cc over the past 24 hours. APAP cardiac pacemaker wires are grounded. The patient otherwise is doing well. His cardiac rhythm is sinus. He is on beta- blockers and the patient is currently on metoprolol 25 mg p.o. twice a day. He is also on Cozaar and amiodarone for A-fib prophylaxis. The patient was also started on Flomax for some urinary retention. The left-sided chest tube is to be discontinued today. The white cell count is 8.7, hemoglobin is 9 and the platelet count of 182. Electrolytes are all normal, BUN 23 and creatinine 0.8. Follow-up chest x-ray from today shows some atelectatic changes in the right lung base and possibly some in the left lung base and mild pulm vascular congestion is also noted. The patient denies having any other specific complaints. Tolerating diet. No nausea. No emesis. No focal neurological deficits. On 11/30/2024, the patient is on room air oxygen. Cardiac rhythm is sinus. Chest x-ray shows some atelectatic change in the right lung base. Using incentive spirometer. Hemodynamically stable. No specific complaints. Hemoglobin is at 9.2. BUN is 23 with a creatinine of 0.9. Sodium is at 132. The patient is to be discharged home today. The patient will be given aspirin and Plavix. The patient will also receive metoprolol 25 mg p.o. twice daily, Cozaar 12.5 mg p.o. daily and amiodarone 4 mg p.o. twice daily for A-fib prophylaxis. Remains on Lipitor 40 mg p.o. daily. Continue Jardiance 10 mg p.o. daily metformin 1 g daily and Flomax. He is ambulating. Surgical wound site is dry clean and intact. No new complaints otherwise for now. Objective - Vital Signs Vital signs: Vital Signs Temp 97.9 F 11/30/24 04:53 Pulse 89 11/30/24 08:16 Resp 16 11/30/24 08:16 BP 128/70 11/30/24 08:16 Pulse Ox 97 11/30/24 08:16 FiO2 50 11/26/24 17:19 Intake & Output 11/29/24 11/30/24 11/30/24 18:59 06:59 18:59 Intake Total 1030 540 240 Output Total 800 425 Balance 230 540 -185 Weight 116.5 kg Intake: IV 10 Invasive Line 6 10 Oral 1020 540 240 Output: Chest Tube Drainage 0 Left Pleural Chest Tube 0 Urine 800 425 Other: Voiding Method Urinal Urinal # Voids 1 2 # Bowel Movements 1 1 ABP, PAP, CO, CI - Last Documented Arterial Blood Pressure 99/66 Pulmonary Artery Pressure 28/17 Cardiac Output 6.5 Cardiac Index 2.7 - Exam CONSTITUTIONAL: Appears comfortable, cooperative, no acute distress RESPIRATORY: Lungs sounds diminished bilaterally. Respirations even, nonlabored. Currently on room air with oxygen saturation 97%. Able to achieve 1500 mL on incentive spirometry. Strong cough. CARDIOVASCULAR: S1, S2 present. Regular rate and rhythm, sinus rhythm on telemetry. Sternum stable. Palpable peripheral pulses bilaterally. Trace generalized edema present. No calf pain or tenderness noted. Heart hugger in place with patient demonstrating appropriate use. Antiembolism stockings, SCDs present. GASTROINTESTINAL: Abdomen soft, nontender, nondistended. Active bowel sounds present 4 quadrants. Tolerating diet. Positive flatus INTEGUMENTARY: Skin is warm and dry with evidence of good perfusion. Anterior chest incision well approximated and covered with dry intact dressing. NEUROLOGIC: Cranial nerves II through XII intact MUSKULOSKELETAL: Able to move all extremities, strength equal bilaterally, gait normal PSYCHIATRIC: Alert and oriented to person place and time, appropriate affect, intact judgment and insight - Labs CBC & Chem 7: 11/30/24 09:37 11/30/24 09:37 Labs: Abnormal Lab Results - Last 24 Hours (Table) 11/29/24 11/29/24 11/30/24 Range/Units 16:46 20:36 06:02 RBC (4.40-5.60) 10*6/uL Hgb (13.0-17.0) g/dL Hct (39.6-50.0) % Sodium (137-145) mmol/L BUN (9-20) mg/dL Glucose (74-99) mg/dL POC Glucose (mg/dL) 122 H 139 H 118 H (70-110) mg/dL 11/30/24 11/30/24 Range/Units 09:37 09:37 RBC 2.93 L (4.40-5.60) 10*6/uL Hgb 9.2 L (13.0-17.0) g/dL Hct 27.2 L (39.6-50.0) % Sodium 132 L (137-145) mmol/L BUN 23 H (9-20) mg/dL Glucose 105 H (74-99) mg/dL POC Glucose (mg/dL) (70-110) mg/dL Assessment and Plan Plan: Aortic valve replacement/Inspiris pericardial bioprosthesis in addition to double vessel coronary bypass surgery with NUNEZ to LAD and reverse saphenous vein graft to PDA. Postop day # 4 Postthoracotomy, the patient was weaned off the mechanical ventilator and the patient was extubated and the patient is currently on room air oxygen, the chest x-ray showed no evidence of pneumothorax and the left lower chest tube is to be removed today. Continues to have some atelectatic changes lung bases bilaterally Severe aortic stenosis, post aortic valve replacement Coronary artery disease post non-ST segment elevation myocardial infarction., Post two-vessel bypass surgery. Hypertension Hyperlipidemia Diabetes mellitus Obesity with a BMI of 30.9 History of prostate cancer status post radiation therapy Previous smoker quit smoking 20 years ago Alcohol use, 5 beers a week and weekend marijuana user Umbilical hernia Plan Patient is currently on room air oxygen Hemodynamically stable. Continue oral amiodarone 400 mg p.o. twice daily, current cardiac rhythm is sinus Continues incentive spirometer Chest tubes have been removed Continue aspirin and Plavix Metoprolol 25 mg p.o. twice a day Cozaar 12.5 mg p.o. daily Lipitor 40 mg p.o. daily Metformin and Jardiance to be resumed on outpatient basis Flomax was added for urinary retention Home today.
--- NOTE | 2024-12-04 13:34 | CDI ---
Documentation Clarification Form Date: 12/04/2024 01:07:22 PM From: Usha Gonsalez Phone: Admit Date: 11/21/2024 12:49:00 AM Patient Name: Williams Larson Visit Number: [id number] Discharge Date: 11/30/2024 04:54:00 PM ATTENTION: The Clinical Documentation Specialists (CDI) and [facility] Coding Staff appreciate your assistance in clarifying documentation. Please respond to the clarification below the line at the bottom and electronically sign. The CDI & [facility] Coding staff will review the response and follow-up if needed. Please note: Queries are made part of the Legal Health Record. If you have any questions, please contact the author of this message via ITS. 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 Additional specificity regarding the diabetes diagnosis is requested. History/Risk Factors: 69yo M, NSTEMI sp CABG x2, CAD w stent, , MR & TR, ABLA, HTN, mixed HLD, obesity, DMII, Hx prostate cancerwradiation, former smoker, etoh use, occasional marijuana, FHx CAD Clinical Indicators: A1C: 6.3 B/17 155 11/21 121-155 11/23 135 11/24 114 11/25 101 11/26 102 11/27 117 11/28 128 11/29 181 11/30 105 UA reported 4+ glucose, 1+ ketones trace blood negative nitrates GFR: 11/20 66/77 11/21 89/>90 11/24 82/>90 11/25 87/>90 Treatment: he remains on insulin sliding scale for aggressive control of hisdiabetes. Please clarify the complication(s), if known: [ ] Peripheral Vascular Disease [ ] Hyperglycemia [ X ] Other, please specify Diabetes with other circulatory complications his coronary artery disease diabetes with other specified complications is hyperlipidemia [ ] Unable to Determine (Template Last Revised: August 2020) MTDD
== END 2024-11-30 16:54 | disposition home health service (06) | DRG 217 ==
LOC: EC 22:25 → 3SCARD 11-21 00:49 → 2SICU 11-26 06:17 → 3SCARD 11-28 16:55
PROVIDERS: ADMIT Surgery; ATTEND Surgery
PROC: 4A023N7 Measurement of Cardiac Sampling and Pressure, Left Heart, Percutaneous Approach (ICD-10-PCS; 2024-11-21)
PROC: B2111ZZ Fluoroscopy of Multiple Coronary Arteries using Low Osmolar Contrast (ICD-10-PCS; 2024-11-21)
PROC: 06BQ4ZZ Excision of Left Saphenous Vein, Percutaneous Endoscopic Approach (ICD-10-PCS; 2024-11-26)
PROC: 02L70CK Occlusion of Left Atrial Appendage with Extraluminal Device, Open Approach (ICD-10-PCS; 2024-11-26)
PROC: 5A1221Z Performance of Cardiac Output, Continuous (ICD-10-PCS; 2024-11-26)
PROC: 4A0305C Measurement of Arterial Flow, Coronary, Open Approach (ICD-10-PCS; 2024-11-26)
PROC: B24BZZ4 Ultrasonography of Heart with Aorta, Transesophageal (ICD-10-PCS; 2024-11-26)
PROC: 02RF08Z Replacement of Aortic Valve with Zooplastic Tissue, Open Approach (ICD-10-PCS; principal; 2024-11-26 08:00)
PROC: 02100Z9 Bypass Coronary Artery, One Artery from Left Internal Mammary, Open Approach (ICD-10-PCS; 2024-11-26 08:00)
PROC: 021009W Bypass Coronary Artery, One Artery from Aorta with Autologous Venous Tissue, Open Approach (ICD-10-PCS; 2024-11-26 08:00)
DX: I21.4 Non-ST elevation (NSTEMI) myocardial infarction (principal); Z00.6 Encounter for examination for normal comparison and control in clinical research program; D62 Acute posthemorrhagic anemia; E66.01 Morbid (severe) obesity due to excess calories; E11.59 Type 2 diabetes mellitus with other circulatory complications; I10 Essential (primary) hypertension; I08.3 Combined rheumatic disorders of mitral, aortic and tricuspid valves; E11.69 Type 2 diabetes mellitus with other specified complication; Z68.31 Body mass index [BMI] 31.0-31.9, adult; I25.10 Atherosclerotic heart disease of native coronary artery without angina pectoris; E78.2 Mixed hyperlipidemia; F10.90 Alcohol use, unspecified, uncomplicated; R33.9 Retention of urine, unspecified; I44.0 Atrioventricular block, first degree; K42.9 Umbilical hernia without obstruction or gangrene; Z79.84 Long term (current) use of oral hypoglycemic drugs; Z82.49 Family history of ischemic heart disease and other diseases of the circulatory system; Z85.46 Personal history of malignant neoplasm of prostate; Z92.3 Personal history of irradiation; Z95.0 Presence of cardiac pacemaker; Z95.5 Presence of coronary angioplasty implant and graft; Z87.891 Personal history of nicotine dependence; Z89.421 Acquired absence of other right toe(s); Z79.899 Other long term (current) drug therapy
CPT/HCPCS: 36415; 71045; 71046; 71250; 80048; 80053; 80061; 80074; 81001; 82330; 82805; 83036; 83735; 83880; 84443; 84484; 85025; 85027; 85379; 85610; 85730; 86850; 86891; 86900; 86901; 86920; 87070; 88305; 88311; 93005; 93306; 93454; 93880; 93970; 94002; 94150; 94640; 94760; 96361; 96365; 96366; 99291